=== PATIENT | female | born 1950 | race Caucasian/White ===

== ENCOUNTER → 2016-05-31 | Outpatient (CLI) | payer OTHER ==
[~2016-05-31] MED LIST: ASPI81TA28 PO; ERGO500037 PO; INDSR80 PO; INSDGI SC; IPRA1AER2 INH; LEVO125T72 PO; LISI20TA3 PO; NVLGI/PEN SC; POTA20TA16 PO; SERT-234 PO; SIMV80TA5 PO
[2016-05-31 17:33] LABS: MEAN CELL VOLUME 94.9 fL (80-100); MEAN CORPUSCULAR HGB CONC 32.7 g/dl (32-36); MEAN PLATELET VOLUME 10.8 fL (7.4-10.4); PLATELET COUNT 219 K/uL (130-400); RED BLOOD COUNT 4.74 M/uL (4.2-5.4); WHITE BLOOD COUNT 11.58 K/uL (4.8-10.8)
[2016-05-31 17:44] LABS: BLOOD UREA NITROGEN 25 mg/dl (7-18); BUN/CREATININE RATIO 16.3 (10-20); CALCIUM 9.5 mg/dl (8.5-10.1); CARBON DIOXIDE 22 mmol/L (21-32); CHLORIDE 104 mmol/L (98-107); GLUCOSE 126 mg/dl (70-99); PHOSPHORUS 4.2 mg/dl (2.5-4.9); POTASSIUM 4.1 mmol/L (3.5-5.1); SODIUM 137 mmol/L (136-145)
[2016-05-31 17:45] LABS: URINE PROTIEN/CREAT RATIO 0.2 (0-0.2); URINE TOTAL PROTEIN 30.4 mg/dl (0-11.9)
[2016-05-31 17:49] LABS: URINE APPEARANCE CLOUDY (CLEAR); URINE BILIRUBIN NEG (NEG); URINE COLOR YELLOW; URINE EPITHELIAL CELL AUTO >30 /lpf (0-5); URINE NITRITE NEG (NEG); URINE SPECIFIC GRAVITY 1.015 (1.000-1.030); UROBILINOGEN NEG (NEG)
[2016-05-31 17:50] LABS: MANUAL MICROSCOPIC REQUIRED? NO; REVIEW REQ? NO
== END | disposition home or self-care (01) ==
LOC: C.LABBFT 11:33
PROVIDERS: ATTEND Internal Medicine Nephrology
DX: I12.9 Hypertensive chronic kidney disease with stage 1 through stage 4 chronic kidney disease, or unspecified chronic kidney disease (principal); N18.3 Chronic kidney disease, stage 3 (moderate); R80.9 Proteinuria, unspecified; E55.9 Vitamin D deficiency, unspecified

== ENCOUNTER → 2016-06-08 | Outpatient (CLI) | payer OTHER ==
--- NOTE | 2016-06-08 14:12 | DIAGNOSTIC IMAGING REPORT ---
BILATERAL CAROTID DOPPLER STUDY HISTORY: Renal insufficiency CHRONIC KIDNEY DISEASE; HYPERTENSION; PROTEINURIA; COMPARISON: None. TECHNIQUE: Real-time, grayscale, and color Doppler sonography of the carotid arteries was performed. Imaging reviewed in the transverse and longitudinal planes. All measurements were calculated based on NASCET criteria. FINDINGS: Antegrade flow is seen in the bilateral vertebral arteries. The brachial pressures are hemodynamically similar. Mild plaque formation bilaterally The peak systolic velocity within the right ICA is 108. The right systolic ratio is 1.1. The peak systolic velocity within the left ICA is 169. The left systolic ratio is 1.7. IMPRESSION: 1. Mild/moderate plaque formation bilaterally. 2. 50-60% stenosis left internal carotid artery. Electronically signed by: Nikolai Collins M.D. 06/08/2016 2:10 PM Dictated Date/Time: 06/08/2016 2:09 PM
== END | disposition home or self-care (01) ==
LOC: C.ULTR 13:23
PROVIDERS: ATTEND Internal Medicine Nephrology
DX: E55.9 Vitamin D deficiency, unspecified (principal); I12.9 Hypertensive chronic kidney disease with stage 1 through stage 4 chronic kidney disease, or unspecified chronic kidney disease; N18.3 Chronic kidney disease, stage 3 (moderate); R80.9 Proteinuria, unspecified; I65.22 Occlusion and stenosis of left carotid artery

== ENCOUNTER → 2016-07-19 | Outpatient (CLI) | payer OTHER ==
[2016-07-19 17:56] LABS: ESTIMATED AVERAGE GLUCOSE 186 mg/dl; HA1C FLAG Normal (Normal)
[2016-07-19 18:14] LABS: ALB/GLOB RATIO 1.1 (0.9-2); ALKALINE PHOSPHATASE 146 U/L (45-117); ALT/SGPT 29 U/L (12-78); AST/SGOT 32 U/L (15-37); BLOOD UREA NITROGEN 15 mg/dl (7-18); BUN/CREATININE RATIO 11.5 (10-20); CALCIUM 9.6 mg/dl (8.5-10.1); CARBON DIOXIDE 24 mmol/L (21-32); CHLORIDE 106 mmol/L (98-107); CHOLESTEROL 120 mg/dl (0-200); CHOLESTEROL/HDL RATIO 3.4; GLUCOSE 138 mg/dl (70-99); HDL CHOLESTEROL 35 mg/dl; LDL CHOLESTEROL CALCULATED 35 mg/dl; POTASSIUM 4.1 mmol/L (3.5-5.1); SODIUM 140 mmol/L (136-145); TRIGLYCERIDES 249 mg/dl (0-150); VERY LOW DENSITY LIPOPROT CALC 50 mg/dl
== END | disposition home or self-care (01) ==
LOC: C.LABBFT 12:12
PROVIDERS: ATTEND Internal Medicine
DX: E11.29 Type 2 diabetes mellitus with other diabetic kidney complication (principal); Z11.59 Encounter for screening for other viral diseases

== ENCOUNTER → 2016-07-26 | Day surgery (SDC) | payer OTHER ==
[2016-07-15 12:10] VITALS: Ht 165.1 cm; Wt 83.2 kg
[~2016-07-26] VITALS: Ht 165.1 cm; Wt 83.2 kg
[~2016-07-26] MED LIST changes: +500ML BSS 0.3ML EPI 1:1000PF IRRIG ONE; +ACETAMINOPHEN 325 MG TAB PO PRN; +ALBUT/IPRATROP 3MG/0.5MG NEB 3 ML VIAL INH ONE; +ALBUT/IPRATROP 3MG/0.5MG NEB 3 ML VIAL ONE; +AMVISC PLUS 0.8ML SYRINGE INT OCU ONE; +ATROPINE SULFATE 0.1 MG/ML 5ML SYR IV PRN; +BSS FLUSH ONE; +EpHEDrine SULFATE INJ 50 MG/ML AMP IV PRN; +EpINEphrine INJ 1MG/ML AMP 1 MG/ML AMP ONE; +LACTATED RINGER'S 1000ML 500 ML IV SCH; +LIDOCAINE 3.5% OPH GEL PER APPLICATION CHARGE ONE; +LIDOCAINE HCL 1% MPF 2 ML VIAL ONE; +MIDAZOLAM HCL 1 MG/ML 2ML VIAL ONE; +OCUCOAT 1 ML SOLN IO ONE; +POVIDONE-IODINE OP SOLN 30 ML BTL ONE; +TOBRAMYCIN/DEXAMETHASONE OPH OINT PER APPLN CHARGE ONE
[2016-07-26] MEDS: PROPARACAINE 0.5% OP SOLN PER DROP CHARGE OPR SCH ×2 (07:24→09:30)
[2016-07-26] MEDS: PHENYLEPHRINE HCL 2.5% OP SOLN PER DROP CHARGE OPR SCH ×2 (07:25→09:36)
--- NOTE | 2016-07-26 07:39 | History & Physical Bridge - [place] ---
H&P Re-Evaluation Bridge Note: I have examined the patient, reviewed the History & Physical and in the interval since the performance of the History & Physical I have noted the following changes of clinical significance: No changes noted
[2016-07-26] MEDS: TROPICAMIDE 1% OP SOLN PER DROP CHARGE OPR SCH ×2 (09:31→09:37)
[2016-07-26] MEDS: CYCLOPENTOLATE HCL 1% OP SOLN PER DROP CHARGE OPR SCH ×2 (09:32→09:38)
[2016-07-26] MEDS: KETOROLAC 0.5% OP SOLN PER DROP CHARGE OPR SCH ×2 (09:34→09:39)
[2016-07-26] MEDS: GATIFLOXACIN OP SOLN PER DROP CHARGE OPR SCH ×2 (09:35→09:43)
[2016-07-26 10:49] VITALS: TEMP 36.6
--- NOTE | 2016-07-26 10:49 | Discharge Instructions-SurgCtr ---
Discharge Instructions Date of Service Jul 26, 2016. Visit Reason for Visit: Cataract Right Eye Discharge Discharge Diagnosis / Problem: cataract Discharge Goals Goal(s): Improve function Medications Stopped Medications Name(s): no insulin today Activity Recommendations Activity Limitations: per Instructions/Follow-up section Anesthesia . Post Anesthesia Instructions: If you have had General Anesthesia or IV Sedation: * Do not drive today. * Resume driving when surgeon permits. * Do not make important decisions or sign legal documents today. * Call surgeon for: 1. Temperature elevations greater than 101 degrees F. 2. Uncontrollable pain. 3. Excessive bleeding. 4. Persistent nausea and vomiting. 5. Medication intolerance (nausea, vomiting or rash). * For nausea and vomiting use only clear liquids such as: tea, soda, bouillon until nausea subsides, then gradually increase diet as tolerated. * If you have any concerns or questions, call your surgeon's office. If physician is unavailable and it is an emergency, call 911 or go to the nearest emergency room. . Instructions / Follow-Up Instructions / Follow-Up ACTIVITY RECOMMENDATIONS: * No strenuous lifting, jogging or running for 4 days * No swimming or yard work for 1 week. * Limited bending is permitted, such as putting on shoes. RETURN TO SCHOOL/WORK: No work until seen by physician in office. MEDICATIONS: Resume previous medications unless instructed otherwise by your surgeon. This includes eye drops for glaucoma. Zymaxid/Gatifloxacin (will cap) - one drop every 2 hours until bedtime Nevanac/Ilevro/Prolensa/Ketorolac (wallis cap) - one drop every 4 hours until bedtime Prednisolone (white/pink cap, SHAKE WELL) - one drop every 2 hours until bedtime Starting tomorrow - all 3 drops every 4 hours until seen in the office Optive drops - as needed for discomfort SPECIAL CARE INSTRUCTIONS: * Wear eyeshield when sleeping, for four nights. * You may wear your own glasses or sunglasses while awake. * You may read or watch TV * You may shower and wash your face, but be gentle around the eye and pat dry. * Blurry vision and mild irritation are normal. * Call office if pain is more severe or vision becomes dark at . FOLLOW UP VISIT: Follow-up with Dr Quarles tomorrow. Diet Recommendations Home Diet: resume previous diet Procedures Procedures Performed: Right Cataract Phacoemulsification With Intraocular Lens Implant Pending Studies Studies pending at discharge: no Medical Emergencies . Who to Call and When: Medical Emergencies: If at any time you feel your situation is an emergency, please call 911 immediately. . 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 . "Provider Documentation" section prepared by Raffaele Quarles. .
--- NOTE | 2016-07-26 10:50 | [facility] Operative Report ---
Operative Report Date of Service Jul 26, 2016. Operative Report 1. PREOPERATIVE DIAGNOSIS: Cataract of the right eye. 2. POSTOPERATIVE DIAGNOSIS: Same. 3. PROCEDURE: Phacoemulsification with intraocular lens implantation of the right eye. SURGEON: Dr. Raffaele Quarles. ANESTHESIA: Topical Lidocaine gel, 1% Non- Preserved intracameral Lidocaine, and monitored intravenous sedation. INDICATIONS FOR THE PROCEDURE: The patient is a 65 - year-old female with a history of cataract of the right eye causing significant visual impairment. The details of the proposed procedure were explained to the patient who asked appropriate questions and following discussion of all risks, benefits and alternatives agreed to have the procedure done. 4. OPERATION AND FINDINGS: DESCRIPTION OF PROCEDURE: After informed consent was obtained, the patient was brought to the Operating Room at the [facility]. The patient was placed in a supine position and then the right eye was prepped and draped in the usual sterile fashion for intraocular surgery. A drop of topical Lidocaine gel was placed in the operative eye. A wire lid speculum was then placed in the fornices. A corneal paracentesis was then created temporally. The Non-Preserved Lidocaine was then instilled into the anterior chamber. The anterior chamber was then pressurized with viscoelastic. A 2.0 mm clear corneal incision was then created temporally. A cystotome was inserted into the anterior chamber and used to create a tear in the anterior lens capsule. This capsular tear was then used to create a small flap and the flap was dragged in a counterclockwise direction in order to create a continuous curvilinear capsulorrhexis. Hydrodissection was accomplished with balanced salt solution. Phacoemulsification of the lens nucleus was then performed in a standard [id number] technique. The phaco time was 22 seconds with an average power of 6 %. The remaining cortical material was removed using irrigation aspiration. The capsular bag was then filled with viscoelastic. A B[employer]ch [employer] Lomb MI60L +22.5 diopters lens was then loaded into the injector and injected into the capsular bag. The remaining viscoelastic was removed with the irrigation aspiration handpiece. The wound was hydrated and then checked and found to be watertight. The intraocular pressure was checked and found to be adequate. The wire lid speculum was removed and the patient's face was cleaned and dried. TobraDex ointment was placed in the inferior fornix. The patient was discharged to the Recovery Room having tolerated the procedure well. There were no complications. The patient will be seen tomorrow in the office for follow-up. I attest to the content of the Intraoperative Record and any orders documented therein. Any exceptions are noted below.
--- NOTE | 2016-07-26 11:17 | Anesthesia Progress Nt - [facility] ---
Anesthesia Post Op Note Date & Time Jul 26, 2016 at 11:16 Vital Signs Pain Intensity: 0 Vital Signs Past 12 Hours Date Time Temp Pulse Resp B/P Pulse Ox O2 Delivery O2 Flow Rate FiO2 07/26/16 10:49 36.6 60 16 139/70 94 Room Air 07/26/16 07:22 36.8 60 16 106/60 94 Room Air Notes Mental Status: alert / awake / arousable, participated in evaluation Pt Amnestic to Procedure: Yes Nausea / Vomiting: adequately controlled Pain: adequately controlled Airway Patency, RR, SpO2: stable & adequate BP & HR: stable & adequate Hydration State: stable & adequate Anesthetic Complications: no major complications apparent
[2016-07-26 11:22] VITALS: BP 127/75; PULSE 69; O2SAT 97
== END | disposition home or self-care (01) ==
LOC: X.SURG 06:45
PROVIDERS: ATTEND Ophthalmology
DX: H26.9 Unspecified cataract (principal); E11.29 Type 2 diabetes mellitus with other diabetic kidney complication; E11.65 Type 2 diabetes mellitus with hyperglycemia; N18.3 Chronic kidney disease, stage 3 (moderate); E78.5 Hyperlipidemia, unspecified; F17.200 Nicotine dependence, unspecified, uncomplicated; I12.9 Hypertensive chronic kidney disease with stage 1 through stage 4 chronic kidney disease, or unspecified chronic kidney disease; J44.9 Chronic obstructive pulmonary disease, unspecified; F32.9 Major depressive disorder, single episode, unspecified; E55.9 Vitamin D deficiency, unspecified; Z79.4 Long term (current) use of insulin; Z80.2 Family history of malignant neoplasm of other respiratory and intrathoracic organs; Z82.49 Family history of ischemic heart disease and other diseases of the circulatory system

== ENCOUNTER → 2016-08-30 | Outpatient (CLI) | payer OTHER ==
[~2016-08-30] MED LIST changes: -500ML BSS 0.3ML EPI 1:1000PF IRRIG ONE; -ACETAMINOPHEN 325 MG TAB PO PRN; -ALBUT/IPRATROP 3MG/0.5MG NEB 3 ML VIAL INH ONE; -ALBUT/IPRATROP 3MG/0.5MG NEB 3 ML VIAL ONE; -AMVISC PLUS 0.8ML SYRINGE INT OCU ONE; -ATROPINE SULFATE 0.1 MG/ML 5ML SYR IV PRN; -BSS FLUSH ONE; -EpHEDrine SULFATE INJ 50 MG/ML AMP IV PRN; -EpINEphrine INJ 1MG/ML AMP 1 MG/ML AMP ONE; -LACTATED RINGER'S 1000ML 500 ML IV SCH; -LIDOCAINE 3.5% OPH GEL PER APPLICATION CHARGE ONE; -LIDOCAINE HCL 1% MPF 2 ML VIAL ONE; -MIDAZOLAM HCL 1 MG/ML 2ML VIAL ONE; -OCUCOAT 1 ML SOLN IO ONE; -POVIDONE-IODINE OP SOLN 30 ML BTL ONE; -TOBRAMYCIN/DEXAMETHASONE OPH OINT PER APPLN CHARGE ONE
[2016-08-30 17:50] LABS: HEMATOCRIT 44.7 % (37-47); MEAN CELL VOLUME 95.1 fL (80-100); MEAN CORPUSCULAR HEMOGLOBIN 30.6 pg (25-34); MEAN CORPUSCULAR HGB CONC 32.2 g/dl (32-36); MEAN PLATELET VOLUME 10.7 fL (7.4-10.4); PLATELET COUNT 215 K/uL (130-400); WHITE BLOOD COUNT 9.37 K/uL (4.8-10.8)
[2016-08-30 18:04] LABS: BLOOD UREA NITROGEN 20 mg/dl (7-18); BUN/CREATININE RATIO 14.2 (10-20); CALCIUM 9.5 mg/dl (8.5-10.1); CARBON DIOXIDE 23 mmol/L (21-32); CHLORIDE 109 mmol/L (98-107); GLUCOSE 130 mg/dl (70-99); PHOSPHORUS 3.2 mg/dl (2.5-4.9); POTASSIUM 4.1 mmol/L (3.5-5.1); SODIUM 142 mmol/L (136-145)
== END | disposition home or self-care (01) ==
LOC: C.LABBFT 14:51
PROVIDERS: ATTEND Internal Medicine Nephrology
DX: N18.3 Chronic kidney disease, stage 3 (moderate) (principal); I10 Essential (primary) hypertension; R80.9 Proteinuria, unspecified; E55.9 Vitamin D deficiency, unspecified

== ENCOUNTER → 2016-12-29 | Outpatient (CLI) | payer OTHER ==
[2016-12-29 17:21] LABS: HEMATOCRIT 42.5 % (37-47); MEAN CORPUSCULAR HEMOGLOBIN 30.1 pg (25-34); MEAN CORPUSCULAR HGB CONC 32.7 g/dl (32-36); MEAN PLATELET VOLUME 10.7 fL (7.4-10.4); PLATELET COUNT 175 K/uL (130-400); RED BLOOD COUNT 4.62 M/uL (4.2-5.4); WHITE BLOOD COUNT 9.59 K/uL (4.8-10.8)
[2016-12-29 17:30] LABS: URINE APPEARANCE CLEAR (CLEAR); URINE BILIRUBIN NEG (NEG); URINE COLOR YELLOW; URINE EPITHELIAL CELL AUTO >30 /lpf (0-5); URINE NITRITE NEG (NEG); UROBILINOGEN NEG (NEG)
[2016-12-29 17:31] LABS: MANUAL MICROSCOPIC REQUIRED? NO; REVIEW REQ? NO
[2016-12-29 17:42] LABS: URINE PROTIEN/CREAT RATIO 0.2 (0-0.2); URINE TOTAL PROTEIN 18.7 mg/dl (0-11.9)
[2016-12-29 17:53] LABS: ALT/SGPT 35 U/L (12-78); AST/SGOT 51 U/L (15-37); BLOOD UREA NITROGEN 29 mg/dl (7-18); CALCIUM 9.2 mg/dl (8.5-10.1); CARBON DIOXIDE 21 mmol/L (21-32); CHLORIDE 113 mmol/L (98-107); GLUCOSE 76 mg/dl (70-99); POTASSIUM 4.6 mmol/L (3.5-5.1); SODIUM 142 mmol/L (136-145)
[2016-12-29 17:54] LABS: RATIO 36.7 mcg/mg (0-30.0)
[2016-12-29 17:56] LABS: ALB/GLOB RATIO 1.2 (0.9-2); ALKALINE PHOSPHATASE 142 U/L (45-117); CHOLESTEROL 114 mg/dl (0-200); CHOLESTEROL/HDL RATIO 3.7; HDL CHOLESTEROL 31 mg/dl; LDL CHOLESTEROL CALCULATED 35 mg/dl; TRIGLYCERIDES 241 mg/dl (0-150); VERY LOW DENSITY LIPOPROT CALC 48 mg/dl
[2016-12-30 06:58] LABS: ESTIMATED AVERAGE GLUCOSE 177 mg/dl; HA1C FLAG Normal (Normal)
== END | disposition home or self-care (01) ==
LOC: C.LABBFT 12:00
PROVIDERS: ATTEND Specialist
DX: I12.9 Hypertensive chronic kidney disease with stage 1 through stage 4 chronic kidney disease, or unspecified chronic kidney disease (principal); R60.9 Edema, unspecified; N18.3 Chronic kidney disease, stage 3 (moderate); R80.9 Proteinuria, unspecified; E55.9 Vitamin D deficiency, unspecified; E11.29 Type 2 diabetes mellitus with other diabetic kidney complication

== ENCOUNTER → 2017-01-10 | Outpatient (CLI) | payer OTHER ==
--- NOTE | 2017-01-10 16:31 | DIAGNOSTIC IMAGING REPORT ---
(CHEST) THORAX WITHOUT CLINICAL HISTORY: PULMONARY NODULE COMPARISON STUDY: Chest CT dated 07/11/2010, CT scan of the abdomen pelvis dated 12/10/2015 CT DOSE: 384.06 mGycm TECHNIQUE: CT of the thorax was performed from the thoracic inlet to the lung bases. Images are reviewed in the axial, sagittal, and coronal planes. IV contrast was not administered for this examination. A dose lowering technique was utilized adhering to the principles of ALARA. FINDINGS: Thyroid: Imaged portions of the thyroid gland are normal in appearance. Thoracic aorta: The thoracic aorta is normal in course and caliber, noting standard 3 vessel arch anatomy. Heart: There are mild coronary artery calcifications. There is no pericardial effusion. Lungs and pleural spaces: There are no pleural effusions. There is no focal pulmonary consolidation. There is a solid 4 mm right lower lobe pulmonary nodule as visualized in image #[id number]. This nodule was not visualized on the prior 2015 or 2010 study. There is a pleural-based 3 mm solid right middle lobe pulmonary nodule as visualized in image #[id number]. This nodule is unchanged from July 2010. Mediastinum: There is no mediastinal lymphadenopathy. Larissa: Clear. Axilla: Clear. Upper abdomen: Partially visualized upper abdominal viscera is within normal limits. Skeletal structures: There are no lytic or blastic osseous lesions. IMPRESSION: 1. Stable 3 mm right middle lobe pulmonary nodule 2. New solid 4 mm right lower lobe pulmonary nodule. 3. No evidence of pathologic adenopathy on this noncontrast study. Please refer to below summary of Fleischner criteria recommendations for follow-up of incidental CT nodules (Zari Castañeda, Guidelines for management of small pulmonary nodules detected on CT scans: A statement from the Fleischner Society, Radiology 237: [phone].) SOLID NODULES Solitary nodule size: <6 mm * low risk patients: no follow-up needed * high risk patients: optional CT at 12 months Solitary nodule size: 6-8 mm * low risk patients: follow-up at 6-12 months, then consider further follow-up at 18-24 months * high risk patients: initial follow-up CT at 6-12 months and then at 18-24 months if no change Solitary nodule size: >8 mm * either low or high risk patients - consider follow-up CT at 3 months, and/or CT-PET, and/or biopsy Multiple nodules size: <6 mm * low risk patients: no routine follow-up * high risk patients: optional CT at 12 months Multiple nodules size: 6-8 mm * low risk patients: follow-up at 3-6 months, then consider further follow-up at 18-24 months * high risk patients: follow-up at 3-6 months, then at 18-24 months if no change Multiple nodules size: >8 mm * low risk patients: follow-up at 3-6 months, then consider further follow-up at 18-24 months * high risk patients: follow-up at 3-6 months, then at 18-24 months if no change Note: newly detected indeterminate nodule in persons 35 years of age or older. * low risk patients: minimal or absent history of smoking and/or other known risk factors * high risk patients: history of smoking or of other known risk factors (e.g. first degree relative with lung cancer, or exposure to asbestos, radon, uranium) * if a nodule up to 8 mm is partly solid or is ground glass further follow-up is required after 24 months to exclude possible slow growing adenocarcinoma (CHELA) SUBSOLID NODULES Solitary pure ground-glass nodule * nodule size <6 mm - no CT follow-up required * nodule size >=6 mm - follow-up CT at 6-12 months, then every 2 years until 5 years Solitary part-solid nodule * nodule size <6 mm - no CT follow-up required * nodule size >=6 mm - follow-up CT at 3-6 months. If unchanged, and solid component remains <6 mm, then annual follow-up for 5 years Multiple subsolid nodules * nodule size <6 mm - follow-up CT at 3-6 months, consider further follow-up at 2 and 4 years if stable * nodule size >=6 mm - follow-up CT at 3-6 months, subsequent management based on the most suspicious nodule(s) Electronically signed by: Andre Burkett M.D. 01/10/2017 4:30 PM Dictated Date/Time: 01/10/2017 4:22 PM
== END | disposition home or self-care (01) ==
LOC: C.CTS 15:53
PROVIDERS: ATTEND Internal Medicine
DX: R91.8 Other nonspecific abnormal finding of lung field (principal)

== ENCOUNTER → 2017-07-10 | Outpatient (CLI) | payer OTHER ==
[~2017-07-10] MED LIST changes: +POTA-639 PO; -POTA20TA16 PO
[2017-07-10 16:38] LABS: HEMATOCRIT 39.7 % (37-47); HEMOGLOBIN 12.8 g/dL (12.0-16.0); MEAN CELL VOLUME 94.1 fL (80-100); MEAN CORPUSCULAR HEMOGLOBIN 30.3 pg (25-34); MEAN CORPUSCULAR HGB CONC 32.2 g/dl (32-36); MEAN PLATELET VOLUME 10.4 fL (7.4-10.4); PLATELET COUNT 177 K/uL (130-400); RED CELL DISTRIBUTION WIDTH CV 13.3 % (11.5-14.5); RED CELL DISTRIBUTION WIDTH SD 45.8 fL (36.4-46.3); WHITE BLOOD COUNT 7.82 K/uL (4.8-10.8)
[2017-07-10 17:01] LABS: ALBUMIN 3.7 gm/dl (3.4-5.0); ALKALINE PHOSPHATASE 145 U/L (45-117); ALT/SGPT 20 U/L (12-78); AST/SGOT 26 U/L (15-37); BLOOD UREA NITROGEN 13 mg/dl (7-18); CALCIUM 9.2 mg/dl (8.5-10.1); CARBON DIOXIDE 26 mmol/L (21-32); CHOLESTEROL 106 mg/dl (0-200); CREATININE 1.27 mg/dl (0.60-1.20); GLUCOSE 106 mg/dl (70-99); SODIUM 140 mmol/L (136-145); TOTAL PROTEIN 7.3 gm/dl (6.4-8.2)
[2017-07-10 17:12] LABS: LDL CHOLESTEROL CALCULATED 43 mg/dl
[2017-07-11 06:18] LABS: HEMOGLOBIN A1C 7.2 % (4.5-5.6)
== END | disposition home or self-care (01) ==
LOC: C.LABBFT 12:11
PROVIDERS: ATTEND Internal Medicine Nephrology
DX: I12.9 Hypertensive chronic kidney disease with stage 1 through stage 4 chronic kidney disease, or unspecified chronic kidney disease (principal); R80.9 Proteinuria, unspecified; R60.9 Edema, unspecified; N18.3 Chronic kidney disease, stage 3 (moderate); E55.9 Vitamin D deficiency, unspecified; E11.29 Type 2 diabetes mellitus with other diabetic kidney complication; E05.00 Thyrotoxicosis with diffuse goiter without thyrotoxic crisis or storm

== ENCOUNTER 2021-05-25 08:39 | Inpatient (IN) ==
[2021-05-25] MEDS ORDERED: SODIUM CHLORIDE 0.9% 1000ML 1,000 ML IV SCH (09:00)
--- NOTE | 2021-05-25 09:15 | Emergency Department Note ---
Impression & Plan Acute diverticulitis, Acute confusion, Cough, Abdominal pain, LLQ (left lower quadrant) ED Provider Note INFORMANT: Patient and friend ED PROVIDER(S): Jose R Lorenzo MD CHIEF COMPLAINT: Confusion and cough PLAN: Disposition: Admitted Condition: Good Outpatient prescription management: none Referral: None MEDICAL DECISION MAKING: Patient presented because of confusion. Covid testing negative. Chest x-ray was unremarkable. Blood work did not reveal any significant abnormalities. ECG showed a sinus rhythm. She was tender on examination and a CT scan of the abdomen pelvis as well as head CT was performed. Head CT did not reveal any acute findings however CT scan of the abdomen pelvis reveals acute diverticulitis. I suspect that this is part of the issue with the confusion. As the patient lives alone she will need further management in the hospital for observation and treatment of the diverticulitis. I discussed this with the patient and her friend. They were in agreement. Patient was given IV Zosyn. Consultation was made with internal medicine. Triage Nursing notes reviewed and agree them. Vital Signs: reviewed and remarkable for no significant abnormalities Differential diagnosis: Infection, hypoglycemia, diverticulitis, colitis, UTI, electrolyte abnormalities, overdose, toxicologic, cardiac sources, intracerebral event, neurologic, trauma, as well as other pathologies. Diagnostics interpreted by me: ECG: Twelve-lead ECG reveals a sinus rhythm with first-degree AV block and sinus arrhythmia. 72 bpm. Lateral T wave inversion present. No acute ST elevation. Cardiac Monitoring: Cardiac monitoring ordered by me: The patient was placed on continuous cardiac monitoring and observed. It revealed a normal sinus rhythm at 64 beats per minute without ectopy or evidence of dysrhythmia. Imaging studies: CT scans and chest x-ray as noted above. Acute diverticulitis. I refer you to the EMR for further details. HPI: The patient is a 70 year old female who presents to the Emergency Room with complaints of cough. This started yesterday and is persisting. The patient also notes the following associated symptoms, confusion, left lower quadrant abdominal pain. The patient's neighbor is present and notes that she was talking to people that were not there. She was confused. She seemed well last night at 2030 hrs. The patient has cough medicine yesterday twice for relieving factors. Current pain is rated as 6/10. Patient does have a history of UTI. Neighbor also notes that she had some confusion last fall after taking cold medicine. Pt denies LOC, headache, fevers, chills, diaphoresis, visual changes, neck pain, chest pain, breathing difficulties, nausea, vomiting, back pain, melena, hematochezia, urinary symptoms, numbness, weakness, ly mphadenopathy, rash, or other complaints. ROS: See above HPI for pertinent positives & negatives. A total of 10 systems reviewed and were otherwise negative. PAST MEDICAL HISTORY:See Below , hypertension, diabetes PAST SURGICAL HISTORY:See Below, FAMILY HISTORY:See Below SOCIAL HISTORY:See Below, smoker HOME MEDICATIONS:See Below ALLERGIES:See Below VITALS:See Below PHYSICAL EXAMINATION: GENERAL: Awake, alert, nontoxic-appearing, in no distress HENT: Normocephalic, atraumatic. Oropharynx unremarkable. EYES: Normal conjunctiva. Sclera non-icteric. PERRLA. EOMI. NECK: Inspection normal. Non-tender. Supple. No nuchal rigidity. FROM. No masses. RESPIRATORY: Clear to auscultation. No wheezes. No rales. Normal respiratory effort. CARDIAC: Normal rate. Normal rhythm. No murmurs. No rubs. Extremities warm and well perfused. Pulses equal. No JVD. GI: Soft, non-distended. Left lower quadrant tenderness to palpation. No rebound or guarding. No masses. RECTAL: Deferred. MUSCULOSKELETAL: Atraumatic. Chest examination reveals no tenderness. The back is symmetrical on inspection without obvious abnormality. There is no CVA tenderness to palpation. No joint edema. LOWER EXTREMITIES: Calves are equal size bilaterally and non-tender. No edema. No discoloration. NEURO: Mildly confused sensorium. No sensory or motor deficits noted. Speech normal SKIN: No rash or jaundice noted. Jose R Lorenzo MD Past Med/Surg History Medical History (Updated 05/25/21 @ 17:49 by Jose R Lorenzo MD) Cirrhosis CKD (chronic kidney disease) stage 3, GFR 30-59 ml/min Controlled type 2 diabetes mellitus with stage 3 chronic kidney disease Current smoker Depression Hypercholesteremia Hypertension Hypothyroidism Lung nodule PAD (peripheral artery disease) Surgical History (Updated 05/25/21 @ 14:33 by Ruth Quinones MD) Femoral-popliteal bypass graft occlusion, left Femoral-popliteal bypass graft occlusion, right S/P aortic bifurcation bypass graft Family History Father Tremor Lung cancer Sister Tremor Mother Cancer Brother Cancer Myocardial infarction Daughter Asthma Denies family history of Ovarian cancer Prostate cancer Breast cancer Colorectal cancer Social History Smoking Status: Current every day smoker Tobacco Type: Cigarettes Age Started Using Tobacco: 21; packs per day: 1; Cigarettes Per Day: 10; Second Hand Exposure: No; Hx Alcohol Use: No Hx Substance Use: No Preferred Language: Georgian Communication Ability: Effective Hearing Ability: Normal Information Technology 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 Required: No marital status: Single Current Living Situation: Alone current occupational status: retired Feels Safe at Home: Yes Safety Concerns: Feels Safe At This Time caffeine: Yes Dental Care, Regularly: No Physical Activity Frequency: Does not Exercise Seatbelt Use: always Sunscreen Use: No Assistive Devices: Denture - Upper and Denture - Lower Allergies Allergies Allergy/AdvReac Type Severity Reaction Status Date / Time lorazepam Allergy Unknown HAS NO Verified 05/05/21 14:34 EFFECT Sulfa (Sulfonamide Allergy Unknown HIVES Verified 05/05/21 14:34 Antibiotics) metformin Allergy Unknown Verified 05/05/21 14:34 metronidazole Allergy Unknown Verified 05/05/21 14:34 Home Meds Home Medications Medication Instructions Recorded Confirmed aspirin 81 mg tablet,delayed 81 mg PO DAILY tab 01/23/19 05/25/21 release Previous Rx's Medication Instructions Recorded ergocalciferol (vitamin D2) 1,250 50,000 units PO MONTHLY #12 cap 01/23/19 mcg (50,000 unit) capsule lancets 30 gauge ([employer] Delica #100 ea 11/28/19 Lancets) potassium chloride 20 mEq 20 meq PO DAILY #90 tab 05/12/20 tablet,extended release furosemide 40 mg tablet 40 mg PO DAILY PRN #90 tab 06/10/20 insulin syringe-needle U-100 0.5 #100 ea 07/27/20 mL 31 gauge x 5/16" (BD Insulin Syringe Ultra-Fine) blood sugar diagnostic ([employer] #100 ea 08/11/20 Verio test strips) levothyroxine 150 mcg tablet 150 mcg PO .COMPLEX #90 tab 08/25/20 lisinopril 20 mg tablet 20 mg PO DAILY #90 tab 08/25/20 simvastatin 80 mg tablet 80 mg PO DAILY #90 tab 09/01/20 insulin aspart U-100 100 unit/mL See Rx Instructions SUBCUT 12/04/20 subcutaneous solution (Novolog .COMPLEX #10 ml U-100 Insulin aspart) propranolol 160 mg capsule,24 160 mg PO DAILY #90 cap 01/27/21 hr,extended release sertraline 100 mg tablet 100 mg PO DAILY #90 tab 01/27/21 cyclobenzaprine 10 mg tablet 10 mg PO HS PRN #30 tab 02/09/21 fluticasone fur. 100 mcg-umeclid 1 inh INHALATION DAILY #1 inhaler 03/05/21 62.5 mcg-vilant 25 mcg inhalat.powder (Trelegy Ellipta) insulin glargine 100 unit/mL 40 unit SUBCUT BID #70 ml 05/12/21 subcutaneous solution Results & Data (ED) Vital Signs Vital Signs - 24 hr 05/25/21 08:44 05/25/21 11:25 Temperature 36.7 C Temperature Source Temporal Artery Scan Pulse Rate 82 Pulse Rate [Left] 74 Pulse Rhythm [Left] Regular Pulse Strength [Left] Normal Respiratory Rate 20 17 Respiratory Effort / Characteristics Non-Labored Non-Labored Respiratory Depth Normal Normal Respiratory Pattern Regular Blood Pressure 131/62 Blood Pressure [Right Arm] 131/57 L Blood Pressure Mean 85 Blood Pressure Mean [Right Arm] 81 Blood Pressure Position [Right Arm] Lying Pulse Oximetry 97 98 Oxygen Delivery Method Room Air Room Air Sepsis Recent Fever Within 48 Hours No Sepsis New/Unexplained Change in Mental Status N/A Sepsis Action Taken by Nursing No Action Required Laboratory Data Result diagrams: 05/25/21 09:33 05/25/21 09:33 Lab Results 05/25/21 05/25/21 05/25/21 Range/Units 09:25 09:30 09:33 WBC 9.31 (4.8-10.8) K/uL RBC 4.10 L (4.2-5.4) M/uL Hgb 12.4 (12.0-16.0) g/dL Hct 38.2 (37-47) % MCV 93.2 (80-100) fL MCH 30.2 (25-34) pg MCHC 32.5 (32-36) g/dL RDW Std Deviation 46.9 H (36.4-46.3) fL RDW Coeff of Maximilian 13.8 (11.5-14.5) % Plt Count 118 L (130-400) K/uL MPV 10.3 (7.4-10.4) fL Immature Gran % (Auto) 0.2 % Neut % (Auto) 76.2 % Lymph % (Auto) 15.4 % Pratt % (Auto) 7.3 % Eos % (Auto) 0.5 % Baso % (Auto) 0.4 % Neut # (Auto) 7.09 H (1.4-6.5) K/uL Lymph # (Auto) 1.43 (1.2-3.4) K/uL Pratt # (Auto) 0.68 H (0.11-0.59) K/uL Eos # (Auto) 0.05 (0-0.5) K/uL Baso # (Auto) 0.04 (0-0.2) K/uL Immature Gran # (Auto) 0.02 (0.00-0.02) K/uL Sodium (136-145) mmol/L Potassium (3.5-5.1) mmol/L Chloride (98-107) mmol/L Carbon Dioxide (21-32) mmol/L Anion Gap (3-11) BUN (6-23) mg/dl Creatinine (0.6-1.2) mg/dl Est Cr Clr Drug Dosing ml/min Est GFR ( Amer) ml/min Est GFR (Non-Af Amer) ml/min BUN/Creatinine Ratio (10-20) Glucose (70-99(Fasting)) mg/dl Calcium (8.5-10.1) mg/dl Total Bilirubin (0.2-1.0) mg/dl AST (13-39) U/L ALT (7-52) U/L Alkaline Phosphatase (34-104) U/L Troponin I (0-0.04) ng/ml Total Protein (6.0-8.3) gm/dl Albumin (3.4-5.0) gm/dl Globulin (2.5-4.0) gm/dl Albumin/Globulin Ratio (0.9-2) TSH (0.300-4.500) uIu/ml Free T4 (0.61-1.60) ng/dl Urine Color Yellow Urine Appearance Clear (Clear) Urine pH 5.0 (4.5-7.5) Ur Specific [place] 1.017 (1.000-1.030) Urine Protein 2+ H (Negative) Urine Glucose (UA) 1+ H (Negative) Urine Ketones Negative (Negative) Urine Blood 1+ H (Negative) Urine Nitrite Negative (Negative) Urine Bilirubin Negative (Negative) Urine Urobilinogen Negative (Negative) Ur Leukocyte Esterase Negative (Negative) Urine WBC (Auto) 1-5 (0-5) /hpf Urine RBC (Auto) 0-4 (0-4) /hpf U Hyaline Cast (Auto) 1-5 (0-5) /lpf U Epithel Cells (Auto) >30 H (0-5) /lpf Urine Bacteria (Auto) Negative (Negative) SARS-CoV-2, RNA, NAAT NEGATIVE (NEGATIVE) 05/25/21 05/25/21 Range/Units 09:33 09:33 WBC (4.8-10.8) K/uL RBC (4.2-5.4) M/uL Hgb (12.0-16.0) g/dL Hct (37-47) % MCV (80-100) fL MCH (25-34) pg MCHC (32-36) g/dL RDW Std Deviation (36.4-46.3) fL RDW Coeff of Maximilian (11.5-14.5) % Plt Count (130-400) K/uL MPV (7.4-10.4) fL Immature Gran % (Auto) % Neut % (Auto) % Lymph % (Auto) % Pratt % (Auto) % Eos % (Auto) % Baso % (Auto) % Neut # (Auto) (1.4-6.5) K/uL Lymph # (Auto) (1.2-3.4) K/uL Pratt # (Auto) (0.11-0.59) K/uL Eos # (Auto) (0-0.5) K/uL Baso # (Auto) (0-0.2) K/uL Immature Gran # (Auto) (0.00-0.02) K/uL Sodium 134 L (136-145) mmol/L Potassium 4.7 (3.5-5.1) mmol/L Chloride 106 (98-107) mmol/L Carbon Dioxide 23 (21-32) mmol/L Anion Gap 5 (3-11) BUN 22 (6-23) mg/dl Creatinine 1.44 H (0.6-1.2) mg/dl Est Cr Clr Drug Dosing 38.1 ml/min Est GFR ( Amer) 42.5 ml/min Est GFR (Non-Af Amer) 36.7 ml/min BUN/Creatinine Ratio 15.3 (10-20) Glucose 138 H (70-99(Fasting)) mg/dl Calcium 8.9 (8.5-10.1) mg/dl Total Bilirubin 0.6 (0.2-1.0) mg/dl AST 22 (13-39) U/L ALT 16 (7-52) U/L Alkaline Phosphatase 115 H (34-104) U/L Troponin I < 0.03 (0-0.04) ng/ml Total Protein 6.6 (6.0-8.3) gm/dl Albumin 4.2 (3.4-5.0) gm/dl Globulin 2.4 L (2.5-4.0) gm/dl Albumin/Globulin Ratio 1.8 (0.9-2) TSH 0.198 L (0.300-4.500) uIu/ml Free T4 1.14 (0.61-1.60) ng/dl Urine Color Urine Appearance (Clear) Urine pH (4.5-7.5) Ur Specific [place] (1.000-1.030) Urine Protein (Negative) Urine Glucose (UA) (Negative) Urine Ketones (Negative) Urine Blood (Negative) Urine Nitrite (Negative) Urine Bilirubin (Negative) Urine Urobilinogen (Negative) Ur Leukocyte Esterase (Negative) Urine WBC (Auto) (0-5) /hpf Urine RBC (Auto) (0-4) /hpf U Hyaline Cast (Auto) (0-5) /lpf U Epithel Cells (Auto) (0-5) /lpf Urine Bacteria (Auto) (Negative) SARS-CoV-2, RNA, NAAT (NEGATIVE) Administered Medications Lactated Ringer's (Lr) 1,000 mls @ 80 mls/hr IV .[id number] ALVINA Stop: 06/24/21 13:20 Last Admin: 05/25/21 13:47 Dose: 80 mls/hr Documented by: [id number] Discontinued Medications Sodium Chloride (Nss 1000ml) 1,000 mls @ 125 mls/hr IV .Q8H ALVINA Stop: 05/25/21 16:59 Last Infusion: 05/25/21 17:24 Dose: 0 mls/hr Documented by: [id number] Admin: 05/25/21 09:45 Dose: 125 mls/hr Documented by: [id number] Piperacillin Sod/Tazobactam Sod (Zosyn) 4.5 gm in 120 mls @ 240 mls/hr IV NOW ONE Stop: 05/25/21 12:35 Last Infusion: 05/25/21 13:03 Dose: 0 mls/hr Documented by: [id number] Admin: 05/25/21 12:33 Dose: 240 mls/hr Documented by: [id number] Nicotine (Nicotine 14 Mg/24 Hr Patch) 14 mg TD NOW STA Stop: 05/25/21 13:29 Last Admin: 05/25/21 13:46 Dose: 14 mg Documented by: [id number] Imaging Data Radiologist's Impression: Abdomen/Pelvis CT 05/25/21 08:[address] WITHOUT CONTRAST CT DOSE: 1351.32 mGy.cm HISTORY: Left lower quadrant pain. TECHNIQUE: Multiaxial CT images of the abdomen and pelvis were performed without contrast. A dose lowering technique was utilized adhering to the principles of ALARA. COMPARISON STUDY: Abdomen and pelvis CT 02/26/2021. FINDINGS: Stable 4 mm nodule right middle lobe on image 1. No pneumoperitoneum. No pneumatosis. No suspicious lytic or blastic osseous lesions. Nodular contour to the liver consistent with cirrhosis. No hepatic or splenic masses. The adrenal glands and pancreas unremarkable. A few small gallstones. No gallbladder wall thickening. No renal stones or hydronephrosis. Mild bilateral perinephric edema is likely chronic. No retroperitoneal lymphadenopathy. Postoperative changes consistent with an aortobiiliac stent. The bladder, uterus, bilateral adnexa are unremarkable. No pelvic lymphadenopathy or pelvic free fluid. Suboptimal evaluation for bowel pathology due to the lack of intravenous and oral contrast. However, there is no evidence of bowel obstruction. There is a thickened and inflamed diverticulum within the mid descending colon on image 237 with mild pericolonic fat stranding. This is consistent with an acute diverticulitis. No perforation or abscess identified. Multiple small fat- containing midline ventral hernias are again noted. Normal appendix. Fat stranding at the tom hepatis. There is also mild prominence of the portal vein. This is nonspecific and could be due to the patient's underlying cirrhosis. Partial thrombus of the portal vein could also have a similar appearance but is considered less likely. IMPRESSION: 1. Acute diverticulitis at the mid descending colon. No perforation or abscess. 2. Cholelithiasis. No gallbladder wall thickening. 3. Cirrhotic liver. 4. Mild fat stranding adjacent to the prominent main portal vein which could be due to the patient's cirrhosis. Partial thrombus of the portal vein is considere d less likely but not entirely excluded. Follow-up duplex ultrasound of the portal vein is recommended for further evaluation. 5. Multiple small fat-containing midline ventral hernias. ACT 112: Negative or not required by law. Electronically signed by: Orlin Gonzales M.D. 05/25/2021 10:[address] 05/25/21 08:55 CT OF THE HEAD WITHOUT CONTRAST CLINICAL HISTORY: Altered mental status. COMPARISON STUDY: Head CT February 26, 2021. TECHNIQUE: Helical axial images of the head were obtained without IV contrast. Automated exposure control was utilized for the study. A dose lowering technique was utilized adhering to the principles of ALARA. FINDINGS: No acute intracranial hemorrhage, midline shift or mass effect is present. White matter hypodensity suggests small vessel disease. The ventricular system is unremarkable. The basal cisterns are patent. No extra-axial collections are present. There are no findings to suggest acute dural sinus thrombosis or acute territorial infarct. No significant calvarial abnormalities are present. There is minimal ethmoid sinus mucosal thickening. IMPRESSION: No acute intracranial findings. ACT 112: Negative or not required by law. Electronically signed by: Leonard Saxena M.D. 05/25/2021 9:57 AM Chest X-Ray 05/25/21 08:56 XR chest 1V portable HISTORY: 70 years-old Female weakness acute weakness COMPARISON: Chest radiograph 02/26/2021 TECHNIQUE: Portable AP view of the chest FINDINGS: Cardiac mediastinal and hilar silhouettes are within normal limits. Atherosclerotic plaque of the thoracic aorta. Emphysema with chronic interstitia l coarsening. No pneumothorax, pleural effusion, airspace consolidation or overt pulmonary edema. The bones of the chest appear grossly intact. Healed chronic fracture of the posterior right eighth rib. Bilateral shoulder rotator cuff calcific tendinosis. IMPRESSION: Emphysema without acute process. ACT 112: Negative or not required by law. The above report was generated using voice recognition software. It may contain grammatical, syntax or spelling errors. Electronically signed by: Cornelio Oropeza M.D. 05/25/2021 10:24 AM Portal Vein US 05/25/21 12:45 US duplex portal hepatic veins CLINICAL HISTORY: Abnormal CT. Possible portal vein thrombosis. COMPARISON STUDY: Abdomen and pelvis CT 05/25/2021. FINDINGS: The hepatic and portal veins are patent and demonstrate normal direction of flow. IMPRESSION: No evidence for portal vein thrombosis. ACT 112: Negative or not required by law. Electronically signed by: Orlin Gonzales M.D. 05/25/2021 2:01 PM Discharge Plan Visit Data Chief Complaint: Cough Stated Complaint: COUGH, SIDE PAIN ED Provider: Jose R Lorenzo Discharge Problem: Acute diverticulitis, Acute confusion, Cough, Abdominal pain, LLQ (left lower quadrant) Patient Disposition: Admitted As Inpatient Discharge Instructions Interventions: ED Discharge Assessment Last Done: 05/25/21 16:22
[2021-05-25 09:44] LABS: Basophils # (auto) 0.04 K/uL (0-0.2); Basophils % (auto) 0.4 %; Eosinophils # (auto) 0.05 K/uL (0-0.5); Eosinophils % (auto) 0.5 %; Hematocrit (blood only) 38.2 % (37-47); Hemoglobin 12.4 g/dL (12.0-16.0); Immature Granulocytes # (auto) 0.02 K/uL (0.00-0.02); Immature Granulocytes % (auto) 0.2 %; Lymphocytes # (auto) 1.43 K/uL (1.2-3.4); Lymphocytes % (auto) 15.4 %; Mean Corpuscular Hemoglobin 30.2 pg (25-34); Mean Corpuscular Hgb Conc 32.5 g/dL (32-36); Mean Corpuscular Volume 93.2 fL (80-100); Mean Platelet Volume 10.3 fL (7.4-10.4); Monocytes # (auto) 0.68 K/uL (0.11-0.59); Monocytes % (auto) 7.3 %; Neutrophils # (auto) 7.09 K/uL (1.4-6.5); Neutrophils % (auto) 76.2 %; Platelet Count 118 K/uL (130-400); RDW Coefficient of Variation 13.8 % (11.5-14.5); RDW Standard Deviation 46.9 fL (36.4-46.3); White Blood Count 9.31 K/uL (4.8-10.8)
[2021-05-25 09:50] LABS: Appearance Urine Clear (Clear); Bacteria Urine Automated Negative (Negative); Bilirubin Urine Negative (Negative); Blood Urine 1+ (Negative); Color Urine Yellow; Epithelial Cell Urine Auto >30 /lpf (0-5); Glucose Urine UA 1+ (Negative); Ketones Urine Negative (Negative); Leukocyte Esterase Urine Negative (Negative); Nitrite Urine Negative (Negative); Protein Urine 2+ (Negative); RBC Urine Automated 0-4 /hpf (0-4); Specific Gravity Urine 1.017 (1.000-1.030); Urobilinogen Urine Negative (Negative)
--- NOTE | 2021-05-25 09:59 | CT Scan Report ---
CT OF THE HEAD WITHOUT CONTRAST CLINICAL HISTORY: Altered mental status. COMPARISON STUDY: Head CT February 26, 2021. TECHNIQUE: Helical axial images of the head were obtained without IV contrast. Automated exposure con trol was utilized for the study. A dose lowering technique was utilized adhering to the principles o f ALARA. FINDINGS: No acute intracranial hemorrhage, midline shift or mass effect is present. White matter hyp odensity suggests small vessel disease. The ventricular system is unremarkable. The basal cisterns ar e patent. No extra-axial collections are present. There are no findings to suggest acute dural sinus thrombosis or acute territorial infarct. No significant calvarial abnormalities are present. There is minimal ethmoid sinus mucosal thickening. IMPRESSION: No acute intracranial findings. ACT 112: Negative or not required by law. Electronically signed by: Leonard Saxena M.D. 05/25/2021 9:57 AM
--- NOTE | 2021-05-25 10:02 | CT Scan Report ---
ABDOMEN AND PELVIS CT WITHOUT CONTRAST CT DOSE: 1351.32 mGy.cm HISTORY: Left lower quadrant pain. TECHNIQUE: Multiaxial CT images of the abdomen and pelvis were performed without contrast. A dose lo wering technique was utilized adhering to the principles of ALARA. COMPARISON STUDY: Abdomen and pelvis CT 02/26/2021. FINDINGS: Stable 4 mm nodule right middle lobe on image 1. No pneumoperitoneum. No pneumatosis. No vazquez spicious lytic or blastic osseous lesions. Nodular contour to the liver consistent with cirrhosis. No hepatic or splenic masses. The adrenal glands and pancreas unremarkable. A few small gallstones. No gallbladder wall thickening. No renal stones or hydronephrosis. Mild bilateral perinephric edema is l ikely chronic. No retroperitoneal lymphadenopathy. Postoperative changes consistent with an aortobiil iac stent. The bladder, uterus, bilateral adnexa are unremarkable. No pelvic lymphadenopathy or pelvi c free fluid. Suboptimal evaluation for bowel pathology due to the lack of intravenous and oral contr ast. However, there is no evidence of bowel obstruction. There is a thickened and inflamed diverticul um within the mid descending colon on image 237 with mild pericolonic fat stranding. This is consiste nt with an acute diverticulitis. No perforation or abscess identified. Multiple small fat-containing midline ventral hernias are again noted. Normal appendix. Fat stranding at the tom hepatis. There i s also mild prominence of the portal vein. This is nonspecific and could be due to the patient's unde rlying cirrhosis. Partial thrombus of the portal vein could also have a similar appearance but is con sidered less likely. IMPRESSION: 1. Acute diverticulitis at the mid descending colon. No perforation or abscess. 2. Cholelithiasis. No gallbladder wall thickening. 3. Cirrhotic liver. 4. Mild fat stranding adjacent to the prominent main portal vein which could be due to the patient's cirrhosis. Partial thrombus of the portal vein is considered less likely but not entirely excluded. F ollow-up duplex ultrasound of the portal vein is recommended for further evaluation. 5. Multiple small fat-containing midline ventral hernias. ACT 112: Negative or not required by law. Electronically signed by: Orlin Gonzales M.D. 05/25/2021 10:00 AM
[2021-05-25 10:10] LABS: Troponin I < 0.03 ng/ml (0-0.04)
[2021-05-25 10:11] LABS: Alanine Aminotransferase 16 U/L (7-52); Albumin Globulin Ratio 1.8 (0.9-2); Albumin Level 4.2 gm/dl (3.4-5.0); Alkaline Phosphatase 115 U/L (34-104); Anion Gap 5 (3-11); Aspartate Aminotransferase 22 U/L (13-39); BUN Creatinine Ratio 15.3 (10-20); Bilirubin,Total 0.6 mg/dl (0.2-1.0); Blood Urea Nitrogen 22 mg/dl (6-23); Calcium 8.9 mg/dl (8.5-10.1); Carbon Dioxide 23 mmol/L (21-32); Chloride 106 mmol/L (98-107); Creatinine Clr Calc Pharmacy 38.1 ml/min; Est GFR (African American) 42.5 ml/min; Est GFR (Non-African American) 36.7 ml/min; Globulin 2.4 gm/dl (2.5-4.0); Glucose 138 mg/dl (70-99(Fasting)); Potassium 4.7 mmol/L (3.5-5.1); Sodium 134 mmol/L (136-145); Total Protein 6.6 gm/dl (6.0-8.3)
[2021-05-25 10:24] LABS: Thyroid Stimulating Hormone 0.198 uIu/ml (0.300-4.500)
--- NOTE | 2021-05-25 10:26 | XRay Report ---
XR chest 1V portable HISTORY: 70 years-old Female weakness acute weakness COMPARISON: Chest radiograph 02/26/2021 TECHNIQUE: Portable AP view of the chest FINDINGS: Cardiac mediastinal and hilar silhouettes are within normal limits. Atherosclerotic plaque of the tho racic aorta. Emphysema with chronic interstitial coarsening. No pneumothorax, pleural effusion, airsp anuel consolidation or overt pulmonary edema. The bones of the chest appear grossly intact. Healed cloud software engineer jesus alberto fracture of the posterior right eighth rib. Bilateral shoulder rotator cuff calcific tendinosis. IMPRESSION: Emphysema without acute process. ACT 112: Negative or not required by law. The above report was generated using voice recognition software. It may contain grammatical, syntax o r spelling errors. Electronically signed by: Cornelio Oropeza M.D. 05/25/2021 10:24 AM
[2021-05-25] MEDS ORDERED: PIPERACILLIN/TAZOBACTAM 4.5 GM/120 ML BAG IV ONE (12:06)
[2021-05-25] MEDS ORDERED: PIPERACILL/TAZOBAC CONSULT ACTIVE PRN ×2 (12:06→16:49)
[2021-05-25 12:07] LABS: T4 Free Thyroxine 1.14 ng/dl (0.61-1.60)
--- NOTE | 2021-05-25 12:36 | History & Physical Report ---
Date of Service May 25, 2021 Assessment & Plan (1) Acute diverticulitis: Plan: Presents with chills, left lower quadrant abdominal pain, found to have acute diverticulitis of the mid descending colon on CT abdomen/pelvis, no evidence of abscess or perforation No leukocytosis or fevers here, no evidence of sepsis Has never had a colonoscopy, but has had recent work-up for mild iron deficiency anemia-was supposed to be having upcoming EGD -Admit to medical/surgical floor -Keep n.p.o. for bowel rest except small sips with meds -Start maintenance IV fluids with LR at 80 mL's per hour while n.p.o. -Hold home as needed Lasix and potassium -Continue IV Zosyn -Follow CBC, CMP, magnesium, phosphorus and replace electrolytes as needed while n.p.o. -Tylenol as needed for pain (2 g max)-avoid opioids with history of cirrhosis and encephalopathy -Will need a colonoscopy in 6 to 8 weeks (2) Acute encephalopathy: Plan: Likely secondary to the use of cold medication with COLORER HIDES AND SKINS depressing medication in the setting of cirrhosis Mild Ammonia level checked and normal Avoidance of hepatically metabolized medications and COLORER HIDES AND SKINS depressants (3) Cough: Plan: In the last 2 days along with cold symptoms as above With a history of underlying emphysema Start doxycycline 100 mg twice daily No need for steroids Covid-19 is negative, but will check flu a and B (4) Cirrhosis: Plan: Noted on CT abdomen/pelvis both this admission and on CT from February 2021 She was not aware of this finding No history of heavy alcohol use and no family history of cirrhosis With longstanding diabetes and is overweight, could be fatty liver Alkaline phosphatase mildly elevated, LFTs otherwise normal, coags not checked, and platelets mildly low in the 90s Ammonia level here is normal Recommend follow-up coags, CBC and LFTs in the morning Checking duplex of portal vein now for thrombosis Follow up with GI as an outpatient -Limit Tylenol to no more than 2 g/day, avoid meds that should be limited with hepatic impairment (5) Hypercholesteremia: Plan: Continue simvastatin (6) Thrombocytopenia: Plan: As above, likely related to cirrhosis Follow CBC (7) Hyponatremia: Plan: Mild at 134 Could be related to hypovolemia secondary to recent illness Continue IV fluid hydration Follow BMP (8) Hypothyroidism: Plan: TSH runs mildly low, free T4 normal Continue home levothyroxine dose for now Follow as an outpatient (9) Hypertension: Plan: Blood pressure stable Continue home lisinopril, propranolol, aspirin (10) Controlled type 2 diabetes mellitus with insulin therapy: Plan: Cut home Lantus dose in half to 20 units twice daily Continue NovoLog supplemental every 6 hours while n.p.o. Check hemoglobin A1c in the morning (11) CKD (chronic kidney disease) stage 3, GFR 30-59 ml/min: Plan: CKD stage III, creatinine at baseline at 1.5 -Avoid nephrotoxins -renally dose meds when appropriate -follow BMP (12) Current smoker: Plan: Encourage smoking cessation She is requesting to go outside and smoke cigarettes-offered nicotine patch Continue home maintenance inhaler (13) PAD (peripheral artery disease): Plan: With a history of aortobiiliac grafting in the year 1999 at [facility] No issues since that time Palpable pedal pulses Continue aspirin and statin Plan: DVT prophylaxis-Lovenox Disposition-admit to medical/surgical floor DNR/DNI as per discussion with patient Her children would be her decision makers, however her one son Chaparro is currently in the hospital at [facility] for the last month and is not available to talk. Her neighbor and best friend Galina was at the bedside at the time of admission and is also available as a point of contact History of Present Illness Chief Complaint: Abdominal pain, confusion Primary Care Provider: Randi Neri PA-C This patient is a 70-year-old female with a history of DM 2, CKD stage III, PAD, current smoker, emphysema, hypothyroidism, HTN, hyperlipidemia, and liver cirrhosis who presents to the ER with left lower quadrant abdominal pain, cold symptoms, and increased confusion as witnessed by her neighbor. The neighbor reports that the patient has been taking cold medicine since yesterday and has gotten confused when taking it in the past. An ER visit from 02/2021 also notes confusion and erratic behavior after taking cold medicine. She has been having runny nose, ear pain, and sore throat since yesterday and had significant chills along with a headache last night but no documented fever. She has a chronic cough productive of sputum and has not been making more sputum or change in consistency of the sputum in the last 2 days, but cough has been more frequent. She also started having left lower quadrant fairly significant abdominal pain in the middle of the night last night. Last bowel movement was yesterday and was normal, nonbloody. In the ER, she was noted to be tender to palpation in the left lower quadrant and had a CT the abdomen/pelvis which showed acute diverticulitis of the mid descending colon. It also showed possible portal vein thrombosis and cirrhosis of the liver. Her urinalysis was negative for infection, and did not have an elevated WBC count, but platelets were mildly low. LFTs were normal except for mildly elevated alkaline phosphatase. Her Covid-[address] test was [address] Head CT was negative and a chest x-ray showed emphysema but without acute process. In the ER, she was given a dose of IV Zosyn, as well as 1 L of normal saline. She will be admitted for treatment of acute diverticulitis and acute encephalopathy possibly related to infection and hepatic encephalopathy. Needs further work-up also of suspected portal vein thrombosis. Allergies Allergy/AdvReac Type Severity Reaction Status Date / Time lorazepam Allergy Unknown HAS NO Verified 05/05/21 14:34 EFFECT Sulfa (Sulfonamide Allergy Unknown HIVES Verified 05/05/21 14:34 Antibiotics) metformin Allergy Unknown Verified 05/05/21 14:34 metronidazole Allergy Unknown Verified 05/05/21 14:34 Home Medications Medication Instructions Recorded Confirmed Type aspirin 81 mg tablet,delayed 81 mg PO DAILY tab 01/23/19 05/25/21 History release ergocalciferol (vitamin D2) 1,250 50,000 units PO MONTHLY #12 cap 01/23/19 05/25/21 Rx mcg (50,000 unit) capsule lancets 30 gauge (OneTouch Delica #100 ea 11/28/19 05/05/21 Rx Lancets) potassium chloride 20 mEq 20 meq PO DAILY #90 tab 05/12/20 05/25/21 Rx tablet,extended release furosemide 40 mg tablet 40 mg PO DAILY PRN #90 tab 06/10/20 05/25/21 Rx insulin syringe-needle U-100 0.5 #100 ea 07/27/20 05/05/21 Rx mL 31 gauge x 5/16" (BD Insulin Syringe Ultra-Fine) blood sugar diagnostic (OneTouch #100 ea 08/11/20 05/05/21 Rx Verio test strips) levothyroxine 150 mcg tablet 150 mcg PO .COMPLEX #90 tab 08/25/20 05/25/21 Rx lisinopril 20 mg tablet 20 mg PO DAILY #90 tab 08/25/20 05/25/21 Rx simvastatin 80 mg tablet 80 mg PO DAILY #90 tab 09/01/20 05/25/21 Rx insulin aspart U-100 100 unit/mL See Rx Instructions SUBCUT 12/04/20 05/25/21 Rx subcutaneous solution (Novolog .COMPLEX #10 ml U-100 Insulin aspart) propranolol 160 mg capsule,24 160 mg PO DAILY #90 cap 01/27/21 05/25/21 Rx hr,extended release sertraline 100 mg tablet 100 mg PO DAILY #90 tab 01/27/21 05/25/21 Rx cyclobenzaprine 10 mg tablet 10 mg PO HS PRN #30 tab 02/09/21 05/25/21 Rx fluticasone fur. 100 mcg-umeclid 1 inh INHALATION DAILY #1 inhaler 03/05/21 05/25/21 Rx 62.5 mcg-vilant 25 mcg inhalat.powder (Trelegy Ellipta) insulin glargine 100 unit/mL 40 unit SUBCUT BID #70 ml 05/12/21 05/25/21 Rx subcutaneous solution Past Med/Surg History Medical History (Updated 05/25/21 @ 12:47 by Ruth Quinones MD) Cirrhosis CKD (chronic kidney disease) stage 3, GFR 30-59 ml/min Controlled type 2 diabetes mellitus with stage 3 chronic kidney disease Current smoker Depression Hypercholesteremia Hypertension Hypothyroidism Lung nodule PAD (peripheral artery disease) Surgical History (Updated 05/25/21 @ 14:33 by Ruth Quinones MD) Femoral-popliteal bypass graft occlusion, left Femoral-popliteal bypass graft occlusion, right S/P aortic bifurcation bypass graft Family History Father Tremor Lung cancer Sister Tremor Mother Cancer Brother Cancer Myocardial infarction Daughter Asthma Denies family history of Ovarian cancer Prostate cancer Breast cancer Colorectal cancer Social History Smoking Status: Current every day smoker Tobacco Type: Cigarettes Age Started Using Tobacco: 21; packs per day: 1; Cigarettes Per Day: 10; Second Hand Exposure: No; Hx Alcohol Use: No Hx Substance Use: No Preferred Language: Romanian Communication Ability: Effective Hearing Ability: Normal marital status: Single Current Living Situation: Alone current occupational status: retired Feels Safe at Home: Yes caffeine: Yes Dental Care, Regularly: No Physical Activity Frequency: Does not Exercise Seatbelt Use: always Sunscreen Use: No Assistive Devices: Denture - Upper and Denture - Lower Review of Systems Review of Systems: All systems reviewed & are unremarkable except as noted in HPI & below Physical Exam Constitutional: WD/WN, vitals as above Eyes: PERRL, conjunctivae normal, anicteric sclerae ENMT: external ear and nose normal, oropharynx normal Neck: trachea midline, no thyromegaly Respiratory: normal respiratory effort, lungs clear to auscultation Cardiovascular: RRR, no murmur, no edema Chest (Breasts): Chest: normal inspection of chest Gastrointestinal (Abdomen): Inspection/Auscultation: + abdomen abnormal to inspection (Midline laparotomy scar) and abdomen not distended Percussion/Palpation: + abdomen tender (LLQ without guarding or rebound tenderness), abdomen soft and + hernia (Reducible ventral incisional hernias) Musculoskeletal: Extremities: extremities normal to inspection (Except incisional scars groin bilaterally); no cyanosis and no clubbing Skin: no rashes, warm and dry Neurologic: moves all extremities and awake; no focal motor deficits Psychiatric: A+Ox3, euthymic affect Lymphatic: no lymphedema Results & Data Results & Data ([facility]) Vital Signs (Past 12 Hours) Vital Signs Temp Pulse Pulse Resp BP BP Pulse Ox 05/25/21 11:25 74 17 131/57 L 98 05/25/21 08:44 36.7 C 82 20 131/62 97 Laboratory Results 05/25/21 05/25/21 05/25/21 Range/Units 09:33 09:33 09:33 WBC 9.31 (4.8-10.8) K/uL RBC 4.10 L (4.2-5.4) M/uL Hgb 12.4 (12.0-16.0) g/dL Hct 38.2 (37-47) % MCV 93.2 (80-100) fL MCH 30.2 (25-34) pg MCHC 32.5 (32-36) g/dL RDW Std Deviation 46.9 H (36.4-46.3) fL RDW Coeff of Maximilian 13.8 (11.5-14.5) % Plt Count 118 L (130-400) K/uL MPV 10.3 (7.4-10.4) fL Immature Gran % (Auto) 0.2 % Neut % (Auto) 76.2 % Lymph % (Auto) 15.4 % Eaton % (Auto) 7.3 % Eos % (Auto) 0.5 % Baso % (Auto) 0.4 % Neut # (Auto) 7.09 H (1.4-6.5) K/uL Lymph # (Auto) 1.43 (1.2-3.4) K/uL Eaton # (Auto) 0.68 H (0.11-0.59) K/uL Eos # (Auto) 0.05 (0-0.5) K/uL Baso # (Auto) 0.04 (0-0.2) K/uL Immature Gran # (Auto) 0.02 (0.00-0.02) K/uL Sodium 134 L (136-145) mmol/L Potassium 4.7 (3.5-5.1) mmol/L Chloride 106 (98-107) mmol/L Carbon Dioxide 23 (21-32) mmol/L Anion Gap 5 (3-11) BUN 22 (6-23) mg/dl Creatinine 1.44 H (0.6-1.2) mg/dl Est Cr Clr Drug Dosing 38.1 ml/min Est GFR ( Amer) 42.5 ml/min Est GFR (Non-Af Amer) 36.7 ml/min BUN/Creatinine Ratio 15.3 (10-20) Glucose 138 H (70-99(Fasting)) mg/dl Calcium 8.9 (8.5-10.1) mg/dl Total Bilirubin 0.6 (0.2-1.0) mg/dl AST 22 (13-39) U/L ALT 16 (7-52) U/L Alkaline Phosphatase 115 H (34-104) U/L Troponin I < 0.03 (0-0.04) ng/ml Total Protein 6.6 (6.0-8.3) gm/dl Albumin 4.2 (3.4-5.0) gm/dl Globulin 2.4 L (2.5-4.0) gm/dl Albumin/Globulin Ratio 1.8 (0.9-2) TSH 0.198 L (0.300-4.500) uIu/ml Free T4 1.14 (0.61-1.60) ng/dl Urine Color Urine Appearance (Clear) Urine pH (4.5-7.5) Ur Specific Broseley (1.000-1.030) Urine Protein (Negative) Urine Glucose (UA) (Negative) Urine Ketones (Negative) Urine Blood (Negative) Urine Nitrite (Negative) Urine Bilirubin (Negative) Urine Urobilinogen (Negative) Ur Leukocyte Esterase (Negative) Urine WBC (Auto) (0-5) /hpf Urine RBC (Auto) (0-4) /hpf U Hyaline Cast (Auto) (0-5) /lpf U Epithel Cells (Auto) (0-5) /lpf Urine Bacteria (Auto) (Negative) SARS-CoV-2, RNA, NAAT (NEGATIVE) 05/25/21 05/25/21 Range/Units 09:30 09:25 WBC (4.8-10.8) K/uL RBC (4.2-5.4) M/uL Hgb (12.0-16.0) g/dL Hct (37-47) % MCV (80-100) fL MCH (25-34) pg MCHC (32-36) g/dL RDW Std Deviation (36.4-46.3) fL RDW Coeff of Maximilian (11.5-14.5) % Plt Count (130-400) K/uL MPV (7.4-10.4) fL Immature Gran % (Auto) % Neut % (Auto) % Lymph % (Auto) % Eaton % (Auto) % Eos % (Auto) % Baso % (Auto) % Neut # (Auto) (1.4-6.5) K/uL Lymph # (Auto) (1.2-3.4) K/uL Eaton # (Auto) (0.11-0.59) K/uL Eos # (Auto) (0-0.5) K/uL Baso # (Auto) (0-0.2) K/uL Immature Gran # (Auto) (0.00-0.02) K/uL Sodium (136-145) mmol/L Potassium (3.5-5.1) mmol/L Chloride (98-107) mmol/L Carbon Dioxide (21-32) mmol/L Anion Gap (3-11) BUN (6-23) mg/dl Creatinine (0.6-1.2) mg/dl Est Cr Clr Drug Dosing ml/min Est GFR ( Amer) ml/min Est GFR (Non-Af Amer) ml/min BUN/Creatinine Ratio (10-20) Glucose (70-99(Fasting)) mg/dl Calcium (8.5-10.1) mg/dl Total Bilirubin (0.2-1.0) mg/dl AST (13-39) U/L ALT (7-52) U/L Alkaline Phosphatase (34-104) U/L Troponin I (0-0.04) ng/ml Total Protein (6.0-8.3) gm/dl Albumin (3.4-5.0) gm/dl Globulin (2.5-4.0) gm/dl Albumin/Globulin Ratio (0.9-2) TSH (0.300-4.500) uIu/ml Free T4 (0.61-1.60) ng/dl Urine Color Yellow Urine Appearance Clear (Clear) Urine pH 5.0 (4.5-7.5) Ur Specific Broseley 1.017 (1.000-1.030) Urine Protein 2+ H (Negative) Urine Glucose (UA) 1+ H (Negative) Urine Ketones Negative (Negative) Urine Blood 1+ H (Negative) Urine Nitrite Negative (Negative) Urine Bilirubin Negative (Negative) Urine Urobilinogen Negative (Negative) Ur Leukocyte Esterase Negative (Negative) Urine WBC (Auto) 1-5 (0-5) /hpf Urine RBC (Auto) 0-4 (0-4) /hpf U Hyaline Cast (Auto) 1-5 (0-5) /lpf U Epithel Cells (Auto) >30 H (0-5) /lpf Urine Bacteria (Auto) Negative (Negative) SARS-CoV-2, RNA, NAAT NEGATIVE (NEGATIVE) Diagnostic Findings Abdomen/Pelvis CT 05/25/21 08:[address] WITHOUT CONTRAST CT DOSE: 1351.32 mGy.cm HISTORY: Left lower quadrant pain. TECHNIQUE: Multiaxial CT images of the abdomen and pelvis were performed without contrast. A dose lowering technique was utilized adhering to the principles of ALARA. COMPARISON STUDY: Abdomen and pelvis CT 02/26/2021. FINDINGS: Stable 4 mm nodule right middle lobe on image 1. No pneumoperitoneum. No pneumatosis. No suspicious lytic or blastic osseous lesions. Nodular contour to the liver consistent with cirrhosis. No hepatic or splenic masses. The adrenal glands and pancreas unremarkable. A few small gallstones. No gallbladder wall thickening. No renal stones or hydronephrosis. Mild bilateral perinephric edema is likely chronic. No retroperitoneal lymphadenopathy. Postoperative changes consistent with an aortobiiliac stent. The bladder, uterus, bilateral adnexa are unremarkable. No pelvic lymphadenopathy or pelvic free fluid. Suboptimal evaluation for bowel pathology due to the lack of intravenous and oral contrast. However, there is no evidence of bowel obstruction. There is a thickened and inflamed diverticulum within the mid descending colon on image 237 with mild pericolonic fat stranding. This is consistent with an acute diverticulitis. No perforation or abscess identified. Multiple small fat- containing midline ventral hernias are again noted. Normal appendix. Fat stranding at the tom hepatis. There is also mild prominence of the portal vein. This is nonspecific and could be due to the patient's underlying cirrhosis. Partial thrombus of the portal vein could also have a similar appearance but is considered less likely. IMPRESSION: 1. Acute diverticulitis at the mid descending colon. No perforation or abscess. 2. Cholelithiasis. No gallbladder wall thickening. 3. Cirrhotic liver. 4. Mild fat stranding adjacent to the prominent main portal vein which could be due to the patient's cirrhosis. Partial thrombus of the portal vein is considered less likely but not entirely excluded. Follow-up duplex ultrasound of the portal vein is recommended for further evaluation. 5. Multiple small fat-containing midline ventral hernias. ACT 112: Negative or not required by law. Electronically signed by: Orlin Gonzales M.D. 05/25/2021 10:[address] 05/25/21 08:55 CT OF THE HEAD WITHOUT CONTRAST CLINICAL HISTORY: Altered mental status. COMPARISON STUDY: Head CT February 26, 2021. TECHNIQUE: Helical axial images of the head were obtained without IV contrast. Automated exposure control was utilized for the study. A dose lowering technique was utilized adhering to the principles of ALARA. FINDINGS: No acute intracranial hemorrhage, midline shift or mass effect is present. White matter hypodensity suggests small vessel disease. The ventricular system is unremarkable. The basal cisterns are patent. No extra-axial collections are present. There are no findings to suggest acute dural sinus thrombosis or acute territorial infarct. No significant calvarial abnormalities are present. There is minimal ethmoid sinus mucosal thickening. IMPRESSION: No acute intracranial findings. ACT 112: Negative or not required by law. Electronically signed by: Leonard Saxena M.D. 05/25/2021 9:57 AM Chest X-Ray 05/25/21 08:56 XR chest 1V portable HISTORY: 70 years-old Female weakness acute weakness COMPARISON: Chest radiograph 02/26/2021 TECHNIQUE: Portable AP view of the chest FINDINGS: Cardiac mediastinal and hilar silhouettes are within normal limits. Atherosclerotic plaque of the thoracic aorta. Emphysema with chronic interstitial coarsening. No pneumothorax, pleural effusion, airspace consolidation or overt pulmonary edema. The bones of the chest appear grossly intact. Healed chronic fracture of the posterior right eighth rib. Bilateral shoulder rotator cuff calcific tendinosis. IMPRESSION: Emphysema without acute process. ACT 112: Negative or not required by law. The above report was generated using voice recognition software. It may contain grammatical, syntax or spelling errors. Electronically signed by: Cornelio Oropeza M.D. 05/25/2021 10:24 AM ECG Additional Comments: ECG on 05/25/2021 at 942 with sinus rhythm with sinus arrhythmia and first-degree AV block, rate 72, T wave abnormality in lateral leads, not changed from previous Code Status & VTE Plan VTE Prophylaxis Plan VTE Prophylaxis will be ordered: Yes PG Care Time/CCT Total # of Minutes Spent Total Time Spent with Patient: Total time spent is greater than 50% in coordination of care (as documented) at patient's floor/unit and/or counseling patient: Coding Level of Care Code 37440 Initial Inpt Care Lvl 3 Diagnoses Cough R05.9 Hypercholesteremia E78.00 Hypothyroidism E03.9 Hypertension I10 Controlled type 2 diabetes mellitus with insulin therapy E11.9; Z79.4 CKD (chronic kidney disease) stage 3, GFR 30-59 ml/min N18.30 Current smoker F17.200 Cirrhosis K74.60 Acute diverticulitis K57.92 PAD (peripheral artery disease) I73.9 Acute encephalopathy G93.40 Thrombocytopenia D69.6 Hyponatremia E87.1
--- NOTE | 2021-05-25 12:58 | Electrocardiogram Report ---
Test Reason : Blood Pressure : / mmHG Vent. Rate : 072 BPM Atrial Rate : 072 BPM P-R Int : 210 ms QRS Dur : 082 ms QT Int : 378 ms P-R-T Axes : 060 015 097 degrees QTc Int : 413 ms Sinus rhythm with sinus arrhythmia with 1st degree A-V block T wave abnormality, consider lateral ischemia Abnormal ECG When compared with ECG of 26-FEB-2021 20:36, No significant change was found Confirmed by Cristiano Haney ([id number]) on 05/25/2021 12:57:54 PM Referred By: REFERRED SELF Confirmed By:Dustin Haney
[2021-05-25] MEDS ORDERED: LACTATED RINGER'S 1,000 ML IV SCH (13:21)
[2021-05-25] MEDS ORDERED: NICOTINE 14 MG/24 HR PATCH TD STA (13:28)
--- NOTE | 2021-05-25 14:02 | Ultrasound Report ---
US duplex portal hepatic veins CLINICAL HISTORY: Abnormal CT. Possible portal vein thrombosis. COMPARISON STUDY: Abdomen and pelvis CT 05/25/2021. FINDINGS: The hepatic and portal veins are patent and demonstrate normal direction of flow. IMPRESSION: No evidence for portal vein thrombosis. ACT 112: Negative or not required by law. Electronically signed by: Orlin Gonzales M.D. 05/25/2021 2:01 PM
[2021-05-25 14:16] LABS: Influenza A virus by PCR Negative (Negative); Influenza B virus by PCR Negative (Negative)
[2021-05-25] MEDS ORDERED: GLUCOSE 40% GEL 15 GM TUBE PO PRN (16:49)
[2021-05-25] MEDS ORDERED: ONDANSETRON INJ 2 MG/ML 2 ML VIAL IV PRN (16:49)
[2021-05-25] MEDS ORDERED: ACETAMINOPHEN 325 MG TAB PO PRN (16:49)
[2021-05-25] MEDS ORDERED: DEXTROSE 50% 50 ML SYRINGE IV PRN (16:49)
[2021-05-25] MEDS ORDERED: CARBOHYDRATES FOR HYPOGLYCEMIA PO PRN (16:49)
[2021-05-25] MEDS ORDERED: GLUCAGON FOR INJ 1 MG VIAL SQ PRN (16:49)
[2021-05-25] MEDS ORDERED: GLUCOSE 10 TABS/TUBE PO PRN (16:49)
--- NOTE | 2021-05-25 16:53 | XCELERA ---
[id number]
[2021-05-25] MEDS ORDERED: INSULIN ASPART PER UNIT SC SCH (17:00)
[2021-05-25] MEDS ORDERED: Nursing to Pharmacy Communication SCH (18:00)
[2021-05-25] MEDS: ENOXAPARIN INJ 40 MG/0.4 ML SYR SQ SCH (18:02)
[2021-05-25] MEDS: SERTRALINE HCL 100 MG TABLET PO SCH (18:03)
[2021-05-25] MEDS: lisinopril 20 MG TAB PO SCH (18:03)
[2021-05-25] MEDS: PROPRANOLOL HCL LA 80 MG CAPCR PO SCH (18:04)
[2021-05-25] MEDS: INSULIN ASPART PER UNIT SC SCH (18:05)
[2021-05-25] MEDS: FLUTICASONE FUROATE 100MCG 14 PUFFS/INHALER INH SCH (18:16)
[2021-05-25] MEDS: ASPIRIN 81 MG ECTAB PO SCH (18:17)
[2021-05-25] MEDS: DOXYCYCLINE HYCLATE 100 MG in DEXTROSE 5% 100 ML IV SCH (18:17)
[2021-05-25] MEDS: PIPERACILLIN/TAZOBACTAM 3.375 GM in DEXTROSE 5% 100 ML IV SCH (20:11)
[2021-05-25] MEDS: INSULIN GLARGINE SOLOSTAR 100 UNITS/ML 3 ML PEN SQ SCH (22:22)
[2021-05-25] MEDS: D5W AND LACTATED RINGERS 1,000 ML IV SCH (22:41)
[2021-05-26] MEDS: INSULIN ASPART PER UNIT SC SCH ×5 (00:03→21:19)
[2021-05-26] MEDS: PIPERACILLIN/TAZOBACTAM 3.375 GM in DEXTROSE 5% 100 ML IV SCH ×3 (02:45→17:21)
[2021-05-26] MEDS: LEVOTHYROXINE SODIUM 150 MCG TABLET PO SCH (05:47)
[2021-05-26] MEDS: DOXYCYCLINE HYCLATE 100 MG in DEXTROSE 5% 100 ML IV SCH (05:47)
[2021-05-26] MEDS: FLUTICASONE FUROATE 100MCG 14 PUFFS/INHALER INH SCH (07:45)
[2021-05-26] MEDS: UMECLIDINIUM/VILANTEROL 62.5/25MCG 7 PUFFS/INHALER INH SCH (07:45)
[2021-05-26] MEDS: SERTRALINE HCL 100 MG TABLET PO SCH (07:47)
[2021-05-26] MEDS: SIMVASTATIN 80 MG TAB PO SCH (07:47)
[2021-05-26] MEDS: lisinopril 20 MG TAB PO SCH (07:48)
[2021-05-26] MEDS: ASPIRIN 81 MG ECTAB PO SCH (07:48)
[2021-05-26] MEDS: PROPRANOLOL HCL LA 80 MG CAPCR PO SCH (07:48)
[2021-05-26 08:29] LABS: Basophils # (auto) 0.02 K/uL (0-0.2); Basophils % (auto) 0.4 %; Eosinophils # (auto) 0.08 K/uL (0-0.5); Eosinophils % (auto) 1.5 %; Hematocrit (blood only) 35.8 % (37-47); Hemoglobin 11.3 g/dL (12.0-16.0); Immature Granulocytes # (auto) 0.01 K/uL (0.00-0.02); Immature Granulocytes % (auto) 0.2 %; Lymphocytes # (auto) 1.47 K/uL (1.2-3.4); Lymphocytes % (auto) 28.1 %; Mean Corpuscular Hemoglobin 29.4 pg (25-34); Mean Corpuscular Hgb Conc 31.6 g/dL (32-36); Monocytes # (auto) 0.45 K/uL (0.11-0.59); Monocytes % (auto) 8.6 %; Neutrophils % (auto) 61.2 %; Platelet Count 116 K/uL (130-400); RDW Coefficient of Variation 14.3 % (11.5-14.5); RDW Standard Deviation 48.5 fL (36.4-46.3); Red Blood Count 3.85 M/uL (4.2-5.4); White Blood Count 5.23 K/uL (4.8-10.8)
[2021-05-26 08:42] LABS: INR 1.1 (0.9-1.1); Prothrombin Time 10.7 Seconds (9.0-12.0)
[2021-05-26 08:51] LABS: Albumin Globulin Ratio 1.6 (0.9-2); Albumin Level 3.7 gm/dl (3.4-5.0); BUN Creatinine Ratio 10.9 (10-20); Bilirubin,Total 0.5 mg/dl (0.2-1.0); Calcium 8.6 mg/dl (8.5-10.1); Creatinine Clr Calc Pharmacy 39.8 ml/min; Est GFR (African American) 44.8 ml/min; Est GFR (Non-African American) 38.6 ml/min; Globulin 2.3 gm/dl (2.5-4.0); Magnesium 1.8 mg/dl (1.7-2.4); Potassium 3.8 mmol/L (3.5-5.1)
[2021-05-26] MEDS ORDERED: NICOTINE 14 MG/24 HR PATCH TD SCH ×2 (09:00→15:15)
[2021-05-26 09:08] LABS: Ferritin 147.1 ng/ml (8-388)
[2021-05-26] MEDS: INSULIN GLARGINE SOLOSTAR 100 UNITS/ML 3 ML PEN SQ SCH ×2 (09:10→21:14)
[2021-05-26 09:13] LABS: Folate (Folic Acid) 10.56 ng/ml (>5.38)
[2021-05-26 09:21] LABS: Estimated Average Glucose 209 mg/dl; Hemoglobin A1C 8.9 % (4.5-5.6)
[2021-05-26] MEDS: D5W AND LACTATED RINGERS 1,000 ML IV SCH (09:57)
[2021-05-26] MEDS ORDERED: Nursing to Pharmacy Communication SCH (11:45)
--- NOTE | 2021-05-26 15:02 | Hospitalist Progress Note ---
Date of Service May 26, 2021 Assessment & Plan (1) Acute diverticulitis: Plan: Presents with chills, left lower quadrant abdominal pain, found to have acute diverticulitis of the mid descending colon on CT abdomen/pelvis, no evidence of abscess or perforation No leukocytosis or fevers here, no evidence of sepsis Has never had a colonoscopy, but has had recent work-up for mild iron deficiency anemia-was supposed to be having upcoming EGD -Has been NPO since admission -Provided maintenance IVFfluids -Held home Lasix and potassium -Continued IV Zosyn initiated in the ER (?allergy to flagyl) -Tylenol as needed for pain (2 g max)-avoid opioids with history of cirrhosis and encephalopathy -Will need a colonoscopy in 6 to 8 weeks -At this point, responding favorably, will initiate clear liquids and monitor (2) Acute encephalopathy: Plan: -Likely secondary to the use of cold medication with PRO[employer]PER[employer] depressing medication in the setting of cirrhosis--RESOVLED -Ammonia level checked and normal -Avoidance of hepatically metabolized medications and PRO[employer]OR 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 depressants (3) Cough: Plan: -In the last 2 days along with cold symptoms as above -With a history of underlying emphysema -Started doxycycline 100 mg twice daily -No need for steroids -Covid-19, Flu A/B all negative -No need for antibiotics at this time, suspect viral URI, no wheezing on exam, do not suspect AECOPD -D/C Doxycycline (4) Cirrhosis: Plan: -Noted on CT abdomen/pelvis both this admission and on CT from February 2021, she was not aware of this finding -No history of heavy alcohol use and no family history of cirrhosis -With longstanding diabetes and is overweight, could be fatty liver -Alkaline phosphatase mildly elevated, LFTs otherwise normal, coags not checked, and platelets mildly low in the 110s -Ammonia level here is normal -LFTs and coags WNL -Duplex of portal vein for thrombosis--no evidence of thrombus -Follow up with GI as an outpatient -Limit Tylenol to no more than 2 g/day, avoid meds that should be limited with hepatic impairment (5) Hypercholesteremia: Plan: -Continue simvastatin -LFTs WNL (6) Thrombocytopenia: Plan: -As above, likely related to cirrhosis (mild) -Follow CBC (7) Hyponatremia: Plan: -Mild at 134, now normalized today to 140 w/ fluids (8) Hypothyroidism: Plan: -TSH runs mildly low, free T4 normal -Continue home levothyroxine dose for now -Follow as an outpatient (9) Hypertension: Plan: -Blood pressure stable -Continue home lisinopril, propranolol, aspirin (10) Controlled type 2 diabetes mellitus with insulin therapy: Plan: -Cut home Lantus dose in half to 20 units twice daily -Change Novolog SSI AC and HS now that diet has been ordered (clear liquids) -Hemoglobin A1c=8.9% which is a change from Feb 2021 when it was 7.0% -Will need tighter glycemic control--f/u with pcp as outpatient (11) CKD (chronic kidney disease) stage 3, GFR 30-59 ml/min: Plan: CKD stage III, creatinine at baseline at 1.5 -Avoid nephrotoxins -renally dose meds when appropriate -She is at her baseline renal fxn (12) Current smoker: Plan: -Encourage smoking cessation -She is requesting to go outside and smoke cigarettes-offered nicotine patch -Continue home maintenance inhaler (13) PAD (peripheral artery disease): Plan: -With a history of aortobiiliac grafting in the year 1999 at [place] -No issues since that time -Palpable pedal pulses -Continue aspirin and statin Plan: Interventions as outlined above Advance diet to clear liquids Follow-up labs in the morning Anticipate transition to Augmentin tomorrow and discharge Admission and Anticipated Discharge Date Admission Date: May 25, 2021 Supervising Physician Co-Signing Physician Notes chart reviewed, case d/w Karon Crooks PAC. as above Subjective Patient seen on daily rounds this morning. She is resting comfortably in bed, voices no complaints at this time. She denies abdominal pain, nausea, vomiting, fever, chills, headache or symptoms. She does admit to having diarrhea, but denies hematochezia or melena. Review of Systems Review of Systems: CONSTITUTIONAL: Denies weight loss/gain, fever and chills, fatigue, malaise, generalized weakness. HEENT: Denies changes in vision and hearing. RESPIRATORY: Denies SOB, cough, wheezing. CV: Denies palpitations, CP, lower extremity edema, orthopnea, PND. GI: +diarrhea. Denies abdominal pain, nausea, vomiting. : Denies dysuria and urinary frequency, urgency, hesitancy. MUSCULOSKELETAL: Denies myalgia and joint pain. SKIN: Denies rash and pruritus. NEUROLOGICAL: Denies headache, syncope, focal weakness, numbness, tingling. PSYCHIATRIC: Denies recent changes in mood. Denies anxiety and depression. Physical Exam Physical Exam: GENERAL: 70 yo well-developed, well-nourished WF. NAD. LUNGS: Clear to auscultation bilaterally. No accessory muscle use. No W/R/R. CARDIOVASCULAR: Regular rate and rhythm. No M/G/R. No JVD. ABDOMEN: Soft, non-distended. Mild TTP in LLQ. BS normal x 4 quad. EXTREMITIES: No edema. Non-tender. Peripheral pulses +2/4. NEUROLOGIC: A&O x3. PSYCHIATRIC: Cooperative. Appropriate mood and affect. SKIN: Warm, dry, intact. No rashes or lesions. Results & Data Results & Data ([facility]) Vital Signs (Past 12 Hours) Vital Signs Temp Pulse Resp BP Pulse Ox 05/26/21 11:10 36.7 C 58 L 14 135/70 94 05/26/21 08:01 36.7 C 58 L 20 130/55 L 94 Laboratory Results 05/26/21 07:54 05/26/21 07:54 PG Care Time/CCT Total # of Minutes Spent Total Time Spent with Patient: Total time spent is greater than 50% in coordination of care (as documented) at patient's floor/unit and/or counseling patient: Coding Level of Care Code 64049 Subseq Hosp Care Lvl 2 Diagnoses Acute diverticulitis K57.92 Acute encephalopathy G93.40 Cough R05.9 Cirrhosis K74.60 Hypercholesteremia E78.00 Thrombocytopenia D69.6 Hyponatremia E87.1 Hypothyroidism E03.9 Hypertension I10 Controlled type 2 diabetes mellitus with insulin therapy E11.9; Z79.4 CKD (chronic kidney disease) stage 3, GFR 30-59 ml/min N18.30 Current smoker F17.200 PAD (peripheral artery disease) I73.9
[2021-05-26] MEDS: ENOXAPARIN INJ 40 MG/0.4 ML SYR SQ SCH (17:17)
[2021-05-27] MEDS: PIPERACILLIN/TAZOBACTAM 3.375 GM in DEXTROSE 5% 100 ML IV SCH ×2 (01:31→12:06)
[2021-05-27] MEDS: LEVOTHYROXINE SODIUM 150 MCG TABLET PO SCH (06:03)
[2021-05-27 08:29] LABS: Basophils # (auto) 0.02 K/uL (0-0.2); Basophils % (auto) 0.4 %; Eosinophils # (auto) 0.05 K/uL (0-0.5); Hematocrit (blood only) 35.1 % (37-47); Hemoglobin 11.4 g/dL (12.0-16.0); Immature Granulocytes # (auto) 0.01 K/uL (0.00-0.02); Immature Granulocytes % (auto) 0.2 %; Lymphocytes # (auto) 1.12 K/uL (1.2-3.4); Lymphocytes % (auto) 22.3 %; Mean Corpuscular Hgb Conc 32.5 g/dL (32-36); Mean Corpuscular Volume 92.4 fL (80-100); Mean Platelet Volume 9.7 fL (7.4-10.4); Monocytes # (auto) 0.39 K/uL (0.11-0.59); Monocytes % (auto) 7.8 %; Neutrophils # (auto) 3.43 K/uL (1.4-6.5); Neutrophils % (auto) 68.3 %; Platelet Count 108 K/uL (130-400); RDW Coefficient of Variation 13.9 % (11.5-14.5); RDW Standard Deviation 47.4 fL (36.4-46.3); White Blood Count 5.02 K/uL (4.8-10.8)
[2021-05-27 08:51] LABS: BUN Creatinine Ratio 7.4 (10-20); Creatinine Clr Calc Pharmacy 40.6 ml/min; Est GFR (Non-African American) 39.7 ml/min
[2021-05-27] MEDS ORDERED: INSULIN GLARGINE SOLOSTAR 100 UNITS/ML 3 ML PEN SQ SCH (09:00)
[2021-05-27] MEDS: INSULIN ASPART PER UNIT SC SCH ×2 (09:12→12:52)
[2021-05-27] MEDS: ASPIRIN 81 MG ECTAB PO SCH (09:13)
[2021-05-27] MEDS: FLUTICASONE FUROATE 100MCG 14 PUFFS/INHALER INH SCH (09:13)
[2021-05-27] MEDS: lisinopril 20 MG TAB PO SCH (09:14)
[2021-05-27] MEDS: PROPRANOLOL HCL LA 80 MG CAPCR PO SCH (09:14)
[2021-05-27] MEDS: UMECLIDINIUM/VILANTEROL 62.5/25MCG 7 PUFFS/INHALER INH SCH (09:15)
[2021-05-27] MEDS: SERTRALINE HCL 100 MG TABLET PO SCH (09:15)
[2021-05-27] MEDS: SIMVASTATIN 80 MG TAB PO SCH (09:15)
[2021-05-27] MEDS ORDERED: NICOTINE 21 MG/24 HR TDSY TD SCH (11:00)
--- NOTE | 2021-05-27 11:32 | Discharge Summary ---
Date of Service May 27, 2021 Admission HPI Per Admitting Provider This patient is a 70-year-old female with a history of DM 2, CKD stage III, PAD, current smoker, emphysema, hypothyroidism, HTN, hyperlipidemia, and liver cirrhosis who presents to the ER with left lower quadrant abdominal pain, cold symptoms, and increased confusion as witnessed by her neighbor. The neighbor reports that the patient has been taking cold medicine since yesterday and has gotten confused when taking it in the past. An ER visit from 02/2021 also notes confusion and erratic behavior after taking cold medicine. She has been having runny nose, ear pain, and sore throat since yesterday and had significant chills along with a headache last night but no documented fever. She has a chronic cough productive of sputum and has not been making more sputum or change in consistency of the sputum in the last 2 days, but cough has been more frequent. She also started having left lower quadrant fairly significant abdominal pain in the middle of the night last night. Last bowel movement was yesterday and was normal, nonbloody. In the ER, she was noted to be tender to palpation in the left lower quadrant and had a CT the abdomen/pelvis which showed acute diverticulitis of the mid descending colon. It also showed possible portal vein thrombosis and cirrhosis of the liver. Her urinalysis was negative for infection, and did not have an elevated WBC count, but platelets were mildly low. LFTs were normal except for mildly elevated alkaline phosphatase. Her Covid-[address] test [address] Head CT was negative and a chest x-ray showed emphysema but without acute process. In the ER, she was given a dose of IV Zosyn, as well as 1 L of normal saline. She will be admitted for treatment of acute diverticulitis and acute encephalopathy possibly related to infection and hepatic encephalopathy. Needs further work-up also of suspected portal vein thrombosis. Principal Diagnosis Acute uncomplicated diverticulitis Discharge Exam GENERAL: 70 yo well-developed, well-nourished WF. NAD. LUNGS: Clear to auscultation bilaterally. No accessory muscle use. No W/R/R. CARDIOVASCULAR: Regular rate and rhythm. ABDOMEN: Soft, nondistended, nontender. BS normal x 4 quad. EXTREMITIES: No edema. Non-tender. Peripheral pulses +2/4. NEUROLOGIC: A&O x3. PSYCHIATRIC: Cooperative. Appropriate mood and affect. SKIN: Warm, dry, intact. No rashes or lesions. Discharge Data Allergies Allergy/AdvReac Type Severity Reaction Status Date / Time lorazepam Allergy Unknown HAS NO Verified 05/05/21 14:34 EFFECT Sulfa (Sulfonamide Allergy Unknown HIVES Verified 05/05/21 14:34 Antibiotics) metformin Allergy Unknown Verified 05/05/21 14:34 metronidazole Allergy Unknown Verified 05/05/21 14:34 Consultations 05/25/21 12:27 ED Decision to Admit Stat Ordered Studies 05/27/21 07:50 05/27/21 07:50 Abdomen/Pelvis CT 05/25/21 08:[address] WITHOUT CONTRAST CT DOSE: 1351.32 mGy.cm HISTORY: Left lower quadrant pain. TECHNIQUE: Multiaxial CT images of the abdomen and pelvis were performed without contrast. A dose lowering technique was utilized adhering to the principles of ALARA. COMPARISON STUDY: Abdomen and pelvis CT 02/26/2021. FINDINGS: Stable 4 mm nodule right middle lobe on image 1. No pneumoperitoneum. No pneumatosis. No suspicious lytic or blastic osseous lesions. Nodular contour to the liver consistent with cirrhosis. No hepatic or splenic masses. The a drenal glands and pancreas unremarkable. A few small gallstones. No gallbladder wall thickening. No renal stones or hydronephrosis. Mild bilateral perinephric edema is likely chronic. No retroperitoneal lymphadenopathy. Postoperative changes consistent with an aortobiiliac stent. The bladder, uterus, bilateral adnexa are unremarkable. No pelvic lymphadenopathy or pelvic free fluid. Suboptimal evaluation for bowel pathology due to the lack of intravenous and oral contrast. However, there is no evidence of bowel obstruction. There is a thickened and inflamed diverticulum within the mid descending colon on image 237 with mild pericolonic fat stranding. This is consistent with an acute diverticu litis. No perforation or abscess identified. Multiple small fat-containing midline ventral hernias are again noted. Normal appendix. Fat stranding at the tom hepatis. There is also mild prominence of the portal vein. This is nonspecific and could be due to the patient's underlying cirrhosis. Partial thrombus of the portal vein could also have a similar appearance but is considered less likely. IMPRESSION: 1. Acute diverticulitis at the mid descending colon. No perforation or abscess. 2. Cholelithiasis. No gallbladder wall thickening. 3. Cirrhotic liver. 4. Mild fat stranding adjacent to the prominent main portal vein which could be due to the patient's cirrhosis. Partial thrombus of the portal vein is considered less likely but not entirely excluded. Follow-up duplex ultrasound of the portal vein is recommended for further evaluation. 5. Multiple small fat-containing midline ventral hernias. ACT 112: Negative or not required by law. Electronically signed by: Orlin Gonzales M.D. 05/25/2021 10:[address] 05/25/21 08:55 CT OF THE HEAD WITHOUT CONTRAST CLINICAL HISTORY: Altered mental status. COMPARISON STUDY: Head CT February 26, 2021. TECHNIQUE: Helical axial images of the head were obtained without IV contrast. Automated exposure control was utilized for the study. A dose lowering technique was utilized adhering to the principles of ALARA. FINDINGS: No acute intracranial hemorrhage, midline shift or mass effect is present. White matter hypodensity suggests small vessel disease. The ventricular system is unremarkable. The basal cisterns are patent. No extra-axial collections are present. There are no findings to suggest acute dural sinus thrombosis or acute territorial infarct. No significant calvarial abnormalities are present. There is minimal ethmoid sinus mucosal thickening. IMPRESSION: No acute intracranial findings. ACT 112: Negative or not required by law. Electronically signed by: Leonard Saxena M.D. 05/25/2021 9:57 AM Chest X-Ray 05/25/21 08:56 XR chest 1V portable HISTORY: 70 years-old Female weakness acute weakness COMPARISON: Chest radiograph 02/26/2021 TECHNIQUE: Portable AP view of the chest FINDINGS: Cardiac mediastinal and hilar silhouettes are within normal limits. Atherosclerotic plaque of the thoracic aorta. Emphysema with chronic interstitial coarsening. No pneumothorax, pleural effusion, airspace consolidation or overt pulmonary edema. The bones of the chest appear grossly intact. Healed chronic fracture of the posterior right eighth rib. Bilateral shoulder rotator cuff calcific tendinosis. IMPRESSION: Emphysema without acute process. ACT 112: Negative or not required by law. The above report was generated using voice recognition software. It may contain grammatical, syntax or spelling errors. Electronically signed by: Cornelio Oropeza M.D. 05/25/2021 10:24 AM Portal Vein US 05/25/21 12:45 US duplex portal hepatic veins CLINICAL HISTORY: Abnormal CT. Possible portal vein thrombosis. COMPARISON STUDY: Abdomen and pelvis CT 05/25/2021. FINDINGS: The hepatic and portal veins are patent and demonstrate normal direction of flow. IMPRESSION: No evidence for portal vein thrombosis. ACT 112: Negative or not required by law. Electronically signed by: Orlin Gonzales M.D. 05/25/2021 2:01 PM Hospital Course (1) Acute diverticulitis: Presents with chills, left lower quadrant abdominal pain, found to have acute diverticulitis of the mid descending colon on CT abdomen/pelvis, no evidence of abscess or perforation No leukocytosis or fevers here, no evidence of sepsis Has never had a colonoscopy, but has had recent work-up for mild iron deficiency anemia-was supposed to be having upcoming EGD -NPO on admission, diet advanced to clear liquids on 05/26 which she has been tolerating, advanced to low fiber diabetic for lunch today -Provided maintenance IVF which has been capped since tolerating oral intake -Held home Lasix and potassium -Continued IV Zosyn initiated in the ER (?allergy to flagyl)--transition to Augmentin to complete 10-day course of abx -Tylenol as needed for pain (2 g max)-avoid opioids with history of cirrhosis and encephalopathy -Recommend colonoscopy in 6 to 8 weeks, referral to GI to be made by nurse navigator (2) Acute encephalopathy: -Likely secondary to the use of cold medication with 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 depressing medication in the setting of cirrhosis--RESOVLED -Ammonia level checked and normal -Avoidance of hepatically metabolized medications and 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 depressants (3) Cough: -In the last 2 days along with cold symptoms as above -With a history of underlying emphysema -Started doxycycline 100 mg twice daily -No need for steroids -Covid-19, Flu A/B all negative -No need for antibiotics at this time, suspect viral URI, no wheezing on exam, do not suspect AECOPD -D/C Doxycycline (4) Cirrhosis: -Noted on CT abdomen/pelvis both this admission and on CT from February 2021, she was not aware of this finding -No history of heavy alcohol use and no family history of cirrhosis -With longstanding diabetes and is overweight, could be fatty liver -Alkaline phosphatase mildly elevated on admission but normalized on 05/26 -Ammonia level here is normal -Coags checked and WNL, platelets slightly low in the 100-110s -Duplex of portal vein for thrombosis--no evidence of thrombus -Follow up with GI as an outpatient--referral to be made by transitional care nurse -Limit Tylenol to no more than 2 g/day, avoid meds that should be limited with hepatic impairment (5) Hypercholesteremia: -Continue simvastatin -LFTs WNL (6) Thrombocytopenia: -As above, likely related to cirrhosis (mild) (7) Hyponatremia: -Mild on admission but normalized/resolved with IVF (8) Hypothyroidism: -TSH runs mildly low, free T4 normal -Continue home levothyroxine dose -Follow as an outpatient (9) Hypertension: -Blood pressure stable -Continue home lisinopril, propranolol, aspirin (10) Controlled type 2 diabetes mellitus with insulin therapy: -Cut home Lantus dose in half to 20 units twice daily due to NPO status -Novolog SSI AC and HS given during her stay -Hemoglobin A1c=8.9% which is a change from Feb 2021 when it was 7.0% -Will need tighter glycemic control--f/u with pcp as outpatient, resume prescribed dose of Lantus (40u BID) (11) CKD (chronic kidney disease) stage 3, GFR 30-59 ml/min: CKD stage III, creatinine at baseline at 1.5 -Avoid nephrotoxins -Renal fxn at her baseline (12) Current smoker: -Encourage smoking cessation -She is requesting to go outside and smoke cigarettes-offered nicotine patch -Continue home maintenance inhaler (13) PAD (peripheral artery disease): -With a history of aortobiiliac grafting in the year 1999 at [place] -No issues since that time -Palpable pedal pulses -Continue aspirin and statin At this time patient is medically and hemodynamically stable for discharge to home today. We will plan to transition her to oral Augmentin for an additional 8 days in order to complete a 10-day course of antibiotic therapy. Recommend low fiber diet in addition to her diabetic diet. Follow-up with GI as outlined above, recommend colonoscopy in 6 to 8 weeks. Updated patient's son Devan. Case discussed with Dr. Arroyo who has also seen and evaluated the patient prior to discharge. Total Time Total Time Spent Total Time Spent (In Minutes): >30 minutes Discharge Plan Discharge Items Patient Disposition: Home - Self-Care Reason For Visit: ACUTE DIVERTICULITIS, ACUTE ENCEPHALOPATHY Discharge Diagnosis: Diverticulitis Activity: Resume your previous activity Non-emergency contact: Primary Care Provider Call non-emergency contact if: you have any medication questions Follow-up/Referrals: Randi Neri PA-C [Primary Care Provider] - Desean Valente MD [Physician] - (Cirrhosis, new diagnosis, also needs colonoscopy in 6-8 weeks) Diet: Carb Consistent or DM2 and Low Fiber Addtl Attending Provider Instructions: You have been hospitalized with acute diverticulitis. This condition occurs when small pockets located in the colon become blocked and infected. In order to treat this, you were kept without anything to eat or drink in order to rest the bowel, given IV fluids, pain medicines as well as antibiotics. This condi tion is treatable but will require follow-up to ensure resolution. It is also recommended that you undergo a colonoscopy 6 to 8 weeks from today. You will be transition to oral antibiotics, Augmentin, and will need to complete the course as prescribed. For your diet, it is recommended that you follow a low fiber diet in addition to your diabetic diet for the next several days. You can slowly start increasing the fiber in your diet after that. You will need to notify your family doctor immediately or return to the ED in the event of increasing abdominal pain, fever, or blood in your stool. You were also diagnosed with cirrhosis during this visit. It appears that this was present on the last CAT scan that was done in February 2021. You can follow- up with gastroenterology for this. Keep Tylenol use limited to no more than 2 g/day. I strongly encourage tobacco cessation. Advised follow-up with your family doctor within 1 week of discharge. Referrals will be made to gastroenterology in order to follow-up regarding the cirrhosis diagnosis as well as to schedule colonoscopy. Pending Studies at Discharge: No Stand-Alone Forms: My [facility], Smoking Cessation Medications and DC Order Prescriptions: New amoxicillin-pot clavulanate 875-125 mg tablet 1 tab PO BID Qty: 17 RF: 0 Continued potassium chloride 20 mEq tablet extended release 20 meq PO DAILY Qty: 90 RF: 3 furosemide 40 mg tablet 40 mg PO DAILY PRN (Reason: edema) Qty: 90 RF: 3 (DME) insulin syringe-needle U-100 [BD Insulin Syringe Ultra-Fine] 0.5 mL 31 gauge x 5/16" syringe See Rx Instructions .ROUTE .MEDSUPPLY Qty: 100 RF: 0 (DME) OneTouch Verio test strips Strip See Rx Instructions .ROUTE .MEDSUPPLY Qty: 100 RF: 6 lisinopril 20 mg tablet 20 mg PO DAILY Qty: 90 RF: 3 levothyroxine 150 mcg tablet 150 mcg PO .COMPLEX Qty: 90 RF: 3 simvastatin 80 mg tablet 80 mg PO DAILY Qty: 90 RF: 3 insulin aspart U-100 [Novolog U-100 Insulin aspart] 100 unit/mL solution See Rx Instructions subcut .COMPLEX Qty: 10 RF: 11 sertraline 100 mg tablet 100 mg PO DAILY Qty: 90 RF: 3 propranolol 160 mg capsule,extended release 24 hr 160 mg PO DAILY Qty: 90 RF: 3 insulin glargine 100 unit/mL solution 40 unit subcut BID Qty: 70 RF: 3 aspirin 81 mg tablet,delayed release (DR/EC) 81 mg PO DAILY RF: 0 ergocalciferol (vitamin D2) 50,000 unit capsule 50,000 units PO MONTHLY Qty: 12 RF: 3 (DME) lancets [OneTouch Delica Lancets] 30 gauge misc See Rx Instructions .ROUTE .MEDSUPPLY Qty: 100 RF: 11 cyclobenzaprine 10 mg tablet 10 mg PO HS PRN (Reason: muscle spasm) Qty: 30 RF: 2 Trelegy Ellipta 100-62.5-25 mcg blister with device 1 inh inhalation DAILY Qty: 1 RF: 5 Discharge Orders: Discharge Order (Routine); Ordered 05/27/21 Ordered By: Mckenzie Layne/Other Patient Handouts: Low-Fiber Diet, Understanding Cirrhosis Admission Data Admit Date/Time: 05/25/21 13:21 Attending Provider: Derrell Arroyo Admit Provider: Ruth Quinones Primary Care Provider: Randi Neri Other Providers: Ruth Quinones Other Interventions: Discharge Summary Assessment (RN) Last Done: 05/27/21 13:41 Supervising Physician Co-Signing Physician Notes I personally examined the patient and verified all alfredo points of history and exam, discussed case, and agree with decision making with Karon Crooks PAC Feeling better wants to go home. Vitals noted. No distress. Diverticulitisstable for home as above. Coding Level of Care Code D/C DAY MANAGEMENT >30 MINS Diagnoses Acute diverticulitis K57.92 Acute encephalopathy G93.40 Cough R05.9 Cirrhosis K74.60 Hypercholesteremia E78.00 Thrombocytopenia D69.6 Hyponatremia E87.1 Hypothyroidism E03.9 Hypertension I10 Controlled type 2 diabetes mellitus with insulin therapy E11.9; Z79.4 CKD (chronic kidney disease) stage 3, GFR 30-59 ml/min N18.30 Current smoker F17.200 PAD (peripheral artery disease) I73.9
== END 2021-05-27 14:09 | disposition home or self-care (01) | DRG 391 ==
LOC: ED 08:39 → EDINP 13:21 → SUATTDRO 13:21 → 3W 16:22

== ENCOUNTER 2023-06-06 10:04 | Inpatient (IN) ==
--- NOTE | 2023-06-06 11:44 | Electrocardiogram Report ---
Test Reason : Blood Pressure : / mmHG Vent. 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
[2023-06-06 11:48] LABS: Basophils # (auto) 0.06 K/uL (0.00-0.20); Basophils % (auto) 0.6 %; Eosinophils # (auto) 0.07 K/uL (0.00-0.50); Eosinophils % (auto) 0.7 %; Hematocrit (blood only) 42.5 % (37.0-47.0); Hemoglobin 14.1 g/dl (12.0-16.0); Immature Granulocytes # (auto) 0.05 K/uL (0.01-0.20); Immature Granulocytes % (auto) 0.5 %; Lymphocytes # (auto) 0.86 K/uL (1.20-3.40); Lymphocytes % (auto) 8.5 %; Mean Corpuscular Hgb Conc 33.2 g/dL (32.0-36.0); Mean Corpuscular Volume 96.4 fL (80.0-100.0); Mean Platelet Volume 10.7 fL (9.4-12.4); Monocytes # (auto) 0.69 K/uL (0.11-0.59); Monocytes % (auto) 6.8 %; Neutrophils # (auto) 8.44 K/uL (1.40-6.50); Neutrophils % (auto) 82.9 %; Platelet Count 130 K/uL (130-400); RDW Coefficient of Variation 13.7 % (11.5-14.5); Red Blood Count 4.41 M/uL (4.20-5.40); White Blood Count 10.17 K/ul (4.8-10.8)
[2023-06-06 12:02] LABS: Anion Gap 9 (3-11); Blood Urea Nitrogen 22 mg/dl (6-23); Carbon Dioxide 23 mmol/L (21-32); Chloride 104 mmol/L (98-107); Est GFR (African American) 26.7 ml/min; Est GFR (Non-African American) 23.1 ml/min; Potassium 4.6 mmol/L (3.5-5.1); Sodium 136 mmol/L (136-145)
[2023-06-06 12:03] LABS: Appearance Urine Clear (Clear); Bacteria Urine Automated Negative (Negative); Bilirubin Urine Negative (Negative); Blood Urine 1+ (Negative); Color Urine Yellow; Epithelial Cell Urine Auto 20-30 /lpf (0-5); Glucose Urine UA 3+ (Negative); Ketones Urine Negative (Negative); Leukocyte Esterase Urine Negative (Negative); Nitrite Urine Negative (Negative); Protein Urine 3+ (Negative); RBC Urine Automated 0-4 /hpf (0-4); Specific Gravity Urine 1.025 (1.000-1.030); Urobilinogen Urine Negative (Negative); pH Urine 5.5 (4.5-7.5)
[2023-06-06 12:06] LABS: Troponin I High Sensitivity 15.1 pg/ml (0-14)
[2023-06-06 12:09] LABS: Partial Thromboplastin Ratio 1.1; Partial Thromboplastin Time 32 Seconds (21-31); Prothrombin Time 11.4 Seconds (9.0-12.0)
[2023-06-06 12:16] LABS: Thyroid Stimulating Hormone 3.287 uIu/ml (0.300-4.500)
[2023-06-06] MEDS: SODIUM CHLORIDE 0.9% 1,000 ML IV ONE (12:32)
[2023-06-06] MEDS: ACETAMINOPHEN 1,000 MG/100 ML VIAL IV STA (12:32)
--- NOTE | 2023-06-06 12:49 | CT Scan Report ---
CT head/brain wo con CLINICAL HISTORY: curry Technique: Contiguous axial CT images of the head were acquired from the base of the skull to the lizet vincent without intravenous contrast administration. Images were viewed in brain, subdural and bone [facility]. Automated dose lowering techniques and/or adjustment according to patient size were utilized for this exam. Comparison: Comparison is made to CT head 05/25/2021 Findings: Areas of decreased attenuation are present in the periventricular and subcortical white matter bilate rally consistent with small vessel ischemic disease. Generalized cerebral atrophy with commensurate e nlargement of the ventricles, sulci, and cisterns is also present. There is no acute intracranial hem orrhage or evidence of acute territorial infarction. No shift of the midline structures, mass effect, or extra-axial abnormalities are shown. Atherosclerotic calcifications are present in the intracran ial segments of the internal carotid arteries. Imaged portions of the paranasal sinuses and mastoid air cells are clear. The orbits appear normal. There are no acute fractures of the calvaria or scalp swelling. Impression: No acute intracranial hemorrhage, no evidence of acute territorial infarction or other acute intracra nial disease process. ACT 112: Negative or not required by law. Electronically signed by: Allen Cordero M.D. 06/06/2023 12:47 PM
--- NOTE | 2023-06-06 13:08 | Emergency Department Note ---
History of Present Illness General Chief complaint: Cough Stated complaint: COUGH, FACIAL PAIN, Time Seen by Provider: 06/06/23 12:01 Source: patient and friends (Neighbor at bedside) History of Present Illness Provider complaint: Cough fever 72-year-old female presents emergency department for cough and fever. Friend is here at bedside. Friend reports that she herself recently had influenza and the patient started having a cough and fever yesterday. Friend reports she thinks that the patient is more confused and tired than usual. No falls. Patient reports runny nose. Friend states this is how she acts when she gets UTIs. No nausea or vomiting. Home Medications Medication Instructions Recorded Confirmed Type lancets 30 gauge ([email or web address] #100 ea 11/28/19 12/13/22 Rx Lancets) acetaminophen 325 mg tablet 325 mg PO HS PRN Pain 08/09/21 06/06/23 History (Tylenol) furosemide 40 mg tablet 40 mg PO DAILY PRN edema #90 tabs 06/09/22 06/06/23 Rx alendronate 70 mg tablet (Fosamax) 70 mg PO ONCE #12 tabs 08/03/22 06/06/23 Rx potassium chloride 20 mEq 20 meq PO QAM #90 tabs 08/03/22 06/06/23 Rx tablet,extended release levothyroxine 112 mcg tablet 112 mcg PO DAILY #90 tabs 08/11/22 06/06/23 Rx propranolol 160 mg capsule,24 160 mg PO QAM #90 caps 08/11/22 06/06/23 Rx hr,extended release empagliflozin 25 mg tablet 25 mg PO QAM #90 tabs 08/15/22 06/06/23 Rx (Jardiance) insulin glargine 100 unit/mL 35 unit (0.35 mL) subcut BID #70 mL 09/05/22 06/06/23 Rx subcutaneous solution lisinopril 20 mg tablet 20 mg PO QAM #90 tabs 09/05/22 06/06/23 Rx simvastatin 80 mg tablet 80 mg PO DAILY #90 tabs 09/05/22 06/06/23 Rx blood-glucose meter ([employer] #1 ea 10/12/22 12/13/22 Rx Verio Flex Meter) aspirin 81 mg capsule 81 mg PO DAILY #90 caps 10/31/22 06/06/23 Rx triamcinolone acetonide 0.1 % 1 applic topical BID #30 grams 12/13/22 06/06/23 Rx topical cream sertraline 100 mg tablet 100 mg PO QAM #90 tabs 01/25/23 06/06/23 Rx insulin syringe-needle U-100 0.5 #400 ea 03/28/23 Rx mL 31 gauge x 5/16" (BD Insulin Syringe Ultra-Fine) sitagliptin phosphate 25 mg tablet 25 mg PO DAILY #90 tabs 03/28/23 06/06/23 Rx (Januvia) pantoprazole 40 mg tablet,delayed 40 mg PO DAILY GERD #90 tabs 03/29/23 06/06/23 Rx release (Protonix) fluticasone fur. 100 mcg-umeclid 1 inh inhalation QAM #60 ea 04/04/23 06/06/23 Rx 62.5 mcg-vilant 25 mcg inhalat.powder (Trelegy Ellipta) blood sugar diagnostic ([employer] #100 ea 05/05/23 Rx Verio test strips) Allergies Allergy/AdvReac Type Severity Reaction Status Date / Time lorazepam Allergy Unknown HAS NO Verified 06/06/23 13:54 EFFECT metformin Allergy Unknown Unknown Verified 06/06/23 13:54 metronidazole Allergy Unknown Unknown Verified 06/06/23 13:54 Sulfa (Sulfonamide Allergy Unknown HIVES Verified 06/06/23 13:54 Antibiotics) linagliptin [From Tradjenta] AdvReac arthralgia Verified 06/06/23 13:54 Past Med/Surg History Medical History H. pylori infection Diverticulitis COPD (chronic obstructive pulmonary disease) well controlled, can go a week sometimes without routine inhaler Anxiety PAD (peripheral artery disease) Current smoker Cirrhosis Lung nodule UNDER OBSERVATION Depression Hypothyroidism Hypertension Hypercholesteremia Surgical History History of tooth extraction S/P aortic bifurcation bypass graft Apr 1999 Femoral-popliteal bypass graft occlusion, left Apr 1999 Femoral-popliteal bypass graft occlusion, right Apr 1999 Family History Father Tremor Lung cancer Sister Tremor Family history of diabetes mellitus Mother Cancer Brother Myocardial infarction Cancer Family history of diabetes mellitus Daughter Asthma Brother Family history of diabetes mellitus Denies family history of Ovarian cancer Prostate cancer Breast cancer Colorectal cancer Social History Smoking Status: Current every day smoker Tobacco Type: Cigarettes Age Started Using Tobacco: 21; packs per day: 1; Cigarettes Per Day: 20 CIGS A DAY; Second Hand Exposure: No; Do You Dip or Chew Tobacco: No; Hx Alcohol Use: No Hx Substance Use: No Preferred Language: Icelandic Communication Ability: Effective Hearing Ability: Use of Hearing Aid 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 Required: No Beliefs That Will Affect Care: None marital status: Current Living Situation: Alone current occupational status: retired How many Children do You have: 1 Feels Safe at Home: Yes Childhood Exposure to Second-Hand Smoke: Yes Diet: regular caffeine: Yes Dental Care, Regularly: No Physical Activity Frequency: Does not Exercise Seatbelt Use: always Sunscreen Use: No Assistive Devices: Glasses and Hearing Aid - Bilateral Physical Exam Vital Signs Vital Signs - 24 hr 06/06/23 10:08 06/06/23 11:40 06/06/23 13:00 Temperature 36.1 C L 39.5 C H Temperature Source Temporal Artery Scan Oral Pulse Rate 71 Pulse Rate [Right Finger] 76 84 Respiratory Rate 18 20 22 Respiratory Effort / Characteristics Non-Labored Non-Labored Spontaneous Respiratory Depth Normal Normal Respiratory Pattern Regular Regular Blood Pressure 169/67 H Blood Pressure [Left Arm] 177/80 H 136/74 Blood Pressure Mean 101 Blood Pressure Mean [Left Arm] 112 94 Blood Pressure Position [Left Arm] Semi-fowlers Pulse Oximetry 97 95 94 Oxygen Delivery Method Room Air Room Air Sepsis Recent Fever Within 48 Hours No Sepsis New/Unexplained Change in Mental Status N/A Sepsis Action Taken by Nursing No Action Required Physical Exam GENERAL: oriented to person, place, not to time. appears well-developed and well-nourished. HENT: Exam performed. - Head: Normocephalic and atraumatic. EYES: Conjunctivae and EOM are normal. Right eye exhibits no discharge. Left eye exhibits no discharge. No scleral icterus. NECK: Normal range of motion. Neck supple. No JVD present. CV: Normal rate, regular rhythm, normal heart sounds and intact distal pulses. There is no peripheral edema. Palpable radial pulses bue. PULM/CHEST: Effort normal and breath sounds normal. No respiratory distress. No stridor. no wheezes. no rales. ABD: The abdomen is soft. There is no tenderness. NEURO: Motor and sensation grossly intact. SKIN: Skin is warm and dry. He is not diaphoretic. PSYCH: normal mood and affect. Behavior is normal. Judgment and thought content normal. Course Course 1201: The patient was evaluated in room A9. A complete history and physical exam was performed Cardiac monitoring: An order was placed for continuous cardiac monitoring. The monitor shows a rate of 80 with sinus rhythm interpreted by wa 1440: Vital signs stable. Labs show a mildly elevated creatinine at 2 baseline is 1.4 to 1.5. High-sensitivity troponin 15.1. Urinalysis negative. Bio fire positive for coronavirus OC43. Patient will be admitted to [facility]. Administered Medications Albuterol (Albut/Ipratrop 3mg/0.5mg Neb 3 Ml Vial) 3 ml NEB QIDR [facility]; Protocol Stop: 07/06/23 15:14 Last Admin: 06/06/23 20:13 Dose: 3 ml Documented By: Admin: 06/06/23 15:37 Dose: 3 ml Documented By: PEDRO Lactated Ringer's (Lr) 1,000 mls @ 100 mls/hr IV .Q10H [facility] Stop: 06/07/23 01:29 Last Admin: 06/06/23 15:40 Dose: 100 mls/hr Documented By: WILLIAM Insulin Aspart (Insulin Aspart Per Unit Charge) 0 units SC ACHS [facility] Stop: 07/06/23 16:29 Last Admin: 06/06/23 15:45 Dose: Not Given Documented By: WILLIAM Co-signed By: CC Discontinued Medications Acetaminophen (Ofirmev) 1,000 mg in 100 mls @ 400 mls/hr IV NOW STA Stop: 06/06/23 12:25 Last Infusion: 06/06/23 12:47 Dose: Infused Documented By: Admin: 06/06/23 12:32 Dose: 400 mls/hr Documented By: LORETO Sodium Chloride (Nss) 1,000 mls @ 999 mls/hr IV .Q1H1M ONE Stop: 06/06/23 13:11 Last Infusion: 06/06/23 13:33 Dose: Infused Documented By: Admin: 06/06/23 12:32 Dose: 999 mls/hr Documented By: LORETO Nicotine (Nicotine 14 Mg/24 Hr Patch) 14 mg TD NOW ONE Stop: 06/06/23 15:46 Last Admin: 06/06/23 15:48 Dose: 14 mg Documented By: WILLIAM Medical Decision Making Laboratory Data Attestation: I reviewed the patient's lab results. 06/06/23 11:16 06/06/23 11:16 Lab Results 06/06/23 06/06/23 06/06/23 Range/Units 11:15 11:16 11:35 WBC 10.17 (4.8-10.8) K/ul RBC 4.41 (4.20-5.40) M/uL Hgb 14.1 (12.0-16.0) g/dl Hct 42.5 (37.0-47.0) % MCV 96.4 (80.0-100.0) fL MCH 32.0 (25.0-34.0) pg MCHC 33.2 (32.0-36.0) g/dL RDW Std Deviation 49.0 H (36.4-46.3) fL RDW Coeff of Maximilian 13.7 (11.5-14.5) % Plt Count 130 (130-400) K/uL MPV 10.7 (9.4-12.4) fL Immature Gran % (Auto) 0.5 % Neut % (Auto) 82.9 % Lymph % (Auto) 8.5 % [place] % (Auto) 6.8 % Eos % (Auto) 0.7 % Baso % (Auto) 0.6 % Neut # (Auto) 8.44 H (1.40-6.50) K/uL Lymph # (Auto) 0.86 L (1.20-3.40) K/uL [place] # (Auto) 0.69 H (0.11-0.59) K/uL Eos # (Auto) 0.07 (0.00-0.50) K/uL Baso # (Auto) 0.06 (0.00-0.20) K/uL Immature Gran # (Auto) 0.05 (0.01-0.20) K/uL PT 11.4 (9.0-12.0) Seconds INR 1.0 (0.9-1.1) APTT 32 H (21-31) Seconds PTT Ratio 1.1 Sodium 136 (136-145) mmol/L Potassium 4.6 (3.5-5.1) mmol/L Chloride 104 (98-107) mmol/L Carbon Dioxide 23 (21-32) mmol/L Anion Gap 9 (3-11) BUN 22 (6-23) mg/dl Creatinine 2.09 H (0.6-1.2) mg/dl Est Cr Clr Drug Dosing Not Reportable Est GFR ( Amer) 26.7 ml/min Est GFR (Non-Af Amer) 23.1 ml/min BUN/Creatinine Ratio 10.5 (10-20) Glucose 178 H (70-99(Fasting)) mg/dl POC Glucose 181 H (70-99) mg/dl Lactate (0.4-2.0) mmol/L Calcium 9.9 (8.6-10.3) mg/dl Magnesium 1.9 (1.7-2.4) mg/dl Total Bilirubin 0.6 (0.2-1.0) mg/dl AST 26 (13-39) U/L ALT 20 (7-52) U/L Alkaline Phosphatase 112 H (34-104) U/L Troponin I High Sens 15.1 H (0-14) pg/ml Total Protein 8.1 (6.0-8.3) gm/dl Albumin 5.2 H (3.4-5.0) gm/dl Globulin 2.9 (2.5-4.0) gm/dl Albumin/Globulin Ratio 1.8 (0.9-2) TSH 3.287 (0.300-4.500) uIu/ml Urine Color Yellow Urine Appearance Clear (Clear) Urine pH 5.5 (4.5-7.5) Ur Specific [place] 1.025 (1.000-1.030) Urine Protein 3+ H (Negative) Urine Glucose (UA) 3+ H (Negative) Urine Ketones Negative (Negative) Urine Blood 1+ H (Negative) Urine Nitrite Negative (Negative) Urine Bilirubin Negative (Negative) Urine Urobilinogen Negative (Negative) Ur Leukocyte Esterase Negative (Negative) Urine WBC (Auto) 1-5 (0-5) /hpf Urine RBC (Auto) 0-4 (0-4) /hpf U Hyaline Cast (Auto) 1-5 (0-5) /lpf U Epithel Cells (Auto) 20-30 H (0-5) /lpf Urine Bacteria (Auto) Negative (Negative) Adenovirus (PCR) (NotDetected) B. pertussis DNA (PCR) (NotDetected) B.parapertussis DNA PCR (NotDetected) C. pneumoniae DNA (PCR) (NotDetected) Coronavirus OC43 (PCR) (NotDetected) Coronavirus HKU1 (PCR) (NotDetected) Coronavirus 229E (PCR) (NotDetected) SARS-CoV-2 (PCR) (NotDetected) Coronavirus NL63 (PCR) (NotDetected) Human Metapneumovir PCR (NotDetected) Influenza Type A (PCR) (NotDetected) Influenza Type B (PCR) (NotDetected) M. pneumoniae (PCR) (NotDetected) Parainfluenza 1 (PCR) (NotDetected) Parainfluenza 2 (PCR) (NotDetected) Parainfluenza 3 (PCR) (NotDetected) Parainfluenza 4 (PCR) (NotDetected) RSV (PCR) (NotDetected) Entero/Rhino (PCR) (NotDetected) 06/06/23 06/06/23 06/06/23 Range/Units 12:10 12:15 12:27 WBC (4.8-10.8) K/ul RBC (4.20-5.40) M/uL Hgb (12.0-16.0) g/dl Hct (37.0-47.0) % MCV (80.0-100.0) fL MCH (25.0-34.0) pg MCHC (32.0-36.0) g/dL RDW Std Deviation (36.4-46.3) fL RDW Coeff of Maximilian (11.5-14.5) % Plt Count (130-400) K/uL MPV (9.4-12.4) fL Immature Gran % (Auto) % Neut % (Auto) % Lymph % (Auto) % [place] % (Auto) % Eos % (Auto) % Baso % (Auto) % Neut # (Auto) (1.40-6.50) K/uL Lymph # (Auto) (1.20-3.40) K/uL [place] # (Auto) (0.11-0.59) K/uL Eos # (Auto) (0.00-0.50) K/uL Baso # (Auto) (0.00-0.20) K/uL Immature Gran # (Auto) (0.01-0.20) K/uL PT (9.0-12.0) Seconds INR (0.9-1.1) APTT (21-31) Seconds PTT Ratio Sodium (136-145) mmol/L Potassium (3.5-5.1) mmol/L Chloride (98-107) mmol/L Carbon Dioxide (21-32) mmol/L Anion Gap (3-11) BUN (6-23) mg/dl Creatinine (0.6-1.2) mg/dl Est Cr Clr Drug Dosing Est GFR ( Amer) ml/min Est GFR (Non-Af Amer) ml/min BUN/Creatinine Ratio (10-20) Glucose (70-99(Fasting)) mg/dl POC Glucose 176 H (70-99) mg/dl Lactate 1.4 (0.4-2.0) mmol/L Calcium (8.6-10.3) mg/dl Magnesium (1.7-2.4) mg/dl Total Bilirubin (0.2-1.0) mg/dl AST (13-39) U/L ALT (7-52) U/L Alkaline Phosphatase (34-104) U/L Troponin I High Sens (0-14) pg/ml Total Protein (6.0-8.3) gm/dl Albumin (3.4-5.0) gm/dl Globulin (2.5-4.0) gm/dl Albumin/Globulin Ratio (0.9-2) TSH (0.300-4.500) uIu/ml Urine Color Urine Appearance (Clear) Urine pH (4.5-7.5) Ur Specific [place] (1.000-1.030) Urine Protein (Negative) Urine Glucose (UA) (Negative) Urine Ketones (Negative) Urine Blood (Negative) Urine Nitrite (Negative) Urine Bilirubin (Negative) Urine Urobilinogen (Negative) Ur Leukocyte Esterase (Negative) Urine WBC (Auto) (0-5) /hpf Urine RBC (Auto) (0-4) /hpf U Hyaline Cast (Auto) (0-5) /lpf U Epithel Cells (Auto) (0-5) /lpf Urine Bacteria (Auto) (Negative) Adenovirus (PCR) Not Detected (NotDetected) B. pertussis DNA (PCR) Not Detected (NotDetected) B.parapertussis DNA PCR Not Detected (NotDetected) C. pneumoniae DNA (PCR) Not Detected (NotDetected) Coronavirus OC43 (PCR) DETECTED A (NotDetected) Coronavirus HKU1 (PCR) Not Detected (NotDetected) Coronavirus 229E (PCR) Not Detected (NotDetected) SARS-CoV-2 (PCR) Not Detected (NotDetected) Coronavirus NL63 (PCR) Not Detected (NotDetected) Human Metapneumovir PCR Not Detected (NotDetected) Influenza Type A (PCR) Not Detected (NotDetected) Influenza Type B (PCR) Not Detected (NotDetected) M. pneumoniae (PCR) Not Detected (NotDetected) Parainfluenza 1 (PCR) Not Detected (NotDetected) Parainfluenza 2 (PCR) Not Detected (NotDetected) Parainfluenza 3 (PCR) Not Detected (NotDetected) Parainfluenza 4 (PCR) Not Detected (NotDetected) RSV (PCR) Not Detected (NotDetected) Entero/Rhino (PCR) Not Detected (NotDetected) Imaging Data Attestation: I personally reviewed and interpreted this imaging study as follows: My Impression: Chest x-ray negative. Airway clear. No pneumothorax. No consolidation. No cardiomegaly or cephalization.. No free air under the diaphragm. No fractures of the skeletal structures. Radiologist's Impression: Chest X-Ray 06/06/23 12:06 XR chest 2V PA/lateral HISTORY: 72 years-old Female cough acute cough COMPARISON: Chest CT 05/18/2023 TECHNIQUE: PA and lateral views of the chest FINDINGS: Cardiomediastinal and hilar silhouettes are unchanged. Emphysema with chronic interstitial coarsening. No pneumothorax, pleural effusion, airspace consolidation or overt pulmonary edema. Bones appear grossly intact. IMPRESSION: Emphysema without acute process. ACT 112: Negative or not required by law. The above report was generated using voice recognition software. It may contain grammatical, syntax or spelling errors. Electronically signed by: Cornelio Oropeza M.D. 06/06/2023 1:[address] 06/06/23 12:21 CT head/brain wo con CLINICAL HISTORY: curry Technique: Contiguous axial CT images of the head were acquired from the base of the skull to the vertex without intravenous contrast administration. Images were viewed in brain, subdural and bone windows. Automated dose lowering techniques and/or adjustment according to patient size were utilized for this exam. Comparison: Comparison is made to CT head 05/25/2021 Findings: Areas of decreased attenuation are present in the periventricular and subcortical white matter bilaterally consistent with small vessel ischemic disease. Generalized cerebral atrophy with commensurate enlargement of the ventricles, sulci, and cisterns is also present. There is no acute intracranial hemorrhage or evidence of acute territorial infarction. No shift of the midline structures, mass effect, or extra-axial abnormalities are shown. Atherosclerotic calcifications are present in the intracranial segments of the internal carotid arteries. Imaged portions of the paranasal sinuses and mastoid air cells are clear. The orbits appear normal. There are no acute fractures of the calvaria or scalp swelling. Impression: No acute intracranial hemorrhage, no evidence of acute territorial infarction or other acute intracranial disease process. ACT 112: Negative or not required by law. Electronically signed by: Allen Cordero M.D. 06/06/2023 12:47 PM ECG Data Attestation: I personally reviewed and interpreted this ECG as follows: Rate (beats per minute): 68 Rhythm: + normal sinus ECG Intervals/blocks: + First degree AV block and + Normal QT-c ECG ST segments: + Normal ST segments Additional Comments: QRS 74 MDM Narrative 1201: The patient was evaluated in room A9. A complete history and physical exam was performed Cardiac monitoring: An order was placed for continuous cardiac monitoring. The monitor shows a rate of 80 with sinus rhythm interpreted by me 1440: Vital signs stable. Labs show a mildly elevated creatinine at 2 baseline is 1.4 to 1.5. High-sensitivity troponin 15.1. Urinalysis negative. Bio fire positive for coronavirus OC43. Patient will be admitted to the [facility] team. Impression & Plan Coronavirus infection, Acute kidney injury superimposed on CKD, Elevated troponin Discharge Plan Visit Data Chief Complaint: Cough Stated Complaint: COUGH, FACIAL PAIN, ED Provider: Kwabena Shaikh Discharge Problem: Coronavirus infection, Acute kidney injury superimposed on CKD, Elevated troponin Patient Disposition: Being Evaluated by Hospitalist Discharge Instructions Interventions: ED Discharge Assessment Last Done: 06/06/23 17:30
[2023-06-06 13:17] LABS: Adenovirus PCR Not Detected (NotDetected); Bordetella parapertussis PCR Not Detected (NotDetected); Bordetella pertussis PCR Not Detected (NotDetected); Chlamydia pneumoniae PCR Not Detected (NotDetected); Coronavirus 229E PCR Not Detected (NotDetected); Coronavirus CoV-2 (COVID19)PCR Not Detected (NotDetected); Coronavirus HKU1 PCR Not Detected (NotDetected); Coronavirus NL63 PCR Not Detected (NotDetected); Coronavirus OC43PCR DETECTED (NotDetected); Human Metapneumovirus PCR Not Detected (NotDetected); Influenza A PCR Not Detected (NotDetected); Influenza B PCR Not Detected (NotDetected); Mycoplasma pneumoniae PCR Not Detected (NotDetected); Parainfluenza Virus 1 PCR Not Detected (NotDetected); Parainfluenza Virus 2 PCR Not Detected (NotDetected); Parainfluenza Virus 3 PCR Not Detected (NotDetected); Parainfluenza Virus 4 PCR Not Detected (NotDetected); Respiratory Syncytial VirusPCR Not Detected (NotDetected); Rhinovirus/Enterovirus PCR Not Detected (NotDetected)
[2023-06-06 13:29] LABS: Alanine Aminotransferase 20 U/L (7-52); Albumin Globulin Ratio 1.8 (0.9-2); Albumin Level 5.2 gm/dl (3.4-5.0); Alkaline Phosphatase 112 U/L (34-104); Aspartate Aminotransferase 26 U/L (13-39); BUN Creatinine Ratio 10.5 (10-20); Bilirubin,Total 0.6 mg/dl (0.2-1.0); Calcium 9.9 mg/dl (8.6-10.3); Globulin 2.9 gm/dl (2.5-4.0); Glucose 178 mg/dl (70-99(Fasting)); Magnesium 1.9 mg/dl (1.7-2.4); Total Protein 8.1 gm/dl (6.0-8.3)
--- NOTE | 2023-06-06 13:45 | XRay Report ---
XR chest 2V PA/lateral HISTORY: 72 years-old Female cough acute cough COMPARISON: Chest CT 05/18/2023 TECHNIQUE: PA and lateral views of the chest FINDINGS: Cardiomediastinal and hilar silhouettes are unchanged. Emphysema with chronic interstitial coarsening . No pneumothorax, pleural effusion, airspace consolidation or overt pulmonary edema. Bones appear gr ossly intact. IMPRESSION: Emphysema without acute process. ACT 112: Negative or not required by law. The above report was generated using voice recognition software. It may contain grammatical, syntax o r spelling errors. Electronically signed by: Cornelio Oropeza M.D. 06/06/2023 1:44 PM
--- NOTE | 2023-06-06 14:59 | History & Physical Report ---
Date of Service June 06, 2023 Assessment & Plan (1) Acute kidney injury superimposed on CKD: Plan: -Admit to med/tele on pulse oximetry -Currently hemodynamically stable and stable on RA -Presented to the ED with her Neighbor after experiencing ongoing fever, cough, and confusion -Patient's confusion appears to have resolved after initial resuscitation in the ED -Noted to have an KAYLA today with Cr of 2.09 (baseline is near 1.5) -Patient does appear dry on exam -Electrolytes are stable, UA negative for infection -Like due to dehydration with acute viral illness and ongoing lisinopril use -Will obtain renal US to monitor for signs of obstruction -S/P 1L NSS in the ED, will give 1L LR overnight for ongoing hydration -Monitor intake/output, daily renal function, and daily electrolytes -SQ Heparin for DVT PPX -HH/DMII diet -AM CBC, CMP, mag, PT/INR (2) Elevated troponin: Plan: -Initial high sen trop of 15 -Patient denies chest pain -No acute ST seg or T-wave changes on ECG -Likely due to demand from acute viral illness, dehydration, and KAYLA -Will obtain 2 hour repeat high sen trop -Continue to monitor on tele for now (3) Altered mental status: Plan: -Resolved -Was one of her chief complaints on ED arrival -CT head was negative, is without signs of bacterial infection as her WBC is WNL, CXR and UA are negative for acute infection -Will add on an ammonia level with her Hx of Cirrhosis, but her exam is not consistent with hepatic encephalopathy and LFT's are WNL -Will continue supportive care for now -Fall/aspiration precautions (4) Coronavirus infection: Plan: -Positive for Coronavirus OC43 in the ED -Currently stable on RA with emphysema noted on CXR -Is not in a COPD exacerbation at this time -Supportive measures for now with the following: >Incentive spirometry >Flutter therapy >QIDr DuoNeb >PRN O2 to keep SpO2 between 89-92% >BID Guaifenesin (5) Type II diabetes mellitus with renal manifestations: Plan: -Hold oral medications -Monitor BSG ACHS, goal is 110-160 for now -Normally takes 35 units lantus BID, will decreased to 15 units BID for now with KAYLA and decreased PO intake -Start CF 50 ACHS, hold carb correction for now -HH/DMII diet (6) Hypertension: Plan: -Stable -Hold lisinopril and Lasix with KAYLA and dehydration (7) Hypothyroidism: Plan: -TSH WNL today -Continue levothyroxine (8) Cirrhosis: Plan: -Does not appear to be in decompensation -Continue to monitor volume status closely -Will FU on ammonia level ordered on admission (9) Current smoker: Plan: -Smokes approximately 1/5 pack of cigarettes daily -Scattered wheezing on exam but does not appear to be in COPD exacerbation or respiratory distress -Nicotine patch ordered -Continue to stress smoking cessation (10) PAD (peripheral artery disease): Plan: -Continue aspirin Plan The patient was discussed with Dr. Fiore at the time of the admission History of Present Illness Chief Complaint: confusion, fever, dehydration Primary Care Provider: Elizabeth Love MD Galina is a 72-year-old female with a history of DM 2, CKD stage III, PAD, current smoker, emphysema, hypothyroidism, HTN, hyperlipidemia, and liver cirrhosis who presented to the [facility] ED accompanied with a friend due to concerns of fever and increased confusion. She was noted to be febrile at 39.5C, hypertensive at 177/80, but otherwise stable. Labs were significant for a lymphocyte count of 0.86, Cr of 2.09 (baseline is near 1.5), initial high sen trop of 15, UA without signs of infection, and full respiratory biofire positive for Coronavirus OC43. Prior to admission the patient was given 1L NSS and 1gm IV tylenol. CT of the head/brain wo con was read as negative for acute findings. CXR was read as "Emphysema without acute process. ". At the time of the exam the patient was lying in bed in no acute distress. She was alert and completely oriented to begin my exam. She states that her neighbors recently had the flu, she started to develop congestion, an increased cough compared to baseline with baseline yellow mucus production, mild SOB, and decreased oral intake. She states her symptoms began on 06/04/23 and progressed to the point where she was febrile and weak this am. She states that she feels improved compared to arrival but not back to her baseline yet. When asked, she had a episode of non-bloody diarrhea this am and yesterday. She denies recent chest pain, hemoptysis, abd pain, nausea, vomiting, dysuria, hematuria, melena, LE swelling, and recent trauma. We discussed code status, she was clearly able to communicate that she is a DNR/DNI. This matches her wishes on her previous admission. She would want her Son to make medical decisions for her if she could not make them herself. She smokes approximately 1/2 pack of cigarettes daily and denies recent alcohol or drug use. Please refer to Dr. Fiore's attestation for any changes to the treatment plan Allergies Allergy/AdvReac Type Severity Reaction Status Date / Time lorazepam Allergy Unknown HAS NO Verified 06/06/23 13:54 EFFECT metformin Allergy Unknown Unknown Verified 06/06/23 13:54 metronidazole Allergy Unknown Unknown Verified 06/06/23 13:54 Sulfa (Sulfonamide Allergy Unknown HIVES Verified 06/06/23 13:54 Antibiotics) linagliptin [From Tradjenta] AdvReac arthralgia Verified 06/06/23 13:54 Home Medications Medication Instructions Recorded Confirmed Type lancets 30 gauge (ReversingLabsTouch Delica #100 ea 11/28/19 12/13/22 Rx Lancets) acetaminophen 325 mg tablet 325 mg PO HS PRN Pain 08/09/21 06/06/23 History (Tylenol) furosemide 40 mg tablet 40 mg PO DAILY PRN edema #90 tabs 06/09/22 06/06/23 Rx alendronate 70 mg tablet (Fosamax) 70 mg PO ONCE #12 tabs 08/03/22 06/06/23 Rx potassium chloride 20 mEq 20 meq PO QAM #90 tabs 08/03/22 06/06/23 Rx tablet,extended release levothyroxine 112 mcg tablet 112 mcg PO DAILY #90 tabs 08/11/22 06/06/23 Rx propranolol 160 mg capsule,24 160 mg PO QAM #90 caps 08/11/22 06/06/23 Rx hr,extended release empagliflozin 25 mg tablet 25 mg PO QAM #90 tabs 08/15/22 06/06/23 Rx (Jardiance) insulin glargine 100 unit/mL 35 unit (0.35 mL) subcut BID #70 mL 09/05/22 06/06/23 Rx subcutaneous solution lisinopril 20 mg tablet 20 mg PO QAM #90 tabs 09/05/22 06/06/23 Rx simvastatin 80 mg tablet 80 mg PO DAILY #90 tabs 09/05/22 06/06/23 Rx blood-glucose meter (OneTouch #1 ea 10/12/22 12/13/22 Rx Verio Flex Meter) aspirin 81 mg capsule 81 mg PO DAILY #90 caps 10/31/22 06/06/23 Rx triamcinolone acetonide 0.1 % 1 applic topical BID #30 grams 12/13/22 06/06/23 Rx topical cream sertraline 100 mg tablet 100 mg PO QAM #90 tabs 01/25/23 06/06/23 Rx insulin syringe-needle U-100 0.5 #400 ea 03/28/23 Rx mL 31 gauge x 5/16" (BD Insulin Syringe Ultra-Fine) sitagliptin phosphate 25 mg tablet 25 mg PO DAILY #90 tabs 03/28/23 06/06/23 Rx (Januvia) pantoprazole 40 mg tablet,delayed 40 mg PO DAILY GERD #90 tabs 03/29/23 06/06/23 Rx release (Protonix) fluticasone fur. 100 mcg-umeclid 1 inh inhalation QAM #60 ea 04/04/23 06/06/23 Rx 62.5 mcg-vilant 25 mcg inhalat.powder (Trelegy Ellipta) blood sugar diagnostic (OneTouch #100 ea 05/05/23 Rx Verio test strips) Past Med/Surg History Medical History H. pylori infection Diverticulitis COPD (chronic obstructive pulmonary disease) well controlled, can go a week sometimes without routine inhaler Anxiety PAD (peripheral artery disease) Current smoker Cirrhosis Lung nodule UNDER OBSERVATION Depression Hypothyroidism Hypertension Hypercholesteremia Surgical History History of tooth extraction S/P aortic bifurcation bypass graft Apr 1999 Femoral-popliteal bypass graft occlusion, left Apr 1999 Femoral-popliteal bypass graft occlusion, right Apr 1999 Family History Father Tremor Lung cancer Sister Tremor Family history of diabetes mellitus Mother Cancer Brother Myocardial infarction Cancer Family history of diabetes mellitus Daughter Asthma Brother Family history of diabetes mellitus Denies family history of Ovarian cancer Prostate cancer Breast cancer Colorectal cancer Social History Smoking Status: Current every day smoker Tobacco Type: Cigarettes Age Started Using Tobacco: 21; packs per day: 1; Cigarettes Per Day: 20 CIGS A DAY; Second Hand Exposure: No; Do You Dip or Chew Tobacco: No; Hx Alcohol Use: No Hx Substance Use: No Preferred Language: Faroese Communication Ability: Effective Hearing Ability: Use of Hearing Aid Hotel Service [employer] Required: No Beliefs That Will Affect Care: None marital status: Current Living Situation: Alone current occupational status: retired How many Children do You have: 1 Feels Safe at Home: Yes Childhood Exposure to Second-Hand Smoke: Yes Diet: regular caffeine: Yes Dental Care, Regularly: No Physical Activity Frequency: Does not Exercise Seatbelt Use: always Sunscreen Use: No Assistive Devices: Glasses and Hearing Aid - Bilateral Physical Exam Physical Exam: Physical Exam: General: In no acute distress, stated age, chronically ill appearing but non- toxic HEENT: Normocephalic, atraumatic, no scleral icterus, pupils around round, symmetrical, and reactive to light, dry mucus membranes, trachea midline, no thyromegaly Chest/Pulm: No respiratory distress, symmetrical chest expansion, scattered expiratory wheezing throughout Cardiac: RRR, no murmurs noted Abdomen: Negative for ascites and bruising, normoactive bowel sounds, soft, non-tender to palpation throughout Musculoskeletal: Symmetrical and without signs of acute trauma, upper and lower extremities with full ROM, no atrophy, spasticity, or flaccidity Extremities: Radial, dorsalis pedis, and posterior tibial pulses are intact and symmetrical, no edema noted in the BL LE's Skin: Warm, dry, no rashes , lesions, or scars noted Neuro: Alert and oriented to person, place, month, year, no focal defects, CN II-XII tested and intact, no tremors noted Psych: No acute distress, calm and cooperative during the exam, answers questions appropriately Results & Data Results & Data Vital Signs (Past 12 Hours) Vital Signs Temp Pulse Pulse Resp BP BP Pulse Ox 06/06/23 13:00 84 22 136/74 94 06/06/23 11:40 39.5 C H 76 20 177/80 H 95 06/06/23 10:08 36.1 C L 71 18 169/67 H 97 O2 Del Method 06/06/23 13:00 06/06/23 11:40 Room Air 06/06/23 10:08 Room Air Laboratory Results Abnormal lab results 06/06/23 06/06/23 06/06/23 Range/Units 11:15 11:16 11:35 RDW Std Deviation 49.0 H (36.4-46.3) fL Neut # (Auto) 8.44 H (1.40-6.50) K/uL Lymph # (Auto) 0.86 L (1.20-3.40) K/uL Bartholomew # (Auto) 0.69 H (0.11-0.59) K/uL APTT 32 H (21-31) Seconds Creatinine 2.09 H (0.6-1.2) mg/dl Glucose 178 H (70-99(Fasting)) mg/dl POC Glucose 181 H (70-99) mg/dl Alkaline Phosphatase 112 H (34-104) U/L Troponin I High Sens 15.1 H (0-14) pg/ml Albumin 5.2 H (3.4-5.0) gm/dl Urine Protein 3+ H (Negative) Urine Glucose (UA) 3+ H (Negative) Urine Blood 1+ H (Negative) U Epithel Cells (Auto) 20-30 H (0-5) /lpf Coronavirus OC43 (PCR) (NotDetected) 06/06/23 06/06/23 Range/Units 12:10 12:15 RDW Std Deviation (36.4-46.3) fL Neut # (Auto) (1.40-6.50) K/uL Lymph # (Auto) (1.20-3.40) K/uL Bartholomew # (Auto) (0.11-0.59) K/uL APTT (21-31) Seconds Creatinine (0.6-1.2) mg/dl Glucose (70-99(Fasting)) mg/dl POC Glucose 176 H (70-99) mg/dl Alkaline Phosphatase (34-104) U/L Troponin I High Sens (0-14) pg/ml Albumin (3.4-5.0) gm/dl Urine Protein (Negative) Urine Glucose (UA) (Negative) Urine Blood (Negative) U Epithel Cells (Auto) (0-5) /lpf Coronavirus OC43 (PCR) DETECTED A (NotDetected) Diagnostic Findings Chest X-Ray 06/06/23 12:06 XR chest 2V PA/lateral HISTORY: 72 years-old Female cough acute cough COMPARISON: Chest CT 05/18/2023 TECHNIQUE: PA and lateral views of the chest FINDINGS: Cardiomediastinal and hilar silhouettes are unchanged. Emphysema with chronic interstitial coarsening. No pneumothorax, pleural effusion, airspace consolidation or overt pulmonary edema. Bones appear grossly intact. IMPRESSION: Emphysema without acute process. ACT 112: Negative or not required by law. The above report was generated using voice recognition software. It may contain grammatical, syntax or spelling errors. Electronically signed by: Cornelio Oropeza M.D. 06/06/2023 1:[address] 06/06/23 12:21 CT head/brain wo con CLINICAL HISTORY: curry Technique: Contiguous axial CT images of the head were acquired from the base of the skull to the vertex without intravenous contrast administration. Images were viewed in brain, subdural and bone windows. Automated dose lowering techniques and/or adjustment according to patient size were utilized for this exam. Comparison: Comparison is made to CT head 05/25/2021 Findings: Areas of decreased attenuation are present in the periventricular and subcortical white matter bilaterally consistent with small vessel ischemic disease. Generalized cerebral atrophy with commensurate enlargement of the ventricles, sulci, and cisterns is also present. There is no acute intracranial hemorrhage or evidence of acute territorial infarction. No shift of the midline structures, mass effect, or extra-axial abnormalities are shown. Atherosclerotic calcifications are present in the intracranial segments of the internal carotid arteries. Imaged portions of the paranasal sinuses and mastoid air cells are clear. The orbits appear normal. There are no acute fractures of the calvaria or scalp swelling. Impression: No acute intracranial hemorrhage, no evidence of acute territorial infarction or other acute intracranial disease process. ACT 112: Negative or not required by law. Electronically signed by: Allen Cordero M.D. 06/06/2023 12:47 PM ECG Additional Comments: Normal sinus rhythm with occasional Premature atrial complexes Old Anterior infarct (cited on or before 06-JUN-2023) Nonspecific T wave abnormality Lateral leads Abnormal ECG When compared with ECG of 25-MAY-2021 09:42, No significant change Confirmed by Stewart Aleman ([id number]) on 06/06/2023 11:43:58 AM Code Status & VTE Plan Code Status DNR/DNI VTE Prophylaxis Plan VTE Prophylaxis will be ordered: Yes Supervising Physician Co-Signing Physician Notes Patient seen and examined, chart reviewed, case discussed with Linda French PA-C and I agree with the assessment and plan as above except as otherwise noted . Labs and images reviewed 72yo F Hx T2DM, cirrhosis, HTN, HLD, PAD who presents with fever, confusion, kayla and is coronavirus (nonCOVID) positive. Several days of cough/congestion/weakness/fever/anorexia. No leukocytosis, no signs of superimposed PNA. Will tx with fluids, supportive care. Trace Wheezing --> Nebs, if persistent will at 5 day course of steroids. Clinically improving with LR. Lisinopril/lasix held for KAYLA and volume contraction. No hepatic decompensation. Tylenol PRN. Agree w/ assessment and management for viral URI with KAYLA as above. PG Care Time/CCT Total # of Minutes Spent Total Time Spent with Patient: Total time spent is greater than 50% in coordination of care (as documented) at patient's floor/unit and/or counseling patient: C[place] [address] INT INP/OBS CARE 3/75MIN Patient Type Established Medical Decision Making High Complexity Diagnoses Acute kidney injury superimposed on CKD N17.9; N18.9 Elevated troponin R79.89 Altered mental status R41.82 Coronavirus infection B34.2 Type II diabetes mellitus with renal manifestations E11.29 Hypertension I10 Hypothyroidism E03.9 Cirrhosis K74.60 Current smoker F17.200 PAD (peripheral artery disease) I73.9
[2023-06-06] MEDS ORDERED: ALBUT/IPRATROP 3MG/0.5MG NEB 3 ML VIAL NEB PRN (15:15)
[2023-06-06] MEDS ORDERED: GLUCOSE 10 TAB/TUBE PO PRN (15:16)
[2023-06-06] MEDS ORDERED: GLUCOSE 40% GEL 15 GM TUBE PO PRN (15:16)
[2023-06-06] MEDS ORDERED: GLUCAGON FOR INJ 1 MG VIAL SQ PRN (15:16)
[2023-06-06] MEDS ORDERED: CARBOHYDRATES FOR HYPOGLYCEMIA PO PRN (15:16)
[2023-06-06] MEDS ORDERED: DEXTROSE 50% 50 ML SYRINGE IV PRN (15:16)
[2023-06-06] MEDS: ALBUT/IPRATROP 3MG/0.5MG NEB 3 ML VIAL NEB SCH (15:37)
[2023-06-06] MEDS: LACTATED RINGER'S 1,000 ML IV SCH (15:40)
[2023-06-06] MEDS: INSULIN ASPART PER UNIT CHARGE SC SCH (15:45)
[2023-06-06] MEDS: NICOTINE 14 MG/24 HR PATCH TD ONE (15:48)
--- NOTE | 2023-06-06 18:30 | Ultrasound Report ---
ULTRASOUND KIDNEYS AND BLADDER CLINICAL HISTORY: Acute renal insufficiency. COMPARISON STUDY: Abdominal CT dated 09/27/2022. TECHNIQUE: Real-time, grayscale, and color flow sonography of the kidneys and bladder is performed. I mages are reviewed in the transverse and longitudinal planes. FINDINGS: Kidneys: The kidneys are normal in size and echotexture. The right kidney measures 10.3 cm in length and the left kidney measures 10.0 cm in length. There is fullness of the right renal collecting syste m. No hydronephrosis is seen. No shadowing renal calculi are identified. Small bilateral renal cysts measure up to 1.3 cm. There is no sonographic evidence of contour deforming renal mass lesion. No per inephric fluid is identified. Bladder: The bladder is normal in appearance. Over the left ureteral jet was seen. IMPRESSION: 1. The kidneys are normal in size and without hydronephrosis. 2. The bladder is normal as imaged. ACT 112: Negative or not required by law. Electronically signed by: Carlos Eduardo Ramsey M.D. 06/06/2023 6:28 PM
[2023-06-06] MEDS: guaiFENesin 600 MG TABCR PO SCH (21:44)
[2023-06-06] MEDS: LANTUS PER UNIT CHARGE SQ SCH (21:44)
[2023-06-06] MEDS: HEPARIN SOD 5,000 UNIT/0.5 ML VIAL SQ SCH (21:44)
[2023-06-07] MEDS: ACETAMINOPHEN 325 MG TAB PO PRN (00:22)
[2023-06-07 05:16] LABS: Albumin Globulin Ratio 1.5 (0.9-2); Albumin Level 3.7 gm/dl (3.4-5.0); BUN Creatinine Ratio 13.2 (10-20); Bilirubin,Total 0.5 mg/dl (0.2-1.0); Calcium 8.6 mg/dl (8.6-10.3); Creatinine Clr Calc Pharmacy 31.2 ml/min; Est GFR (African American) 31.6 ml/min; Est GFR (Non-African American) 27.3 ml/min; Globulin 2.4 gm/dl (2.5-4.0); Magnesium 1.7 mg/dl (1.7-2.4); Total Protein 6.1 gm/dl (6.0-8.3)
[2023-06-07 05:25] LABS: INR 1.1 (0.9-1.1); Prothrombin Time 12.4 Seconds (9.0-12.0)
[2023-06-07 05:37] LABS: Basophils # (auto) 0.04 K/uL (0.00-0.20); Basophils % (auto) 0.5 %; Eosinophils # (auto) 0.01 K/uL (0.00-0.50); Eosinophils % (auto) 0.1 %; Hematocrit (blood only) 35.1 % (37.0-47.0); Hemoglobin 11.5 g/dl (12.0-16.0); Immature Granulocytes # (auto) 0.02 K/uL (0.01-0.20); Immature Granulocytes % (auto) 0.3 %; Lymphocytes # (auto) 1.57 K/uL (1.20-3.40); Lymphocytes % (auto) 21.3 %; Mean Corpuscular Hemoglobin 31.3 pg (25.0-34.0); Mean Corpuscular Hgb Conc 32.8 g/dL (32.0-36.0); Mean Corpuscular Volume 95.6 fL (80.0-100.0); Mean Platelet Volume 11.1 fL (9.4-12.4); Monocytes # (auto) 0.76 K/uL (0.11-0.59); Monocytes % (auto) 10.3 %; Neutrophils # (auto) 4.96 K/uL (1.40-6.50); Neutrophils % (auto) 67.5 %; Platelet Count 96 K/uL (130-400); Platelet Estimate Decreased (Normal); RBC Morphology Unremarkable; RDW Coefficient of Variation 13.7 % (11.5-14.5); RDW Standard Deviation 47.8 fL (36.4-46.3); Red Blood Count 3.67 M/uL (4.20-5.40); White Blood Count 7.36 K/ul (4.8-10.8)
[2023-06-07] MEDS: LEVOTHYROXINE SODIUM 112 MCG TABLET PO SCH (06:41)
[2023-06-07] MEDS ORDERED: NON-FORMULARY MEDICATION (Fluticasone-Umeclidin-Vilanter [Trelegy Ellipta] 100-62.5-25 mcg INH SCH (09:00)
[2023-06-07] MEDS: FLUTICASONE FUROATE 100MCG 14 PUFFS/INHALER INH SCH (10:06)
[2023-06-07] MEDS: ASPIRIN 81 MG ECTAB PO SCH (10:06)
[2023-06-07] MEDS: PANTOprazole 40 MG TAB PO SCH (10:07)
[2023-06-07] MEDS: NICOTINE 14 MG/24 HR PATCH TD SCH (10:07)
[2023-06-07] MEDS: SIMVASTATIN 80 MG TAB PO SCH (10:08)
[2023-06-07] MEDS: SERTRALINE HCL 100 MG TABLET PO SCH (10:08)
[2023-06-07] MEDS: UMECLIDINIUM/VILANTEROL 62.5/25MCG 7 PUFFS/INHALER INH SCH (10:08)
[2023-06-07] MEDS: PROPRANOLOL HCL LA 80 MG CAPCR PO SCH (10:08)
--- NOTE | 2023-06-07 15:21 | Hospitalist Progress Note ---
Date of Service June 07, 2023 Assessment & Plan (1) Acute kidney injury superimposed on CKD: Plan: -Admit to med/tele on pulse oximetry -Currently hemodynamically stable and stable on RA -Presented to the ED with her Neighbor after experiencing ongoing fever, cough, and confusion -Noted to have an KAYLA on presentation with Cr of 2.09 (baseline is near 1.5) -Like due to dehydration with acute viral illness and ongoing lisinopril use -Renal ultrasound was negative for obstruction -Getting IV fluids Improving. Creatinine now 1.8 -Monitor intake/output, daily renal function, and daily electrolytes (2) Elevated troponin: Plan: -Likely demand ischemia No chest pain No EKG changes Most likely secondary to acute viral illness, dehydration and acute kidney injury (3) Altered mental status: Plan: Metabolic encephalopathy -Was one of her chief complaints on ED arrival -CT head was negative, is without signs of bacterial infection as her WBC is WNL, CXR and UA are negative for acute infection -Ammonia level was negative -Will continue supportive care for now -Fall/aspiration precautions Patient still seems to be confused With right-sided weakness, nurse raised the question of a stroke. Onset of weakness is unknown. Head CT is negative. With unknown time of onset, not a candidate for tPA On aspirin and Zocor 80 mg Consult neurology (4) Coronavirus infection: Plan: -Positive for Coronavirus OC43 in the ED -Currently stable on RA with emphysema noted on CXR -Is not in a COPD exacerbation at this time -Supportive measures for now with the following: >Incentive spirometry >Flutter therapy >QIDr DuoNeb >PRN O2 to keep SpO2 between 89-92% >BID Guaifenesin (5) Type II diabetes mellitus with renal manifestations: Plan: -Hold oral medications -Monitor BSG ACHS, goal is 110-160 for now -Normally takes 35 units lantus BID, will decreased to 15 units BID for now with KAYLA and decreased PO intake -Start CF 50 ACHS, hold carb correction for now -HH/DMII diet (6) Hypertension: Plan: -Stable -Hold lisinopril and Lasix with KAYLA and dehydration (7) Hypothyroidism: Plan: -TSH WNL today -Continue levothyroxine (8) Cirrhosis: Plan: -Does not appear to be in decompensation -Continue to monitor volume status closely -Ammonia level was normal (9) Current smoker: Plan: -Smokes approximately 1/5 pack of cigarettes daily -Scattered wheezing on exam but does not appear to be in COPD exacerbation or respiratory distress -Nicotine patch ordered -Continue to stress smoking cessation (10) PAD (peripheral artery disease): Plan: -Continue aspirin Plan DVT prophylaxis: Heparin subcu CODE STATUS: DNR/DNI Admission and Anticipated Discharge Date Admission Date: June 06, 2023 Subjective Nurse informs me that the patient has had imbalanced gait, imbalance more pronounced on the right side. Time of onset unknown. Patient is confused. CT head done was negative. Review of Systems Review of Systems: All systems reviewed & are unremarkable except as noted in Subjective Physical Exam Physical Exam: General: Awake, conversant. Pleasantly confused Heart: S1, S2/regular rate and rhythm, no murmur rubs or gallops Lungs: Clear to auscultation bilaterally. Normal effort Abdomen: Soft/nontender/nondistended. No hepatosplenomegaly Extremities: No clubbing/cyanosis. No edema Behavior: Appropriate, cooperative Results & Data Results & Data Vital Signs (Past 12 Hours) Vital Signs Temp Pulse Pulse Resp BP BP Pulse Ox 06/07/23 15:08 80 18 94 06/07/23 15:02 79 06/07/23 11:58 06/07/23 10:21 82 18 96 06/07/23 08:00 06/07/23 08:00 36.8 C 75 18 115/72 98 06/07/23 07:25 66 06/07/23 06:50 66 18 95 06/07/23 06:46 68 18 139/55 L 92 06/07/23 05:00 62 23 133/56 L 92 06/07/23 05:00 62 23 91 06/07/23 04:00 62 25 H 91 06/07/23 04:00 62 25 H 130/59 L 91 06/07/23 03:48 36.9 C O2 Del Method 06/07/23 15:08 Room Air 06/07/23 15:02 06/07/23 11:58 Room Air 06/07/23 10:21 Room Air 06/07/23 08:00 Room Air 06/07/23 08:00 Room Air 06/07/23 07:25 06/07/23 06:50 Room Air 06/07/23 06:46 Room Air 06/07/23 05:00 06/07/23 05:00 06/07/23 04:00 06/07/23 04:00 06/07/23 03:48 PG Care Time/CCT Total # of Minutes Spent Total Time Spent with Patient: Total time spent is greater than 50% in coordination of care (as documented) at patient's floor/unit and/or counseling patient: Coding Level of Care Code 83824 SUB INP/OBS CARE 2/35MIN Diagnoses Acute kidney injury superimposed on CKD N17.9; N18.9 Elevated troponin R79.89 Altered mental status R41.82 Coronavirus infection B34.2 Type II diabetes mellitus with renal manifestations E11.29 Hypertension I10 Hypothyroidism E03.9 Cirrhosis K74.60 Current smoker F17.200 PAD (peripheral artery disease) I73.9
[2023-06-08 06:43] LABS: Basophils # (auto) 0.04 K/uL (0.00-0.20); Basophils % (auto) 0.5 %; Hemoglobin 11.9 g/dl (12.0-16.0); Immature Granulocytes # (auto) 0.04 K/uL (0.01-0.20); Immature Granulocytes % (auto) 0.5 %; Lymphocytes # (auto) 1.36 K/uL (1.20-3.40); Lymphocytes % (auto) 17.1 %; Mean Corpuscular Hemoglobin 31.1 pg (25.0-34.0); Mean Corpuscular Hgb Conc 32.2 g/dL (32.0-36.0); Mean Corpuscular Volume 96.6 fL (80.0-100.0); Monocytes # (auto) 0.98 K/uL (0.11-0.59); Monocytes % (auto) 12.3 %; Neutrophils # (auto) 5.53 K/uL (1.40-6.50); Neutrophils % (auto) 69.6 %; Platelet Count 96 K/uL (130-400); RDW Coefficient of Variation 13.6 % (11.5-14.5); Red Blood Count 3.83 M/uL (4.20-5.40); White Blood Count 7.95 K/ul (4.8-10.8)
[2023-06-08 07:01] LABS: Albumin Globulin Ratio 1.5 (0.9-2); Albumin Level 3.9 gm/dl (3.4-5.0); BUN Creatinine Ratio 17.9 (10-20); Bilirubin,Total 0.6 mg/dl (0.2-1.0); Calcium 8.6 mg/dl (8.6-10.3); Creatinine Clr Calc Pharmacy 27.5 ml/min; Est GFR (Non-African American) 23.3 ml/min; Globulin 2.6 gm/dl (2.5-4.0); Magnesium 1.7 mg/dl (1.7-2.4); Potassium 3.6 mmol/L (3.5-5.1); Total Protein 6.5 gm/dl (6.0-8.3)
[2023-06-08 07:04] LABS: INR 1.1 (0.9-1.1); Prothrombin Time 12.1 Seconds (9.0-12.0)
[2023-06-08] MEDS ORDERED: PHARMACIST DISCHARGE MED REC CONSULT PRN (07:23)
--- NOTE | 2023-06-08 08:53 | Neurology Consultation ---
Date of Consultation June 08, 2023 Assessment & Plan (1) Ataxic gait: (2) Altered mental status: (3) Benign familial tremor: (4) Type II diabetes mellitus with renal manifestations: Plan This patient has a relatively new onset of a gait disturbance over the last several days. She also had some altered mental status/confusion at the time of admission in June 05. She does have a gait ataxia, although she has no limb ataxia, focal weakness or numbness or other focal neurologic findings. Currently she has no encephalopathy or delirium and her mental status seems back to baseline. She has a familial essential tremor with no signs of Parkinson's disease. This has been lifelong for her and in her siblings and father. She is currently on work long-acting propranolol for this, which does help. Etiology of the gait ataxia could be a small posterior fossa stroke. She has multiple risk factors for stroke including cigarette smoking, hypertension, diabetes, and dyslipidemia. She is on an [address] scan of the head showed some small hypodensities consistent with old small vessel ischemic disease. Recommendations: 1. MRI of the brain without contrast 2. Carotid ultrasound (avoid CT angiography because of her renal issues). 3. Consider MR angiography of the head without contrast 4. Consider echocardiogram 5. Fasting lipid profile, B12, Lyme antibody titer. 6. Physical therapy for gait training. Overall, I spent a total of 90 minutes with this case including review of records, review of CT films, direct evaluation the patient at bedside, report generation, and discussion of the case with the patient and RN at bedside and Dr. Blount including differential diagnosis and treatment options. History of Present Illness Reason for Consultation: Patient is a 72-year-old, who I was asked to see at the request of Dr. Blount, for neurologic evaluation regarding confusion and possible stroke Requesting Physician: Dr. Blount Attending Physician: Lucy Blount MD History of Present Illness This patient has a longstanding history of hypertension, type 2 diabetes (on insulin), dyslipidemia, cirrhosis (nonalcoholic), peripheral arterial disease status post bypass surgery multiple times, COPD, and anxiety/depression disorder. She has been on 81 mg aspirin tablet daily, simvastatin 80, insulin, sertraline 100, lisinopril 20, and Lasix. She takes levothyroxine for hypothyroidism. The patient has a history of familial essential tremor starting preteen years. Her father and brother have tremor as well. She has tremor in both extremities and her head. She is on propranolol 160 mg long-acting once daily for this. The patient was brought into the emergency room June 05 by a friend because of cough and fever for 24 hours. Patient had some nonspecific confusion with significant fatigue. She arrived in the emergency room June 05 at 1008 with a temperature of 36.1, pulse 71 and regular, respiratory rate 18 and comfortable, blood pressure 169/67 and O2 saturation 97%. Her neurologic examination was described as unremarkable/intact and her mental status was intact as well. She had no meningeal signs or fever. She had no elevated white count. Other laboratory studies revealed an unremarkable CBC. CHEM profile had a creatinine of 2.0 and a glucose of 178. Alk phos was elevated at 112. She had a positive non-COVID coronavirus. TSH was 3.2, urinalysis was unremarkable, and she had an elevated troponin. Chest x-ray showed emphysema and no acute changes CT scan of the head was unremarkable. Renal ultrasound was unremarkable Patient reports no new issues overnight. She has good strength and mentation but has trouble with balance. Patient herself has no complaint of pain or headache and feels "okay". She is not sure why she came in the hospital but denies weakness or numbness. She is fatigue and knows she has trouble walking. Today laboratory studies revealed a normal CBC, BUN and creatinine were elevated and glucose was 193. The liver profile was unremarkable. Allergies Allergy/AdvReac Type Severity Reaction Status Date / Time lorazepam Allergy Unknown HAS NO Verified 06/06/23 13:54 EFFECT metformin Allergy Unknown Unknown Verified 06/06/23 13:54 metronidazole Allergy Unknown Unknown Verified 06/06/23 13:54 Sulfa (Sulfonamide Allergy Unknown HIVES Verified 06/06/23 13:54 Antibiotics) [facility]li[facility] AdvReac arthralgia Verified 06/06/23 13:54 Home Medications Medication Instructions Recorded Confirmed Type lancets 30 gauge (OneTouch Delsera #100 ea 11/28/19 12/13/22 Rx Lancets) acetaminophen 325 mg tablet 325 mg PO HS PRN Pain 08/09/21 06/06/23 History (Tylenol) furosemide 40 mg tablet 40 mg PO DAILY PRN edema #90 tabs 06/09/22 06/06/23 Rx alendronate 70 mg tablet (Fosamax) 70 mg PO ONCE #12 tabs 08/03/22 06/06/23 Rx potassium chloride 20 mEq 20 meq PO QAM #90 tabs 08/03/22 06/06/23 Rx tablet,extended release levothyroxine 112 mcg tablet 112 mcg PO DAILY #90 tabs 08/11/22 06/06/23 Rx propranolol 160 mg capsule,24 160 mg PO QAM #90 caps 08/11/22 06/06/23 Rx hr,extended release empagliflozin 25 mg tablet 25 mg PO QAM #90 tabs 08/15/22 06/06/23 Rx (Jardiance) insulin glargine 100 unit/mL 35 unit (0.35 mL) subcut BID #70 mL 09/05/22 06/06/23 Rx subcutaneous solution lisinopril 20 mg tablet 20 mg PO QAM #90 tabs 09/05/22 06/06/23 Rx simvastatin 80 mg tablet 80 mg PO DAILY #90 tabs 09/05/22 06/06/23 Rx blood-glucose meter (OneTouch #1 ea 10/12/22 12/13/22 Rx Verio Flex Meter) aspirin 81 mg capsule 81 mg PO DAILY #90 caps 10/31/22 06/06/23 Rx triamcinolone acetonide 0.1 % 1 applic topical BID #30 grams 12/13/22 06/06/23 Rx topical cream sertraline 100 mg tablet 100 mg PO QAM #90 tabs 01/25/23 06/06/23 Rx insulin syringe-needle U-100 0.5 #400 ea 03/28/23 Rx mL 31 gauge x 5/16" (BD Insulin Syringe Ultra-Fine) sitagliptin phosphate 25 mg tablet 25 mg PO DAILY #90 tabs 03/28/23 06/06/23 Rx (Januvia) pantoprazole 40 mg tablet,delayed 40 mg PO DAILY GERD #90 tabs 03/29/23 06/06/23 Rx release (Protonix) fluticasone fur. 100 mcg-umeclid 1 inh inhalation QAM #60 ea 04/04/23 06/06/23 Rx 62.5 mcg-vilant 25 mcg inhalat.powder (Trelegy Ellipta) blood sugar diagnostic (OneTouch #100 ea 05/05/23 Rx Verio test strips) Patient History Medical History H. pylori infection Diverticulitis COPD (chronic obstructive pulmonary disease) well controlled, can go a week sometimes without routine inhaler Anxiety PAD (peripheral artery disease) Current smoker Cirrhosis Lung nodule UNDER OBSERVATION Depression Hypothyroidism Hypertension Hypercholesteremia Surgical History History of tooth extraction S/P aortic bifurcation bypass graft Apr 1999 Femoral-popliteal bypass graft occlusion, left Apr 1999 Femoral-popliteal bypass graft occlusion, right Apr 1999 Family History Father , age 70 of lung cancer Tremor Lung cancer Sister Tremor Family history of diabetes mellitus Mother , age 68 of a gynecologic cancer (either uterine or ovarian) Cancer Brother Myocardial infarction Cancer Family history of diabetes mellitus Daughter Asthma Brother Family history of diabetes mellitus Tremor Denies family history of Ovarian cancer Prostate cancer Breast cancer Colorectal cancer Social History Smoking Status: Current every day smoker Tobacco Type: Cigarettes Age Started Using Tobacco: 21; packs per day: 1; Cigarettes Per Day: 20 CIGS A DAY; Second Hand Exposure: No; Do You Dip or Chew Tobacco: No; Hx Alcohol Use: No Hx Substance Use: No Preferred Language: Mosotho Communication Ability: Impaired Hearing Ability: Use of Hearing Aid Embossing Toolsetter Required: No Beliefs That Will Affect Care: None marital status: Current Living Situation: Other Current Living Situation Comment: Pt relates friend lives in [facility] appt in her house current occupational status: retired How many Children do You have: 1 Feels Safe at Home: Yes Childhood Exposure to Second-Hand Smoke: Yes Diet: regular caffeine: Yes Dental Care, Regularly: No Physical Activity Frequency: Does not Exercise Seatbelt Use: always Sunscreen Use: No Assistive Devices: Glasses and Hearing Aid - Bilateral Review of Systems Constitutional: + fatigue; no fever and no weakness Eyes: no diplopia, no eye pain and no worsening vision Ear, Nose, Mouth, Throat: no ear pain, no tinnitus, no hearing loss, no dizziness, no snoring, no hoarseness and no dysphagia Respiratory: no cough and no dyspnea Cardiovascular: no chest pain, no palpitations and no lightheadedness Gastrointestinal: no abdominal pain, no nausea and no vomiting Genitourinary: no dysuria, no urinary frequency and no urinary incontinence Musculoskeletal: no back pain, no neck pain, no radicular pain, no joint pain and no myalgia Integumentary: no rash and no lesions Neurologic: + gait abnormality and + tremor(s); no l ocalized weakness, no generalized weakness, no tingling, no numbness, no abnormal movements, no headache(s), no abnormal speech, no confusion and no memory loss Psychiatric: no depression, no irritability, no anxiety, no difficulty concentrating, no confusion and no hallucinations Endocrine: no fatigue and no flushing Hematologic / Lymphatic: no easy bleeding and no easy bruising Allergy / Immunological: no urticaria and no problem reported Exam (Neuro) Physical Exam: The patient is right-handed. The patient is awake, alert, and attentive. Speech is normal without any aphasia. Although she has a slight dysarthria she has no teeth and currently. Mentation and thought processes are intact, with full orientation and normal fund of knowledge. Mood and affect are normal and appropriate. Appearance and grooming are normal. Short and long-term memory are intact to conversation. Pupils are 4 mm bilaterally and reactive to light. Extraocular eye muscles are intact without nystagmus. Visual acuity and visual tobias seem normal grossly to confrontation. There are no deficits to sensation in the face in all 3 distributions of the fifth cranial nerve bilaterally. Corneal reflexes are positive bilaterally. Facial strength and symmetry was normal bilaterally. Hearing is decreased bilaterally. Palate moves well without asymmetry. There is normal sternocleidomastoid and trapezius strength bilaterally. Tongue is midline with good strength bilaterally. The patient has an obvious intermittent/variable head tremor. There is no voice tremor. Neck has a full range of motion without discomfort. There are no cervical bruits bilaterally. There are no cranial or ocular bruits. Heart is without murmur. There is a regular rhythm and rate. Cervical, thoracic, and lumbar spine are nontender to palpation. Gait is wide-based and slightly unstable with walking. Turns are unsteady. Stance is difficult with feet together. Stance sitting up in bed is normal. With outstretched arms there is no drift. There are no resting tremors. She has mild postural and action tremor bilaterally. There is no ataxia with finger to nose testing. There is good facility in the hands. No other abnormal involuntary movements are noted. Motor strength is 5/5 diffusely in the arms bilaterally including deltoids, biceps, triceps, brachioradialis, wrist flexors and extensors, power electronics engineer, and intrinsic hand muscles. Motor strength is 5/5 diffusely in the legs bilaterally including hip flexors, quadriceps, hamstrings, gastrocnemius, tibialis anterior, tibialis posterior, and Peroneii muscles bilaterally. Toe extensors are normal and there is good bulk in the extensor digitorum brevis muscles bilaterally. The limbs have good tone without rigidity or spasticity. There is no atrophy noted in the muscles. Muscle bulk is normal, there is no tenderness to palpation, no myotonia to percussion, and no fasciculations seen. Sensory examination is intact to touch and pin throughout all 4 limbs diffusely. Reflexes are 1/4 in the biceps, triceps, brachioradialis, quadriceps, and Achilles tendons bilaterally. Toes are downgoing with plantar stimulation bilaterally. Peripheral pulses are present and of normal quality distally in all 4 limbs. There is no peripheral edema noted in the limbs. Results & Data Vital Signs (Past 12 Hours) Vital Signs Temp Pulse Pulse Resp BP Pulse Ox O2 Del Method 06/08/23 08:12 36.9 C 76 16 137/67 90 Room Air 06/08/23 07:11 70 18 90 Room Air 06/08/23 05:31 37.3 C 06/08/23 04:00 38.0 C H 82 18 156/55 H 91 Room Air 06/08/23 00:05 36.9 C 79 18 156/66 H 98 Room Air 06/07/23 23:56 71 06/07/23 20:53 71 18 94 Room Air PG Care Time/CCT Total # of Minutes Spent Total Time Spent with Patient: Total time spent is greater than 50% in coordination of care (as documented) at patient's floor/unit and/or counseling patient: Coding Level of Care Code 26925 INT INP/OBS CARE 3/75MIN Diagnoses Ataxic gait R26.0 Altered mental status R41.82 Benign familial tremor G25.0 Type II diabetes mellitus with renal manifestations E11.29 Time Spent (min) 90
--- NOTE | 2023-06-08 09:46 | Ultrasound Report ---
ULTRASOUND OF THE CAROTID ARTERIES CLINICAL HISTORY: stroke w/u TECHNIQUE: Real-time, grayscale, and color Doppler sonography of the carotid arteries is performed. I mages are reviewed in the transverse and longitudinal planes. COMPARISON: Comparison is made to carotid ultrasound 06/08/2016 FINDINGS: The carotid arteries are patent bilaterally and demonstrate antegrade flow. There is moderate atheros clerotic plaque on the right and moderate atherosclerotic plaque on the left. Normal doppler arterial waveforms are seen throughout. Velocity measurements are listed below. Common carotid peak systolic velocity (cm/sec): RIGHT: 119 LEFT: 79 ICA peak systolic velocity (cm/sec): RIGHT: 182 LEFT: 103 ICA/CC peak systolic ratio: RIGHT: 1.5 LEFT: 1.3 Antegrade flow was shown in the vertebral arteries. The external carotid arteries are patent. IMPRESSION: 1. Moderate atherosclerotic disease in the carotid bulbs without hemodynamically significant stenosi s. 2. Antegrade flow is shown in the vertebral arteries. Society of Radiologists in Ultrasound consensus guidelines: Normal: ICA PSV is <125 cm/sec and no plaque or intimal thickening is visible sonographically additional criteria include ICA/CCA PSV ratio <2.0 and ICA EDV <40 cm/sec <50% ICA stenosis: ICA PSV is <125 cm/sec and plaque or intimal thickening is visible sonographically additional criteria include ICA/CCA PSV ratio <2.0 and ICA EDV <40 cm/sec 50-69% ICA stenosis: ICA PSV is 125-230 cm/sec and plaque is visible sonographically additional criteria include ICA/CCA PSV ratio of 2.0-4.0 and ICA EDV of 40-100 cm/sec ?70% ICA stenosis but less than near occlusion: ICA PSV is >230 cm/sec and visible plaque and luminal narrowing are seen at wallis-scale and color Dopp ler ultrasound (the higher the Doppler parameters lie above the threshold of 230 cm/sec, the greater the likelihood of severe disease) additional criteria include ICA/CCA PSV ratio >4 and ICA EDV >100 cm/sec ACT 112: Negative or not required by law. Electronically signed by: Allen Cordero M.D. 06/08/2023 9:44 AM
--- NOTE | 2023-06-08 12:51 | Magnetic Resonance Report ---
MR brain wo con HISTORY: 72 years-old Female CVA acute stroke like symptoms COMPARISON: Head CT 06/06/2023 TECHNIQUE: Multiplanar multisequence MRI of the brain was obtained without IV contrast. FINDINGS: Motion degraded exam. No restricted diffusion. Midline structures appear unremarkable with partially empty sella. No acute intracranial hemorrhage, midline shift, abnormal extra-axial collection, hydroc ephalus or intra-axial mass. Small chronic left inferior cerebellar lacunar infarct. Delusional adamson es with minimal T2/FLAIR hyperintense foci throughout the white matter suggestive of chronic microvas cular ischemic disease. Cerebral venous sinuses and major arterial flow voids appear patent. The skull, orbits and soft tissu es are unremarkable. Moderate to severe mucosal thickening of the ethmoid air cells, maxillary and sp henoid sinuses with maxillary and sphenoid air fluid levels. The frontal sinuses are generally clear. Prior bilateral lens repair. IMPRESSION: 1. No acute intracranial abnormality. No acute or subacute infarct. 2. Findings suggestive of acute on chronic paranasal sinus disease.. 3. Chronic left cerebellar lacunar infarct. ACT 112: Negative or not required by law. The above report was generated using voice recognition software. It may contain grammatical, syntax o r spelling errors. Electronically signed by: Cornelio Oropeza M.D. 06/08/2023 12:50 PM
[2023-06-08] MEDS: SODIUM CHLORIDE 0.9% 1,000 ML IV SCH (12:52)
--- NOTE | 2023-06-08 14:14 | Hospitalist Progress Note ---
Date of Service June 08, 2023 Assessment & Plan (1) Acute kidney injury superimposed on CKD: Plan: -Presented to the ED with her Neighbor after experiencing ongoing fever, cough, and confusion -Noted to have an KAYLA on presentation with Cr of 2.09 (baseline is near 1.5) -Like due to dehydration with acute viral illness and ongoing lisinopril use -Renal ultrasound was negative for obstruction She got a total of 2 L of IV fluids Today her creatinine went back up to 2 Noted that she is still thirsty but is not drinking fluid Started her on IV fluids Monitor ins and outs, daily renal function (2) Elevated troponin: Plan: -Likely demand ischemia No chest pain No EKG changes Most likely secondary to acute viral illness, dehydration and acute kidney injury (3) Altered mental status: Plan: Metabolic encephalopathy -Was one of her chief complaints on ED arrival -CT head was negative, is without signs of bacterial infection as her WBC is WNL, CXR and UA are negative for acute infection -Ammonia level was negative -Will continue supportive care for now -Fall/aspiration precautions Patient still seems to be confused. Not sure if deafness is playing a role. With right-sided weakness, nurse raised the question of a stroke. Onset of weakness is unknown. Head CT is negative. With unknown time of onset, not a candidate for tPA On aspirin and Zocor 80 mg MRI brain was negative Carotid ultrasound did not show any significant stenosis Echocardiogram pending (4) Coronavirus infection: Plan: -Positive for Coronavirus OC43 in the ED -Currently stable on RA with emphysema noted on CXR -Is not in a COPD exacerbation at this time -Supportive measures for now with the following: >Incentive spirometry >Flutter therapy >QIDr DuoNeb >PRN O2 to keep SpO2 between 89-92% >BID Guaifenesin (5) Type II diabetes mellitus with renal manifestations: Plan: -Hold oral medications -Monitor BSG ACHS, goal is 110-160 for now -Normally takes 35 units lantus BID, will decreased to 15 units BID for now with KAYLA and decreased PO intake -Start CF 50 ACHS, hold carb correction for now -HH/DMII diet (6) Hypertension: Plan: -Stable -Hold lisinopril and Lasix with KAYLA and dehydration (7) Hypothyroidism: Plan: -TSH WNL today -Continue levothyroxine (8) Cirrhosis: Plan: -Does not appear to be in decompensation -Continue to monitor volume status closely -Ammonia level was normal (9) Current smoker: Plan: -Smokes approximately 1/5 pack of cigarettes daily -Scattered wheezing on exam but does not appear to be in COPD exacerbation or respiratory distress -Nicotine patch ordered -Continue to stress smoking cessation (10) PAD (peripheral artery disease): Plan: -Continue aspirin Plan DVT prophylaxis: Heparin subcu CODE STATUS: DNR/DNI Admission and Anticipated Discharge Date Admission Date: June 06, 2023 Subjective Patient is hard of hearing. She wants to go home and does not seem to be able to reason as to why she needs to stay in the hospital. Not sure if she is altered from her baseline. She says that she is thirsty but is not drinking fluids at the bedside. Per nurse, she has an imbalanced gait. Review of Systems Review of Systems: All systems reviewed & are unremarkable except as noted in Subjective Physical Exam Physical Exam: General: Awake, conversant. Pleasantly confused Heart: S1, S2/regular rate and rhythm, no murmur rubs or gallops Lungs: Clear to auscultation bilaterally. Normal effort Abdomen: Soft/nontender/nondistended. No hepatosplenomegaly Extremities: No clubbing/cyanosis. No edema Behavior: Appropriate, cooperative Results & Data Results & Data Vital Signs (Past 12 Hours) Vital Signs Temp Pulse Pulse Resp BP Pulse Ox O2 Del Method 06/08/23 11:18 71 16 92 Room Air 06/08/23 09:45 Room Air 06/08/23 08:12 36.9 C 76 16 137/67 90 Room Air 06/08/23 07:11 70 18 90 Room Air 06/08/23 07:00 77 06/08/23 05:31 37.3 C 06/08/23 04:00 38.0 C H 82 18 156/55 H 91 Room Air Laboratory Results Abnormal lab results 06/07/23 06/07/23 06/08/23 Range/Units 16:45 20:35 06:09 RBC 3.83 L (4.20-5.40) M/uL Hgb 11.9 L (12.0-16.0) g/dl RDW Std Deviation 49.0 H (36.4-46.3) fL Plt Count 96 L (130-400) K/uL Coryell # (Auto) 0.98 H (0.11-0.59) K/uL PT 12.1 H (9.0-12.0) Seconds Sodium 135 L (136-145) mmol/L Carbon Dioxide 18 L (21-32) mmol/L Anion Gap 13 H (3-11) BUN 37 H (6-23) mg/dl Creatinine 2.07 H (0.6-1.2) mg/dl Glucose 193 H (70-99(Fasting)) mg/dl POC Glucose 230 H 209 H (70-99) mg/dl 06/08/23 06/08/23 Range/Units 08:26 12:33 RBC (4.20-5.40) M/uL Hgb (12.0-16.0) g/dl RDW Std Deviation (36.4-46.3) fL Plt Count (130-400) K/uL Coryell # (Auto) (0.11-0.59) K/uL PT (9.0-12.0) Seconds Sodium (136-145) mmol/L Carbon Dioxide (21-32) mmol/L Anion Gap (3-11) BUN (6-23) mg/dl Creatinine (0.6-1.2) mg/dl Glucose (70-99(Fasting)) mg/dl POC Glucose 197 H 210 H (70-99) mg/dl PG Care Time/CCT Total # of Minutes Spent Total Time Spent with Patient: Total time spent is greater than 50% in coordination of care (as documented) at patient's floor/unit and/or counseling patient: Coding Level of Care Code 53391 SUB INP/OBS CARE 2/35MIN Diagnoses Acute kidney injury superimposed on CKD N17.9; N18.9 Elevated troponin R79.89 Altered mental status R41.82 Coronavirus infection B34.2 Type II diabetes mellitus with renal manifestations E11.29 Hypertension I10 Hypothyroidism E03.9 Cirrhosis K74.60 Current smoker F17.200 PAD (peripheral artery disease) I73.9
--- NOTE | 2023-06-08 18:36 | XCELERA ---
[id number]\[id number]
--- NOTE | 2023-06-09 10:11 | Neurology Progress Note ---
Date of Service June 09, 2023 Assessment & Plan (1) Ataxic gait: (2) Altered mental status: (3) Benign familial tremor: (4) Type II diabetes mellitus with renal manifestations: Plan This patient has a relatively new onset of a gait disturbance over the last several days. She also had some altered mental status/confusion at the time of admission in June 05. She does have a gait ataxia, although she has no limb ataxia, focal weakness or numbness or other focal neurologic findings. Currently she has no encephalopathy or delirium and her mental status seems back to baseline. She has a familial essential tremor with no signs of Parkinson's disease. This has been lifelong for her and in her siblings and father. She is currently on work long-acting propranolol for this, which does help. Etiology of the gait ataxia could be a small posterior fossa stroke. She has multiple risk factors for stroke including cigarette smoking, hypertension, diabetes, and dyslipidemia. She is on an [address] scan of the head showed some small hypodensities consistent with old small vessel ischemic disease. Recommendations: 1. Consider MR angiography of the head without contrast 2. Fasting lipid profile, B12, Lyme antibody titer. 3. Physical therapy for gait training. 4. I encouraged the patient to listen to the nurses and follow our care and not to get up without help. Overall, I spent a total of 50 minutes with this case including review of records, review of MRI films, direct evaluation the patient at bedside, report generation, and discussion of the case with the patient and RN at bedside and Dr. Blount including differential diagnosis and treatment options. Admission and Anticipated Discharge Date Admission Date: June 06, 2023 Subjective Patient has no complaint of pain. Nursing reports that she has been not compliant with medications and was pulled her IV out. In addition she tried to get up and walk and almost fell. Patient tells me that she does not want to be in the hospital anymore and does not "need all this". She also refused blood draw. The patient tells me that her balance has been off for quite a while but she is unsure if it is worse now compared to previous. MRI of the brain was obtained and showed no acute stroke but there was an old left cerebellar hemispheric lacunar. I reviewed these films. There was mild old small vessel ischemic disease to Echocardiogram revealed some mild aortic stenosis but was otherwise unchanged from previous. Carotid ultrasound showed no significant stenoses of vessels. Results & Data Vital Signs (Past 12 Hours) Vital Signs Temp Pulse Pulse Resp BP BP Pulse Ox 06/09/23 08:06 37.3 C 87 16 184/76 H 92 06/09/23 07:42 06/09/23 07:42 85 16 92 06/09/23 04:00 36.7 C 70 18 154/68 H 92 06/09/23 01:00 06/09/23 00:40 86 06/08/23 23:46 37.7 C H 78 18 162/53 H 92 06/08/23 22:33 O2 Del Method O2 Del Method 06/09/23 08:06 Room Air 06/09/23 07:42 Room Air 06/09/23 07:42 Room Air 06/09/23 04:00 Room Air 06/09/23 01:00 Room Air 06/09/23 00:40 06/08/23 23:46 Room Air 06/08/23 22:33 Room Air Exam (Neuro) Physical Exam: She is awake and alert. Speech is mildly dysarthric but she has no teeth in. Extraocular eye muscles are intact without nystagmus. There is no facial droop. She has a significant head tremor and action tremor of both upper extremities. Strength is symmetrical in the limbs. Gait was poor and she was wide-based at first and then scissored. She needed the assistance of at least 1. PG Care Time/CCT Total # of Minutes Spent Total Time Spent with Patient: Total time spent is greater than 50% in coordination of care (as documented) at patient's floor/unit and/or counseling patient: Coding Level of Care Code 40580 SUB INP/OBS CARE 3/50MIN Diagnoses Ataxic gait R26.0 Altered mental status R41.82 Benign familial tremor G25.0 Type II diabetes mellitus with renal manifestations E11.29 Time Spent (min) 50
[2023-06-09 14:28] LABS: Basophils # (auto) 0.02 K/uL (0.00-0.20); Basophils % (auto) 0.3 %; Eosinophils # (auto) 0.01 K/uL (0.00-0.50); Eosinophils % (auto) 0.1 %; Estimated Average Glucose 157 mg/dl; Hematocrit (blood only) 35.7 % (37.0-47.0); Hemoglobin 11.4 g/dl (12.0-16.0); Hemoglobin A1C 7.1 % (4.5-5.6); Immature Granulocytes # (auto) 0.03 K/uL (0.01-0.20); Immature Granulocytes % (auto) 0.4 %; Lymphocytes # (auto) 1.07 K/uL (1.20-3.40); Mean Corpuscular Hemoglobin 30.9 pg (25.0-34.0); Mean Corpuscular Hgb Conc 31.9 g/dL (32.0-36.0); Mean Corpuscular Volume 96.7 fL (80.0-100.0); Monocytes # (auto) 0.99 K/uL (0.11-0.59); Monocytes % (auto) 12.9 %; Neutrophils # (auto) 5.54 K/uL (1.40-6.50); Neutrophils % (auto) 72.3 %; Platelet Count 130 K/uL (130-400); RDW Coefficient of Variation 13.5 % (11.5-14.5); RDW Standard Deviation 47.9 fL (36.4-46.3); Red Blood Count 3.69 M/uL (4.20-5.40); White Blood Count 7.66 K/ul (4.8-10.8)
[2023-06-09 14:45] LABS: Albumin Level 3.7 gm/dl (3.4-5.0); BUN Creatinine Ratio 17.4 (10-20); Bilirubin,Total 0.6 mg/dl (0.2-1.0); Calcium 8.3 mg/dl (8.6-10.3); Creatinine Clr Calc Pharmacy 29.1 ml/min; Est GFR (African American) 29.1 ml/min; Est GFR (Non-African American) 25.1 ml/min; Magnesium 1.7 mg/dl (1.7-2.4); Potassium 3.9 mmol/L (3.5-5.1); Total Protein 6.6 gm/dl (6.0-8.3)
[2023-06-09 14:47] LABS: Albumin Globulin Ratio 1.3 (0.9-2); Chol HDL Ratio 4.1 (0-5); Globulin 2.9 gm/dl (2.5-4.0)
[2023-06-09 14:56] LABS: INR 1.1 (0.9-1.1)
--- NOTE | 2023-06-09 15:15 | Hospitalist Progress Note ---
Date of Service June 09, 2023 Assessment & Plan (1) Acute kidney injury superimposed on CKD: Plan: -Presented to the ED with her Neighbor after experiencing ongoing fever, cough, and confusion -Noted to have an KAYLA on presentation with Cr of 2.09 (baseline is near 1.5) -Like due to dehydration with acute viral illness and ongoing lisinopril use -Renal ultrasound was negative for obstruction She got a total of 2 L of IV fluids She was ordered for the fluids but she pulled out her IV this morning Creatinine is 1.9 today Plan to continue IV fluids Monitor ins and outs, daily renal function (2) Elevated troponin: Plan: -Likely demand ischemia No chest pain No EKG changes Most likely secondary to acute viral illness, dehydration and acute kidney injury (3) Altered mental status: Plan: Metabolic encephalopathy -Was one of her chief complaints on ED arrival -CT head was negative, is without signs of bacterial infection as her WBC is WNL, CXR and UA are negative for acute infection -Ammonia level was negative -Will continue supportive care for now -Fall/aspiration precautions Patient still seems to be confused. Not sure if deafness is playing a role. With right-sided weakness, nurse raised the question of a stroke. Onset of weakness is unknown. Head CT is negative. With unknown time of onset, not a candidate for tPA anyways On aspirin and Zocor 80 mg MRI brain was negative Carotid ultrasound did not show any significant stenosis Echocardiogram unremarkable Neurology recommends MRA of the brain to complete workup. However patient may not stay steady for MR. Will complete at a later time. Patient is slightly delirious. She wishes to go home but she is not capacitated to make decisions as she is not able to reason through her decisions. Spoke to her friend who stated that her mental status change is new since last Monday. Before that, she was driving and independent Patient has not been sleeping through the night Ordered Seroquel to help her sleep at night. (4) Coronavirus infection: Plan: -Positive for Coronavirus OC43 in the ED -Currently stable on RA with emphysema noted on CXR -Is not in a COPD exacerbation at this time -Supportive measures for now with the following: >Incentive spirometry >Flutter therapy >QIDr DuoNeb >PRN O2 to keep SpO2 between 89-92% >BID Guaifenesin (5) Type II diabetes mellitus with renal manifestations: Plan: -Hold oral medications -Monitor BSG ACHS, goal is 110-160 for now -Normally takes 35 units lantus BID, will decreased to 15 units BID for now with KAYLA and decreased PO intake -Start CF 50 ACHS, hold carb correction for now -HH/DMII diet (6) Hypertension: Plan: -Stable -Hold lisinopril and Lasix with KAYLA and dehydration (7) Hypothyroidism: Plan: -TSH WNL today -Continue levothyroxine (8) Cirrhosis: Plan: -Does not appear to be in decompensation -Continue to monitor volume status closely -Ammonia level was normal (9) Current smoker: Plan: -Smokes approximately 1/5 pack of cigarettes daily -Scattered wheezing on exam but does not appear to be in COPD exacerbation or respiratory distress -Nicotine patch ordered -Continue to stress smoking cessation (10) PAD (peripheral artery disease): Plan: -Continue aspirin Plan DVT prophylaxis: Heparin subcu CODE STATUS: DNR/DNI Admission and Anticipated Discharge Date Admission Date: June 06, 2023 Subjective Patient has been quite uncooperative. She pulled out her IV. She refused labs this morning. She says she wants to go home. She is impulsive and has been getting out of bed. She is high risk of fall. When I talked to her, she is not able to reason through her decisions. Review of Systems Review of Systems: All systems reviewed & are unremarkable except as noted in Subjective Physical Exam Physical Exam: General: Awake, conversant. confused. Impulsive. Imbalance gait Heart: S1, S2/regular rate and rhythm, no murmur rubs or gallops Lungs: Clear to auscultation bilaterally. Normal effort Abdomen: Soft/nontender/nondistended. No hepatosplenomegaly Extremities: No clubbing/cyanosis. No edema Behavior: I am able to orient her and she has been cooperative with me Results & Data Results & Data Vital Signs (Past 12 Hours) Vital Signs Temp Pulse Resp BP BP Pulse Ox O2 Del Method 06/09/23 11:10 75 15 94 Room Air 06/09/23 08:06 37.3 C 87 16 184/76 H 92 Room Air 06/09/23 07:42 Room Air 06/09/23 07:42 85 16 92 Room Air 06/09/23 04:00 36.7 C 70 18 154/68 H 92 Room Air Laboratory Results Abnormal lab results 06/08/23 06/08/23 06/09/23 Range/Units 16:57 20:54 08:20 RBC (4.20-5.40) M/uL Hgb (12.0-16.0) g/dl Hct (37.0-47.0) % MCHC (32.0-36.0) g/dL RDW Std Deviation (36.4-46.3) fL Lymph # (Auto) (1.20-3.40) K/uL [place] # (Auto) (0.11-0.59) K/uL Chloride (98-107) mmol/L Carbon Dioxide (21-32) mmol/L BUN (6-23) mg/dl Creatinine (0.6-1.2) mg/dl Glucose (70-99(Fasting)) mg/dl POC Glucose 214 H 222 H 122 H (70-99) mg/dl Hemoglobin A1c (4.5-5.6) % Calcium (8.6-10.3) mg/dl Triglycerides (0-150) mg/dl VLDL Cholesterol, Calc (0-30) mg/dl 06/09/23 06/09/23 Range/Units 12:08 13:59 RBC 3.69 L (4.20-5.40) M/uL Hgb 11.4 L (12.0-16.0) g/dl Hct 35.7 L (37.0-47.0) % MCHC 31.9 L (32.0-36.0) g/dL RDW Std Deviation 47.9 H (36.4-46.3) fL Lymph # (Auto) 1.07 L (1.20-3.40) K/uL [place] # (Auto) 0.99 H (0.11-0.59) K/uL Chloride 108 H (98-107) mmol/L Carbon Dioxide 19 L (21-32) mmol/L BUN 34 H (6-23) mg/dl Creatinine 1.95 H (0.6-1.2) mg/dl Glucose 176 H (70-99(Fasting)) mg/dl POC Glucose 143 H (70-99) mg/dl Hemoglobin A1c 7.1 H (4.5-5.6) % Calcium 8.3 L (8.6-10.3) mg/dl Triglycerides 188 H (0-150) mg/dl VLDL Cholesterol, Calc 38 H (0-30) mg/dl PG Care Time/CCT Total # of Minutes Spent Total Time Spent with Patient: Total time spent is greater than 50% in coordination of care (as documented) at patient's floor/unit and/or counseling patient: Coding Level of Care Code 41158 SUB INP/OBS CARE 2/35MIN Diagnoses Acute kidney injury superimposed on CKD N17.9; N18.9 Elevated troponin R79.89 Altered mental status R41.82 Coronavirus infection B34.2 Type II diabetes mellitus with renal manifestations E11.29 Hypertension I10 Hypothyroidism E03.9 Cirrhosis K74.60 Current smoker F17.200 PAD (peripheral artery disease) I73.9
[2023-06-09] MEDS ORDERED: ARTIFICIAL TEARS OPB PRN (16:21)
[2023-06-09] MEDS: ALBUT/IPRATROP 3MG/0.5MG NEB 3 ML VIAL NEB PRN (16:26)
[2023-06-09] MEDS: OFLOXACIN 0.3% 75 DROPS/5 ML BTL OPB SCH (18:12)
[2023-06-09] MEDS: QUEtiapine FUMARATE 25 MG TABLET PO SCH (21:27)
[2023-06-10 06:08] LABS: Hematocrit (blood only) 33.7 % (37.0-47.0); Hemoglobin 10.8 g/dl (12.0-16.0); Mean Corpuscular Hemoglobin 30.8 pg (25.0-34.0); Mean Platelet Volume 10.3 fL (9.4-12.4); Platelet Count 118 K/uL (130-400); RDW Coefficient of Variation 13.5 % (11.5-14.5); RDW Standard Deviation 48.2 fL (36.4-46.3); Red Blood Count 3.51 M/uL (4.20-5.40); White Blood Count 7.18 K/ul (4.8-10.8)
[2023-06-10 06:11] LABS: BUN Creatinine Ratio 19.8 (10-20); Calcium 8.1 mg/dl (8.6-10.3); Est GFR (African American) 35.1 ml/min; Est GFR (Non-African American) 30.3 ml/min; Potassium 3.8 mmol/L (3.5-5.1)
[2023-06-10 06:42] LABS: Basophils # (auto) 0.02 K/uL (0.00-0.20); Basophils % (auto) 0.3 %; Immature Granulocytes # (auto) 0.04 K/uL (0.01-0.20); Immature Granulocytes % (auto) 0.6 %; Lymphocytes # (auto) 0.87 K/uL (1.20-3.40); Lymphocytes % (auto) 12.1 %; Monocytes # (auto) 0.87 K/uL (0.11-0.59); Monocytes % (auto) 12.1 %; Neutrophils # (auto) 5.38 K/uL (1.40-6.50); Neutrophils % (auto) 74.9 %
--- NOTE | 2023-06-10 12:03 | Hospitalist Progress Note ---
Date of Service June 10, 2023 Assessment & Plan (1) Acute kidney injury superimposed on CKD: Plan: -Presented to the ED with her Neighbor after experiencing ongoing fever, cough, and confusion -Noted to have an KAYLA on presentation with Cr of 2.09 (baseline is near 1.5) -Like due to dehydration with acute viral illness and ongoing lisinopril use -Renal ultrasound was negative for obstruction She got a total of 2 L of IV fluids On IV fluids Improving Creatinine 1.67 today Plan to continue IV fluids Monitor ins and outs, daily renal function (2) Elevated troponin: Plan: -Likely demand ischemia No chest pain No EKG changes Most likely secondary to acute viral illness, dehydration and acute kidney injury (3) Altered mental status: Plan: Metabolic encephalopathy -Was one of her chief complaints on ED arrival -CT head was negative, is without signs of bacterial infection as her WBC is WNL, CXR and UA are negative for acute infection -Ammonia level was negative -Will continue supportive care for now -Fall/aspiration precautions Patient still seems to be confused. Not sure if deafness is playing a role. With right-sided weakness, nurse raised the question of a stroke. Onset of weakness is unknown. Head CT is negative. With unknown time of onset, not a candidate for tPA anyways On aspirin and Zocor 80 mg MRI brain was negative Carotid ultrasound did not show any significant stenosis Echocardiogram unremarkable Neurology recommends MRA of the brain to complete workup. However patient may not stay steady for MR. Will complete at a later time. Patient has been slightly delirious. She wishes to go home but she is not capacitated to make decisions as she is not able to reason through her decisions. Spoke to her friend who stated that her mental status change is new since last Monday. Before that, she was driving and independent Patient had not been sleeping through the night Ordered Seroquel to help her sleep at night. Got Seroquel last night and has been sleeping through the night. Hopefully turning around the corner (4) Coronavirus infection: Plan: -Positive for Coronavirus OC43 in the ED -Currently stable on RA with emphysema noted on CXR -Is not in a COPD exacerbation at this time -Supportive measures for now with the following: >Incentive spirometry >Flutter therapy >QIDr DuoNeb >PRN O2 to keep SpO2 between 89-92% >BID Guaifenesin (5) Type II diabetes mellitus with renal manifestations: Plan: -Hold oral medications -Monitor BSG ACHS, goal is 110-160 for now -Normally takes 35 units lantus BID, will decreased to 15 units BID for now with KAYLA and decreased PO intake -Start CF 50 ACHS, hold carb correction for now -HH/DMII diet (6) Hypertension: Plan: -Stable -Hold lisinopril and Lasix with KAYLA and dehydration (7) Hypothyroidism: Plan: -TSH WNL today -Continue levothyroxine (8) Cirrhosis: Plan: -Does not appear to be in decompensation -Continue to monitor volume status closely -Ammonia level was normal (9) Current smoker: Plan: -Smokes approximately 1/5 pack of cigarettes daily -Scattered wheezing on exam but does not appear to be in COPD exacerbation or respiratory distress -Nicotine patch ordered -Continue to stress smoking cessation (10) PAD (peripheral artery disease): Plan: -Continue aspirin (11) Ataxic gait: Plan: Patient's gait has been very imbalanced PT/OT recommended rehab However patient is vehemently opposed to going to any place but home. She is still confused. Will wait for her encephalopathy to improve and reevaluate. (12) Conjunctivitis: Plan: Most likely viral etiology Ordered ofloxacin eyedrops along with teardrops. Antihistamine eyedrops are not available in pharmacy here Plan DVT prophylaxis: Heparin subcu CODE STATUS: DNR/DNI Admission and Anticipated Discharge Date Admission Date: June 06, 2023 Subjective Patient slept through the night. Still slightly drowsy. More cooperative today. Review of Systems Review of Systems: All systems reviewed & are unremarkable except as noted in Subjective Physical Exam Physical Exam: General: Sleeping, arousable. Able to converse when she wakes up. Heart: S1, S2/regular rate and rhythm, no murmur rubs or gallops Lungs: Clear to auscultation bilaterally. Normal effort Abdomen: Soft/nontender/nondistended. No hepatosplenomegaly Extremities: No clubbing/cyanosis. No edema Behavior: Cooperative, appropriate. Results & Data Results & Data Vital Signs (Past 12 Hours) Vital Signs Temp Pulse Resp BP Pulse Ox O2 Del Method 06/10/23 11:43 36.8 C 73 22 166/75 H 93 Room Air 06/10/23 08:21 37.3 C 70 24 156/64 H 95 Room Air 06/10/23 07:32 Room Air 06/10/23 01:14 37.5 C 72 20 167/62 H 90 Room Air Laboratory Results Abnormal lab results 06/09/23 06/09/23 06/09/23 Range/Units 12:08 13:59 17:36 RBC 3.69 L (4.20-5.40) M/uL Hgb 11.4 L (12.0-16.0) g/dl Hct 35.7 L (37.0-47.0) % MCHC 31.9 L (32.0-36.0) g/dL RDW Std Deviation 47.9 H (36.4-46.3) fL Plt Count (130-400) K/uL Lymph # (Auto) 1.07 L (1.20-3.40) K/uL [place] # (Auto) 0.99 H (0.11-0.59) K/uL Chloride 108 H (98-107) mmol/L Carbon Dioxide 19 L (21-32) mmol/L BUN 34 H (6-23) mg/dl Creatinine 1.95 H (0.6-1.2) mg/dl Glucose 176 H (70-99(Fasting)) mg/dl POC Glucose 143 H 205 H (70-99) mg/dl Hemoglobin A1c 7.1 H (4.5-5.6) % Calcium 8.3 L (8.6-10.3) mg/dl Triglycerides 188 H (0-150) mg/dl VLDL Cholesterol, Calc 38 H (0-30) mg/dl 06/09/23 06/10/23 06/10/23 Range/Units 21:21 05:36 08:22 RBC 3.51 L (4.20-5.40) M/uL Hgb 10.8 L (12.0-16.0) g/dl Hct 33.7 L (37.0-47.0) % MCHC (32.0-36.0) g/dL RDW Std Deviation 48.2 H (36.4-46.3) fL Plt Count 118 L (130-400) K/uL Lymph # (Auto) 0.87 L (1.20-3.40) K/uL [place] # (Auto) 0.87 H (0.11-0.59) K/uL Chloride 110 H (98-107) mmol/L Carbon Dioxide 17 L (21-32) mmol/L BUN 33 H (6-23) mg/dl Creatinine 1.67 H (0.6-1.2) mg/dl Glucose 163 H (70-99(Fasting)) mg/dl POC Glucose 165 H 168 H (70-99) mg/dl Hemoglobin A1c (4.5-5.6) % Calcium 8.1 L (8.6-10.3) mg/dl Triglycerides (0-150) mg/dl VLDL Cholesterol, Calc (0-30) mg/dl PG Care Time/CCT Total # of Minutes Spent Total Time Spent with Patient: Total time spent is greater than 50% in coordination of care (as documented) at patient's floor/unit and/or counseling patient: Coding Level of Care Code 29803 SUB INP/OBS CARE 2/35MIN Diagnoses Acute kidney injury superimposed on CKD N17.9; N18.9 Elevated troponin R79.89 Altered mental status R41.82 Coronavirus infection B34.2 Type II diabetes mellitus with renal manifestations E11.29 Hypertension I10 Hypothyroidism E03.9 Cirrhosis K74.60 Current smoker F17.200 PAD (peripheral artery disease) I73.9 Ataxic gait R26.0 Conjunctivitis H10.9
[2023-06-11 06:29] LABS: Basophils # (auto) 0.03 K/uL (0.00-0.20); Basophils % (auto) 0.4 %; Hemoglobin 10.5 g/dl (12.0-16.0); Immature Granulocytes # (auto) 0.03 K/uL (0.01-0.20); Immature Granulocytes % (auto) 0.4 %; Lymphocytes # (auto) 1.35 K/uL (1.20-3.40); Lymphocytes % (auto) 17.4 %; Mean Corpuscular Hgb Conc 32.8 g/dL (32.0-36.0); Mean Corpuscular Volume 94.4 fL (80.0-100.0); Mean Platelet Volume 10.7 fL (9.4-12.4); Monocytes # (auto) 1.21 K/uL (0.11-0.59); Monocytes % (auto) 15.6 %; Neutrophils # (auto) 5.12 K/uL (1.40-6.50); Neutrophils % (auto) 66.2 %; Platelet Count 145 K/uL (130-400); RDW Coefficient of Variation 13.3 % (11.5-14.5); Red Blood Count 3.39 M/uL (4.20-5.40); White Blood Count 7.74 K/ul (4.8-10.8)
[2023-06-11 06:31] LABS: BUN Creatinine Ratio 18.6 (10-20); Calcium 8.1 mg/dl (8.6-10.3); Creatinine Clr Calc Pharmacy 35.3 ml/min; Est GFR (African American) 36.6 ml/min; Est GFR (Non-African American) 31.6 ml/min; Potassium 3.5 mmol/L (3.5-5.1)
--- NOTE | 2023-06-11 12:15 | Hospitalist Progress Note ---
Date of Service June 11, 2023 Assessment & Plan (1) Acute kidney injury superimposed on CKD: Plan: -Presented to the ED with her Neighbor after experiencing ongoing fever, cough, and confusion -Noted to have an KAYLA on presentation with Cr of 2.09 (baseline is near 1.5) -Like due to dehydration with acute viral illness and ongoing lisinopril use -Renal ultrasound was negative for obstruction On IV fluids Improving Creatinine 1.6 today Plan to continue IV fluids Encourage p.o. intake Monitor ins and outs, daily renal function (2) Elevated troponin: Plan: -Likely demand ischemia No chest pain No EKG changes Most likely secondary to acute viral illness, dehydration and acute kidney injury (3) Altered mental status: Plan: Metabolic encephalopathy -Was one of her chief complaints on ED arrival -CT head was negative, is without signs of bacterial infection as her WBC is WNL, CXR and UA are negative for acute infection -Ammonia level was negative -Will continue supportive care for now -Fall/aspiration precautions Patient still seems to be confused. Not sure if deafness is playing a role. With right-sided weakness, nurse raised the question of a stroke. Onset of weakness is unknown. Head CT is negative. With unknown time of onset, not a candidate for tPA anyways On aspirin and Zocor 80 mg MRI brain was negative Carotid ultrasound did not show any significant stenosis Echocardiogram unremarkable Neurology recommends MRA of the brain to complete workup. However patient may not stay steady for MR. Will complete at a later time. Patient has been slightly delirious. She wishes to go home but she is not capacitated to make decisions as she is not able to reason through her decisions. Spoke to her friend who stated that her mental status change is new since last Monday. Before that, she was driving and independent Patient had not been sleeping through the night Ordered Seroquel to help her sleep at night. Got Seroquel the last 2 nights and has been sleeping through the night. Hopefully turning around the corner Improving overall (4) Coronavirus infection: Plan: -Positive for Coronavirus OC43 in the ED -Currently stable on RA with emphysema noted on CXR -Is not in a COPD exacerbation at this time -Supportive measures for now with the following: >Incentive spirometry >Flutter therapy >QIDr DuoNeb >PRN O2 to keep SpO2 between 89-92% >BID Guaifenesin (5) Type II diabetes mellitus with renal manifestations: Plan: -Hold oral medications -Monitor BSG ACHS, goal is 110-160 for now -Normally takes 35 units lantus BID, will decreased to 15 units BID for now with KAYLA and decreased PO intake -Start CF 50 ACHS, hold carb correction for now -HH/DMII diet (6) Hypertension: Plan: -Stable -Hold lisinopril and Lasix with KAYLA and dehydration (7) Hypothyroidism: Plan: -TSH WNL today -Continue levothyroxine (8) Cirrhosis: Plan: -Does not appear to be in decompensation -Continue to monitor volume status closely -Ammonia level was normal (9) Current smoker: Plan: -Smokes approximately 1/5 pack of cigarettes daily -Scattered wheezing on exam but does not appear to be in COPD exacerbation or respiratory distress -Nicotine patch ordered -Continue to stress smoking cessation (10) PAD (peripheral artery disease): Plan: -Continue aspirin (11) Ataxic gait: Plan: Patient's gait has been very imbalanced PT/OT recommended rehab However patient is vehemently opposed to going to any place but home. She is still confused. Will wait for her encephalopathy to improve and reevaluate. (12) Conjunctivitis: Plan: Most likely viral etiology Ordered ofloxacin eyedrops along with teardrops. Antihistamine eyedrops are not available in pharmacy here Plan DVT prophylaxis: Heparin subcu CODE STATUS: DNR/DNI Admission and Anticipated Discharge Date Admission Date: June 06, 2023 Subjective Patient feels better overall. Per nurse, mentation is slightly better. She is more cooperative and less impulsive. Review of Systems Review of Systems: All systems reviewed & are unremarkable except as noted in Subjective Physical Exam Physical Exam: General: Awake, conversant. Conjunctivitis noted bilaterally Heart: S1, S2/regular rate and rhythm, no murmur rubs or gallops Lungs: Clear to auscultation bilaterally. Normal effort Abdomen: Soft/nontender/nondistended. No hepatosplenomegaly Extremities: No clubbing/cyanosis. No edema Behavior: Cooperative, appropriate. Results & Data Results & Data Vital Signs (Past 12 Hours) Vital Signs Temp Pulse Resp BP Pulse Ox Pulse Ox O2 Del Method 06/11/23 09:02 37.0 C 70 16 148/60 H 99 Room Air 06/11/23 07:39 81 H 94 Room Air 06/11/23 03:07 36.7 C 65 16 127/64 94 Room Air 06/11/23 01:00 91 06/10/23 23:49 Room Air O2 Del Method 06/11/23 09:02 06/11/23 07:39 06/11/23 03:07 06/11/23 01:00 Room Air 06/10/23 23:49 Laboratory Results Abnormal lab results 06/10/23 06/10/23 06/10/23 Range/Units 12:13 17:12 20:13 RBC (4.20-5.40) M/uL Hgb (12.0-16.0) g/dl Hct (37.0-47.0) % [place] # (Auto) (0.11-0.59) K/uL Chloride (98-107) mmol/L Carbon Dioxide (21-32) mmol/L BUN (6-23) mg/dl Creatinine (0.6-1.2) mg/dl Glucose (70-99(Fasting)) mg/dl POC Glucose 132 H 208 H 179 H (70-99) mg/dl Calcium (8.6-10.3) mg/dl 06/11/23 06/11/23 Range/Units 05:41 08:12 RBC 3.39 L (4.20-5.40) M/uL Hgb 10.5 L (12.0-16.0) g/dl Hct 32.0 L (37.0-47.0) % [place] # (Auto) 1.21 H (0.11-0.59) K/uL Chloride 110 H (98-107) mmol/L Carbon Dioxide 18 L (21-32) mmol/L BUN 30 H (6-23) mg/dl Creatinine 1.61 H (0.6-1.2) mg/dl Glucose 118 H (70-99(Fasting)) mg/dl POC Glucose 149 H (70-99) mg/dl Calcium 8.1 L (8.6-10.3) mg/dl PG Care Time/CCT Total # of Minutes Spent Total Time Spent with Patient: Total time spent is greater than 50% in coordination of care (as documented) at patient's floor/unit and/or counseling patient: Coding Level of Care Code 76118 SUB INP/OBS CARE 2/35MIN Diagnoses Acute kidney injury superimposed on CKD N17.9; N18.9 Elevated troponin R79.89 Altered mental status R41.82 Coronavirus infection B34.2 Type II diabetes mellitus with renal manifestations E11.29 Hypertension I10 Hypothyroidism E03.9 Cirrhosis K74.60 Current smoker F17.200 PAD (peripheral artery disease) I73.9 Ataxic gait R26.0 Conjunctivitis H10.9
[2023-06-12 08:15] LABS: BUN Creatinine Ratio 19.2 (10-20); Calcium 8.3 mg/dl (8.6-10.3); Est GFR (African American) 35.1 ml/min; Est GFR (Non-African American) 30.3 ml/min; Potassium 3.7 mmol/L (3.5-5.1)
--- NOTE | 2023-06-12 15:09 | Hospitalist Progress Note ---
Date of Service June 12, 2023 Assessment & Plan (1) Acute kidney injury superimposed on CKD: Plan: -Presented to the ED with her Neighbor after experiencing ongoing fever, cough, and confusion -Noted to have an KAYLA on presentation with Cr of 2.09 (baseline is near 1.5) -Like due to dehydration with acute viral illness and ongoing lisinopril use -Renal ultrasound was negative for obstruction On IV fluids Improving Creatinine 1.6 today Plan to continue IV fluids Encourage p.o. intake Monitor ins and outs, daily renal function (2) Elevated troponin: Plan: -Likely demand ischemia No chest pain No EKG changes Most likely secondary to acute viral illness, dehydration and acute kidney injury (3) Altered mental status: Plan: Metabolic encephalopathy -Was one of her chief complaints on ED arrival -CT head was negative, is without signs of bacterial infection as her WBC is WNL, CXR and UA are negative for acute infection -Ammonia level was negative -Will continue supportive care for now -Fall/aspiration precautions Patient still seems to be confused. Not sure if deafness is playing a role. With right-sided weakness, nurse raised the question of a stroke. Onset of weakness is unknown. Head CT is negative. With unknown time of onset, not a candidate for tPA anyways On aspirin and Zocor 80 mg MRI brain was negative Carotid ultrasound did not show any significant stenosis Echocardiogram unremarkable Neurology recommends MRA of the brain to complete workup. However patient may not stay steady for MR. Will complete at a later time. Patient has been slightly delirious. She wishes to go home but she is not capacitated to make decisions as she is not able to reason through her decisions. Spoke to her friend who stated that her mental status change is new since last Monday. Before that, she was driving and independent Patient had not been sleeping through the night Ordered Seroquel to help her sleep at night. Got Seroquel the last 2 nights and has been sleeping through the night. Hopefully turning around the corner Improving overall (4) Coronavirus infection: Plan: -Positive for Coronavirus OC43 in the ED -Currently stable on RA with emphysema noted on CXR -Is not in a COPD exacerbation at this time -Supportive measures for now with the following: >Incentive spirometry >Flutter therapy >QIDr DuoNeb >PRN O2 to keep SpO2 between 89-92% >BID Guaifenesin (5) Type II diabetes mellitus with renal manifestations: Plan: -Hold oral medications -Monitor BSG ACHS, goal is 110-160 for now -Normally takes 35 units lantus BID, will decreased to 15 units BID for now with KAYLA and decreased PO intake -Start CF 50 ACHS, hold carb correction for now -HH/DMII diet (6) Hypertension: Plan: -Stable -Hold lisinopril and Lasix with KAYLA and dehydration (7) Hypothyroidism: Plan: -TSH WNL today -Continue levothyroxine (8) Cirrhosis: Plan: -Does not appear to be in decompensation -Continue to monitor volume status closely -Ammonia level was normal (9) Current smoker: Plan: -Smokes approximately 1/5 pack of cigarettes daily -Scattered wheezing on exam but does not appear to be in COPD exacerbation or respiratory distress -Nicotine patch ordered -Continue to stress smoking cessation (10) PAD (peripheral artery disease): Plan: -Continue aspirin (11) Ataxic gait: Plan: Patient's gait has been very imbalanced PT/OT recommended rehab However patient is vehemently opposed to going to any place but home. She is still confused. will educate about going to rehab (12) Conjunctivitis: Plan: Most likely viral etiology Ordered ofloxacin eyedrops along with teardrops. Antihistamine eyedrops are not available in pharmacy here Plan DVT prophylaxis: Heparin subcu CODE STATUS: DNR/DNI Admission and Anticipated Discharge Date Admission Date: June 06, 2023 Subjective Patient feels better overall. Cooperative, firsty Review of Systems Review of Systems: 10 systems reviewed, reports generalized weakness, SOB, denies fever, chills , nausea, vomiting, abdominal pain Physical Exam Physical Exam: alert, awake neck supple, no JVD lungs b/l wheezes heart S1S2 regular, no gallops, rubs abdomen soft, NT, ND, BS present extremities no edema, no cyanosis neuro alert, awake, oriented to her name Results & Data Results & Data Vital Signs (Past 12 Hours) Vital Signs Temp Pulse Resp BP Pulse Ox O2 Del Method 06/12/23 14:52 37.2 C 68 18 160/68 H 93 Room Air 06/12/23 12:04 71 18 91 Room Air 06/12/23 11:26 36.4 C L 70 18 151/73 H 93 Room Air PG Care Time/CCT Total # of Minutes Spent Total Time Spent with Patient: Total time spent is greater than 50% in coordination of care (as documented) at patient's floor/unit and/or counseling patient: Coding Level of Care Code 19278 SUB INP/OBS CARE 2/35MIN Diagnoses Acute kidney injury superimposed on CKD N17.9; N18.9 Elevated troponin R79.89 Altered mental status R41.82 Coronavirus infection B34.2 Type II diabetes mellitus with renal manifestations E11.29 Hypertension I10 Hypothyroidism E03.9 Cirrhosis K74.60 Current smoker F17.200 PAD (peripheral artery disease) I73.9 Ataxic gait R26.0 Conjunctivitis H10.9
--- NOTE | 2023-06-13 07:35 | XRay Report ---
XR ribs RT min 2V w CXR1V CLINICAL HISTORY: fall COMPARISON: Chest CT May 18, 2023. Chest radiograph June 06, 2023. FINDINGS: No pneumothorax or pleural effusion is present. Probable patchy right upper lung airspace opacity is present. Cardiac size is normal. Mediastinal contours are normal. There are multiple old b ilateral healed rib fractures. There are possible acute nondisplaced fractures of the anterolateral r ight eighth and ninth ribs. IMPRESSION: 1. No pneumothorax. Possible acute nondisplaced fractures of the anterolateral right eighth and ninth ribs. Multiple old, healed bilateral rib fractures. 2. Probable patchy right upper lung airspace opacities. This may reflect an infectious process. ACT 112: Negative or not required by law. Electronically signed by: Leonard Saxena M.D. 06/13/2023 7:33 AM
[2023-06-13 08:33] LABS: Albumin Globulin Ratio 1.1 (0.9-2); Albumin Level 3.2 gm/dl (3.4-5.0); BUN Creatinine Ratio 20.6 (10-20); Bilirubin,Total 0.6 mg/dl (0.2-1.0); Calcium 8.3 mg/dl (8.6-10.3); Creatinine Clr Calc Pharmacy 34.4 ml/min; Est GFR (African American) 35.6 ml/min; Est GFR (Non-African American) 30.7 ml/min; Potassium 3.7 mmol/L (3.5-5.1); Total Protein 6.2 gm/dl (6.0-8.3)
--- NOTE | 2023-06-13 13:24 | Hospitalist Progress Note ---
Date of Service June 13, 2023 Assessment & Plan (1) Acute kidney injury superimposed on CKD: Plan: -Presented to the ED with her Neighbor after experiencing ongoing fever, cough, and confusion -Noted to have an KAYLA on presentation with Cr of 2.09 (baseline is near 1.5) -Like due to dehydration with acute viral illness and ongoing lisinopril use -Renal ultrasound was negative for obstruction Improving Creatinine 1.65 today at baseline - CKD st 3 (2) Elevated troponin: Plan: -Likely demand ischemia No chest pain No EKG changes Most likely secondary to acute viral illness, dehydration and acute kidney injury (3) Altered mental status: Plan: Metabolic encephalopathy -Was one of her chief complaints on ED arrival -CT head was negative, is without signs of bacterial infection as her WBC is WNL, CXR and UA are negative for acute infection -Ammonia level was negative -Will continue supportive care for now -Fall/aspiration precautions Patient still seems to be confused. Not sure if deafness is playing a role. With right-sided weakness, nurse raised the question of a stroke. Onset of weakness is unknown. Head CT is negative. With unknown time of onset, not a candidate for tPA anyways On aspirin and Zocor 80 mg MRI brain was negative Carotid ultrasound did not show any significant stenosis Echocardiogram unremarkable Neurology recommends MRA of the brain to complete workup. However patient may not stay steady for MR. Will complete at a later time. Patient has been slightly delirious. She wishes to go home but she is not capacitated to make decisions as she is not able to reason through her decisions. Spoke to her friend who stated that her mental status change is new since last Monday. Before that, she was driving and independent Patient had not been sleeping through the night Ordered Seroquel to help her sleep at night. Got Seroquel the last 2 nights and has been sleeping through the night. Hopefully turning around the corner Improving overall - 06/12 looks better, answers questions appropriatly, agreed to rehab (4) Coronavirus infection: Plan: -Positive for Coronavirus OC43 in the ED -Currently stable on RA with emphysema noted on CXR -Is not in a COPD exacerbation at this time -Supportive measures for now with the following: >Incentive spirometry >Flutter therapy >QIDr DuoNeb >PRN O2 to keep SpO2 between 89-92% >BID Guaifenesin (5) Type II diabetes mellitus with renal manifestations: Plan: -Hold oral medications -Monitor BSG ACHS, goal is 110-160 for now -Normally takes 35 units lantus BID, will decreased to 15 units BID for now with KAYLA and decreased PO intake -Start CF 50 ACHS, hold carb correction for now -HH/DMII diet - increase Lantus, BG above 300 (6) Hypertension: Plan: -Stable -Hold lisinopril and Lasix with KAYLA and dehydration (7) Hypothyroidism: Plan: -TSH WNL today -Continue levothyroxine (8) Cirrhosis: Plan: -Does not appear to be in decompensation -Continue to monitor volume status closely -Ammonia level was normal (9) Current smoker: Plan: -Smokes approximately 1/5 pack of cigarettes daily -Scattered wheezing on exam but does not appear to be in COPD exacerbation or respiratory distress -Nicotine patch ordered -Continue to stress smoking cessation (10) PAD (peripheral artery disease): Plan: -Continue aspirin (11) Ataxic gait: Plan: Patient's gait has been very imbalanced PT/OT recommended rehab agreed to rehab consult rn case manager (12) Conjunctivitis: Plan: Most likely viral etiology Ordered ofloxacin eyedrops along with teardrops. Antihistamine eyedrops are not available in pharmacy here Plan DVT prophylaxis: Heparin subcu CODE STATUS: DNR/DNI Admission and Anticipated Discharge Date Admission Date: June 06, 2023 Subjective Patient feels better overall. Cooperative, talking to her friend at bedside Review of Systems Review of Systems: 10 systems reviewed, reports generalized weakness, SOB, denies fever, chills , nausea, vomiting, abdominal pain Physical Exam Physical Exam: alert, awake neck supple, no JVD lungs decreased breath sounds b/l heart S1S2 regular, no gallops, rubs abdomen soft, NT, ND, BS present extremities no edema, no cyanosis neuro alert, awake, oriented to her name Results & Data Results & Data Vital Signs (Past 12 Hours) Vital Signs Temp Pulse Resp BP Pulse Ox O2 Del Method 06/13/23 08:00 Room Air 06/13/23 07:29 36.9 C 65 18 173/70 H 90 Room Air Medications Administered Current Inpatient Medications Acetaminophen (Acetaminophen 325 Mg Tab) 650 mg PO Q6H PRN PRN Reason: pain(1-4),headache,fever Stop: 07/06/23 15:14 Last Admin: 06/12/23 23:24 Dose: 650 mg Albuterol (Albut/Ipratrop 3mg/0.5mg Neb 3 Ml Vial) 3 ml NEB QIDR PRN; Protocol PRN Reason: Shortness Of Breath Or Wheezing Stop: 07/06/23 15:14 Last Admin: 06/12/23 18:14 Dose: 3 ml Artificial Tears (Artificial Tears) 1 drops OPB QID PRN PRN Reason: Dryness Stop: 07/09/23 16:20 Aspirin (Aspirin 81 Mg Ectab) 81 mg PO DAILY [facility] Stop: 07/07/23 08:59 Last Admin: 06/13/23 09:19 Dose: 81 mg Dextrose (Dextrose 50% 50 Ml Syringe) 25 - 50 ml IV UD PRN; Protocol PRN Reason: Hypoglycemia Protocol Stop: 07/06/23 15:15 Fluticasone Furoate (Fluticasone Furoate 100mcg 14 Puffs/Inhaler) 1 puffs INH DAILY [facility] Stop: 07/07/23 08:59 Last Admin: 06/13/23 09:20 Dose: 1 puffs Glucagon (Glucagon For Inj 1 Mg Vial) 1 mg SQ UD PRN; Protocol PRN Reason: Hypoglycemia Protocol Stop: 07/06/23 15:15 Glucose (Glucose 10 Tab/Tube) 4 - 8 tab PO UD PRN; Protocol PRN Reason: Hypoglycemia Treatment Stop: 07/06/23 15:15 Glucose (Glucose 40% Gel 15 Gm Tube) 15 - 30 gm PO UD PRN; Protocol PRN Reason: Hypoglycemia Protocol Stop: 07/06/23 15:15 Guaifenesin (Guaifenesin 600 Mg Tabcr) 600 mg PO Q12 [facility] Stop: 07/06/23 20:59 Last Admin: 06/13/23 09:18 Dose: 600 mg Heparin Sodium (Porcine) (Heparin Sod 5,000 Unit/0.5 Ml Vial) 5,000 units SQ Q8 [facility] Stop: 07/06/23 21:59 Last Admin: 06/13/23 06:25 Dose: 5,000 units Insulin Aspart (Insulin Aspart Per Unit Charge) 0 units SC ACHS [facility] Stop: 07/06/23 16:29 Last Admin: 06/13/23 12:02 Dose: 4 units Insulin Glargine (Lantus Per Unit Charge) 15 units SQ BID [facility] Stop: 07/06/23 20:59 Last Admin: 06/13/23 09:28 Dose: 15 units Levothyroxine Sodium (Levothyroxine Sodium 112 Mcg Tablet) 112 mcg PO DAILYBB [facility] Stop: 07/07/23 06:29 Last Admin: 06/13/23 06:25 Dose: 112 mcg Miscellaneous (Carbohydrates For Hypoglycemia ) 15 - 30 gm PO UD PRN PRN Reason: Hypoglycemia Protocol Stop: 07/06/23 15:15 Miscellaneous (Remove Nicoderm Patch) 1 each N/A DAILY@0859 [facility] Stop: 07/07/23 08:58 Last Admin: 06/13/23 09:19 Dose: 1 each Nicotine (Nicotine 14 Mg/24 Hr Patch) 14 mg TD QAM [facility] Stop: 07/07/23 08:59 Last Admin: 06/13/23 09:20 Dose: 14 mg Ofloxacin (Ofloxacin 0.3% 75 Drops/5 Ml Btl) 2 drops OPB QID [facility] Stop: 06/19/23 16:59 Last Admin: 06/13/23 12:05 Dose: 2 drops Pantoprazole Sodium (Pantoprazole 40 Mg Tab) 40 mg PO DAILY [facility] Stop: 07/07/23 08:59 Last Admin: 06/13/23 09:20 Dose: 40 mg Propranolol HCl (Propranolol Hcl La 80 Mg Capcr) 160 mg PO QAM [facility] Stop: 07/07/23 08:59 Last Admin: 06/13/23 09:18 Dose: 160 mg Quetiapine Fumarate (Quetiapine Fumarate 25 Mg Tablet) 25 mg PO HS [facility] Stop: 07/09/23 20:59 Last Admin: 06/12/23 20:57 Dose: 25 mg Sertraline HCl (Sertraline Hcl 100 Mg Tablet) 100 mg PO QAM [facility] Stop: 07/07/23 08:59 Last Admin: 06/13/23 09:20 Dose: 100 mg Simvastatin (Simvastatin 80 Mg Tab) 80 mg PO DAILY [facility] Stop: 07/07/23 08:59 Last Admin: 06/13/23 09:21 Dose: 80 mg Umeclidinium/Vilanterol (Umeclidinium/Vilanterol 62.5/25mcg 7 Puffs/Inhaler) 1 puffs INH DAILY [facility] Stop: 07/07/23 08:59 Last Admin: 06/13/23 09:19 Dose: 1 puffs PG Care Time/CCT Total # of Minutes Spent Total Time Spent with Patient: Total time spent is greater than 50% in coordination of care (as documented) at patient's floor/unit and/or counseling patient: Coding Level of Care Code 49842 SUB INP/OBS CARE 2/35MIN Diagnoses Acute kidney injury superimposed on CKD N17.9; N18.9 Elevated troponin R79.89 Altered mental status R41.82 Coronavirus infection B34.2 Type II diabetes mellitus with renal manifestations E11.29 Hypertension I10 Hypothyroidism E03.9 Cirrhosis K74.60 Current smoker F17.200 PAD (peripheral artery disease) I73.9 Ataxic gait R26.0 Conjunctivitis H10.9
[2023-06-13] MEDS: LANTUS PER UNIT CHARGE SQ SCH (20:33)
[2023-06-14] MEDS: FLUTICASONE PROPIONATE NA SPR 16 GM BTL SCH
[2023-06-14] MEDS: BENZONATATE 100 MG CAPSULE PO PRN (04:31)
[2023-06-14] MEDS: COUGH DROP (SUGAR FREE) LOZ 24 LOZ/1 BOX BUCCAL PRN (04:31)
[2023-06-14 07:39] LABS: BUN Creatinine Ratio 18.7 (10-20); Bilirubin,Total 0.5 mg/dl (0.2-1.0); Calcium 8.1 mg/dl (8.6-10.3); Creatinine Clr Calc Pharmacy 34.2 ml/min; Est GFR (African American) 35.3 ml/min; Est GFR (Non-African American) 30.5 ml/min; Globulin 2.9 gm/dl (2.5-4.0); Potassium 3.4 mmol/L (3.5-5.1); Total Protein 5.9 gm/dl (6.0-8.3)
--- NOTE | 2023-06-14 16:26 | Hospitalist Progress Note ---
Date of Service June 14, 2023 Assessment & Plan (1) Acute kidney injury superimposed on CKD: Plan: -Presented to the ED with her Neighbor after experiencing ongoing fever, cough, and confusion -Noted to have an KAYLA on presentation with Cr of 2.09 (baseline is near 1.5) -Like due to dehydration with acute viral illness and ongoing lisinopril use -Renal ultrasound was negative for obstruction Improving Creatinine 1.66 today at baseline - CKD st 3 (2) Elevated troponin: Plan: -Likely demand ischemia No chest pain No EKG changes Most likely secondary to acute viral illness, dehydration and acute kidney injury (3) Altered mental status: Plan: Metabolic encephalopathy -Was one of her chief complaints on ED arrival -CT head was negative, is without signs of bacterial infection as her WBC is WNL, CXR and UA are negative for acute infection -Ammonia level was negative -Will continue supportive care for now -Fall/aspiration precautions Patient still seems to be confused. Not sure if deafness is playing a role. With right-sided weakness, nurse raised the question of a stroke. Onset of weakness is unknown. Head CT is negative. With unknown time of onset, not a candidate for tPA anyways On aspirin and Zocor 80 mg MRI brain was negative Carotid ultrasound did not show any significant stenosis Echocardiogram unremarkable Neurology recommends MRA of the brain to complete workup. However patient may not stay steady for MR. Will complete at a later time. Patient has been slightly delirious. She wishes to go home but she is not capacitated to make decisions as she is not able to reason through her decisions. Spoke to her friend who stated that her mental status change is new since last Monday. Before that, she was driving and independent Patient had not been sleeping through the night Ordered Seroquel to help her sleep at night. Got Seroquel the last 2 nights and has been sleeping through the night. Hopefully turning around the corner Improving overall - 06/12 looks better, answers questions appropriately, agreed to rehab 06/13 reports feeling better, still has generalized weakness, needs a lot of assistance (4) Coronavirus infection: Plan: -Positive for Coronavirus OC43 in the ED -Currently stable on RA with emphysema noted on CXR -Is not in a COPD exacerbation at this time symptoms mainly resolved -Supportive measures for now with the following: >Incentive spirometry >Flutter therapy >QIDr DuoNeb >PRN O2 to keep SpO2 between 89-92% >BID Guaifenesin (5) Type II diabetes mellitus with renal manifestations: Plan: -Hold oral medications -Monitor BSG ACHS, goal is 110-160 for now -Normally takes 35 units lantus BID, will decreased to 15 units BID for now with KAYLA and decreased PO intake -Start CF 50 ACHS, hold carb correction for now -HH/DMII diet - increase Lantus, BG in 240 s (6) Hypertension: Plan: -Stable -Hold lisinopril and Lasix with KAYLA and dehydration (7) Hypothyroidism: Plan: -TSH WNL today -Continue levothyroxine (8) Cirrhosis: Plan: -Does not appear to be in decompensation -Continue to monitor volume status closely -Ammonia level was normal (9) Current smoker: Plan: -Smokes approximately 1/5 pack of cigarettes daily -Scattered wheezing on exam but does not appear to be in COPD exacerbation or respiratory distress -Nicotine patch ordered -Continue to stress smoking cessation (10) PAD (peripheral artery disease): Plan: -Continue aspirin (11) Ataxic gait: Plan: Patient's gait has been very imbalanced PT/OT recommended rehab agreed to rehab (12) Conjunctivitis: Plan: Most likely viral etiology Ordered ofloxacin eyedrops along with teardrops. Antihistamine eyedrops are not available in pharmacy here Plan DVT prophylaxis: Heparin subcu CODE STATUS: DNR/DNI Admission and Anticipated Discharge Date Admission Date: June 06, 2023 Subjective Patient feels better overall. awaiting for rehab , reports generalized weakness Review of Systems Review of Systems: 10 systems reviewed, reports generalized weakness, SOB, denies fever, chills , nausea, vomiting, abdominal pain Physical Exam Physical Exam: alert, awake neck supple, no JVD lungs decreased breath sounds b/l heart S1S2 regular, no gallops, rubs abdomen soft, NT, ND, BS present extremities no edema, no cyanosis neuro alert, awake, oriented to her name Results & Data Results & Data Vital Signs (Past 12 Hours) Vital Signs Temp Pulse Resp BP Pulse Ox O2 Del Method O2 Flow Rate 06/14/23 15:11 36.8 C 70 18 176/67 H 92 Room Air 06/14/23 08:13 Nasal Cannula 2 06/14/23 07:30 36.8 C 64 18 149/63 H 91 Room Air PG Care Time/CCT Total # of Minutes Spent Total Time Spent with Patient: Total time spent is greater than 50% in coordination of care (as documented) at patient's floor/unit and/or counseling patient: Coding Level of Care Code 60182 SUB INP/OBS CARE 2/35MIN Diagnoses Acute kidney injury superimposed on CKD N17.9; N18.9 Elevated troponin R79.89 Altered mental status R41.82 Coronavirus infection B34.2 Type II diabetes mellitus with renal manifestations E11.29 Hypertension I10 Hypothyroidism E03.9 Cirrhosis K74.60 Current smoker F17.200 PAD (peripheral artery disease) I73.9 Ataxic gait R26.0 Conjunctivitis H10.9
[2023-06-14] MEDS: POTASSIUM CHLORIDE CRTAB 20 MEQ TABCR PO STA (17:36)
[2023-06-14] MEDS: amLODIPine BESYLATE 5 MG TAB PO SCH (17:36)
[2023-06-14] MEDS: LANTUS PER UNIT CHARGE SQ SCH (21:32)
[2023-06-15 09:26] LABS: Albumin Level 3.2 gm/dl (3.4-5.0); Bilirubin,Total 0.6 mg/dl (0.2-1.0); Calcium 8.3 mg/dl (8.6-10.3); Creatinine Clr Calc Pharmacy 33.2 ml/min; Est GFR (African American) 34.1 ml/min; Est GFR (Non-African American) 29.4 ml/min; Globulin 3.1 gm/dl (2.5-4.0); Magnesium 2.1 mg/dl (1.7-2.4); Potassium 3.5 mmol/L (3.5-5.1); Total Protein 6.3 gm/dl (6.0-8.3)
--- NOTE | 2023-06-15 13:30 | Hospitalist Progress Note ---
Date of Service June 15, 2023 Assessment & Plan (1) Acute kidney injury superimposed on CKD: Plan: -Presented to the ED with her Neighbor after experiencing ongoing fever, cough, and confusion -Noted to have an KAYLA on presentation with Cr of 2.09 (baseline is near 1.5) -Like due to dehydration with acute viral illness and ongoing lisinopril use -Renal ultrasound was negative for obstruction Improving Creatinine 1.66 today at baseline - CKD st 3 , creatinine is stable (2) Elevated troponin: Plan: -Likely demand ischemia No chest pain No EKG changes Most likely secondary to acute viral illness, dehydration and acute kidney injury (3) Altered mental status: Plan: Metabolic encephalopathy -Was one of her chief complaints on ED arrival -CT head was negative, is without signs of bacterial infection as her WBC is WNL, CXR and UA are negative for acute infection -Ammonia level was negative -Will continue supportive care for now -Fall/aspiration precautions Patient still seems to be confused. Not sure if deafness is playing a role. With right-sided weakness, nurse raised the question of a stroke. Onset of weakness is unknown. Head CT is negative. With unknown time of onset, not a candidate for tPA anyways On aspirin and Zocor 80 mg MRI brain was negative Carotid ultrasound did not show any significant stenosis Echocardiogram unremarkable Neurology recommends MRA of the brain to complete workup. However patient may not stay steady for MR. Will complete at a later time. Patient has been slightly delirious. She wishes to go home but she is not capacitated to make decisions as she is not able to reason through her decisions. Spoke to her friend who stated that her mental status change is new since last Monday. Before that, she was driving and independent Patient had not been sleeping through the night Ordered Seroquel to help her sleep at night. Got Seroquel the last 2 nights and has been sleeping through the night. Hopefully turning around the corner Improving overall - 06/12 looks better, answers questions appropriately, agreed to rehab 06/13 reports feeling better, still has generalized weakness, needs a lot of assistance 06/14 patient is alert awake, worked with physical therapy, PT still recommends rehab, discussed with [facility]cisian , she is approved for SNF (4) Coronavirus infection: Plan: -Positive for Coronavirus OC43 in the ED -Currently stable on RA with emphysema noted on CXR -Is not in a COPD exacerbation at this time symptoms mainly resolved -Supportive measures for now with the following: >Incentive spirometry >Flutter therapy >QIDr DuoNeb >PRN O2 to keep SpO2 between 89-92% >BID Guaifenesin Remains off oxygen , denies shortness of breath (5) Type II diabetes mellitus with renal manifestations: Plan: -Hold oral medications -Monitor BSG ACHS, goal is 110-160 for now -Normally takes 35 units lantus BID, will decreased to 15 units BID for now with KAYLA and decreased PO intake -Start CF 50 ACHS, hold carb correction for now -HH/DMII diet - increase Lantus, BG in 240 s 06/14 blood glucoses better control (6) Hypertension: Plan: -Stable -Hold lisinopril and Lasix with KAYLA and dehydration Blood pressure is elevated, patient started on amlodipine 5 mg a day, we will increase it to 10 mg a day, hydralazine as needed (7) Hypothyroidism: Plan: -TSH WNL today -Continue levothyroxine (8) Cirrhosis: Plan: -Does not appear to be in decompensation -Continue to monitor volume status closely -Ammonia level was normal (9) Current smoker: Plan: -Smokes approximately 1/5 pack of cigarettes daily -Scattered wheezing on exam but does not appear to be in COPD exacerbation or respiratory distress -Nicotine patch ordered -Continue to stress smoking cessation (10) PAD (peripheral artery disease): Plan: -Continue aspirin (11) Ataxic gait: Plan: Patient's gait has been very imbalanced PT/OT recommended rehab agreed to rehab (12) Conjunctivitis: Plan: Most likely viral etiology Ordered ofloxacin eyedrops along with teardrops. Antihistamine eyedrops are not available in pharmacy here Plan DVT prophylaxis: Heparin subcu CODE STATUS: DNR/DNI Admission and Anticipated Discharge Date Admission Date: June 06, 2023 Subjective Patient feels better overall. awaiting for rehab , reports generalized weakness Review of Systems Review of Systems: 10 systems reviewed, reports generalized weakness, SOB, denies fever, chills , nausea, vomiting, abdominal pain Physical Exam Physical Exam: alert, awake neck supple, no JVD lungs decreased breath sounds b/l heart S1S2 regular, no gallops, rubs abdomen soft, NT, ND, BS present extremities no edema, no cyanosis neuro alert, awake, oriented to her name and place Results & Data Results & Data Vital Signs (Past 12 Hours) Vital Signs Temp Pulse Resp BP Pulse Ox O2 Del Method O2 Flow Rate 06/15/23 08:00 Nasal Cannula 2 06/15/23 07:45 36.9 C 65 20 172/67 H 92 Nasal Cannula 2 PG Care Time/CCT Total # of Minutes Spent Total Time Spent with Patient: Total time spent is greater than 50% in coordination of care (as documented) at patient's floor/unit and/or counseling patient: Coding Level of Care Code 33614 SUB INP/OBS CARE 2/35MIN Diagnoses Acute kidney injury superimposed on CKD N17.9; N18.9 Elevated troponin R79.89 Altered mental status R41.82 Coronavirus infection B34.2 Type II diabetes mellitus with renal manifestations E11.29 Hypertension I10 Hypothyroidism E03.9 Cirrhosis K74.60 Current smoker F17.200 PAD (peripheral artery disease) I73.9 Ataxic gait R26.0 Conjunctivitis H10.9
[2023-06-15] MEDS ORDERED: hydrALAZINE HCL 25 MG TAB PO PRN (13:31)
[2023-06-16] MEDS: amLODIPine BESYLATE 5 MG TAB PO SCH (09:35)
--- NOTE | 2023-06-16 16:28 | Hospitalist Progress Note ---
Date of Service June 16, 2023 Assessment & Plan (1) Acute kidney injury superimposed on CKD: Plan: -Presented to the ED with her Neighbor after experiencing ongoing fever, cough, and confusion -Noted to have an KAYLA on presentation with Cr of 2.09 (baseline is near 1.5) -Like due to dehydration with acute viral illness and ongoing lisinopril use -Renal ultrasound was negative for obstruction Improving Creatinine 1.66 today at baseline - CKD st 3 , creatinine is stable (2) Elevated troponin: Plan: -Likely demand ischemia No chest pain No EKG changes Most likely secondary to acute viral illness, dehydration and acute kidney injury (3) Altered mental status: Plan: Metabolic encephalopathy -Was one of her chief complaints on ED arrival -CT head was negative, is without signs of bacterial infection as her WBC is WNL, CXR and UA are negative for acute infection -Ammonia level was negative -Will continue supportive care for now -Fall/aspiration precautions Patient still seems to be confused. Not sure if deafness is playing a role. With right-sided weakness, nurse raised the question of a stroke. Onset of weakness is unknown. Head CT is negative. With unknown time of onset, not a candidate for tPA anyways On aspirin and Zocor 80 mg MRI brain was negative Carotid ultrasound did not show any significant stenosis Echocardiogram unremarkable Neurology recommends MRA of the brain to complete workup. However patient may not stay steady for MR. Will complete at a later time. Patient has been slightly delirious. She wishes to go home but she is not capacitated to make decisions as she is not able to reason through her decisions. Spoke to her friend who stated that her mental status change is new since last Monday. Before that, she was driving and independent Patient had not been sleeping through the night Ordered Seroquel to help her sleep at night. Got Seroquel the last 2 nights and has been sleeping through the night. Hopefully turning around the corner Improving overall - 06/12 looks better, answers questions appropriately, agreed to rehab 06/13 reports feeling better, still has generalized weakness, needs a lot of assistance 06/14 patient is alert awake, worked with physical therapy, PT still recommends rehab, discussed with [facility] phycisian , she is approved for SNF 06/15 sleepy, will reduce dose of Zoloft, at baseline otherwise (4) Coronavirus infection: Plan: -Positive for Coronavirus OC43 in the ED -Currently stable on RA with emphysema noted on CXR -Is not in a COPD exacerbation at this time symptoms mainly resolved -Supportive measures for now with the following: >Incentive spirometry >Flutter therapy >QIDr DuoNeb >PRN O2 to keep SpO2 between 89-92% >BID Guaifenesin Remains off oxygen , denies shortness of breath (5) Type II diabetes mellitus with renal manifestations: Plan: -Hold oral medications -Monitor BSG ACHS, goal is 110-160 for now -Normally takes 35 units lantus BID, will decreased to 15 units BID for now with KAYLA and decreased PO intake -Start CF 50 ACHS, hold carb correction for now -HH/DMII diet - increase Lantus, BG in 240 s 06/14 blood glucoses better control 06/15 BG is 80 this morning, will reduce dose of Lantus , monitor BG (6) Hypertension: Plan: -Stable -Hold lisinopril and Lasix with KAYLA and dehydration Blood pressure is elevated, patient started on amlodipine 5 mg a day, we will increase it to 10 mg a day, hydralazine as needed (7) Hypothyroidism: Plan: -TSH WNL today -Continue levothyroxine (8) Cirrhosis: Plan: -Does not appear to be in decompensation -Continue to monitor volume status closely -Ammonia level was normal (9) Current smoker: Plan: -Smokes approximately 1/5 pack of cigarettes daily -Scattered wheezing on exam but does not appear to be in COPD exacerbation or respiratory distress -Nicotine patch ordered -Continue to stress smoking cessation (10) PAD (peripheral artery disease): Plan: -Continue aspirin (11) Ataxic gait: Plan: Patient's gait has been very imbalanced PT/OT recommended rehab agreed to rehab approved for SNF (12) Conjunctivitis: Plan: Most likely viral etiology Ordered ofloxacin eyedrops along with teardrops. Antihistamine eyedrops are not available in pharmacy here resolved Plan DVT prophylaxis: Heparin subcu CODE STATUS: DNR/DNI Admission and Anticipated Discharge Date Admission Date: June 06, 2023 Subjective Patient feels better overall. awaiting SNF , reports generalized weakness , sleepy Review of Systems Review of Systems: 10 systems reviewed, reports generalized weakness, SOB, denies fever, chills , nausea, vomiting, abdominal pain , blood sugars are low Physical Exam Physical Exam: alert, awake neck supple, no JVD lungs decreased breath sounds b/l heart S1S2 regular, no gallops, rubs abdomen soft, NT, ND, BS present extremities no edema, no cyanosis neuro alert, awake, oriented to her name and place Results & Data Results & Data Vital Signs (Past 12 Hours) Vital Signs Temp Pulse Resp BP Pulse Ox O2 Del Method O2 Flow Rate 06/16/23 15:25 37.0 C 67 18 148/61 H 95 Nasal Cannula 2 06/16/23 11:05 36.8 C 70 18 141/60 H 92 Nasal Cannula 2 06/16/23 09:58 36.8 C 75 18 164/68 H 93 Nasal Cannula 2 06/16/23 08:30 Nasal Cannula 2 06/16/23 07:35 36.9 C 63 20 151/61 H 93 Nasal Cannula 2 PG Care Time/CCT Total # of Minutes Spent Total Time Spent with Patient: Total time spent is greater than 50% in coordination of care (as documented) at patient's floor/unit and/or counseling patient: Coding Level of Care Code 72821 SUB INP/OBS CARE 2/35MIN Diagnoses Acute kidney injury superimposed on CKD N17.9; N18.9 Elevated troponin R79.89 Altered mental status R41.82 Coronavirus infection B34.2 Type II diabetes mellitus with renal manifestations E11.29 Hypertension I10 Hypothyroidism E03.9 Cirrhosis K74.60 Current smoker F17.200 PAD (peripheral artery disease) I73.9 Ataxic gait R26.0 Conjunctivitis H10.9
[2023-06-16] MEDS: LANTUS PER UNIT CHARGE SQ SCH (20:34)
[2023-06-16] MEDS: hydrALAZINE HCL 25 MG TAB PO SCH (21:58)
[2023-06-17 07:38] LABS: Basophils # (auto) 0.04 K/uL (0.00-0.20); Basophils % (auto) 0.3 %; Eosinophils # (auto) 0.07 K/uL (0.00-0.50); Eosinophils % (auto) 0.4 %; Hemoglobin 10.6 g/dl (12.0-16.0); Immature Granulocytes # (auto) 0.16 K/uL (0.01-0.20); Lymphocytes # (auto) 1.17 K/uL (1.20-3.40); Lymphocytes % (auto) 7.5 %; Mean Corpuscular Hemoglobin 30.9 pg (25.0-34.0); Mean Corpuscular Hgb Conc 33.1 g/dL (32.0-36.0); Mean Corpuscular Volume 93.3 fL (80.0-100.0); Monocytes # (auto) 0.87 K/uL (0.11-0.59); Monocytes % (auto) 5.5 %; Neutrophils # (auto) 13.39 K/uL (1.40-6.50); Neutrophils % (auto) 85.3 %; Platelet Count 299 K/uL (130-400); RDW Coefficient of Variation 13.7 % (11.5-14.5); RDW Standard Deviation 46.8 fL (36.4-46.3); Red Blood Count 3.43 M/uL (4.20-5.40)
[2023-06-17 07:56] LABS: BUN Creatinine Ratio 17.6 (10-20); Creatinine Clr Calc Pharmacy 33.4 ml/min; Est GFR (African American) 34.3 ml/min; Est GFR (Non-African American) 29.6 ml/min; Potassium 3.4 mmol/L (3.5-5.1)
[2023-06-17] MEDS: SERTRALINE HCL 50 MG TABLET PO SCH (09:11)
--- NOTE | 2023-06-17 15:46 | Hospitalist Progress Note ---
Date of Service June 17, 2023 Assessment & Plan (1) Acute kidney injury superimposed on CKD: Plan: -Presented to the ED with her Neighbor after experiencing ongoing fever, cough, and confusion -Noted to have an KAYLA on presentation with Cr of 2.09 (baseline is near 1.5) -Like due to dehydration with acute viral illness and ongoing lisinopril use -Renal ultrasound was negative for obstruction Improving Creatinine 1.7 today at baseline - CKD st 3 , creatinine is stable (2) Elevated troponin: Plan: -Likely demand ischemia No chest pain No EKG changes Most likely secondary to acute viral illness, dehydration and acute kidney injury (3) Altered mental status: Plan: Metabolic encephalopathy -Was one of her chief complaints on ED arrival -CT head was negative, is without signs of bacterial infection as her WBC is WNL, CXR and UA are negative for acute infection -Ammonia level was negative -Will continue supportive care for now -Fall/aspiration precautions Patient still seems to be confused. Not sure if deafness is playing a role. With right-sided weakness, nurse raised the question of a stroke. Onset of weakness is unknown. Head CT is negative. With unknown time of onset, not a candidate for tPA anyways On aspirin and Zocor 80 mg MRI brain was negative Carotid ultrasound did not show any significant stenosis Echocardiogram unremarkable Neurology recommends MRA of the brain to complete workup. However patient may not stay steady for MR. Will complete at a later time. Patient has been slightly delirious. She wishes to go home but she is not capacitated to make decisions as she is not able to reason through her decisions. Spoke to her friend who stated that her mental status change is new since last Monday. Before that, she was driving and independent Patient had not been sleeping through the night Ordered Seroquel to help her sleep at night. Got Seroquel the last 2 nights and has been sleeping through the night. Hopefully turning around the corner Improving overall - 06/12 looks better, answers questions appropriately, agreed to rehab 06/13 reports feeling better, still has generalized weakness, needs a lot of assistance 06/14 patient is alert awake, worked with physical therapy, PT still recommends rehab, discussed with [facility] phycisian , she is approved for SNF 06/15 sleepy, will reduce dose of Zoloft, at baseline otherwise (4) Coronavirus infection: Plan: -Positive for Coronavirus OC43 in the ED -Currently stable on RA with emphysema noted on CXR -Is not in a COPD exacerbation at this time symptoms mainly resolved -Supportive measures for now with the following: >Incentive spirometry >Flutter therapy >QIDr DuoNeb >PRN O2 to keep SpO2 between 89-92% >BID Guaifenesin Remains off oxygen , denies shortness of breath (5) Type II diabetes mellitus with renal manifestations: Plan: -Hold oral medications -Monitor BSG ACHS, goal is 110-160 for now -Normally takes 35 units lantus BID, will decreased to 15 units BID for now with KAYLA and decreased PO intake -Start CF 50 ACHS, hold carb correction for now -HH/DMII diet - increase Lantus, BG in 240 s 06/14 blood glucoses better control 06/15 BG is 80 this morning, will reduce dose of Lantus , monitor BG (6) Hypertension: Plan: -Stable -Hold lisinopril and Lasix with KAYLA and dehydration Blood pressure is elevated, patient started on amlodipine 5 mg a day, we will increase it to 10 mg a day, hydralazine as needed (7) Hypothyroidism: Plan: -TSH WNL today -Continue levothyroxine (8) Cirrhosis: Plan: -Does not appear to be in decompensation -Continue to monitor volume status closely -Ammonia level was normal (9) Current smoker: Plan: -Smokes approximately 1/5 pack of cigarettes daily -Scattered wheezing on exam but does not appear to be in COPD exacerbation or respiratory distress -Nicotine patch ordered -Continue to stress smoking cessation (10) PAD (peripheral artery disease): Plan: -Continue aspirin (11) Ataxic gait: Plan: Patient's gait has been very imbalanced PT/OT recommended rehab agreed to rehab approved for SNF (12) Conjunctivitis: Plan: Most likely viral etiology Ordered ofloxacin eyedrops along with teardrops. Antihistamine eyedrops are not available in pharmacy here resolved Plan DVT prophylaxis: Heparin subcu CODE STATUS: DNR/DNI Noted elevated white count of 15. Noted that her temperature today was 37.6. Will monitor closely. Ordered a urinalysis. Admission and Anticipated Discharge Date Admission Date: June 06, 2023 Subjective Patient feels well in general. Denies any chest pain or shortness of breath. Review of Systems Review of Systems: All systems reviewed & are unremarkable except as noted in Subjective Physical Exam Physical Exam: General: Awake, conversant. Conjunctivitis seems to have resolved Heart: S1, S2/regular rate and rhythm, no murmur rubs or gallops Lungs: Clear to auscultation bilaterally. Normal effort Abdomen: Soft/nontender/nondistended. No hepatosplenomegaly Extremities: No clubbing/cyanosis. No edema Behavior: Cooperative, appropriate. Results & Data Results & Data Vital Signs (Past 12 Hours) Vital Signs Temp Pulse Resp BP Pulse Ox O2 Del Method O2 Flow Rate 06/17/23 14:37 37.4 C 66 18 128/52 L 89 L Nasal Cannula 2 06/17/23 11:28 Nasal Cannula 2 06/17/23 07:40 37.6 C H 58 L 20 165/57 H 94 Nasal Cannula 2 06/17/23 05:50 168/67 H Laboratory Results Abnormal lab results 06/16/23 06/16/23 06/17/23 Range/Units 16:43 20:18 07:17 WBC 15.70 H (4.8-10.8) K/ul RBC 3.43 L (4.20-5.40) M/uL Hgb 10.6 L (12.0-16.0) g/dl Hct 32.0 L (37.0-47.0) % RDW Std Deviation 46.8 H (36.4-46.3) fL Neut # (Auto) 13.39 H (1.40-6.50) K/uL Lymph # (Auto) 1.17 L (1.20-3.40) K/uL Grainger # (Auto) 0.87 H (0.11-0.59) K/uL Potassium 3.4 L (3.5-5.1) mmol/L Chloride 109 H (98-107) mmol/L Carbon Dioxide 20 L (21-32) mmol/L BUN 30 H (6-23) mg/dl Creatinine 1.70 H (0.6-1.2) mg/dl Glucose 57 L (70-99(Fasting)) mg/dl POC Glucose 100 H 132 H (70-99) mg/dl Calcium 8.0 L (8.6-10.3) mg/dl 06/17/23 Range/Units 11:33 WBC (4.8-10.8) K/ul RBC (4.20-5.40) M/uL Hgb (12.0-16.0) g/dl Hct (37.0-47.0) % RDW Std Deviation (36.4-46.3) fL Neut # (Auto) (1.40-6.50) K/uL Lymph # (Auto) (1.20-3.40) K/uL Grainger # (Auto) (0.11-0.59) K/uL Potassium (3.5-5.1) mmol/L Chloride (98-107) mmol/L Carbon Dioxide (21-32) mmol/L BUN (6-23) mg/dl Creatinine (0.6-1.2) mg/dl Glucose (70-99(Fasting)) mg/dl POC Glucose 223 H (70-99) mg/dl Calcium (8.6-10.3) mg/dl PG Care Time/CCT Total # of Minutes Spent Total Time Spent with Patient: Total time spent is greater than 50% in coordination of care (as documented) at patient's floor/unit and/or counseling patient: Coding Level of Care Code 03187 SUB INP/OBS CARE 2/35MIN Diagnoses Acute kidney injury superimposed on CKD N17.9; N18.9 Elevated troponin R79.89 Altered mental status R41.82 Coronavirus infection B34.2 Type II diabetes mellitus with renal manifestations E11.29 Hypertension I10 Hypothyroidism E03.9 Cirrhosis K74.60 Current smoker F17.200 PAD (peripheral artery disease) I73.9 Ataxic gait R26.0 Conjunctivitis H10.9
[2023-06-17 22:24] LABS: Appearance Urine Cloudy (Clear); Bilirubin Urine Negative (Negative); Blood Urine 1+ (Negative); Color Urine Dark Yellow; Epithelial Cell Urine Auto >30 /lpf (0-5); Glucose Urine UA Negative (Negative); Ketones Urine Negative (Negative); Leukocyte Esterase Urine Trace (Negative); Nitrite Urine Negative (Negative); Protein Urine 3+ (Negative); RBC Urine Automated 0-4 /hpf (0-4); Specific Gravity Urine 1.021 (1.000-1.030); Urobilinogen Urine Negative (Negative); pH Urine 5.5 (4.5-7.5)
[2023-06-17 22:44] LABS: Bacteria Urine Automated 1+ (Negative)
[2023-06-18 06:09] LABS: Basophils # (auto) 0.03 K/uL (0.00-0.20); Basophils % (auto) 0.3 %; Eosinophils # (auto) 0.11 K/uL (0.00-0.50); Hemoglobin 10.2 g/dl (12.0-16.0); Immature Granulocytes % (auto) 0.9 %; Lymphocytes # (auto) 1.25 K/uL (1.20-3.40); Lymphocytes % (auto) 10.8 %; Mean Corpuscular Hemoglobin 30.7 pg (25.0-34.0); Mean Corpuscular Hgb Conc 32.9 g/dL (32.0-36.0); Mean Corpuscular Volume 93.4 fL (80.0-100.0); Mean Platelet Volume 10.3 fL (9.4-12.4); Monocytes # (auto) 0.72 K/uL (0.11-0.59); Monocytes % (auto) 6.2 %; Neutrophils # (auto) 9.32 K/uL (1.40-6.50); Neutrophils % (auto) 80.8 %; Platelet Count 269 K/uL (130-400); RDW Coefficient of Variation 13.3 % (11.5-14.5); RDW Standard Deviation 45.7 fL (36.4-46.3); Red Blood Count 3.32 M/uL (4.20-5.40); White Blood Count 11.53 K/ul (4.8-10.8)
[2023-06-18 06:27] LABS: BUN Creatinine Ratio 17.4 (10-20); Creatinine Clr Calc Pharmacy 30.9 ml/min; Est GFR (African American) 31.2 ml/min; Est GFR (Non-African American) 26.9 ml/min; Potassium 3.5 mmol/L (3.5-5.1)
[2023-06-18] MEDS ORDERED: POTASSIUM CHLORIDE 20 MEQ in SODIUM CHLORIDE 0.9% 1,000 ML IV SCH (10:00)
[2023-06-18] MEDS: NSS + 20MEQ KCL 20 MEQ/1,000 ML BAG IV SCH (10:59)
--- NOTE | 2023-06-18 16:42 | Hospitalist Progress Note ---
Date of Service June 18, 2023 Assessment & Plan (1) Acute kidney injury superimposed on CKD: Plan: -Presented to the ED with her Neighbor after experiencing ongoing fever, cough, and confusion -Noted to have an KAYLA on presentation with Cr of 2.09 (baseline is near 1.5) -Like due to dehydration with acute viral illness and ongoing lisinopril use -Renal ultrasound was negative for obstruction Improving initially but now creatinine is trending up Creatinine 1.8 today Will hydrate patient gently with 1 L of IV fluid and recheck numbers tomorrow - CKD st 3 , creatinine is stable (2) Elevated troponin: Plan: -Likely demand ischemia No chest pain No EKG changes Most likely secondary to acute viral illness, dehydration and acute kidney injury (3) Altered mental status: Plan: Metabolic encephalopathy -Was one of her chief complaints on ED arrival -CT head was negative, is without signs of bacterial infection as her WBC is WNL, CXR and UA are negative for acute infection -Ammonia level was negative -Will continue supportive care for now -Fall/aspiration precautions Patient still seems to be confused. Not sure if deafness is playing a role. With right-sided weakness, nurse raised the question of a stroke. Onset of weakness is unknown. Head CT is negative. With unknown time of onset, not a c andidate for tPA anyways On aspirin and Zocor 80 mg MRI brain was negative Carotid ultrasound did not show any significant stenosis Echocardiogram unremarkable Neurology recommends MRA of the brain to complete workup. However patient may not stay steady for MR. Will complete at a later time. Patient has been slightly delirious. She wishes to go home but she is not capacitated to make decisions as she is not able to reason through her decisions. Spoke to her friend who stated that her mental status change is new since last Monday. Before that, she was driving and independent Patient had not been sleeping through the night Ordered Seroquel to help her sleep at night. Got Seroquel the last 2 nights and has been sleeping through the night. Hopefully turning around the corner Improving overall. Most likely back to her baseline. - 06/12 looks better, answers questions appropriately, agreed to rehab 06/13 reports feeling better, still has generalized weakness, needs a lot of assistance 06/14 patient is alert awake, worked with physical therapy, PT still recommends rehab, discussed with [employer] phycisian , she is approved for SNF 06/15 sleepy, will reduce dose of Zoloft, at baseline otherwise (4) Coronavirus infection: Plan: -Positive for Coronavirus OC43 in the ED -Currently stable on RA with emphysema noted on CXR -Is not in a COPD exacerbation at this time symptoms mainly resolved -Supportive measures for now with the following: >Incentive spirometry >Flutter therapy >QIDr DuoNeb >PRN O2 to keep SpO2 between 89-92% >BID Guaifenesin Remains off oxygen , denies shortness of breath (5) Type II diabetes mellitus with renal manifestations: Plan: -Hold oral medications -Monitor BSG ACHS, goal is 110-160 for now -Normally takes 35 units lantus BID, will decreased to 15 units BID for now with KAYLA and decreased PO intake -Start CF 50 ACHS, hold carb correction for now -HH/DMII diet - increase Lantus, BG in 240 s 06/14 blood glucoses better control 06/15 BG is 80 this morning, will reduce dose of Lantus , monitor BG (6) Hypertension: Plan: -Stable -Hold lisinopril and Lasix with KAYLA and dehydration Blood pressure is elevated, patient started on amlodipine 5 mg a day, we will increase it to 10 mg a day, hydralazine as needed (7) Hypothyroidism: Plan: -TSH WNL today -Continue levothyroxine (8) Cirrhosis: Plan: -Does not appear to be in decompensation -Continue to monitor volume status closely -Ammonia level was normal (9) Current smoker: Plan: -Smokes approximately 1/5 pack of cigarettes daily -Scattered wheezing on exam but does not appear to be in COPD exacerbation or respiratory distress -Nicotine patch ordered -Continue to stress smoking cessation (10) PAD (peripheral artery disease): Plan: -Continue aspirin (11) Ataxic gait: Plan: Patient's gait has been very imbalanced PT/OT recommended rehab agreed to rehab approved for SNF (12) Conjunctivitis: Plan: Most likely viral etiology Ordered ofloxacin eyedrops along with teardrops. Antihistamine eyedrops are not available in pharmacy here resolved Plan DVT prophylaxis: Heparin subcu CODE STATUS: DNR/DNI White count has come down to 11. Most likely stress related. Awaiting placement Admission and Anticipated Discharge Date Admission Date: June 06, 2023 Subjective Patient has no new complaints. Denies chest pain or shortness of breath Review of Systems Review of Systems: All systems reviewed & are unremarkable except as noted in Subjective Physical Exam Physical Exam: General: Awake, conversant. Conjunctivitis seems to have resolved Heart: S1, S2/regular rate and rhythm, no murmur rubs or gallops Lungs: Clear to auscultation bilaterally. Normal effort Abdomen: Soft/nontender/nondistended. No hepatosplenomegaly Extremities: No clubbing/cyanosis. No edema Behavior: Cooperative, appropriate. Results & Data Results & Data Vital Signs (Past 12 Hours) Vital Signs Temp Pulse Resp BP BP Pulse Ox O2 Del Method 06/18/23 16:05 37.5 C 68 18 138/66 89 L Room Air 06/18/23 11:46 Nasal Cannula 06/18/23 07:27 36.9 C 63 18 147/53 H 95 Nasal Cannula 06/18/23 06:23 146/73 H O2 Flow Rate 06/18/23 16:05 06/18/23 11:46 2 06/18/23 07:27 2 06/18/23 06:23 Laboratory Results Abnormal lab results 06/17/23 06/17/23 06/18/23 Range/Units 20:32 22:00 05:43 WBC 11.53 H (4.8-10.8) K/ul RBC 3.32 L (4.20-5.40) M/uL Hgb 10.2 L (12.0-16.0) g/dl Hct 31.0 L (37.0-47.0) % Neut # (Auto) 9.32 H (1.40-6.50) K/uL Williams # (Auto) 0.72 H (0.11-0.59) K/uL Chloride 110 H (98-107) mmol/L BUN 32 H (6-23) mg/dl Creatinine 1.84 H (0.6-1.2) mg/dl POC Glucose 188 H (70-99) mg/dl Calcium 8.0 L (8.6-10.3) mg/dl Urine Appearance Cloudy A (Clear) Urine Protein 3+ H (Negative) Urine Blood 1+ H (Negative) Ur Leukocyte Esterase Trace H (Negative) Urine WBC (Auto) 10-30 H (0-5) /hpf U Hyaline Cast (Auto) 5-10 H (0-5) /lpf U Epithel Cells (Auto) >30 H (0-5) /lpf Urine Bacteria (Auto) 1+ H (Negative) 06/18/23 Range/Units 16:23 WBC (4.8-10.8) K/ul RBC (4.20-5.40) M/uL Hgb (12.0-16.0) g/dl Hct (37.0-47.0) % Neut # (Auto) (1.40-6.50) K/uL Williams # (Auto) (0.11-0.59) K/uL Chloride (98-107) mmol/L BUN (6-23) mg/dl Creatinine (0.6-1.2) mg/dl POC Glucose 104 H (70-99) mg/dl Calcium (8.6-10.3) mg/dl Urine Appearance (Clear) Urine Protein (Negative) Urine Blood (Negative) Ur Leukocyte Esterase (Negative) Urine WBC (Auto) (0-5) /hpf U Hyaline Cast (Auto) (0-5) /lpf U Epithel Cells (Auto) (0-5) /lpf Urine Bacteria (Auto) (Negative) PG Care Time/CCT Total # of Minutes Spent Total Time Spent with Patient: Total time spent is greater than 50% in coordination of care (as documented) at patient's floor/unit and/or counseling patient: Coding Level of Care Code 03204 SUB INP/OBS CARE 2/35MIN Diagnoses Acute kidney injury superimposed on CKD N17.9; N18.9 Elevated troponin R79.89 Altered mental status R41.82 Coronavirus infection B34.2 Type II diabetes mellitus with renal manifestations E11.29 Hypertension I10 Hypothyroidism E03.9 Cirrhosis K74.60 Current smoker F17.200 PAD (peripheral artery disease) I73.9 Ataxic gait R26.0 Conjunctivitis H10.9
[2023-06-19 06:36] LABS: BUN Creatinine Ratio 16.9 (10-20); Calcium 8.2 mg/dl (8.6-10.3); Est GFR (African American) 33.8 ml/min; Est GFR (Non-African American) 29.2 ml/min; Potassium 3.7 mmol/L (3.5-5.1)
--- NOTE | 2023-06-19 14:42 | Hospitalist Progress Note ---
Date of Service June 19, 2023 Assessment & Plan (1) Acute kidney injury superimposed on CKD: Plan: -Presented to the ED with her Neighbor after experiencing ongoing fever, cough, and confusion -Noted to have an KAYLA on presentation with Cr of 2.09 (baseline is near 1.5) -Like due to dehydration with acute viral illness and ongoing lisinopril use -Renal ultrasound was negative for obstruction Improving initially but now creatinine is trending up Creatinine 1.7 today - CKD st 3 , creatinine is stable (2) Elevated troponin: Plan: -Likely demand ischemia No chest pain No EKG changes Most likely secondary to acute viral illness, dehydration and acute kidney injury (3) Altered mental status: Plan: Metabolic encephalopathy -Was one of her chief complaints on ED arrival -CT head was negative, is without signs of bacterial infection as her WBC is WNL, CXR and UA are negative for acute infection -Ammonia level was negative -Will continue supportive care for now -Fall/aspiration precautions Patient still seems to be confused. Not sure if deafness is playing a role. With right-sided weakness, nurse raised the question of a stroke. Onset of weakness is unknown. Head CT is negative. With unknown time of onset, not a candidate for tPA anyways On aspirin and Zocor 80 mg MRI brain was negative Carotid ultrasound did not show any significant stenosis Echocardiogram unremarkable Neurology recommends MRA of the brain to complete workup. However patient may not stay steady for MR. Will complete at a later time. Patient has been slightly delirious. She wishes to go home but she is not capacitated to make decisions as she is not able to reason through her decisions. Spoke to her friend who stated that her mental status change is new since last Monday. Before that, she was driving and independent Patient had not been sleeping through the night Ordered Seroquel to help her sleep at night. Got Seroquel the last 2 nights and has been sleeping through the night. Hopefully turning around the corner Improving overall. Most likely back to her baseline. - 06/12 looks better, answers questions appropriately, agreed to rehab 06/13 reports feeling better, still has generalized weakness, needs a lot of assistance 06/14 patient is alert awake, worked with physical therapy, PT still recommends rehab, discussed with [employer] phycisian , she is approved for SNF 06/15 sleepy, will reduce dose of Zoloft, at baseline otherwise (4) Coronavirus infection: Plan: -Positive for Coronavirus OC43 in the ED -Currently stable on RA with emphysema noted on CXR -Is not in a COPD exacerbation at this time symptoms mainly resolved -Supportive measures for now with the following: >Incentive spirometry >Flutter therapy >QIDr DuoNeb >PRN O2 to keep SpO2 between 89-92% >BID Guaifenesin Remains off oxygen , denies shortness of breath (5) Type II diabetes mellitus with renal manifestations: Plan: -Hold oral medications -Monitor BSG ACHS, goal is 110-160 for now -Normally takes 35 units lantus BID -HH/DMII diet (6) Hypertension: Plan: -Stable -Hold lisinopril and Lasix with KAYLA and dehydration Blood pressure is elevated at times, patient started on amlodipine 5 mg a day, we will increased it to 10 mg a day, continue hydralazine as needed (7) Hypothyroidism: Plan: -TSH WNL today -Continue levothyroxine (8) Cirrhosis: Plan: -Does not appear to be in decompensation -Continue to monitor volume status closely -Ammonia level was normal (9) Current smoker: Plan: -Smokes approximately 1/5 pack of cigarettes daily -Scattered wheezing on exam but does not appear to be in COPD exacerbation or respiratory distress -Nicotine patch ordered -Continue to stress smoking cessation (10) PAD (peripheral artery disease): Plan: -Continue aspirin (11) Ataxic gait: Plan: Patient's gait has been very imbalanced PT/OT recommended rehab agreed to rehab approved for SNF (12) Conjunctivitis: Plan: Most likely viral etiology Ordered ofloxacin eyedrops along with teardrops. Antihistamine eyedrops are not available in pharmacy here resolved Plan DVT prophylaxis: Heparin subcu CODE STATUS: DNR/DNI White count has come down to 11. Most likely stress related. Awaiting placement Admission and Anticipated Discharge Date Admission Date: June 06, 2023 Subjective Patient denies any chest pain or shortness of breath. Physical Exam Physical Exam: General: Awake, conversant. Heart: S1, S2/regular rate and rhythm, no murmur rubs or gallops Lungs: Clear to auscultation bilaterally. Normal effort Abdomen: Soft/nontender/nondistended. No hepatosplenomegaly Extremities: No clubbing/cyanosis. No edema Behavior: Cooperative, appropriate. Results & Data Results & Data Vital Signs (Past 12 Hours) Vital Signs Temp Pulse Resp BP Pulse Ox O2 Del Method O2 Flow Rate 06/19/23 07:15 Nasal Cannula 4 06/19/23 05:43 37 C 65 14 151/74 H 96 Nasal Cannula 4 Laboratory Results Abnormal lab results 06/18/23 06/18/23 06/19/23 Range/Units 16:23 20:18 06:01 Chloride 112 H (98-107) mmol/L BUN 29 H (6-23) mg/dl Creatinine 1.72 H (0.6-1.2) mg/dl POC Glucose 104 H 190 H (70-99) mg/dl Calcium 8.2 L (8.6-10.3) mg/dl 06/19/23 Range/Units 11:35 Chloride (98-107) mmol/L BUN (6-23) mg/dl Creatinine (0.6-1.2) mg/dl POC Glucose 160 H (70-99) mg/dl Calcium (8.6-10.3) mg/dl PG Care Time/CCT Total # of Minutes Spent Total Time Spent with Patient: Total time spent is greater than 50% in coordination of care (as documented) at patient's floor/unit and/or counseling patient: Coding Level of Care Code 79562 SUB INP/OBS CARE 2/35MIN Diagnoses Acute kidney injury superimposed on CKD N17.9; N18.9 Elevated troponin R79.89 Altered mental status R41.82 Coronavirus infection B34.2 Type II diabetes mellitus with renal manifestations E11.29 Hypertension I10 Hypothyroidism E03.9 Cirrhosis K74.60 Current smoker F17.200 PAD (peripheral artery disease) I73.9 Ataxic gait R26.0 Conjunctivitis H10.9
[2023-06-20 06:08] LABS: Hematocrit (blood only) 30.1 % (37.0-47.0); Hemoglobin 9.8 g/dl (12.0-16.0); Mean Corpuscular Hemoglobin 30.9 pg (25.0-34.0); Mean Corpuscular Hgb Conc 32.6 g/dL (32.0-36.0); Platelet Count 268 K/uL (130-400); RDW Coefficient of Variation 13.6 % (11.5-14.5); RDW Standard Deviation 47.4 fL (36.4-46.3); Red Blood Count 3.17 M/uL (4.20-5.40); White Blood Count 9.34 K/ul (4.8-10.8)
[2023-06-20 06:21] LABS: C Reactive Protein 7.32 mg/dl (0-0.5); Calcium 8.4 mg/dl (8.6-10.3); Creatinine Clr Calc Pharmacy 32.5 ml/min; Est GFR (African American) 33.1 ml/min; Est GFR (Non-African American) 28.6 ml/min; Potassium 3.8 mmol/L (3.5-5.1)
--- NOTE | 2023-06-20 17:51 | Hospitalist Progress Note ---
Date of Service June 20, 2023 Assessment & Plan (1) Acute kidney injury superimposed on CKD: Plan: -Presented to the ED with her Neighbor after experiencing ongoing fever, cough, and confusion -Noted to have an KAYLA on presentation with Cr of 2.09 (baseline is near 1.5) -Like due to dehydration with acute viral illness and ongoing lisinopril use -Renal ultrasound was negative for obstruction Improving initially but now creatinine is trending up Creatinine 1.7 today may be hepatorenal syndrome - CKD st 3 , creatinine is stable (2) Elevated troponin: Plan: -Likely demand ischemia No chest pain No EKG changes Most likely secondary to acute viral illness, dehydration and acute kidney injury (3) Altered mental status: Plan: Metabolic encephalopathy -Was one of her chief complaints on ED arrival -CT head was negative, is without signs of bacterial infection as her WBC is WNL, CXR and UA are negative for acute infection -Ammonia level was negative -Will continue supportive care for now -Fall/aspiration precautions Patient still seems to be confused. Not sure if deafness is playing a role. With right-sided weakness, nurse raised the question of a stroke. Onset of weakness is unknown. Head CT is negative. With unknown time of onset, not a candidate for tPA anyways On aspirin and Zocor 80 mg MRI brain was negative Carotid ultrasound did not show any significant stenosis Echocardiogram unremarkable Neurology recommends MRA of the brain to complete workup. However patient may not stay steady for MR. Will complete at a later time. Patient has been slightly delirious. She wishes to go home but she is not capacitated to make decisions as she is not able to reason through her decisions. Spoke to her friend who stated that her mental status change is new since last Monday. Before that, she was driving and independent Patient had not been sleeping through the night Ordered Seroquel to help her sleep at night. Got Seroquel the last 2 nights and has been sleeping through the night. Hopefully turning around the corner Improving overall. Most likely back to her baseline. - 06/12 looks better, answers questions appropriately, agreed to rehab 06/13 reports feeling better, still has generalized weakness, needs a lot of assistance 06/14 patient is alert awake, worked with physical therapy, PT still recommends rehab, discussed with [employer] phycisian , she is approved for SNF 06/15 sleepy, will reduce dose of Zoloft, at baseline otherwise (4) Coronavirus infection: Plan: -Positive for Coronavirus OC43 in the ED -Currently stable on RA with emphysema noted on CXR -Is not in a COPD exacerbation at this time symptoms mainly resolved -Supportive measures for now with the following: >Incentive spirometry >Flutter therapy >QIDr DuoNeb >PRN O2 to keep SpO2 between 89-92% >BID Guaifenesin Remains off oxygen , denies shortness of breath (5) Type II diabetes mellitus with renal manifestations: Plan: -Hold oral medications -Monitor BSG ACHS, goal is 110-160 for now -Normally takes 35 units lantus BID -HH/DMII diet (6) Hypertension: Plan: -Stable -Hold lisinopril and Lasix with KAYLA and dehydration Blood pressure is elevated at times, patient started on amlodipine 5 mg a day, we will increased it to 10 mg a day, continue hydralazine as needed (7) Hypothyroidism: Plan: -TSH WNL today -Continue levothyroxine (8) Cirrhosis: Plan: -Does not appear to be in decompensation -Continue to monitor volume status closely -Ammonia level was normal (9) Current smoker: Plan: -Smokes approximately 1/5 pack of cigarettes daily -Scattered wheezing on exam but does not appear to be in COPD exacerbation or respiratory distress -Nicotine patch ordered -Continue to stress smoking cessation (10) PAD (peripheral artery disease): Plan: -Continue aspirin (11) Ataxic gait: Plan: Patient's gait has been very imbalanced PT/OT recommended rehab agreed to rehab approved for SNF (12) Conjunctivitis: Plan: Most likely viral etiology Ordered ofloxacin eyedrops along with teardrops. Antihistamine eyedrops are not available in pharmacy here resolved Plan DVT prophylaxis: Heparin subcu CODE STATUS: DNR/DNI White count has come down to 11. Most likely stress related. Awaiting placement Admission and Anticipated Discharge Date Admission Date: June 06, 2023 Subjective 72 yo female reports no new symptoms. Review of Systems Review of Systems: All systems reviewed & are unremarkable except as noted in HPI & below Physical Exam Physical Exam: General: Awake, conversant. Heart: S1, S2/regular rate and rhythm, no murmur rubs or gallops Lungs: Clear to auscultation bilaterally. Normal effort Abdomen: Soft/nontender/nondistended. No hepatosplenomegaly Extremities: No clubbing/cyanosis. No edema Behavior: Cooperative, appropriate. Results & Data Results & Data Vital Signs (Past 12 Hours) Vital Signs Temp Pulse Resp BP Pulse Ox O2 Del Method O2 Flow Rate 06/20/23 15:17 36.9 C 64 16 138/64 92 Nasal Cannula 4 06/20/23 07:25 Nasal Cannula 4 06/20/23 07:25 36.5 C 63 16 152/65 H 93 Nasal Cannula 4 PG Care Time/CCT Total # of Minutes Spent Total Time Spent with Patient: Total time spent is greater than 50% in coordination of care (as documented) at patient's floor/unit and/or counseling patient: Coding Level of Care Code 96090 SUB INP/OBS CARE 2/35MIN Diagnoses Acute kidney injury superimposed on CKD N17.9; N18.9 Elevated troponin R79.89 Altered mental status R41.82 Coronavirus infection B34.2 Type II diabetes mellitus with renal manifestations E11.29 Hypertension I10 Hypothyroidism E03.9 Cirrhosis K74.60 Current smoker F17.200 PAD (peripheral artery disease) I73.9 Ataxic gait R26.0 Conjunctivitis H10.9
[2023-06-21 06:07] LABS: Hematocrit (blood only) 29.5 % (37.0-47.0); Hemoglobin 9.7 g/dl (12.0-16.0); Mean Corpuscular Hemoglobin 31.1 pg (25.0-34.0); Mean Corpuscular Hgb Conc 32.9 g/dL (32.0-36.0); Mean Corpuscular Volume 94.6 fL (80.0-100.0); Mean Platelet Volume 10.1 fL (9.4-12.4); Platelet Count 252 K/uL (130-400); RDW Coefficient of Variation 13.5 % (11.5-14.5); RDW Standard Deviation 46.5 fL (36.4-46.3); Red Blood Count 3.12 M/uL (4.20-5.40); White Blood Count 8.28 K/ul (4.8-10.8)
[2023-06-21 06:27] LABS: BUN Creatinine Ratio 16.7 (10-20); Calcium 8.6 mg/dl (8.6-10.3); Creatinine Clr Calc Pharmacy 26.1 ml/min; Est GFR (African American) 28.5 ml/min; Est GFR (Non-African American) 24.6 ml/min; Potassium 3.7 mmol/L (3.5-5.1)
--- NOTE | 2023-06-21 14:49 | XRay Report ---
XR chest 2V PA/lateral HISTORY: hypoxia COMPARISON: Chest and right rib series 06/12/2023. FINDINGS: No pneumothorax. Interval development of a small right pleural effusion. The heart is andrea l in size. Mild diffuse interstitial thickening again noted. Small patchy right upper lobe airspace o pacities have improved. There are old, healed right-sided rib fractures. Calcifications within the ao rtic knob. Emphysema again noted. IMPRESSION: 1. Interval development of a small right pleural effusion. 2. No pneumothorax. 3. Emphysema and mild chronic interstitial thickening persists. 4. Right upper lobe densities have improved. ACT 112: Negative or not required by law. Electronically signed by: Orlin Gonzales M.D. 06/21/2023 2:48 PM
--- NOTE | 2023-06-21 15:25 | Nephrology Consultation ---
Date of Consultation June 21, 2023 Assessment & Plan (1) Acute kidney injury superimposed on CKD: (2) Type II diabetes mellitus with renal manifestations: (3) Altered mental status: (4) Coronavirus infection: (5) Hypertension: (6) Current smoker: Plan 72 y o F with stage 3B CKD, b/l cr 1.6-1.8 mg/dl with history of moderate degree of proteinuria for years in the setting of diabetes, most likely secondary to diabetic nephropathy. Urinalysis with mainly proteinuria and bacteriuria no significant hematuria. Recent renal ultrasound was otherwise unremarkable. Blood pressure has been well-controlled without any hypotensive episode. Although abdominal ultrasound in May showed some nodularity in the liver however there is no evidence of significant advanced liver disease or cirrhosis. Slight changes in creatinine from baseline could be hemodynamically mediated, do not see any significant concern as renal function pretty close to baseline. Could be slightly volume depleted, almost 12 pounds weight loss since admission. Significant drop in Hb noted. --continue to monitor kidney function while inpatient --encouraged to keep well hydrated. --continue to hold Lasix, resume lisinopril at 10 mg/d --check CBC iron study with am lab. Thank you for allowing me to participate in your patient's care. It was a pleasure to see Galina. History of Present Illness Reason for Consultation: KAYLA/CKD Attending Physician: Ryan Martinez History of Present Illness Ms. Galina Nam is a 72-year-old female with past medical history of stage IIIb CKD, b/l cr 1.6-1.8 mg/dl, a history of DM 2, CKD stage III, PAD, current smoker, emphysema, hypothyroidism, HTN, hyperlipidemia, and liver cirrhosis admitted to the hospital on 06/05/2022 with concern for altered mental status. Nephrology consult was requested for management of advanced CKD with changes in renal function. EMR records are reviewed in detail during patient's visit. Galina was brought to ER on 06/06/2023 by her neighbor with concern for fever and and increased confusion. Workup was otherwise unremarkable except positive coronavirus OC43. Ammonia level was normal, LFTs were normal. Serum albumin was 4.1.She was given 1L NSS and 1gm IV tylenol. CT head, CT abdomen pelvis, CXR was otherwise unremarkable. Lab was notable for creatinine 2.0 with baseline creatinine around 1.6-1.8 mg/dl. UA with proteinuria, chronic. Hemoglobin was 14.1. She was on Jardiance 25 mg daily, Lasix 40 mg and lisinopril 20 mg daily, all of them has been on hold since admission. Over the course of the last almost 2 weeks her creatinine has been quite variable but stayed close to baseline, creatinine this morning was 2.0. Electrolyte acceptable. Hemoglobin dropped to 9.7. She smokes 1/2 pack daily. History of hypertension and diabetes, both seem to be well-controlled, history of retinopathy, has proteinuria. Lisinopril and Jardiance has been on hold since admission. No history of coronary artery disease. EGD, Colonoscopy in August 2021, diverticulosis, internal hemorrhoid, esophagitis and gastritis, on Protonix. Overall she has been doing well, denied any symptoms today. Reports voiding normally. No hypotension, LE edema. Her weight is down to 72 kg from admission 79 kg. Allergies Allergy/AdvReac Type Severity Reaction Status Date / Time lorazepam Allergy Unknown HAS NO Verified 06/06/23 13:54 EFFECT metformin Allergy Unknown Unknown Verified 06/06/23 13:54 metronidazole Allergy Unknown Unknown Verified 06/06/23 13:54 Sulfa (Sulfonamide Allergy Unknown HIVES Verified 06/06/23 13:54 Antibiotics) linagliptin [From [facility]] AdvReac arthralgia Verified 06/06/23 13:54 Home Medications Medication Instructions Recorded Confirmed Type lancets 30 gauge (OneTouch Delica #100 ea 11/28/19 12/13/22 Rx Lancets) acetaminophen 325 mg tablet 325 mg PO HS PRN Pain 08/09/21 06/06/23 History (Tylenol) furosemide 40 mg tablet 40 mg PO DAILY PRN edema #90 tabs 06/09/22 06/06/23 Rx alendronate 70 mg tablet (Fosamax) 70 mg PO ONCE #12 tabs 08/03/22 06/06/23 Rx potassium chloride 20 mEq 20 meq PO QAM #90 tabs 08/03/22 06/06/23 Rx tablet,extended release levothyroxine 112 mcg tablet 112 mcg PO DAILY #90 tabs 08/11/22 06/06/23 Rx propranolol 160 mg capsule,24 160 mg PO QAM #90 caps 05/11/23 03/05/24 Rx hr,extended release empagliflozin 25 mg tablet 25 mg PO QAM #90 tabs 08/15/22 06/06/23 Rx (Jardiance) insulin glargine 100 unit/mL 35 unit (0.35 mL) subcut BID #70 mL 09/05/22 06/06/23 Rx subcutaneous solution lisinopril 20 mg tablet 20 mg PO QAM #90 tabs 09/05/22 06/06/23 Rx simvastatin 80 mg tablet 80 mg PO DAILY #90 tabs 09/05/22 06/06/23 Rx blood-glucose meter (OneTouch #1 ea 10/12/22 12/13/22 Rx Verio Flex Meter) aspirin 81 mg capsule 81 mg PO DAILY #90 caps 10/31/22 06/06/23 Rx triamcinolone acetonide 0.1 % 1 applic topical BID #30 grams 12/13/22 06/06/23 Rx topical cream sertraline 100 mg tablet 100 mg PO QAM #90 tabs 01/25/23 06/06/23 Rx insulin syringe-needle U-100 0.5 #400 ea 03/28/23 Rx mL 31 gauge x 5/16" (BD Insulin Syringe Ultra-Fine) sitagliptin phosphate 25 mg tablet 25 mg PO DAILY #90 tabs 03/28/23 06/06/23 Rx (Januvia) pantoprazole 40 mg tablet,delayed 40 mg PO DAILY GERD #90 tabs 03/29/23 06/06/23 Rx release (Protonix) fluticasone fur. 100 mcg-umeclid 1 inh inhalation QAM #60 ea 04/04/23 06/06/23 Rx 62.5 mcg-vilant 25 mcg inhalat.powder (Trelegy Ellipta) blood sugar diagnostic (OneTouch #100 ea 05/05/23 Rx Verio test strips) Patient History Medical History H. pylori infection Diverticulitis COPD (chronic obstructive pulmonary disease) well controlled, can go a week sometimes without routine inhaler Anxiety PAD (peripheral artery disease) Current smoker Cirrhosis Lung nodule UNDER OBSERVATION Depression Hypothyroidism Hypertension Hypercholesteremia Surgical History History of tooth extraction S/P aortic bifurcation bypass graft Apr 1999 Femoral-popliteal bypass graft occlusion, left Apr 1999 Femoral-popliteal bypass graft occlusion, right Apr 1999 Family History Father , age 70 of lung cancer Tremor Lung cancer Sister Tremor Family history of diabetes mellitus Mother , age 68 of a gynecologic cancer (either uterine or ovarian) Cancer Brother Myocardial infarction Cancer Family history of diabetes mellitus Daughter Asthma Brother Family history of diabetes mellitus Tremor Denies family history of Ovarian cancer Prostate cancer Breast cancer Colorectal cancer Social History Smoking Status: Current every day smoker Tobacco Type: Cigarettes Age Started Using Tobacco: 21; packs per day: 1; Cigarettes Per Day: 20 CIGS A DAY; Second Hand Exposure: No; Do You Dip or Chew Tobacco: No; Hx Alcohol Use: No Hx Substance Use: No Preferred Language: Iraqi Communication Ability: Impaired Hearing Ability: Use of Hearing Aid 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 Beliefs That Will Affect Care: None marital status: Current Living Situation: Other Current Living Situation Comment: Pt relates friend lives in downstairs appt in her house current occupational status: retired How many Children do You have: 1 Feels Safe at Home: Yes Childhood Exposure to Second-Hand Smoke: Yes Diet: regular caffeine: Yes Dental Care, Regularly: No Physical Activity Frequency: Does not Exercise Seatbelt Use: always Sunscreen Use: No Assistive Devices: Glasses and Hearing Aid - Bilateral Review of Systems Review of Systems: All systems reviewed & are unremarkable except as noted in HPI & below Physical Exam Constitutional: WD/WN, vitals as above no acute distress Eyes: + anicteric sclerae Neck: normal visual inspection Thyroid: no thyromegaly Respiratory: normal respiratory effort; no respiratory distress and no cough Auscultation: lungs clear to auscultation bilaterally Cardiovascular: RRR, no murmur, no edema Gastrointestinal (Abdomen): Inspection/Auscultation: abdomen normal to inspection and normal bowel sounds Percussion/Palpation: abdomen soft; abdomen nontender Musculoskeletal: Extremities: extremities normal to inspection Skin: no rashes, warm and dry Neurologic: no focal motor deficits and not confused Psychiatric: Orientation: alert and oriented x 3 Affect: euthymic affect Results & Data Vital Signs (Past 12 Hours) Vital Signs Temp Pulse Resp BP BP Pulse Ox Pulse Ox 06/21/23 14:00 36.8 C 82 20 137/68 94 06/21/23 13:43 36.8 C 64 17 148/62 H 93 06/21/23 07:56 36.8 C 57 L 18 132/63 95 06/21/23 07:40 06/21/23 07:40 96 06/21/23 07:40 57 L 18 94 06/21/23 05:21 56 L 148/75 H 96 O2 Del Method O2 Del Method O2 Flow Rate O2 Flow Rate 06/21/23 14:00 Nasal Cannula 2 06/21/23 13:43 Nasal Cannula 2.5 06/21/23 07:56 Nasal Cannula 4 06/21/23 07:40 Nasal Cannula 4 06/21/23 07:40 Nasal Cannula 4 06/21/23 07:40 Nasal Cannula 4 06/21/23 05:21 Nasal Cannula 4 PG Care Time/CCT Total # of Minutes Spent Total Time Spent with Patient: Total time spent is greater than 50% in coordination of care (as documented) at patient's floor/unit and/or counseling patient: Coding Level of Care Code 35341 INT INP/OBS CARE 375MIN Diagnoses Acute kidney injury superimposed on CKD N17.9; N18.9 Type II diabetes mellitus with renal manifestations E11.29 Altered mental status R41.82 Coronavirus infection B34.2 Hypertension I10 Current smoker F17.200
[2023-06-21] MEDS: lisinopril 10 MG TAB PO SCH (16:45)
--- NOTE | 2023-06-21 22:08 | Hospitalist Progress Note ---
Date of Service June 21, 2023 Assessment & Plan (1) Acute kidney injury superimposed on CKD: Plan: -Presented to the ED with her Neighbor after experiencing ongoing fever, cough, and confusion -Noted to have an KAYLA on presentation with Cr of 2.09 (baseline is near 1.5) -Like due to dehydration with acute viral illness and ongoing lisinopril use -Renal ultrasound was negative for obstruction Improving initially but now creatinine is trending up consulted nephro. appreciate input may be hepatorenal syndrome - CKD st 3 , creatinine is stable (2) Elevated troponin: Plan: -Likely demand ischemia No chest pain No EKG changes Most likely secondary to acute viral illness, dehydration and acute kidney injury (3) Altered mental status: Plan: Metabolic encephalopathy -Was one of her chief complaints on ED arrival -CT head was negative, is without signs of bacterial infection as her WBC is WNL, CXR and UA are negative for acute infection -Ammonia level was negative -Will continue supportive care for now -Fall/aspiration precautions Patient still seems to be confused. Not sure if deafness is playing a role. With right-sided weakness, nurse raised the question of a stroke. Onset of weakness is unknown. Head CT is negative. With unknown time of onset, not a candidate for tPA anyways On aspirin and Zocor 80 mg MRI brain was negative Carotid ultrasound did not show any significant stenosis Echocardiogram unremarkable Neurology recommends MRA of the brain to complete workup. However patient may not stay steady for MR. Will complete at a later time. Patient has been slightly delirious. She wishes to go home but she is not capacitated to make decisions as she is not able to reason through her decisions. Spoke to her friend who stated that her mental status change is new since last Monday. Before that, she was driving and independent Patient had not been sleeping through the night Ordered Seroquel to help her sleep at night. Got Seroquel the last 2 nights and has been sleeping through the night. Hopefully turning around the corner Improving overall. Most likely back to her baseline. - 06/12 looks better, answers questions appropriately, agreed to rehab 06/13 reports feeling better, still has generalized weakness, needs a lot of assistance 06/14 patient is alert awake, worked with physical therapy, PT still recommends rehab, discussed with [facility] phycisian , she is approved for SNF 06/15 sleepy, will reduce dose of Zoloft, at baseline otherwise 3/20 awake appears at baseline (4) Coronavirus infection: Plan: -Positive for Coronavirus OC43 in the ED -Currently stable on RA with emphysema noted on CXR -Is not in a COPD exacerbation at this time symptoms mainly resolved -Supportive measures for now with the following: >Incentive spirometry >Flutter therapy >QIDr DuoNeb >PRN O2 to keep SpO2 between 89-92% >BID Guaifenesin Remains off oxygen , denies shortness of breath (5) Type II diabetes mellitus with renal manifestations: Plan: -Hold oral medications -Monitor BSG ACHS, goal is 110-160 for now -Normally takes 35 units lantus BID -HH/DMII diet (6) Hypertension: Plan: -Stable -Hold lisinopril and Lasix with KAYLA and dehydration Blood pressure is elevated at times, patient started on amlodipine 5 mg a day, we will increased it to 10 mg a day, continue hydralazine as needed (7) Hypothyroidism: Plan: -TSH WNL today -Continue levothyroxine (8) Cirrhosis: Plan: -Does not appear to be in decompensation -Continue to monitor volume status closely -Ammonia level was normal (9) Current smoker: Plan: -Smokes approximately 1/5 pack of cigarettes daily -Scattered wheezing on exam but does not appear to be in COPD exacerbation or respiratory distress -Nicotine patch ordered -Continue to stress smoking cessation (10) PAD (peripheral artery disease): Plan: -Continue aspirin (11) Ataxic gait: Plan: Patient's gait has been very imbalanced PT/OT recommended rehab agreed to rehab approved for SNF (12) Conjunctivitis: Plan: Most likely viral etiology Ordered ofloxacin eyedrops along with teardrops. Antihistamine eyedrops are not available in pharmacy here resolved Plan DVT prophylaxis: Heparin subcu CODE STATUS: DNR/DNI White count has come down to 11. Most likely stress related. Awaiting placement Admission and Anticipated Discharge Date Admission Date: June 06, 2023 Subjective Patient reports no new symptoms. Review of Systems Review of Systems: All systems reviewed & are unremarkable except as noted in HPI & below Physical Exam Physical Exam: General: Awake, conversant. Heart: S1, S2/regular rate and rhythm, no murmur rubs or gallops Lungs: Clear to auscultation bilaterally. Normal effort Abdomen: Soft/nontender/nondistended. No hepatosplenomegaly Extremities: No clubbing/cyanosis. No edema Behavior: Cooperative, appropriate. Results & Data Results & Data Vital Signs (Past 12 Hours) Vital Signs Temp Pulse Resp BP Pulse Ox O2 Del Method O2 Flow Rate 06/21/23 21:27 69 17 94 Nasal Cannula 3 06/21/23 19:52 37.1 C 69 16 145/69 H 96 Nasal Cannula 2 06/21/23 14:00 36.8 C 82 20 137/68 94 Nasal Cannula 2 06/21/23 13:43 36.8 C 64 17 148/62 H 93 Nasal Cannula 2.5 PG Care Time/CCT Total # of Minutes Spent Total Time Spent with Patient: Total time spent is greater than 50% in coordination of care (as documented) at patient's floor/unit and/or counseling patient: Coding Level of Care Code 34099 SUB INP/OBS CARE 2/35MIN Diagnoses Acute kidney injury superimposed on CKD N17.9; N18.9 Elevated troponin R79.89 Altered mental status R41.82 Coronavirus infection B34.2 Type II diabetes mellitus with renal manifestations E11.29 Hypertension I10 Hypothyroidism E03.9 Cirrhosis K74.60 Current smoker F17.200 PAD (peripheral artery disease) I73.9 Ataxic gait R26.0 Conjunctivitis H10.9
[2023-06-22 07:37] LABS: Hematocrit (blood only) 29.9 % (37.0-47.0); Hemoglobin 9.6 g/dl (12.0-16.0); Mean Corpuscular Hemoglobin 30.6 pg (25.0-34.0); Mean Corpuscular Hgb Conc 32.1 g/dL (32.0-36.0); Mean Corpuscular Volume 95.2 fL (80.0-100.0); Mean Platelet Volume 10.2 fL (9.4-12.4); Platelet Count 262 K/uL (130-400); RDW Coefficient of Variation 13.5 % (11.5-14.5); RDW Standard Deviation 46.7 fL (36.4-46.3); Red Blood Count 3.14 M/uL (4.20-5.40); White Blood Count 8.68 K/ul (4.8-10.8)
[2023-06-22 07:57] LABS: Albumin Level 2.9 gm/dl (3.4-5.0); BUN Creatinine Ratio 18.2 (10-20); Calcium 8.9 mg/dl (8.6-10.3); Creatinine Clr Calc Pharmacy 29.3 ml/min; Est GFR (African American) 32.9 ml/min; Est GFR (Non-African American) 28.4 ml/min; Phosphorus 4.1 mg/dl (2.5-4.9); Potassium 3.8 mmol/L (3.5-5.1)
[2023-06-22 08:17] LABS: Ferritin 281.8 ng/ml (8-388)
[2023-06-22] MEDS: IRON SUCROSE 200 MG in 0.9 % SODIUM CHLORIDE 100 ML IV SCH (09:33)
--- NOTE | 2023-06-22 10:12 | Nephrology Progress Note ---
Date of Service June 22, 2023 Assessment & Plan (1) Acute kidney injury superimposed on CKD: (2) Type II diabetes mellitus with renal manifestations: (3) Altered mental status: (4) Coronavirus infection: (5) Hypertension: (6) Current smoker: Plan 72 y o F with stage 3B CKD, b/l cr 1.6-1.8 mg/dl with history of moderate degree of proteinuria for years in the setting of diabetes, most likely secondary to diabetic nephropathy. Urinalysis with mainly proteinuria and bact eriuria no significant hematuria. Recent renal ultrasound was otherwise unremarkable. Blood pressure has been well-controlled without any hypotensive episode. Although abdominal ultrasound in May showed some nodularity in the liver however there is no evidence of significant advanced liver disease or cirrhosis. Slight changes in creatinine from baseline could be hemodynamically mediated, do not see any significant concern, in fact renal function improved and now close to baseline. --start on Venofer --considering anemia, proteinuria, hypoalbuminemia, will check SPEP, UPEP --continue to monitor kidney function while inpatient --encouraged to keep well hydrated. --continue to hold Lasix, increase lisinopril to 20 mg/d Will follow. Admission and Anticipated Discharge Date Admission Date: June 06, 2023 Robin Mojica was seen and evaluated this morning. Overall doing well, denies any concerns. HB low with low iron store. Cr at baseline, 1.8. BP slightly elevated. No SOB, volume overload. Review of Systems Review of Systems: All systems reviewed & are unremarkable except as noted in Subjective Physical Exam Constitutional: WD/WN, vitals as above no acute distress Eyes: + anicteric sclerae Neck: normal visual inspection Respiratory: no respiratory distress Auscultation: lungs clear to auscultation bilaterally Cardiovascular: RRR, no murmur, no edema Musculoskeletal: Extremities: extremities normal to inspection Skin: no rashes, warm and dry Neurologic: no focal motor deficits and not confused Psychiatric: Orientation: alert and oriented x 3 Affect: euthymic affect Results & Data Vital Signs (Past 12 Hours) Vital Signs Temp Pulse Resp BP Pulse Ox O2 Del Method O2 Flow Rate 06/22/23 08:49 Nasal Cannula 2 06/22/23 07:39 36.8 C 70 20 151/72 H 95 Nasal Cannula 3 06/22/23 06:11 154/77 H PG Care Time/CCT Total # of Minutes Spent Total Time Spent with Patient: Total time spent is greater than 50% in coordination of care (as documented) at patient's floor/unit and/or counseling patient: Coding Level of Care Code 42271 SUB INP/OBS CARE 2/35MIN Diagnoses Acute kidney injury superimposed on CKD N17.9; N18.9 Type II diabetes mellitus with renal manifestations E11.29 Altered mental status R41.82 Coronavirus infection B34.2 Hypertension I10 Current smoker F17.200
--- NOTE | 2023-06-22 22:21 | Hospitalist Progress Note ---
Date of Service June 22, 2023 Assessment & Plan (1) Acute kidney injury superimposed on CKD: Plan: -Presented to the ED with her Neighbor after experiencing ongoing fever, cough, and confusion -Noted to have an KAYLA on presentation with Cr of 2.09 (baseline is near 1.5) -Like due to dehydration with acute viral illness and ongoing lisinopril use -Renal ultrasound was negative for obstruction Improving initially but now creatinine is trending up consulted nephro. appreciate input may be hepatorenal syndrome - CKD st 3 , creatinine is stable (2) Elevated troponin: Plan: -Likely demand ischemia No chest pain No EKG changes Most likely secondary to acute viral illness, dehydration and acute kidney injury (3) Altered mental status: Plan: Metabolic encephalopathy -Was one of her chief complaints on ED arrival -CT head was negative, is without signs of bacterial infection as her WBC is WNL, CXR and UA are negative for acute infection -Ammonia level was negative -Will continue supportive care for now -Fall/aspiration precautions Patient still seems to be confused. Not sure if deafness is playing a role. With right-sided weakness, nurse raised the question of a stroke. Onset of weakness is unknown. Head CT is negative. With unknown time of onset, not a candidate for tPA anyways On aspirin and Zocor 80 mg MRI brain was negative Carotid ultrasound did not show any significant stenosis Echocardiogram unremarkable Neurology recommends MRA of the brain to complete workup. However patient may not stay steady for MR. Will complete at a later time. Patient has been slightly delirious. She wishes to go home but she is not capacitated to make decisions as she is not able to reason through her decisions. Spoke to her friend who stated that her mental status change is new since last Monday. Before that, she was driving and independent Patient had not been sleeping through the night Ordered Seroquel to help her sleep at night. Got Seroquel the last 2 nights and has been sleeping through the night. Hopefully turning around the corner Improving overall. Most likely back to her baseline. - 06/12 looks better, answers questions appropriately, agreed to rehab 06/13 reports feeling better, still has generalized weakness, needs a lot of assistance 06/14 patient is alert awake, worked with physical therapy, PT still recommends rehab, discussed with [facility] phycisian , she is approved for SNF 06/15 sleepy, will reduce dose of Zoloft, at baseline otherwise 06/21 awake appears at baseline (4) Coronavirus infection: Plan: -Positive for Coronavirus OC43 in the ED -Currently stable on RA with emphysema noted on CXR -Is not in a COPD exacerbation at this time symptoms mainly resolved -Supportive measures for now with the following: >Incentive spirometry >Flutter therapy >QIDr DuoNeb >PRN O2 to keep SpO2 between 89-92% >BID Guaifenesin Remains off oxygen , denies shortness of breath (5) Type II diabetes mellitus with renal manifestations: Plan: -Hold oral medications -Monitor BSG ACHS, goal is 110-160 for now -Normally takes 35 units lantus BID -HH/DMII diet (6) Hypertension: Plan: -Stable -Hold lisinopril and Lasix with KAYLA and dehydration Blood pressure is elevated at times, patient started on amlodipine 5 mg a day, we will increased it to 10 mg a day, continue hydralazine as needed (7) Hypothyroidism: Plan: -TSH WNL today -Continue levothyroxine (8) Cirrhosis: Plan: -Does not appear to be in decompensation -Continue to monitor volume status closely -Ammonia level was normal (9) Current smoker: Plan: -Smokes approximately 1/5 pack of cigarettes daily -Scattered wheezing on exam but does not appear to be in COPD exacerbation or respiratory distress -Nicotine patch ordered -Continue to stress smoking cessation (10) PAD (peripheral artery disease): Plan: -Continue aspirin (11) Ataxic gait: Plan: Patient's gait has been very imbalanced PT/OT recommended rehab agreed to rehab approved for SNF (12) Conjunctivitis: Plan: Most likely viral etiology Ordered ofloxacin eyedrops along with teardrops. Antihistamine eyedrops are not available in pharmacy here resolved Plan DVT prophylaxis: Heparin subcu CODE STATUS: DNR/DNI White count has come down to 11. Most likely stress related. Awaiting placement Admission and Anticipated Discharge Date Admission Date: June 06, 2023 Subjective Patient reports no new symptoms. Review of Systems Review of Systems: All systems reviewed & are unremarkable except as noted in HPI & below Physical Exam Physical Exam: General: Awake, conversant. Heart: S1, S2/regular rate and rhythm, no murmur rubs or gallops Lungs: Clear to auscultation bilaterally. Normal effort Abdomen: Soft/nontender/nondistended. No hepatosplenomegaly Extremities: No clubbing/cyanosis. No edema Behavior: Cooperative, appropriate. Results & Data Results & Data Vital Signs (Past 12 Hours) Vital Signs Temp Pulse Resp BP Pulse Ox O2 Del Method O2 Flow Rate 06/22/23 19:38 37.0 C 63 18 135/65 92 Nasal Cannula 3 06/22/23 15:00 36.9 C 65 20 128/67 90 Nasal Cannula 3 06/22/23 14:02 124/64 PG Care Time/CCT Total # of Minutes Spent Total Time Spent with Patient: Total time spent is greater than 50% in coordination of care (as documented) at patient's floor/unit and/or counseling patient: Coding Level of Care Code 37639 SUB INP/OBS CARE 04/27MIN Diagnoses Acute kidney injury superimposed on CKD N17.9; N18.9 Elevated troponin R79.89 Altered mental status R41.82 Coronavirus infection B34.2 Type II diabetes mellitus with renal manifestations E11.29 Hypertension I10 Hypothyroidism E03.9 Cirrhosis K74.60 Current smoker F17.200 PAD (peripheral artery disease) I73.9 Ataxic gait R26.0 Conjunctivitis H10.9
[2023-06-23 07:02] LABS: Hematocrit (blood only) 29.1 % (37.0-47.0); Hemoglobin 9.3 g/dl (12.0-16.0); Mean Corpuscular Hemoglobin 30.5 pg (25.0-34.0); Mean Corpuscular Volume 95.4 fL (80.0-100.0); Mean Platelet Volume 10.1 fL (9.4-12.4); Platelet Count 238 K/uL (130-400); RDW Coefficient of Variation 13.7 % (11.5-14.5); RDW Standard Deviation 47.6 fL (36.4-46.3); Red Blood Count 3.05 M/uL (4.20-5.40); White Blood Count 7.81 K/ul (4.8-10.8)
[2023-06-23 07:34] LABS: Albumin Level 2.9 gm/dl (3.4-5.0); BUN Creatinine Ratio 18.5 (10-20); Calcium 9.1 mg/dl (8.6-10.3); Creatinine Clr Calc Pharmacy 29.8 ml/min; Est GFR (African American) 33.6 ml/min; Potassium 3.8 mmol/L (3.5-5.1)
--- NOTE | 2023-06-23 10:24 | Nephrology Progress Note ---
Date of Service June 23, 2023 Assessment & Plan (1) Acute kidney injury superimposed on CKD: (2) Type II diabetes mellitus with renal manifestations: (3) Altered mental status: (4) Coronavirus infection: (5) Hypertension: (6) Current smoker: Plan 72 y o F with stage 3B CKD, b/l cr 1.6-1.8 mg/dl with history of moderate degree of proteinuria for years in the setting of diabetes, most likely secondary to diabetic nephropathy. Urinalysis with mainly proteinuria and bact eriuria no significant hematuria. Recent renal ultrasound was otherwise unremarkable. Blood pressure has been well-controlled without any hypotensive episode. Although abdominal ultrasound in May showed some nodularity in the liver however there is no evidence of significant advanced liver disease or cirrhosis. Slight changes in creatinine from baseline could be hemodynamically mediated, do not see any significant concern, in fact renal function improved and now close to baseline. --continue on Venofer --continue to monitor kidney function while inpatient --encouraged to keep well hydrated. --continue to hold Lasix, --resume Jardiance, continue lisinopril 20 mg/d Will follow. Admission and Anticipated Discharge Date Admission Date: June 06, 2023 Robin Mojica was seen and evaluated this morning. Overall doing well, denies any concerns. HB low with low iron store. Cr at baseline, 1.7. BP better. No SOB, volume overload. Review of Systems Review of Systems: All systems reviewed & are unremarkable except as noted in Subjective Physical Exam Constitutional: WD/WN, vitals as above no acute distress Eyes: + anicteric sclerae Neck: normal visual inspection Respiratory: no respiratory distress Auscultation: lungs clear to auscultation bilaterally Cardiovascular: RRR, no murmur, no edema Musculoskeletal: Extremities: extremities normal to inspection Skin: no rashes, warm and dry Neurologic: no focal motor deficits and not confused Psychiatric: Orientation: alert and oriented x 3 Affect: euthymic affect Results & Data Vital Signs (Past 12 Hours) Vital Signs Temp Pulse Resp BP Pulse Ox O2 Del Method O2 Flow Rate 06/23/23 07:31 36.8 C 58 L 18 136/68 98 Nasal Cannula 2 06/23/23 07:20 Nasal Cannula 3 PG Care Time/CCT Total # of Minutes Spent Total Time Spent with Patient: Total time spent is greater than 50% in coordination of care (as documented) at patient's floor/unit and/or counseling patient: Coding Level of Care Code 58325 SUB INP/OBS CARE 2MIN Diagnoses Acute kidney injury superimposed on CKD N17.9; N18.9 Type II diabetes mellitus with renal manifestations E11.29 Altered mental status R41.82 Coronavirus infection B34.2 Hypertension I10 Current smoker F17.200
[2023-06-23] MEDS ORDERED: EMPAGLIFLOZIN 25 MG TAB PO SCH (10:30)
--- NOTE | 2023-06-23 14:35 | Discharge Summary ---
Date of Service June 23, 2023 Admission HPI Per Admitting Provider Galina is a 72-year-old female with a history of DM 2, CKD stage III, PAD, current smoker, emphysema, hypothyroidism, HTN, hyperlipidemia, and liver cirrhosis who presented to the [facility] ED accompanied with a friend due to concerns of fever and increased confusion. She was noted to be febrile at 39.5C, hypertensive at 177/80, but otherwise stable. Labs were significant for a lymphocyte count of 0.86, Cr of 2.09 (baseline is near 1.5), initial high sen trop of 15, UA without signs of infection, and full respiratory biofire positive for Coronavirus OC43. Prior to admission the patient was given 1L NSS and 1gm IV tylenol. CT of the head/brain wo con was read as negative for acute findings. CXR was read as "Emphysema without acute process. ". At the time of the exam the patient was lying in bed in no acute distress. She was alert and completely oriented to begin my exam. She states that her neighbors recently had the flu, she started to develop congestion, an increased cough compared to baseline with baseline yellow mucus production, mild SOB, and decreased oral intake. She states her symptoms began on 06/04/23 and progressed to the point where she was febrile and weak this am. She states that she feels i mproved compared to arrival but not back to her baseline yet. When asked, she had a episode of non-bloody diarrhea this am and yesterday. She denies recent chest pain, hemoptysis, abd pain, nausea, vomiting, dysuria, hematuria, melena, LE swelling, and recent trauma. We discussed code status, she was clearly able to communicate that she is a DNR/DNI. This matches her wishes on her previous admission. She would want her Son to make medical decisions for her if she could not make them herself. She smokes approximately 1/2 pack of cigarettes daily and denies recent alcohol or drug use. Please refer to Dr. Fiore's attestation for any changes to the treatment plan Discharge Data Allergies Allergy/AdvReac Type Severity Reaction Status Date / Time lorazepam Allergy Unknown HAS NO Verified 06/06/23 13:54 EFFECT metformin Allergy Unknown Unknown Verified 06/06/23 13:54 metronidazole Allergy Unknown Unknown Verified 06/06/23 13:54 Sulfa (Sulfonamide Allergy Unknown HIVES Verified 06/06/23 13:54 Antibiotics) linagliptin [From Tradjenta] AdvReac arthralgia Verified 06/06/23 13:54 Consultations 06/06/23 14:41 ED Decision to Admit Stat 06/07/23 15:19 Consult Neurology Routine 06/21/23 08:31 Consult Nephrology Routine Ordered Studies 06/06/23 12:21 CT head/brain wo con Stat 06/06/23 15:26 US Renal Bladder [US renal/blad retro comp] Routine 06/08/23 07:29 MR brain wo con Routine 06/08/23 07:31 US carotid doppler BI Routine Hospital Course (1) Acute kidney injury superimposed on CKD: -Presented to the ED with her Neighbor after experiencing ongoing fever, cough, and confusion -Noted to have an KAYLA on presentation with Cr of 2.09 (baseline is near 1.5) -Like due to dehydration with acute viral illness and ongoing lisinopril use -Renal ultrasound was negative for obstruction Improving initially but now creatinine is trending up consulted nephro. appreciate input may be hepatorenal syndrome - CKD st 3 , creatinine is stable (2) Elevated troponin: -Likely demand ischemia No chest pain No EKG changes Most likely secondary to acute viral illness, dehydration and acute kidney injury (3) Altered mental status: Metabolic encephalopathy -Was one of her chief complaints on ED arrival -CT head was negative, is without signs of bacterial infection as her WBC is WNL, CXR and UA are negative for acute infection -Ammonia level was negative -Will continue supportive care for now -Fall/aspiration precautions Patient still seems to be confused. Not sure if deafness is playing a role. With right-sided weakness, nurse raised the question of a stroke. Onset of weakness is unknown. Head CT is negative. With unknown time of onset, not a candidate for tPA anyways On aspirin and Zocor 80 mg MRI brain was negative Carotid ultrasound did not show any significant stenosis Echocardiogram unremarkable Neurology recommends MRA of the brain to complete workup. However patient may not stay steady for MR. Will complete at a later time. Patient has been slightly delirious. She wishes to go home but she is not capacitated to make decisions as she is not able to reason through her decisions. Spoke to her friend who stated that her mental status change is new since last Monday. Before that, she was driving and independent Patient had not been sleeping through the night Ordered Seroquel to help her sleep at night. Got Seroquel the last 2 nights and has been sleeping through the night. Hopefully turning around the corner Improving overall. Most likely back to her baseline. - 06/12 looks better, answers questions appropriately, agreed to rehab 06/13 reports feeling better, still has generalized weakness, needs a lot of assistance 06/14 patient is alert awake, worked with physical therapy, PT still recommends rehab, [facility] she is approved for SN[facility] 06/15 sleepy, will reduce dose of Zoloft, at baseline otherwise 06/21 awake appears at baseline (4) Coronavirus infection: -Positive for Coronavirus OC43 in the ED -Currently stable on RA with emphysema noted on CXR -Is not in a COPD exacerbation at this time symptoms mainly resolved -Supportive measures for now with the following: >Incentive spirometry >Flutter therapy >QIDr DuoNeb >PRN O2 to keep SpO2 between 89-92% >BID Guaifenesin Remains off oxygen , denies shortness of breath (5) Type II diabetes mellitus with renal manifestations: -Hold oral medications -Monitor BSG ACHS, goal is 110-160 for now -Normally takes 35 units lantus BID -HH/DMII diet (6) Hypertension: -Stable -Hold lisinopril and Lasix with KAYLA and dehydration Blood pressure is elevated at times, patient started on amlodipine 5 mg a day, we will increased it to 10 mg a day, continue hydralazine as needed (7) Hypothyroidism: -TSH WNL today -Continue levothyroxine (8) Cirrhosis: -Does not appear to be in decompensation -Continue to monitor volume status closely -Ammonia level was normal (9) Current smoker: -Smokes approximately 1/5 pack of cigarettes daily -Scattered wheezing on exam but does not appear to be in COPD exacerbation or respiratory distress -Nicotine patch ordered -Continue to stress smoking cessation (10) PAD (peripheral artery disease): -Continue aspirin (11) Ataxic gait: Patient's gait has been very imbalanced PT/OT recommended rehab agreed to rehab approved for SNF (12) Conjunctivitis: Most likely viral etiology Ordered ofloxacin eyedrops along with teardrops. Antihistamine eyedrops are not available in pharmacy here resolved Plan DVT prophylaxis: Heparin subcu CODE STATUS: DNR/DNI White count has come down to 11. Most likely stress related. Awaiting placement Discharge Plan Discharge Items Patient Disposition: Transfer Inpatient Rehab Fac Reason For Visit: NON-COVID 19 CORONAVIRUS, KAYLA, ELEVATED TROP Discharge Diagnosis: kayla Activity: Resume your previous activity Non-emergency contact: Primary Care Provider Call non-emergency contact if: you have any medication questions Follow-up/Referrals: Elizabeth Love MD [Primary Care Provider] - Diet: Carb Consistent or DM2 and Heart Healthy Addtl Attending Provider Instructions: recommend followup with PCP in 1-2 weeks. Pending Studies at Discharge: No Stand-Alone Forms: My [facility] Skilled Items Patient informed of condition?: Yes DNR: Yes Discharge Level of Care: Acute rehab Communicable Disease: No Discharge Prognosis: Stable Lines: None Urinary Catheter: No Medications and DC Order Prescriptions: New quetiapine 25 mg Tablet 25 mg PO HS Qty: 30 0RF amlodipine [Norvasc] 5 mg Tablet 10 mg PO QAM Qty: 30 0RF lisinopril 10 mg Tablet 10 mg PO QAM Qty: 30 0RF nicotine 7 mg/24 hr Patch 24 Hour 14 mg transdermal QAM Qty: 30 0RF Continued alendronate [Fosamax] 70 mg tablet 70 mg PO ONCE Qty: 12 4RF Rx Instructions: Take 1 tablet per week with 8 oz of plain water, do not eat or drink anything else for 60 minutes after taking. levothyroxine 112 mcg tablet 112 mcg PO DAILY Qty: 90 3RF propranolol 160 mg capsule,extended release 24 hr 160 mg PO QAM Qty: 90 3RF insulin glargine 100 unit/mL solution 35 unit subcut BID Qty: 70 3RF simvastatin 80 mg tablet 80 mg PO DAILY Qty: 90 3RF (DME) blood-glucose meter [OneTouch Verio Flex meter] Misc See Rx Instructions .Route Qty: 1 0RF Rx Instructions: As directed (DME) insulin syringe-needle U-100 [BD Insulin Syringe Ultra-Fine] 0.5 mL 31 gauge x 5/16" syringe See Rx Instructions .ROUTE .MEDSUPPLY Qty: 400 1RF Rx Instructions: FOR INJECTION USE FOUR TIMES DAILY Januvia 25 mg tablet 25 mg PO DAILY Qty: 90 1RF pantoprazole [Protonix] 40 mg tablet,delayed release (DR/EC) 40 mg PO DAILY Qty: 90 3RF Trelegy Ellipta 100-62.5-25 mcg blister with device 1 inh inhalation QAM Qty: 60 3RF (DME) OneTouch Verio test strips Strip See Rx Instructions .ROUTE .MEDSUPPLY Qty: 100 2RF Rx Instructions: test four times a day aspirin 81 mg capsule 81 mg PO DAILY Qty: 90 3RF Jardiance 25 mg tablet 25 mg PO QAM Qty: 90 3RF (DME) lancets [OneTouch Delica Lancets] 30 gauge misc See Rx Instructions .ROUTE .MEDSUPPLY Qty: 100 11RF Rx Instructions: test three times daily triamcinolone acetonide 0.1 % cream 1 applic topical BID Qty: 30 2RF acetaminophen [Tylenol] 325 mg Tablet 325 mg PO HS PRN (Reason: Pain) Changed sertraline 100 mg tablet 50 mg PO QAM Qty: 90 3RF Discontinued furosemide 40 mg tablet 40 mg PO DAILY PRN (Reason: edema) Qty: 90 3RF Hold Instructions: worsening kidney fnx potassium chloride 20 mEq tablet extended release 20 meq PO QAM Qty: 90 3RF lisinopril 20 mg tablet 20 mg PO QAM Qty: 90 3RF Discharge Orders: Discharge Order (Routine); Ordered 06/23/23 Ordered By: Ryan Layne/Other Patient Handouts: Managing Type 2 Diabetes Admission Data Admit Date/Time: 06/06/23 14:51 Attending Provider: Ryan Martinez Admit Provider: Rome Fiore Primary Care Provider: Elizabeth Love Other Providers: Rome Fiore; Les Hairston; [facility]; [place]; Ubaldo Clarke; Kim Ayala; Robert Khan; Deborah Bey Coding Diagnoses Acute kidney injury superimposed on CKD N17.9; N18.9 Elevated troponin R79.89 Altered mental status R41.82 Coronavirus infection B34.2 Type II diabetes mellitus with renal manifestations E11.29 Hypertension I10 Hypothyroidism E03.9 Cirrhosis K74.60 Current smoker F17.200 PAD (peripheral artery disease) I73.9 Ataxic gait R26.0 Conjunctivitis H10.9
[2023-06-27 05:38] LABS: Creatinine Ur 85 mg/dL (20-275); Protein, Urine Random 86 mg/dL (5-24); Ur Protein/Creat Ratio mg/g 1012 mg/g creat (24-184); Urine Abnormal Protein Band 1 DNR mg/dL (NONE DETECTED); Urine Abnormal Protein Band 2 DNR mg/dL (NONE DETECTED); Urine Abnormal Protein Band 3 DNR mg/dL (NONE DETECTED); Urine Protein/Creatinine Ratio 1.012 (0.024-0.184)
[2023-06-27 08:02] LABS: Albumin 2.3 g/dL (3.8-4.8); Alpha 1 Globulin 0.5 g/dL (0.2-0.3); Alpha 2 Globulin 1.3 g/dL (0.5-0.9); Beta-1-Globulin 0.4 g/dL (0.4-0.6); Beta-2-Globulin 0.3 g/dL (0.2-0.5); Gamma Globulin 0.6 g/dL (0.8-1.7); Monoclonal Protein Band 1 0.2 g/dL (NONE DETECTED); Monoclonal Protein Band 2 DNR g/dL (NONE DETECTED); Monoclonal Protein Band 3 DNR g/dL (NONE DETECTED); Total Protein 5.4 g/dL (6.1-8.1)
== END 2023-06-23 15:12 | DRG 682 ==
LOC: ED 10:04 → SUATTDRO 14:51 → EDINP 14:51 → 2N 06-07 18:35 → 3E 06-15 00:56

== ENCOUNTER 2023-08-08 09:51 | Inpatient (IN) ==
--- NOTE | 2023-08-08 10:37 | XRay Report ---
XR chest 1V portable CLINICAL HISTORY: Chest pain, nonspecific COMPARISON STUDY: Chest CT May 18, 2023. Chest radiograph June 21, 2023. FINDINGS: There is no pneumothorax. Small right pleural effusion is noted. Linear right midlung densi ty may reflect atelectasis or fissural fluid. Mild interstitial thickening is present. Hazy right inf rahilar opacity is noted. There is mild cardiomegaly. Mediastinal contours are otherwise normal. IMPRESSION: 1. Interval development of mild interstitial pulmonary edema. 2. Small right pleural effusion. Hazy right infrahilar opacity which may be related to pulmonary mert a or less likely pneumonia. ACT 112: Negative or not required by law. Electronically signed by: Leonard Saxena M.D. 08/08/2023 10:35 AM
[2023-08-08 10:43] LABS: Basophils # (auto) 0.03 K/uL (0.00-0.20); Basophils % (auto) 0.4 %; Eosinophils # (auto) 0.12 K/uL (0.00-0.50); Eosinophils % (auto) 1.7 %; Hematocrit (blood only) 31.2 % (37.0-47.0); Hemoglobin 9.8 g/dl (12.0-16.0); Immature Granulocytes # (auto) 0.02 K/uL (0.01-0.20); Immature Granulocytes % (auto) 0.3 %; Lymphocytes # (auto) 0.87 K/uL (1.20-3.40); Lymphocytes % (auto) 12.5 %; Mean Corpuscular Hgb Conc 31.4 g/dL (32.0-36.0); Mean Corpuscular Volume 95.4 fL (80.0-100.0); Mean Platelet Volume 9.8 fL (9.4-12.4); Monocytes # (auto) 0.52 K/uL (0.11-0.59); Monocytes % (auto) 7.5 %; Neutrophils % (auto) 77.6 %; Platelet Count 156 K/uL (130-400); RDW Coefficient of Variation 14.2 % (11.5-14.5); RDW Standard Deviation 49.2 fL (36.4-46.3); Red Blood Count 3.27 M/uL (4.20-5.40); White Blood Count 6.96 K/ul (4.8-10.8)
--- NOTE | 2023-08-08 10:46 | Emergency Department Note ---
Impression & Plan Acute hypoxemic respiratory failure, Pulmonary edema, Volume overload ED Provider Note NAME: MARINA CA AGE: 72 SEX: F : 1950 ARRIVES VIA: Ambulance INFORMANT: Patient, patient friend ED PROVIDER(S): Grayson Webb MD CHIEF COMPLAINT: Shortness of breath MEDICAL DECISION MAKING: Patient presented due to concern for worsening shortness of breath. IV was established and blood work was obtained and the patient was placed on supplemental nasal cannula oxygen. Patient does feel improved after placement on oxygen. Patient has a normal white count hemoglobin 9.8 which is chronic and stable with a normal platelet count. A 1.94. This is slightly worse from July Creatinine is patient did recently initiate Lasix therapy. LFTs unremarkable. Troponin negative. COVID flu and RSV negative. Chest x-ray does show concern for pulmonary edema. The patient does have JVD and associated lower extremity swelling although trace in nature. Patient also with noted weight gain of approximately 10 kg since June. Patient was ordered IV Lasix and a BNP was added. I did speak with the on-call hospital service Dr. Horne and the patient was admitted to medicine service. BNP elevated. Critical Care: I have personally spent 40 minutes of critical care time in direct management of this patient. This includes bedside care, interpretation of diagnostic studies, and testing, discussion with consultants, patient, and family members, and other require inpatient management activities. This 40 minutes is in excess of all separately billable procedures. Discussion w/ other healthcare providers: Dr. Horne inpatient medicine service Prior /Outside records reviewed: I reviewed a discharge summary from June 23, [address] Martinez. Patient with known history of type 2 diabetes CKD 3 PAD smoker emphysema hypothyroidism hypertension hyperlipidemia liver cirrhosis who presented due to concern for fever and increased confusion. Patient was noted to be febrile positive for coronavirus OC 43 and was noted to have emphysematous change. Patient was noted to have KAYLA on CKD with elevated troponin altered mental status. Differential diagnosis: Reactive airway disease, pneumonia, pneumothorax, COPD, CHF, ACS, pulmonary embolism, musculoskeletal, GERD as well as other pathologies were considered. Diagnostics, as interpreted by me: ECG: Sinus bradycardia, rate of 51, normal intervals, normal axis no ST elevations. T wave version in V2. Cardiac monitoring: An order was placed for continuous cardiac monitoring. The monitor shows a rate of 62 with sinus rhythm. Patient was placed on pulse oximetry Medical decision rules: None Imaging studies: I informally interpreted the patient's chest x-ray with w pulmonary edema with formal report to follow. HPI: Patient presents due to concern for worsening shortness of breath. The patient reportedly has had worsening symptoms over the last 2 days. She is accompanied by a friend who also provides some of the history. EMS was called to the house by the patient's daughter 2 days ago with the patient refused to present. Patient also has some symptoms yesterday was seen by your primary blocker polishing Dr. Alexander was started on Lasix. Patient feels as though she has had some abdominal swelling. Patient is a former smoker last smoking in June and did have an admission at that time due to concern for coronavirus infection. The patient did require oxygen at the time of discharge but was taken off this. Patient was having significant conversational dyspnea and dyspnea on exertion. Patient does have some slight lower extremity swelling but has not noticed to be significantly changed. Patient's friend at bedside reports that she has gained about 10 pounds since June. Patient does feel as though she is more full with associated abdominal swelling. Patient does feel better after the patient was placed on oxygen and she was noted to be saturating in the 80s when EMS arrived. Patient was placed on supplemental nasal cannula and this improves her symptoms as well as her oxygen saturation. PAST MEDICAL HISTORY: See Below PAST SURGICAL HISTORY: See Below SOCIAL HISTORY: See Below HOME MEDICATIONS: See Below ALLERGIES: See Below VITALS: See Below PHYSICAL EXAMINATION: GENERAL: NAD, non-toxic. EYE EXAM: Normal conjunctiva. PERRL, no anisocoria and EOM's grossly intact w/o pain. OROPHARYNX: Moist mucous membranes, edentulous. NECK: Trachea midline, no stridor. Supple, no nuchal rigidity, no adenopathy, non-tender. No signs of meningismus. FROM of the neck with good chin to chest and neck extension. JVD noted at approximate the angle of the mandible. LUNGS: Decreased breath sounds throughout. Normal chest wall mechanics. HEART: NSR, no MRG. ABDOMEN: Abdomen soft, non-tender, no masses, no rebound or guarding. BACK: No CVA TTP. SKIN: No rashes and no bruising. UPPER EXTREMITIES: Upper extremities are grossly normal. LOWER EXTREMITIES: Grossly normal, trace to 1+ pretibial edema without any calf pain or erythema and without any asymmetry. NEURO EXAM: A&O x3, cranial nerves II-XII grossly intact, normal speech, moves all 4 extremities. Past Med/Surg History Medical History Proteinuria Coronavirus infection H. pylori infection Diverticulitis COPD (chronic obstructive pulmonary disease) well controlled, can go a week sometimes without routine inhaler Anxiety PAD (peripheral artery disease) Current smoker Cirrhosis Lung nodule UNDER OBSERVATION Depression Hypothyroidism Hypertension Hypercholesteremia Surgical History History of tooth extraction S/P aortic bifurcation bypass graft Apr 1999 Femoral-popliteal bypass graft occlusion, left Apr 1999 Femoral-popliteal bypass graft occlusion, right Apr 1999 Family History Father , age 70 of lung cancer Tremor Lung cancer Sister Tremor Family history of diabetes mellitus Mother , age 68 of a gynecologic cancer (either uterine or ovarian) Cancer Brother Myocardial infarction Cancer Family history of diabetes mellitus Daughter Asthma Brother Family history of diabetes mellitus Tremor Denies family history of Ovarian cancer Prostate cancer Breast cancer Colorectal cancer Social History Smoking Status: Former smoker Tobacco Type: Cigarettes Age Started Using Tobacco: 21; packs per day: 1; Cigarettes Per Day: 20 CIGS A DAY; Second Hand Exposure: No; Do You Dip or Chew Tobacco: No; Hx Alcohol Use: No Hx Substance Use: No Preferred Language: Citizen Of [place] Communication Ability: Impaired Hearing Ability: Use of Hearing Aid Ekg Technician Required: No Beliefs That Will Affect Care: None marital status: Current Living Situation: Other Current Living Situation Comment: Pt relates friend lives in downstairs appt in her house current occupational status: retired How many Children do You have: 1 Feels Safe at Home: Yes Childhood Exposure to Second-Hand Smoke: Yes Diet: regular caffeine: Yes Dental Care, Regularly: No Physical Activity Frequency: Does not Exercise Seatbelt Use: always Sunscreen Use: No Assistive Devices: Glasses and Hearing Aid - Bilateral Allergies Allergies Allergy/AdvReac Type Severity Reaction Status Date / Time lorazepam Allergy Unknown HAS NO Verified 08/07/23 11:05 EFFECT metformin Allergy Unknown Unknown Verified 08/07/23 11:05 metronidazole Allergy Unknown Unknown Verified 08/07/23 11:05 Sulfa (Sulfonamide Allergy Unknown HIVES Verified 08/07/23 11:05 Antibiotics) [facility] AdvReac arthralgia Verified 08/07/23 11:05 Home Meds Home Medications Medication Instructions Recorded Confirmed acetaminophen 325 mg tablet 325 mg PO HS PRN Pain 08/09/21 08/08/23 (Tylenol) insulin glargine 100 unit/mL 30 unit subcut BID 08/08/23 08/08/23 subcutaneous solution (Lantus U-100 Insulin) Previous Rx's Medication Instructions Recorded lancets 30 gauge ([employer]ia [employer] Delica #100 ea 11/28/19 Lancets) alendronate 70 mg tablet (Fosamax) 70 mg PO ONCE #12 tabs 08/03/22 blood-glucose meter (OneTouch #1 ea 10/12/22 Verio Flex Meter) aspirin 81 mg capsule 81 mg PO DAILY #90 caps 10/31/22 triamcinolone acetonide 0.1 % 1 applic topical BID #30 grams 12/13/22 topical cream insulin syringe-needle U-100 0.5 #400 ea 03/28/23 mL 31 gauge x 5/16" (BD Insulin Syringe Ultra-Fine) pantoprazole 40 mg tablet,delayed 40 mg PO DAILY GERD #90 tabs 03/29/23 release (Protonix) fluticasone fur. 100 mcg-umeclid 1 inh inhalation QAM #60 ea 04/04/23 62.5 mcg-vilant 25 mcg inhalat.powder (Trelegy Ellipta) blood sugar diagnostic (OneTouch #100 ea 05/05/23 Verio test strips) nicotine 7 mg/24 hr daily 14 mg transdermal QAM #30 ea 06/23/23 transdermal patch sertraline 100 mg tablet 50 mg (1/2 x 100 mg) PO QAM #90 06/23/23 tabs ciclopirox 8 % topical solution 1 applic topical DAILY 4 weeks 07/28/23 #6.6 mL amlodipine 5 mg tablet (Norvasc) 10 mg (2 x 5 mg) PO QAM #30 tabs 07/29/23 empagliflozin 25 mg tablet 25 mg PO QAM #90 tabs 07/29/23 (Jardiance) levothyroxine 112 mcg tablet 112 mcg PO DAILY #90 tabs 07/29/23 propranolol 160 mg capsule,24 160 mg PO QAM #90 caps 07/29/23 hr,extended release quetiapine 25 mg tablet 25 mg PO DAILY #30 tabs 07/29/23 simvastatin 80 mg tablet 80 mg PO DAILY #90 tabs 07/29/23 lisinopril 20 mg tablet 20 mg PO DAILY #90 tabs 08/02/23 CGM #1 ea 08/07/23 furosemide 20 mg tablet (Lasix) 20 mg PO DAILY #30 tabs 08/07/23 Results & Data (ED) Vital Signs Vital Signs - 24 hr 08/08/23 09:50 08/08/23 09:50 08/08/23 10:18 Temperature 36.5 C Temperature Source Oral Pulse Rate 52 L Pulse Rate [Left] Respiratory Rate 26 H Respiratory Effort / Characteristics Non-Labored Spontaneous Non-Labored Spontaneous Labored Respiratory Depth Normal Normal Respiratory Pattern Regular Blood Pressure 118/55 L Blood Pressure [Left Arm] Blood Pressure Mean 76 Blood Pressure Mean [Left Arm] Pulse Oximetry 80 L 80 L Oxygen Delivery Method Room Air Room Air Nasal Cannula Oxygen Flow Rate 0 Sepsis Recent Fever Within 48 Hours No Sepsis New/Unexplained Change in Mental Status N/A Sepsis Action Taken by Nursing No Action Required Oxygen Flow Rate - Titration 6 Pulse Oximetry Post Tiitration 96 08/08/23 10:19 08/08/23 11:12 Temperature Temperature Source Pulse Rate Pulse Rate [Left] 52 L Respiratory Rate 16 Respiratory Effort / Characteristics Respiratory Depth Normal Respiratory Pattern Blood Pressure Blood Pressure [Left Arm] 144/54 H Blood Pressure Mean Blood Pressure Mean [Left Arm] 84 Pulse Oximetry 96 93 Oxygen Delivery Method Nasal Cannula Nasal Cannula Oxygen Flow Rate 6 6 Sepsis Recent Fever Within 48 Hours Sepsis New/Unexplained Change in Mental Status Sepsis Action Taken by Nursing Oxygen Flow Rate - Titration Pulse Oximetry Post Tiitration Home Medications Current Medication List: was personally reviewed by me Laboratory Data Attestation: I reviewed the patient's lab results. 08/08/23 10:05 08/08/23 10:05 Lab Results 08/08/23 08/08/23 Range/Units 10:05 10:23 WBC 6.96 (4.8-10.8) K/ul RBC 3.27 L (4.20-5.40) M/uL Hgb 9.8 L (12.0-16.0) g/dl Hct 31.2 L (37.0-47.0) % MCV 95.4 (80.0-100.0) fL MCH 30.0 (25.0-34.0) pg MCHC 31.4 L (32.0-36.0) g/dL RDW Std Deviation 49.2 H (36.4-46.3) fL RDW Coeff of Maximilian 14.2 (11.5-14.5) % Plt Count 156 (130-400) K/uL MPV 9.8 (9.4-12.4) fL Immature Gran % (Auto) 0.3 % Neut % (Auto) 77.6 % Lymph % (Auto) 12.5 % Wake % (Auto) 7.5 % Eos % (Auto) 1.7 % Baso % (Auto) 0.4 % Neut # (Auto) 5.40 (1.40-6.50) K/uL Lymph # (Auto) 0.87 L (1.20-3.40) K/uL Wake # (Auto) 0.52 (0.11-0.59) K/uL Eos # (Auto) 0.12 (0.00-0.50) K/uL Baso # (Auto) 0.03 (0.00-0.20) K/uL Immature Gran # (Auto) 0.02 (0.01-0.20) K/uL PT 11.8 (9.0-12.0) Seconds INR 1.1 (0.9-1.1) Sodium 143 (136-145) mmol/L Potassium 3.5 (3.5-5.1) mmol/L Chloride 112 H (98-107) mmol/L Carbon Dioxide 23 (21-32) mmol/L Anion Gap 8 (3-11) BUN 19 (6-23) mg/dl Creatinine 1.94 H (0.6-1.2) mg/dl Est Cr Clr Drug Dosing 27.8 ml/min Est GFR ( Amer) 29.3 ml/min Est GFR (Non-Af Amer) 25.2 ml/min BUN/Creatinine Ratio 9.8 L (10-20) Glucose 80 (70-99(Fasting)) mg/dl Calcium 9.0 (8.6-10.3) mg/dl Magnesium 1.9 (1.7-2.4) mg/dl Total Bilirubin 0.6 (0.2-1.0) mg/dl AST 15 (13-39) U/L ALT 7 (7-52) U/L Alkaline Phosphatase 85 (34-104) U/L Troponin I High Sens 8.2 (0-14) pg/ml B-Natriuretic Peptide 494 H (0-100) pg/ml Total Protein 6.5 (6.0-8.3) gm/dl Albumin 3.8 (3.4-5.0) gm/dl Globulin 2.7 (2.5-4.0) gm/dl Albumin/Globulin Ratio 1.4 (0.9-2) SARS-CoV-2 (PCR) NEGATIVE (Negative) Influenza Type A (PCR) Negative (Neg) Influenza Type B (PCR) Negative (Neg) RSV (RT-PCR) Negative (Neg) Administered Medications Discontinued Medications Furosemide (Furosemide 40 Mg/4 Ml Vial) 40 mg IV ONE ONE Stop: 08/08/23 11:15 Last Admin: 08/08/23 11:26 Dose: 40 mg Documented By: NRB Imaging Data Radiologist's Impression: Chest X-Ray 08/08/23 10:17 XR chest 1V portable CLINICAL HISTORY: Chest pain, nonspecific COMPARISON STUDY: Chest CT May 18, 2023. Chest radiograph June 21, 2023. FINDINGS: There is no pneumothorax. Small right pleural effusion is noted. Linear right midlung density may reflect atelectasis or fissural fluid. Mild interstitial thickening is present. Hazy right infrahilar opacity is noted. There is mild cardiomegaly. Mediastinal contours are otherwise normal. IMPRESSION: 1. Interval development of mild interstitial pulmonary edema. 2. Small right pleural effusion. Hazy right infrahilar opacity which may be related to pulmonary edema or less likely pneumonia. ACT 112: Negative or not required by law. Electronically signed by: Leonard Saxena M.D. 08/08/2023 10:35 AM Discharge Plan Visit Data Chief Complaint: Respiratory Distress Stated Complaint: SOB, AB & LEG EDEMA ED Provider: Grayson Webb Discharge Problem: Acute hypoxemic respiratory failure, Pulmonary edema, Volume overload Patient Disposition: Admitted As Inpatient Discharge Instructions Interventions: ED Discharge Assessment Last Done: 08/08/23 14:00 Discharge Problem: Pulmonary edema Qualifiers: Chronicity: acute Qualified Code(s): J81.0 - Acute pulmonary edema Volume overload Qualifiers: Hypervolemia type: other Qualified Code(s): E87.79 - Other fluid overload
[2023-08-08 11:00] LABS: Albumin Globulin Ratio 1.4 (0.9-2); Albumin Level 3.8 gm/dl (3.4-5.0); BUN Creatinine Ratio 9.8 (10-20); Bilirubin,Total 0.6 mg/dl (0.2-1.0); Creatinine Clr Calc Pharmacy 27.8 ml/min; Est GFR (African American) 29.3 ml/min; Est GFR (Non-African American) 25.2 ml/min; Globulin 2.7 gm/dl (2.5-4.0); Potassium 3.5 mmol/L (3.5-5.1); Total Protein 6.5 gm/dl (6.0-8.3)
[2023-08-08 11:07] LABS: Troponin I High Sensitivity 8.2 pg/ml (0-14)
[2023-08-08 11:19] LABS: Influenza A virus by PCR Negative (Neg); Influenza B virus by PCR Negative (Neg); RSV by PCR Negative (Neg); SARS CoV2 RNA(COVID-19) Ceph NEGATIVE (Negative)
[2023-08-08] MEDS: FUROSEMIDE 40 MG/4 ML VIAL IV ONE (11:26)
--- NOTE | 2023-08-08 12:00 | History & Physical Report ---
Date of Service August 08, 2023 Assessment & Plan (1) Volume overload: Plan: Multiple contributory factors 1) CKD with proteinuria - bladder scan 200ml in ER, US renal to rule out hydronephrosis. CKD on basis of HTN and T2DM. 2) Liver cirrhosis (presumed fatty liver per gastroenterology notes) - US ascites limited ordered (if present will add on spironolactone +/- paracentesis) Suspect liver cirrhosis is less a contributing factor than her kidneys given normal bilirubin, platelets and INR making her MELD score only... 3) Heart is the least contributory factor - TTE in June relatively unremarkable (moderate concentric LVH, grade II diastolic dysfunction, mild aortic stenosis, LVEF 60-65%) Diet indiscretion likely playing a part acutely given described high salt intake Treatment: Lasix 40mg IV daily Strict I&Os - aim net negative 2L daily Daily weight Low Na diet (2) Pulmonary edema: (3) Acute hypoxemic respiratory failure: Plan: Aim O2 sats > 90% Baseline on room air although difficulty weaning last admission in addition (4) Type II diabetes mellitus with renal manifestations: Plan: Hemoglobin A1C 6.0 in July, no need to repeat Reduce Lantus to 20 units QPM and 30 units QAM given hypoglycemic episodes last admission and low HbA1C Novolog: --Goal BSG Range: Low 110 mg/dL, High 140 mg/dL --Correction Factor: 25 mg/dL/unit --Carbohydrate ratio = 9 g/unit --BSGs ACHS if eating, q6h if npo Consult pharmacy for ongoing glycemic control Plan VTE Prophyalxis - heparin 5000 units SQ BID Diet - Low Na, heart healthy, T2DM, fluid restrict 1500ml Disposition - admit to PCU Admission and Anticipated Discharge Date Admission Date: August 08, 2023 History of Present Illness Chief Complaint: Increased weight and shortness of breath Primary Care Provider: Elizabeth Love MD Galina Nam is a 72 year old female who presents to the ER with increased respiratory distress. Her friend in the room provides a recent history. Following discharge to rehab she was weaned off oxygen from her last admission in June. Initially doing well but slowly progressively more short of breath and significant weight gain of 20lb. Legs have been more swollen. She denies any chest pain, palpitations, pre-syncope. She was recently admitted in June due to altered mental state with no explanation in notes but appears most likely due to non-COVID coronavirus infection (CXR 06/11 with patchy right upper densities improved on CXR 06/20 without antibiotics) possibly also affecting her sleep - she improved on Seroquel which has been continued since. At that time she was also diagnosed with KAYLA due to dehydration from decreased intake due to altered mental status. She was treated with a few days of intravenous fluids. Amlodipine was added for blood pressure control. Of note her glucose levels were on the low side during the morning [id number] tests on Lantus 30 units BID during her previous hospitalization. She did not require oxygen prior to this hospitalization but was discharged to [facility] on 3 L/min O2. This was weaned as outpatient to r oom air by physical therapy. Allergies Allergy/AdvReac Type Severity Reaction Status Date / Time lorazepam Allergy Unknown HAS NO Verified 08/07/23 11:05 EFFECT metformin Allergy Unknown Unknown Verified 08/07/23 11:05 metronidazole Allergy Unknown Unknown Verified 08/07/23 11:05 Sulfa (Sulfonamide Allergy Unknown HIVES Verified 08/07/23 11:05 Antibiotics) linagliptin [From Tradjenta] AdvReac arthralgia Verified 08/07/23 11:05 Home Medications Medication Instructions Recorded Confirmed Type lancets 30 gauge (CastingDBTouch Delsera #100 ea 11/28/19 08/07/23 Rx Lancets) acetaminophen 325 mg tablet 325 mg PO HS PRN Pain 08/09/21 08/08/23 History (Tylenol) alendronate 70 mg tablet (Fosamax) 70 mg PO ONCE #12 tabs 08/03/22 08/08/23 Rx blood-glucose meter (CastingDBTouch #1 ea 10/12/22 08/07/23 Rx Verio Flex Meter) aspirin 81 mg capsule 81 mg PO DAILY #90 caps 10/31/22 08/08/23 Rx triamcinolone acetonide 0.1 % 1 applic topical BID #30 grams 12/13/22 08/08/23 Rx topical cream insulin syringe-needle U-100 0.5 #400 ea 03/28/23 08/07/23 Rx mL 31 gauge x 5/16" (BD Insulin Syringe Ultra-Fine) pantoprazole 40 mg tablet,delayed 40 mg PO DAILY GERD #90 tabs 03/29/23 08/08/23 Rx release (Protonix) fluticasone fur. 100 mcg-umeclid 1 inh inhalation QAM #60 ea 04/04/23 08/08/23 Rx 62.5 mcg-vilant 25 mcg inhalat.powder (Trelegy Ellipta) blood sugar diagnostic (OneTouch #100 ea 05/05/23 08/07/23 Rx Verio test strips) nicotine 7 mg/24 hr daily 14 mg transdermal QAM #30 ea 06/23/23 08/08/23 Rx transdermal patch sertraline 100 mg tablet 50 mg (1/2 x 100 mg) PO QAM #90 06/23/23 08/08/23 Rx tabs ciclopirox 8 % topical solution 1 applic topical DAILY 4 weeks 07/28/23 08/08/23 Rx #6.6 mL amlodipine 5 mg tablet (Norvasc) 10 mg (2 x 5 mg) PO QAM #30 tabs 07/29/23 Rx empagliflozin 25 mg tablet 25 mg PO QAM #90 tabs 07/29/23 08/08/23 Rx (Jardiance) levothyroxine 112 mcg tablet 112 mcg PO DAILY #90 tabs 07/29/23 08/08/23 Rx propranolol 160 mg capsule,24 160 mg PO QAM #90 caps 07/29/23 08/08/23 Rx hr,extended release quetiapine 25 mg tablet 25 mg PO DAILY #30 tabs 07/29/23 08/08/23 Rx simvastatin 80 mg tablet 80 mg PO DAILY #90 tabs 07/29/23 08/08/23 Rx lisinopril 20 mg tablet 20 mg PO DAILY #90 tabs 08/02/23 08/08/23 Rx CGM #1 ea 08/07/23 Rx furosemide 20 mg tablet (Lasix) 20 mg PO DAILY #30 tabs 08/07/23 08/08/23 Rx insulin glargine 100 unit/mL 30 unit subcut BID 08/08/23 08/08/23 History subcutaneous solution (Lantus U-100 Insulin) Past Med/Surg History Medical History Proteinuria Coronavirus infection H. pylori infection Diverticulitis COPD (chronic obstructive pulmonary disease) well controlled, can go a week sometimes without routine inhaler Anxiety PAD (peripheral artery disease) Current smoker Cirrhosis Lung nodule UNDER OBSERVATION Depression Hypothyroidism Hypertension Hypercholesteremia Surgical History History of tooth extraction S/P aortic bifurcation bypass graft Apr 1999 Femoral-popliteal bypass graft occlusion, left Apr 1999 Femoral-popliteal bypass graft occlusion, right Apr 1999 Family History Father , age 70 of lung cancer Tremor Lung cancer Sister Tremor Family history of diabetes mellitus Mother , age 68 of a gynecologic cancer (either uterine or ovarian) Cancer Brother Myocardial infarction Cancer Family history of diabetes mellitus Daughter Asthma Brother Family history of diabetes mellitus Tremor Denies family history of Ovarian cancer Prostate cancer Breast cancer Colorectal cancer Social History Smoking Status: Former smoker Tobacco Type: Cigarettes Age Started Using Tobacco: 21; packs per day: 1; Cigarettes Per Day: 20 CIGS A DAY; Smoking End Date: June 06, 2023; Second Hand Exposure: No; Do You Dip or Chew Tobacco: No; Hx Alcohol Use: No Hx Substance Use: No Preferred Language: Bulgarian Communication Ability: Effective Hearing Ability: Use of Hearing Aid 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 Required: No Beliefs That Will Affect Care: None marital status: Current Living Situation: Alone Current Living Situation Comment: Pt relates friend lives in downstairs appt in her house current occupational status: retired How many Children do You have: 1 Other Information That Helps Us Care for You: No Feels Safe at Home: Yes Safety Concerns: Feels Safe At This Time Childhood Exposure to Second-Hand Smoke: Yes Diet: regular caffeine: Yes Dental Care, Regularly: No Physical Activity Frequency: Does not Exercise Seatbelt Use: always Sunscreen Use: No Assistive Devices: Glasses and Hearing Aid - Bilateral Review of Systems Review of Systems: All systems reviewed & are unremarkable except as noted in HPI & below Physical Exam Constitutional: WD/WN, vitals as above Eyes: PERRL, conjunctivae normal, anicteric sclerae ENMT: external ear and nose normal, oropharynx normal Neck: trachea midline, no thyromegaly Respiratory: + labored breathing and + uses accessory muscles Auscultation: + crackles (bibasal); no wheezes Cardiovascular: Rate/Rhythm: regular rate and regular rhythm Heart Sounds: no murmur Extremities: normal capillary refill and + pedal edema (2+ b/l eq ual); no calf tenderness Gastrointestinal (Abdomen): normal bowel sounds, soft, nontender, no hepatosplenomegaly Musculoskeletal: no cyanosis or clubbing, extremities motor strength 5/5 Skin: no rashes, warm and dry Neurologic: moves all extremities and awake; not confused Psychiatric: A+Ox3, euthymic affect Genitourinary: no CVA tenderness Results & Data Results & Data Vital Signs (Past 12 Hours) Vital Signs Temp Pulse Pulse Resp BP BP Pulse Ox 08/08/23 11:12 52 L 16 144/54 H 93 08/08/23 10:19 96 08/08/23 10:18 80 L 08/08/23 09:50 08/08/23 09:50 36.5 C 52 L 26 H 118/55 L 80 L O2 Del Method O2 Flow Rate 08/08/23 11:12 Nasal Cannula 6 08/08/23 10:19 Nasal Cannula 6 08/08/23 10:18 Nasal Cannula 0 08/08/23 09:50 Room Air 08/08/23 09:50 Room Air Laboratory Results Abnormal lab results 08/08/23 08/08/23 08/08/23 Range/Units 10:05 16:56 16:58 RBC 3.27 L (4.20-5.40) M/uL Hgb 9.8 L (12.0-16.0) g/dl Hct 31.2 L (37.0-47.0) % MCHC 31.4 L (32.0-36.0) g/dL RDW Std Deviation 49.2 H (36.4-46.3) fL Lymph # (Auto) 0.87 L (1.20-3.40) K/uL Chloride 112 H (98-107) mmol/L Creatinine 1.94 H (0.6-1.2) mg/dl BUN/Creatinine Ratio 9.8 L (10-20) POC Glucose 59 L* 60 L* (70-99) mg/dl B-Natriuretic Peptide 494 H (0-100) pg/ml Urine Protein (Negative) Urine Glucose (UA) (Negative) Ur Leukocyte Esterase (Negative) U Random Total Protein (0-11.9) mg/dl Protein/Creatinin Ratio (0-0.2) 08/08/23 08/08/23 Range/Units 20:03 Unknown RBC (4.20-5.40) M/uL Hgb (12.0-16.0) g/dl Hct (37.0-47.0) % MCHC (32.0-36.0) g/dL RDW Std Deviation (36.4-46.3) fL Lymph # (Auto) (1.20-3.40) K/uL Chloride (98-107) mmol/L Creatinine (0.6-1.2) mg/dl BUN/Creatinine Ratio (10-20) POC Glucose 111 H (70-99) mg/dl B-Natriuretic Peptide (0-100) pg/ml Urine Protein 2+ H (Negative) Urine Glucose (UA) 1+ H (Negative) Ur Leukocyte Esterase Trace H (Negative) U Random Total Protein 56.6 H (0-11.9) mg/dl Protein/Creatinin Ratio 1.7 H (0-0.2) Diagnostic Findings XR chest 1V portable CLINICAL HISTORY: Chest pain, nonspecific COMPARISON STUDY: Chest CT May 18, 2023. Chest radiograph June 21, 2023. FINDINGS: There is no pneumothorax. Small right pleural effusion is noted. Linear right midlung density may reflect atelectasis or fissural fluid. Mild interstitial thickening is present. Hazy right infrahilar opacity is noted. There is mild cardiomegaly. Mediastinal contours are otherwise normal. IMPRESSION: 1. Interval development of mild interstitial pulmonary edema. 2. Small right pleural effusion. Hazy right infrahilar opacity which may be related to pulmonary edema or less likely pneumonia. Medications Administered ER Medications Given: Lasix 40mg IV ECG Rate (beats per minute): 51 Rhythm: sinus bradycardia Findings: + other (Non-specific T wave abnormality) and + nonspecific-ST abn (Anterior/inferior) Comparison ECG Date: from (June 06, 2023) Change: the following changes noted (non specific ST and T wave changes as above) Code Status & VTE Plan Code Status DNR/DNI per patient wishes VTE Prophylaxis Plan VTE Prophylaxis will be ordered: Yes PG Care Time/CCT Total # of Minutes Spent Total Time Spent with Patient: Total time spent is greater than 50% in coordination of care (as documented) at patient's floor/unit and/or counseling patient: Coding Level of Care Code 55506 INT INP/OBS CARE 75MIN Diagnoses Volume overload E87.79 Hypervolemia type: other Pulmonary edema J81.0 Chronicity: acute Acute hypoxemic respiratory failure J96.01 Type II diabetes mellitus with renal manifestations E11.29 (1) Volume overload Hypervolemia type: other Qualified Code(s): E87.79 - Other fluid overload (2) Pulmonary edema Chronicity: acute Qualified Code(s): J81.0 - Acute pulmonary edema
[2023-08-08 12:16] LABS: INR 1.1 (0.9-1.1); Prothrombin Time 11.8 Seconds (9.0-12.0)
[2023-08-08 12:19] LABS: Magnesium 1.9 mg/dl (1.7-2.4)
--- NOTE | 2023-08-08 13:56 | Ultrasound Report ---
US abdomen ltd ascites CLINICAL HISTORY: ?ascites COMPARISON STUDY: Abdominal ultrasound May 23, 2023. CT of the abdomen and pelvis September 27, 2022 . TECHNIQUE: Sonography of the abdomen and pelvis was performed to assess for ascites. FINDINGS: No ascites was identified within the abdomen or pelvis. IMPRESSION: No ascites. ACT 112: Negative or not required by law. Electronically signed by: Leonard Saxena M.D. 08/08/2023 1:54 PM
[2023-08-08] MEDS ORDERED: GLUCOSE 40% GEL 15 GM TUBE PO PRN (14:00)
[2023-08-08] MEDS ORDERED: GLUCAGON FOR INJ 1 MG VIAL SQ PRN (14:00)
[2023-08-08] MEDS ORDERED: GLUCOSE 10 TAB/TUBE PO PRN (14:00)
[2023-08-08] MEDS ORDERED: DEXTROSE 50% 50 ML SYRINGE IV PRN (14:00)
--- NOTE | 2023-08-08 14:03 | Ultrasound Report ---
RENAL ULTRASOUND CLINICAL HISTORY: ?hydronephrosis COMPARISON STUDY: CT of the abdomen and pelvis September 27, 2022. Renal ultrasound June 06, 2023. TECHNIQUE: Sonography of the kidneys and the urinary bladder was performed. FINDINGS: The right kidney measures 10.6 cm in maximal dimension and the left measures 10.1 cm. There is no hydronephrosis. A few anechoic bilateral renal lesions measure up to 1.7 cm. These represent r enal cysts. There is mild renal cortical thinning and increased renal echogenicity. Small bilateral u reteral jets were noted. IMPRESSION: 1. No hydronephrosis. 2. Mild renal cortical thinning and increased renal echogenicity. ACT 112: Negative or not required by law. Electronically signed by: Leonard Saxena M.D. 08/08/2023 2:01 PM
[2023-08-08] MEDS: CARBOHYDRATES FOR HYPOGLYCEMIA PO PRN (17:37)
[2023-08-08] MEDS: INSULIN ASPART PER UNIT CHARGE SC SCH (18:25)
[2023-08-08] MEDS ORDERED: PHARMACY GLYCEMIC MGMT CONSULT PRN (18:44)
[2023-08-08] MEDS: NICOTINE 14 MG/24 HR PATCH TD SCH (18:45)
[2023-08-08] MEDS: TRIAMCINOLONE ACET 0.1% CR 15 GM TUBE TOP SCH (20:20)
[2023-08-08] MEDS: QUEtiapine FUMARATE 25 MG TABLET PO SCH (20:21)
[2023-08-08] MEDS: ACETAMINOPHEN 325 MG TAB PO PRN (20:21)
[2023-08-08] MEDS ORDERED: LANTUS PER UNIT CHARGE SQ SCH (21:00)
[2023-08-08] MEDS: FUROSEMIDE 40 MG/4 ML VIAL IV SCH (21:15)
[2023-08-08] MEDS: HEPARIN SOD 5,000 UNIT/0.5 ML VIAL SQ SCH (21:15)
[2023-08-08 23:27] LABS: Appearance Urine Clear (Clear); Bacteria Urine Automated None Seen (None Seen); Bilirubin Urine Negative (Negative); Blood Urine Negative (Negative); Cast Urine Automated 0-2 /lpf (0-2); Color Urine Yellow; Epithelial Cell Urine Auto 0-2 /hpf (0-2); Glucose Urine UA 1+ (Negative); Ketones Urine Negative (Negative); Leukocyte Esterase Urine Trace (Negative); Nitrite Urine Negative (Negative); Protein Urine 2+ (Negative); RBC Urine Automated 0-2 /hpf (0-2); Specific Gravity Urine 1.009 (1.000-1.030); Urobilinogen Urine Negative (Negative); WBC Urine Automated 0-5 /hpf (0-5)
[2023-08-08 23:43] LABS: Total Protein Urine Random 56.6 mg/dl (0-11.9)
[2023-08-08 23:49] LABS: Creatinine Urine Random 33.7 mg/dl; Protein Creatinine Ratio Urine 1.7 (0-0.2)
--- NOTE | 2023-08-09 04:50 | Electrocardiogram Report ---
Test Reason : Blood Pressure : / mmHG Vent. Rate : 051 BPM Atrial Rate : 051 BPM P-R Int : 184 ms QRS Dur : 090 ms QT Int : 494 ms P-R-T Axes : 060 060 098 degrees QTc Int : 455 ms Sinus bradycardia Anterior infarct (cited on or before 06-JUN-2023) Nonspecific T wave abnormality Abnormal ECG When compared with ECG of 06-JUN-2023 11:08, Premature atrial complexes are no longer Present Nonspecific T wave abnormality now evident in Inferior leads Nonspecific T wave abnormality now evident in Anterior leads QT has lengthened Confirmed by Hemanth Don ([id number]) on 08/09/2023 4:50:27 AM Referred By: REFERRED SELF Confirmed By:Hemanth Don
[2023-08-09] MEDS: LEVOTHYROXINE SODIUM 112 MCG TABLET PO SCH (06:03)
[2023-08-09 07:47] LABS: Basophils # (auto) 0.03 K/uL (0.00-0.20); Basophils % (auto) 0.6 %; Hematocrit (blood only) 30.9 % (37.0-47.0); Hemoglobin 9.7 g/dl (12.0-16.0); Immature Granulocytes # (auto) 0.02 K/uL (0.01-0.20); Immature Granulocytes % (auto) 0.4 %; Lymphocytes # (auto) 0.88 K/uL (1.20-3.40); Lymphocytes % (auto) 17.5 %; Mean Corpuscular Hemoglobin 29.9 pg (25.0-34.0); Mean Corpuscular Hgb Conc 31.4 g/dL (32.0-36.0); Mean Corpuscular Volume 95.4 fL (80.0-100.0); Mean Platelet Volume 10.1 fL (9.4-12.4); Monocytes # (auto) 0.41 K/uL (0.11-0.59); Monocytes % (auto) 8.1 %; Neutrophils % (auto) 71.4 %; Platelet Count 131 K/uL (130-400); RDW Coefficient of Variation 14.1 % (11.5-14.5); RDW Standard Deviation 49.1 fL (36.4-46.3); Red Blood Count 3.24 M/uL (4.20-5.40); Reticulocyte % 2.59 % (0.50-2.00); White Blood Count 5.04 K/ul (4.8-10.8)
[2023-08-09 07:54] LABS: Albumin Level 3.8 gm/dl (3.4-5.0); Bilirubin,Total 0.5 mg/dl (0.2-1.0); Calcium 8.7 mg/dl (8.6-10.3); INR 1.1 (0.9-1.1); Magnesium 1.7 mg/dl (1.7-2.4); Potassium 3.5 mmol/L (3.5-5.1); Prothrombin Time 12.1 Seconds (9.0-12.0)
[2023-08-09 08:00] LABS: Albumin Globulin Ratio 1.5 (0.9-2); BUN Creatinine Ratio 9.9 (10-20); Creatinine Clr Calc Pharmacy 23.4 ml/min; Est GFR (African American) 24.7 ml/min; Est GFR (Non-African American) 21.3 ml/min; Globulin 2.5 gm/dl (2.5-4.0); Total Protein 6.3 gm/dl (6.0-8.3)
--- NOTE | 2023-08-09 08:17 | Hospitalist Progress Note ---
Date of Service August 09, 2023 Assessment & Plan (1) Volume overload: Plan: Acute hypoxic respiratory failure secondary to pulmonary edema-required supplemental oxygen Multiple contributory factors 1) KAYLA with CKD3 with proteinuria - US renal did rule out hydronephrosis, coritcal thinning suggest chronic disease, . CKD3 or 4 on basis of HTN and T2DM. 2) Liver cirrhosis (presumed fatty liver per gastroenterology notes) - US ascites limited did not show significant ascites 3) Heart - TTE in June (moderate concentric LVH, grade II diastolic dysfunction, mild aortic stenosis, LVEF 60-65%) pulmonary edema seen on Cxr must consider acute on chronic diastolic heart failure HFpEF Diet indiscretion likely playing a part acutely given described high salt intake Given rise creatinine we will hold additional diuretic dose until labs are reviewed on 08/09 Low Na, diabetic diet (2) Type II diabetes mellitus with renal manifestations: Plan: Hemoglobin A1C 6.0 in July, keep on ssi, glycemic management to help decide snf insulin dosing Consult pharmacy for ongoing glycemic control Plan VTE Prophyalxis - heparin 5000 units SQ BID Admission and Anticipated Discharge Date Admission Date: August 08, 2023 Subjective pt states she feels somewhat better, did have good diuresis feels shortness of breath came on quick no associated with chest pain or nausea Physical Exam Physical Exam: Alert not speaking in short sentences Card exam is regular Lungs with bibasilar rales which are coarse Abdomen NABS soft and nontender Extremities with trace edema Results & Data Results & Data Vital Signs (Past 12 Hours) Vital Signs Temp Pulse Pulse Resp BP Pulse Ox O2 Del Method 08/09/23 08:09 97.7 F 60 18 126/75 92 Nasal Cannula 08/09/23 04:35 98.4 F 49 L 18 129/73 92 Nasal Cannula 08/09/23 00:00 52 L 08/08/23 23:54 98.4 F 52 L 18 121/51 L 91 Nasal Cannula O2 Flow Rate 08/09/23 08:09 1 08/09/23 04:35 4 08/09/23 00:00 08/08/23 23:54 4 Laboratory Results Reviewed CBC reviewed chemistry PG Care Time/CCT Total # of Minutes Spent Total Time Spent with Patient: Total time spent is greater than 50% in coordination of care (as documented) at patient's floor/unit and/or counseling patient: Coding Level of Care Code 60437 SUB INP/OBS CARE 2/35MIN Diagnoses Volume overload E87.79 Hypervolemia type: other Type II diabetes mellitus with renal manifestations E11.29 (1) Volume overload Hypervolemia type: other Qualified Code(s): E87.79 - Other fluid overload
[2023-08-09 08:29] LABS: Folate (Folic Acid),Ser orPlas 14.22 ng/ml (>5.38)
[2023-08-09] MEDS ORDERED: FUROSEMIDE 40 MG/4 ML VIAL IV SCH (09:00)
[2023-08-09] MEDS ORDERED: LANTUS PER UNIT CHARGE SQ SCH (09:00)
[2023-08-09] MEDS ORDERED: NON-FORMULARY MEDICATION (Fluticasone-Umeclidin-Vilanter [Trelegy Ellipta] 100-62.5-25 mcg INH SCH (09:00)
[2023-08-09] MEDS ORDERED: PROPRANOLOL HCL LA 80 MG CAPCR PO SCH (09:00)
[2023-08-09] MEDS: UMECLIDINIUM/VILANTEROL 62.5/25MCG 7 PUFFS/INHALER INH SCH (10:43)
[2023-08-09] MEDS: FLUTICASONE FUROATE 100MCG 14 PUFFS/INHALER INH SCH (10:44)
[2023-08-09] MEDS: PANTOprazole 40 MG TAB PO SCH (10:44)
[2023-08-09] MEDS: SERTRALINE HCL 50 MG TABLET PO SCH (10:46)
[2023-08-09] MEDS: PROPRANOLOL HCL LA 80 MG CAPCR PO SCH (10:46)
[2023-08-09] MEDS: amLODIPine BESYLATE 5 MG TAB PO SCH (10:47)
[2023-08-09] MEDS: ASPIRIN 81 MG ECTAB PO SCH (10:47)
--- NOTE | 2023-08-09 11:18 | Pharmacy Report ---
Pharmacy Glycemic Short Note 2 - Date of Service August 09, 2023 - Glycemic Short BSG Results (Last 24 hours): 08/08/23 08/08/23 08/08/23 10:05 16:56 16:58 Glucose 80 POC Glucose 59 L* 60 L* 08/08/23 08/08/23 08/09/23 17:10 20:03 07:19 Glucose 77 POC Glucose 71 111 H 08/09/23 07:35 Glucose POC Glucose 82 OUTPATIENT ANTIDIABETIC REGIMEN: * Lantus 30 units SQ BID * Empagliflozin 25mg daily * A1c = 6% 07/24/23 ASSESSMENT: * Type 2 diabetic admitted with resp failure, volume overload * BSGs have been running below goal range for hospitalized patient. * Will continue to withhold Lantus until BSG > 120. Will then resume at reduced dose. Given recent A1c of 6% pt may be mildly hypoglycemic frequently in outpt setting. * Novolog doses will be based upon weight and "moderate" stress level. PLAN FOR INPATIENT GLYCEMIC CONTROL: * Hold outpatient oral diabetes medications (empaglaflozin) * Basal insulin * Lantus per scale: 0 units if BSG less than 120, 10 units if BSG 120-160, 15 units if BSG 161-200, 20 units if BSG above 200 * Bolus insulin * NovoLog per scale ACHS or Q6hrs while NPO * Goal Range: Low 120 mg/dL - High 150 mg/dL * Correction Factor: 30 mg/dL/unit * Nutritional / Prandial insulin per carb ratio of 1 unit per 10 grams CHO consumed
[2023-08-09] MEDS: LANTUS PER UNIT CHARGE SC ONE (12:38)
[2023-08-09 12:45] LABS: Ferritin 193.7 ng/ml (8-388)
[2023-08-09] MEDS: LANTUS PER UNIT CHARGE SC SCH (20:05)
[2023-08-10 07:35] LABS: BUN Creatinine Ratio 12.8 (10-20); Calcium 8.8 mg/dl (8.6-10.3); Creatinine Clr Calc Pharmacy 23.6 ml/min; Est GFR (African American) 25.3 ml/min; Est GFR (Non-African American) 21.8 ml/min; Magnesium 1.8 mg/dl (1.7-2.4); Potassium 3.2 mmol/L (3.5-5.1)
[2023-08-10 07:38] LABS: Hematocrit (blood only) 31.4 % (37.0-47.0); Hemoglobin 10.1 g/dl (12.0-16.0); Mean Corpuscular Hemoglobin 30.1 pg (25.0-34.0); Mean Corpuscular Hgb Conc 32.2 g/dL (32.0-36.0); Mean Corpuscular Volume 93.7 fL (80.0-100.0); Platelet Count 135 K/uL (130-400); RDW Coefficient of Variation 13.9 % (11.5-14.5); RDW Standard Deviation 47.5 fL (36.4-46.3); Red Blood Count 3.35 M/uL (4.20-5.40); White Blood Count 4.86 K/ul (4.8-10.8)
--- NOTE | 2023-08-10 12:30 | Pharmacy Report ---
Pharmacy Glycemic Short Note 2 - Date of Service August 10, 2023 - Glycemic Short BSG Results (Last 24 hours): 08/09/23 08/09/23 08/09/23 16:09 20:02 21:59 Glucose POC Glucose 125 H 116 H 80 08/10/23 08/10/23 08/10/23 06:48 07:30 11:32 Glucose 96 POC Glucose 99 166 H OUTPATIENT ANTIDIABETIC REGIMEN: * Lantus 30 units SQ BID * Empagliflozin 25mg daily * A1c = 6% 07/24/23 ASSESSMENT: 08/09 * BSGs well controlled over last 24 hrs * Fasting BSG 99 this AM with 15 units basal on board - much less than what outpt regimen provided. Will continue with scaled Lantus dosing BID as a precaution and lower the max dose per this scale * Post-prandial BSGs controlled with current CR/CF - will continue 08/08 * Type 2 diabetic admitted with resp failure, volume overload * BSGs have been running below goal range for hospitalized patient. * Will continue to withhold Lantus until BSG > 120. Will then resume at reduced dose. Given recent A1c of 6% pt may be mildly hypoglycemic frequently in outpt setting. * Novolog doses will be based upon weight and "moderate" stress level. PLAN FOR INPATIENT GLYCEMIC CONTROL: * Hold outpatient oral diabetes medications (empaglaflozin) * Basal insulin * Lantus per scale: 0 units if BSG less than 120, 10 units if BSG 120-180, 15 units if BSG above 180 * Bolus insulin * NovoLog per scale ACHS or Q6hrs while NPO * Goal Range: Low 120 mg/dL - High 150 mg/dL * Correction Factor: 30 mg/dL/unit * Nutritional / Prandial insulin per carb ratio of 1 unit per 10 grams CHO consumed
[2023-08-10] MEDS: POTASSIUM CHLORIDE CRTAB 20 MEQ TABCR PO STA (14:36)
[2023-08-10] MEDS: MAGNESIUM SULFATE / D5W 1 GM/100 ML BAG IV ONE (14:36)
[2023-08-10] MEDS: FUROSEMIDE INJ 20 MG/2 ML VIAL IV ONE (14:36)
--- NOTE | 2023-08-10 15:59 | Hospitalist Progress Note ---
Date of Service August 10, 2023 Assessment & Plan (1) Volume overload: Plan: Acute hypoxic respiratory failure secondary to pulmonary edema-required supplemental oxygen Multiple contributory factors 1) KAYLA with CKD3 with proteinuria - US renal did rule out hydronephrosis, coritcal thinning suggest chronic disease, . CKD3 or 4 on basis of HTN and T2DM. 2) Liver cirrhosis (presumed fatty liver per gastroenterology notes) - US ascites limited did not show significant ascites 3) Heart - TTE in June (moderate concentric LVH, grade II diastolic dysfunction, mild aortic stenosis, LVEF 60-65%) pulmonary edema seen on Cxr must consider acute on chronic diastolic heart failure HFpEF additional dose of Lasix ordered for 08 09 Diet indiscretion likely playing a part acutely given described high salt intake KAYLA with CKD 3.Improving lower dose of Lasix given on 08/10/2023 Low Na, diabetic diet (2) Type II diabetes mellitus with renal manifestations: Plan: Hemoglobin A1C 6.0 in July, keep on ssi, 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 Attempted to titrate down in the room was met with oxygen saturations below 89%. Reinforced ISB use. Physical Exam Physical Exam: Alert oriented x 3 not with any respiratory distress although hypoxic Card exam is regular Lungs with bibasilar rales which are coarse remained so even after Lasix treatment Abdomen NABS soft and nontender Extremities continue with trace edema Results & Data Results & Data Vital Signs (Past 12 Hours) Vital Signs Temp Pulse Pulse Resp BP Pulse Ox O2 Del Method 08/10/23 15:20 62 08/10/23 12:09 98.1 F 70 17 153/68 H 91 Nasal Cannula 08/10/23 10:17 Nasal Cannula 08/10/23 07:31 97.5 F L 60 18 152/66 H 95 Nasal Cannula 08/10/23 07:24 59 L O2 Flow Rate 08/10/23 15:20 08/10/23 12:09 1 08/10/23 10:17 1 08/10/23 07:31 3 08/10/23 07:24 Laboratory Results Reviewed CBC reviewed chemistry PG Care Time/CCT Total # of Minutes Spent Total Time Spent with Patient: Total time spent is greater than 50% in coordination of care (as documented) at patient's floor/unit and/or counseling patient: Coding Level of Care Code 94428 SUB INP/OBS CARE 2/35MIN Diagnoses Volume overload E87.79 Hypervolemia type: other Type II diabetes mellitus with renal manifestations E11.29 (1) Volume overload Hypervolemia type: other Qualified Code(s): E87.79 - Other fluid overload
--- NOTE | 2023-08-10 16:13 | XCELERA ---
[id number]
[2023-08-10] MEDS: POTASSIUM CHLORIDE CRTAB 20 MEQ TABCR PO SCH (20:36)
[2023-08-11 05:54] LABS: Hematocrit (blood only) 35.3 % (37.0-47.0); Hemoglobin 11.1 g/dl (12.0-16.0); Mean Corpuscular Hemoglobin 29.4 pg (25.0-34.0); Mean Corpuscular Hgb Conc 31.4 g/dL (32.0-36.0); Mean Corpuscular Volume 93.6 fL (80.0-100.0); Mean Platelet Volume 9.4 fL (9.4-12.4); Platelet Count 140 K/uL (130-400); RDW Coefficient of Variation 13.8 % (11.5-14.5); RDW Standard Deviation 47.1 fL (36.4-46.3); Red Blood Count 3.77 M/uL (4.20-5.40); White Blood Count 3.77 K/ul (4.8-10.8)
[2023-08-11 06:09] LABS: BUN Creatinine Ratio 15.7 (10-20); Calcium 9.5 mg/dl (8.6-10.3); Creatinine Clr Calc Pharmacy 24.6 ml/min; Est GFR (African American) 26.6 ml/min; Est GFR (Non-African American) 22.9 ml/min; Magnesium 2.2 mg/dl (1.7-2.4); Potassium 4.1 mmol/L (3.5-5.1)
--- NOTE | 2023-08-11 12:27 | Nuclear Medicine Report ---
NM pul perfusion CLINICAL HISTORY: abrupt shortness of breath, no other explaination r/o pe. COMPARISON STUDY: Chest 08/08/2023. TECHNIQUE: Immediately following the intravenous administration of 5.3 mCi of technetium 99 M MAA for the perfusion scan, anterior, oblique, lateral, and posterior views of the chest were obtained. FINDINGS: Prominence of the cardiac silhouette. No perfusion defects seen within the right or left ana ng. IMPRESSION: No perfusion defects seen within the right or left lung. Therefore, the above findings f avor a very low probability scan. ACT 112: Negative or not required by law. Electronically signed by: Orlin Gonzales M.D. 08/11/2023 12:26 PM
--- NOTE | 2023-08-11 12:54 | Pharmacy Report ---
Pharmacy Glycemic Short Note 2 - Date of Service August 11, 2023 - Glycemic Short BSG Results (Last 24 hours): 08/10/23 08/10/23 08/11/23 16:25 19:52 05:28 Glucose 134 H POC Glucose 204 H 169 H 08/11/23 08/11/23 07:15 11:28 Glucose POC Glucose 154 H 148 H OUTPATIENT ANTIDIABETIC REGIMEN: * Lantus 30 units SQ BID * Empagliflozin 25mg daily * A1c = 6% 07/24/23 ASSESSMENT: 08/10 * BSGs [phone] mg/dL yesterday with 23 units of insulin (10 units of basal given at HS) * Fasting this morning 154 mg/dL- adjust scale slightly to provide minimum 15 units today (04/06 of home dosing) * Continue current novolog parameters as these have been controlled 08/09 * BSGs well controlled over last 24 hrs * Fasting BSG 99 this AM with 15 units basal on board - much less than what outpt regimen provided. Will continue with scaled Lantus dosing BID as a precaution and lower the max dose per this scale * Post-prandial BSGs controlled with current CR/CF - will continue 08/08 * Type 2 diabetic admitted with resp failure, volume overload * BSGs have been running below goal range for hospitalized patient. * Will continue to withhold Lantus until BSG > 120. Will then resume at reduced dose. Given recent A1c of 6% pt may be mildly hypoglycemic frequently in outpt setting. * Novolog doses will be based upon weight and "moderate" stress level. PLAN FOR INPATIENT GLYCEMIC CONTROL: * Hold outpatient oral diabetes medications (empaglaflozin) * Basal insulin * Lantus per scale: 5 units if BSG less than 110, 10 units if BSG 110-200, 15 units if BSG above 200 * Bolus insulin * NovoLog per scale ACHS or Q6hrs while NPO * Goal Range: Low 120 mg/dL - High 150 mg/dL * Correction Factor: 30 mg/dL/unit * Nutritional / Prandial insulin per carb ratio of 1 unit per 10 grams CHO consumed
--- NOTE | 2023-08-11 19:05 | Discharge Summary ---
Discharge Summary Date of Service August 11, 2023 Notes For Next Care Provider Most likely etiology of her hypoxia was diastolic heart failure she admits to dietary indiscretion. Given education regarding dietary modification. May benefit from heart failure clinic referral. Considerations for outpatient stress test and/or cardiac event monitor could be considered as this could also be if she was having an undiagnosed atrial arrhythmia Due to acute kidney injury and elevated creatinine her lisinopril was held at time of discharge. Her blood pressure been stable during her hospital stay. Reassessment of the need for this medication especially for its renal protective effects would be beneficial Admission HPI Per Admitting Provider Galina Nam is a 72 year old female who presents to the ER with increased respiratory distress. Her friend in the room provides a recent history. Following discharge to rehab she was weaned off oxygen from her last admission in June. Initially doing well but slowly progressively more short of breath and significant weight gain of 20lb. Legs have been more swollen. She denies any chest pain, palpitations, pre-syncope. She was recently admitted in June due to altered mental state with no explanation in notes but appears most likely due to non-COVID coronavirus infection (CXR 06/11 with patchy right upper densities improved on CXR 06/20 without antibiotics) possibly also affecting her sleep - she improved on Seroquel which has been continued since. At that time she was also diagnosed with KAYLA due to dehydration from decreased intake due to altered mental status. She was treated with a few days of intravenous fluids. Amlodipine was added for blood pressure control. Of note her glucose levels were on the low side during the morning [id number] tests on Lantus 30 units BID during her previous hospitalization. She did not require oxygen prior to this hospitalization but was discharged to [facility] on 3 L/min O2. This was weaned as outpatient to room air by physical therapy. Principal Dx & Hospital Course #1 = Principal Diagnosis (1) Volume overload: Acute hypoxic respiratory failure secondary to pulmonary edema-required supplemental oxygen Multiple contributory factors 1) KAYLA with CKD3 with proteinuria - US renal did rule out hydronephrosis, coritcal thinning suggest chronic disease, . CKD3 or 4 on basis of HTN and T2DM. 2) Liver cirrhosis (presumed fatty liver per gastroenterology notes) - US ascites limited did not show significant ascites 3) Heart - TTE in June (moderate concentric LVH, grade II diastolic dysfunction, mild aortic stenosis, LVEF 60-65%) pulmonary edema seen on Cxr must consider acute on chronic diastolic heart failure HFpEF additional dose of Lasix ordered for 5 9 To be complete given her acute abrupt description of onset of VQ scan was performed. We cannot perform CT angiography due to elevated creatinine. VQ sca n was low probability. Diet indiscretion likely playing a part acutely given described high salt intake KAYLA with CKD 3.Improved Low Na, diabetic diet (2) Type II diabetes mellitus with renal manifestations: Hemoglobin A1C 6.0 in July, keep on ssi, glycemic management to help decide skilled nursing insulin dosing Glycemic management from pharmacy for ongoing glycemic control Updated Medication List Medication Instructions Recorded Confirmed Type lancets 30 gauge (OmniEarthTouch Delica #100 ea 11/28/19 08/07/23 Rx Lancets) acetaminophen 325 mg tablet 325 mg PO HS PRN Pain 08/09/21 08/08/23 History (Tylenol) alendronate 70 mg tablet (Fosamax) 70 mg PO ONCE #12 tabs 08/03/22 08/08/23 Rx blood-glucose meter (OmniEarthTouch #1 ea 10/12/22 08/07/23 Rx Verio Flex Meter) aspirin 81 mg capsule 81 mg PO DAILY #90 caps 10/31/22 08/08/23 Rx triamcinolone acetonide 0.1 % 1 applic topical BID #30 grams 12/13/22 08/08/23 Rx topical cream insulin syringe-needle U-100 0.5 #400 ea 03/28/23 08/07/23 Rx mL 31 gauge x 5/16" (BD Insulin Syringe Ultra-Fine) pantoprazole 40 mg tablet,delayed 40 mg PO DAILY GERD #90 tabs 03/29/23 08/08/23 Rx release (Protonix) fluticasone fur. 100 mcg-umeclid 1 inh inhalation QAM #60 ea 04/04/23 08/08/23 Rx 62.5 mcg-vilant 25 mcg inhalat.powder (Trelegy Ellipta) blood sugar diagnostic (OneTouch #100 ea 05/05/23 08/07/23 Rx Verio test strips) nicotine 7 mg/24 hr daily 14 mg transdermal QAM #30 ea 06/23/23 08/08/23 Rx transdermal patch sertraline 100 mg tablet 50 mg (1/2 x 100 mg) PO QAM #90 06/23/23 08/08/23 Rx tabs ciclopirox 8 % topical solution 1 applic topical DAILY 4 weeks 07/28/23 08/08/23 Rx #6.6 mL amlodipine 5 mg tablet (Norvasc) 10 mg (2 x 5 mg) PO QAM #30 tabs 07/29/23 08/08/23 Rx empagliflozin 25 mg tablet 25 mg PO QAM #90 tabs 07/29/23 08/08/23 Rx (Jardiance) levothyroxine 112 mcg tablet 112 mcg PO DAILY #90 tabs 07/29/23 08/08/23 Rx quetiapine 25 mg tablet 25 mg PO DAILY #30 tabs 07/29/23 08/08/23 Rx simvastatin 80 mg tablet 80 mg PO DAILY #90 tabs 07/29/23 08/08/23 Rx lisinopril 20 mg tablet 20 mg PO DAILY #90 tabs 08/02/23 08/08/23 Rx CGM #1 ea 08/07/23 Rx furosemide 20 mg tablet (Lasix) 20 mg PO DAILY #30 tabs 08/07/23 08/08/23 Rx insulin glargine 100 unit/mL 30 unit subcut BID 08/08/23 08/08/23 History subcutaneous solution (Lantus U-100 Insulin) propranolol 80 mg capsule,24 80 mg PO DAILY #30 caps 08/11/23 Rx hr,extended release Hospital Stay Data Consultations 08/08/23 11:35 ED Decision to Admit Stat Diagnostic Imagining Performed 08/08/23 11:43 US abdomen ltd ascites Stat 08/08/23 12:08 US Renal Bladder [US renal/blad retro comp] Stat Pending Results Patient Have Any Pending Studies at Discharge: No Discharge Instructions Given to Patient (Per Discharging Provider) you have improved after treatment for your initial bout of heart failure, the exact cause is still yet to be determined, you may benefit from an outpt stress test which you can discuss with your primary care provider Total Time Total Time Spent Total Time Spent (In Minutes): It required greater than 30 minutes to prepare this patient for discharge. Coding Level of Care Code 07868 INP/OBS DISCH >30 MIN Diagnoses Volume overload E87.79 Hypervolemia type: other Type II diabetes mellitus with renal manifestations E11.29
== END 2023-08-11 15:55 | disposition home or self-care (01) | DRG 291 ==
LOC: ED 09:51 → SUATTDRO 11:41 → EDINP 11:41 → 2E 14:00

== ENCOUNTER 2024-02-06 21:24 | Observation (INO) ==
[2024-02-06 22:24] LABS: Basophils # (auto) 0.05 K/uL (0.00-0.20); Basophils % (auto) 0.4 %; Eosinophils # (auto) 0.08 K/uL (0.00-0.50); Eosinophils % (auto) 0.7 %; Hematocrit (blood only) 34.2 % (37.0-47.0); Hemoglobin 11.3 g/dl (12.0-16.0); Immature Granulocytes # (auto) 0.06 K/uL (0.01-0.20); Immature Granulocytes % (auto) 0.5 %; Lymphocytes # (auto) 1.66 K/uL (1.20-3.40); Lymphocytes % (auto) 14.4 %; Mean Corpuscular Hemoglobin 31.2 pg (25.0-34.0); Mean Corpuscular Volume 94.5 fL (80.0-100.0); Mean Platelet Volume 10.2 fL (9.4-12.4); Monocytes # (auto) 0.81 K/uL (0.11-0.59); Platelet Count 148 K/uL (130-400); RDW Standard Deviation 48.6 fL (36.4-46.3); Red Blood Count 3.62 M/uL (4.20-5.40); White Blood Count 11.56 K/ul (4.8-10.8)
[2024-02-06 22:26] LABS: Appearance Urine Clear (Clear); Bacteria Urine Automated None Seen (None Seen); Bilirubin Urine Negative (Negative); Blood Urine Negative (Negative); Cast Urine Automated 0-2 /lpf (0-2); Color Urine Yellow; Epithelial Cell Urine Auto 0-2 /hpf (0-2); Glucose Urine UA 3+ (Negative); Ketones Urine Negative (Negative); Leukocyte Esterase Urine Trace (Negative); Nitrite Urine Negative (Negative); Protein Urine 3+ (Negative); RBC Urine Automated 0-2 /hpf (0-2); Specific Gravity Urine 1.024 (1.000-1.030); Urobilinogen Urine Negative (Negative); pH Urine 5.5 (4.5-7.5)
[2024-02-06 22:39] LABS: Albumin Globulin Ratio 1.7 (0.9-2); Albumin Level 4.3 gm/dl (3.4-5.0); BUN Creatinine Ratio 16.6 (10-20); Bilirubin,Total 0.3 mg/dl (0.2-1.0); Calcium 8.5 mg/dl (8.6-10.3); Globulin 2.6 gm/dl (2.5-4.0); Magnesium 1.9 mg/dl (1.7-2.4); Potassium 5.5 mmol/L (3.5-5.1); Total Protein 6.9 gm/dl (6.0-8.3)
[2024-02-06 22:47] LABS: Troponin I High Sensitivity 7.1 pg/ml (0-14)
[2024-02-06 22:54] LABS: Thyroid Stimulating Hormone 0.752 uIu/ml (0.300-4.500)
--- NOTE | 2024-02-06 23:05 | Emergency Department Note ---
Impression & Plan Dysarthria, Ataxia, CKD (chronic kidney disease) ED Provider Note ED Provider Note NAME: MARINA CA AGE:73 SEX: Female : 1950 ARRIVES VIA: Private vehicle INFORMANT: Patient, friend ED PROVIDER(s): Malinda Christopher DO CHIEF COMPLAINT: "Not acting right" HPI: This is a 73-year-old female who presents emerged from with friend at bedside who provides additional history who states over the last 2 to 3 days she has intermittently not been "quite herself". Friend states that she is intermittently been acting different and responding different and saying different things and occasionally she cannot understand what she was saying. She denies any overt slurred speech or facial droop. She states when she would walk she felt like she was walking "sideways". Patient states she feels she has been doing well however has been more tired. Patient does live by herself. Patient was recently on a course of antibiotics for a presumed urinary tract infection although the friend states they got a call from her doctor and the culture was negative. No other recent changes in medications. No recent trauma or injury. No fevers, chills, or URI symptoms. Patient states her appetite has been normal and she denies any change in urine or stools. PAST MEDICAL HISTORY:See Below PAST SURGICAL HISTORY:See Below FAMILY HISTORY:See Below SOCIAL HISTORY:See Below HOME MEDICATIONS:See Below ALLERGIES:See Below VITALS:See Below PHYSICAL EXAMINATION: GENERAL: alert, well appearing, well nourished, no distress, non-toxic EYE EXAM: normal conjunctiva, PERRL and EOM's grossly intact OROPHARYNX: no exudate, no erythema, lips, buccal mucosa, and tongue normal and mucous membranes are moist, edentulous NECK: supple, no nuchal rigidity, no adenopathy, non-tender LUNGS: Clear to auscultation. Normal chest wall mechanics, no w/r/r HEART: no murmurs, S1 normal and S2 normal ABDOMEN: abdomen soft, non-tender, normo-active bowel sounds, no masses, no rebound or guarding. BACK: Back is symmetrical on inspection and there is no deformity SKIN: no rashes, petechiae, orbruising UPPER EXTREMITIES: upper extremities are grossly normal. FROM, nml pulses b/l. LOWER EXTREMITIES: No pitting edema. FROM, nml pulses b/l. NEURO EXAM: Normal sensorium, cranial nerves II-XII grossly intact, normal speech, no facial droop,nogross weakness of arms, no gross weakness of legs. Gross sensation intact. No ataxia. Vital Signs: reviewed and remarkable Differential Diagnosis: dehydration, stroke, anemia, hypoglycemia, hyponatremia, hypernatremia, urinary tract infection, pneumonia, bronchitis, sepsis, gastroenteritis, additional abdominal pathology, metabolic abnormalities, as well as others were considered MEDICAL DECISION MAKING: THis is a 73 yo female who presents with a friend due to concern for intermittent difficulty speaking and difficulty walking. She was afebrile and VS stable on arrival. Labs drawn and sent, IV established, EKG performed and interpreted at bedside, and patient placed on telemetry. She was given IVF due to reported decreased po intake and CKD. UA reassuring given recent possible UTI. She was sent for CT head which was also reassuring. Given unclear etiology of symptoms we discussed additional inpatient evaluation and further testing due to complex PMHx and ongoing symptoms. She verbalized understanding and was in agreement with the plan. Consultation(s): 0150: Discussed with Dr. Gordillo, [facility] hospitalist team, for additional evaluation and management ER Treatment Provided: See below Diagnostics Interpreted By Me: -ECG: Sinus bradycardia 59, first-degree AV block, normal QRS and QTc, normal axis, nonspecific ST/T wave changes -Cardiac Monitoring: An order was placed for continuous cardiac monitoring. The monitor shows a rate of 56 with sinus bradycardia rhythm. -Laboratory studies: As stated above and show below. -Imaging studies: ct head: no ICH Triage Nursing Note Reviewed Prior/Outside Records Reviewed - recent DC summary reviewed Past Med/Surg History Problem List (Updated 02/07/24 @ 10:03 by Ethan Smallwood MD) Stroke Dysfluency Hyperkalemia, diminished renal excretion Confusion CKD (chronic kidney disease) (Acute) Ataxia (Acute) Dysarthria (Acute) Vitamin D deficiency Anemia of chronic disease Volume overload (Acute) Pulmonary edema (Acute) Acute hypoxemic respiratory failure (Acute) Proteinuria OM (onychomycosis) Benign familial tremor Ataxic gait Acute kidney injury superimposed on CKD (Acute) Type II diabetes mellitus with renal manifestations CKD stage 4 due to type 2 diabetes mellitus Osteoporosis Hypercholesteremia (Chronic) Hypertension (Chronic) Hypothyroidism (Chronic) Sensorineural hearing loss (SNHL) of both ears Hematuria Cirrhosis Current smoker PAD (peripheral artery disease) Medical History Coronavirus infection H. pylori infection Diverticulitis COPD (chronic obstructive pulmonary disease) well controlled, can go a week sometimes without routine inhaler Anxiety Lung nodule UNDER OBSERVATION Depression Surgical History History of tooth extraction S/P aortic bifurcation bypass graft Apr 1999 Femoral-popliteal bypass graft occlusion, left Apr 1999 Femoral-popliteal bypass graft occlusion, right Apr 1999 Family History Father , age 70 of lung cancer Tremor Lung cancer Sister Tremor Family history of diabetes mellitus Mother , age 68 of a gynecologic cancer (either uterine or ovarian) Cancer Brother Myocardial infarction Cancer Family history of diabetes mellitus Daughter Asthma Brother Family history of diabetes mellitus Tremor Denies family history of Ovarian cancer Prostate cancer Breast cancer Colorectal cancer Social History Smoking Status: Current every day smoker Tobacco Type: Cigarettes Age Started Using Tobacco: 21; packs per day: 1; Cigarettes Per Day: 20 CIGS A DAY; Second Hand Exposure: No; Do You Dip or Chew Tobacco: No; Hx Alcohol Use: No Hx Substance Use: No Preferred Language: Italian Communication Ability: Effective Hearing Ability: Use of Hearing Aid Camera Repairman Required: No Beliefs That Will Affect Care: None marital status: Current Living Situation: Alone Current Living Situation Comment: Pt relates friend lives in downstairs appt in her house current occupational status: retired How many Children do You have: 1 Feels Safe at Home: Yes Childhood Exposure to Second-Hand Smoke: Yes Diet: regular caffeine: Yes Dental Care, Regularly: No Physical Activity Frequency: Does not Exercise Seatbelt Use: always Sunscreen Use: No Assistive Devices: Hearing Aid - Bilateral Allergies Allergies Allergy/AdvReac Type Severity Reaction Status Date / Time lorazepam Allergy Unknown HAS NO Verified 01/31/24 16:16 EFFECT metformin Allergy Unknown Unknown Verified 01/31/24 16:16 metronidazole Allergy Unknown Unknown Verified 01/31/24 16:16 Sulfa (Sulfonamide Allergy Unknown HIVES Verified 01/31/24 16:16 Antibiotics) linagliptin [From [facility]] AdvReac arthralgia Verified 01/31/24 16:16 Home Meds Home Medications Medication Instructions Recorded Confirmed acetaminophen 325 mg tablet 325 mg PO HS PRN Pain 08/09/21 02/07/24 (Tylenol) alendronate 70 mg tablet (Fosamax) 70 mg PO WK 02/07/24 02/07/24 Previous Rx's Medication Instructions Recorded lancets 30 gauge (OneTouch Delica #100 ea 11/28/19 Lancets) blood-glucose meter (OneTouch #1 ea 10/12/22 Verio Flex Meter) aspirin 81 mg capsule 81 mg PO DAILY #90 caps 10/31/22 insulin syringe-needle U-100 0.5 #400 ea 03/28/23 mL 31 gauge x 5/16" (BD Insulin Syringe Ultra-Fine) pantoprazole 40 mg tablet,delayed 40 mg PO DAILY GERD #90 tabs 03/29/23 release (Protonix) sertraline 100 mg tablet 50 mg (1/2 x 100 mg) PO QAM #90 06/23/23 tabs empagliflozin 25 mg tablet 25 mg PO QAM #90 tabs 07/29/23 (Jardiance) levothyroxine 112 mcg tablet 112 mcg PO DAILY #90 tabs 07/29/23 simvastatin 80 mg tablet 80 mg PO DAILY #90 tabs 07/29/23 CGM #1 ea 08/07/23 amlodipine 10 mg tablet 10 mg PO DAILY 90 days #90 tabs 09/05/23 lisinopril 10 mg tablet 10 mg PO DAILY #90 tabs 10/02/23 quetiapine 25 mg tablet 25 mg PO DAILY #30 tabs 11/22/23 benzonatate 100 mg capsule See Rx Instructions .Route 12/11/23 .COMPLEX cough #30 caps fluticasone fur. 100 mcg-umeclid 1 inh inhalation QAM #60 ea 01/05/24 62.5 mcg-vilant 25 mcg inhalat.powder (Trelegy Ellipta) insulin glargine 100 unit/mL 30 unit (0.3 mL) subcut BID #80 mL 01/10/24 subcutaneous solution (Lantus U-100 Insulin) furosemide 20 mg tablet (Lasix) 20 mg PO DAILY PRN weight gain, 01/18/24 shortness of breath, edema #30 tabs propranolol 80 mg capsule,24 80 mg PO DAILY #30 caps 01/23/24 hr,extended release nicotine 14 mg/24 hr daily 1 patch transdermal DAILY #28 ea 01/25/24 transdermal patch spironolactone 25 mg tablet 25 mg PO DAILY #90 tabs 01/25/24 blood sugar diagnostic (OneTouch #100 ea 01/31/24 Verio test strips) Results & Data (ED) Vital Signs Vital Signs - 24 hr 02/06/24 21:26 02/06/24 22:00 02/06/24 22:09 Temperature 36.8 C Temperature Source Temporal Artery Scan Pulse Rate 62 59 L Pulse Rate [Finger] 69 Pulse Rhythm [Finger] Regular Pulse Strength [Finger] Normal Respiratory Rate 19 20 Respiratory Effort / Characteristics Non-Labored Non-Labored Spontaneous Respiratory Depth Normal Normal Respiratory Pattern Blood Pressure 101/57 L Blood Pressure [Right Arm] 123/50 L Blood Pressure Mean 71 Blood Pressure Mean [Right Arm] 74 Pulse Oximetry 95 94 Oxygen Delivery Method Room Air Room Air Sepsis Recent Fever Within 48 Hours No Sepsis New/Unexplained Change in Mental Status N/A Sepsis Action Taken by Nursing No Action Required 02/07/24 00:00 02/07/24 02:00 02/07/24 02:04 Temperature Temperature Source Pulse Rate 50 L Pulse Rate [Finger] 56 L 52 L Pulse Rhythm [Finger] Regular Regular Pulse Strength [Finger] Respiratory Rate 19 17 Respiratory Effort / Characteristics Non-Labored Spontaneous Non-Labored Spontaneous Respiratory Depth Normal Normal Respiratory Pattern Regular Regular Blood Pressure Blood Pressure [Right Arm] 130/68 120/44 L Blood Pressure Mean Blood Pressure Mean [Right Arm] 88 69 Pulse Oximetry 96 93 Oxygen Delivery Method Room Air Room Air Sepsis Recent Fever Within 48 Hours Sepsis New/Unexplained Change in Mental Status Sepsis Action Taken by Nursing Laboratory Data 02/06/24 22:00 02/07/24 08:06 Lab Results 02/06/24 02/06/24 Range/Units 21:52 22:00 WBC 11.56 H (4.8-10.8) K/ul RBC 3.62 L (4.20-5.40) M/uL Hgb 11.3 L (12.0-16.0) g/dl Hct 34.2 L (37.0-47.0) % MCV 94.5 (80.0-100.0) fL MCH 31.2 (25.0-34.0) pg MCHC 33.0 (32.0-36.0) g/dL RDW Std Deviation 48.6 H (36.4-46.3) fL RDW Coeff of Maximilian 14.0 (11.5-14.5) % Plt Count 148 (130-400) K/uL MPV 10.2 (9.4-12.4) fL Immature Gran % (Auto) 0.5 % Neut % (Auto) 77.0 % Lymph % (Auto) 14.4 % [place] % (Auto) 7.0 % Eos % (Auto) 0.7 % Baso % (Auto) 0.4 % Neut # (Auto) 8.90 H (1.40-6.50) K/uL Lymph # (Auto) 1.66 (1.20-3.40) K/uL [place] # (Auto) 0.81 H (0.11-0.59) K/uL Eos # (Auto) 0.08 (0.00-0.50) K/uL Baso # (Auto) 0.05 (0.00-0.20) K/uL Immature Gran # (Auto) 0.06 (0.01-0.20) K/uL PT 11.4 (9.0-12.0) Seconds INR 1.1 (0.9-1.1) Sodium 138 (136-145) mmol/L Potassium 5.5 H (3.5-5.1) mmol/L Chloride 112 H (98-107) mmol/L Carbon Dioxide 16 L (21-32) mmol/L Anion Gap 10 (3-11) BUN 42 H (6-23) mg/dl Creatinine 2.53 H (0.6-1.2) mg/dl Est Cr Clr Drug Dosing 20.0 ml/min eGFR 19.53 BUN/Creatinine Ratio 16.6 (10-20) Glucose 188 H (70-99(Fasting)) mg/dl Calcium 8.5 L (8.6-10.3) mg/dl Magnesium 1.9 (1.7-2.4) mg/dl Total Bilirubin 0.3 (0.2-1.0) mg/dl AST 20 (13-39) U/L ALT 15 (7-52) U/L Alkaline Phosphatase 126 H (34-104) U/L Troponin I High Sens 7.1 (0-14) pg/ml Total Protein 6.9 (6.0-8.3) gm/dl Albumin 4.3 (3.4-5.0) gm/dl Globulin 2.6 (2.5-4.0) gm/dl Albumin/Globulin Ratio 1.7 (0.9-2) Lipase 53 (11-82) U/L TSH 0.752 (0.300-4.500) uIu/ml Urine Color Yellow Urine Appearance Clear (Clear) Urine pH 5.5 (4.5-7.5) Ur Specific [place] 1.024 (1.000-1.030) Urine Protein 3+ H (Negative) Urine Glucose (UA) 3+ H (Negative) Urine Ketones Negative (Negative) Urine Blood Negative (Negative) Urine Nitrite Negative (Negative) Urine Bilirubin Negative (Negative) Urine Urobilinogen Negative (Negative) Ur Leukocyte Esterase Trace H (Negative) Urine WBC (Auto) 6-10 H (0-5) /hpf Urine RBC (Auto) 0-2 (0-2) /hpf U Hyaline Cast (Auto) 0-2 (0-2) /lpf U Epithel Cells (Auto) 0-2 (0-2) /hpf Urine Bacteria (Auto) None Seen (None Seen) Adenovirus (PCR) Not Detected (NotDetected) B. pertussis DNA (PCR) Not Detected (NotDetected) B.parapertussis DNA PCR Not Detected (NotDetected) C. pneumoniae DNA (PCR) Not Detected (NotDetected) Coronavirus OC43 (PCR) Not Detected (NotDetected) Coronavirus HKU1 (PCR) Not Detected (NotDetected) Coronavirus 229E (PCR) Not Detected (NotDetected) SARS-CoV-2 (PCR) Not Detected (NotDetected) Coronavirus NL63 (PCR) Not Detected (NotDetected) Human Metapneumovir PCR Not Detected (NotDetected) Influenza Type A (PCR) Not Detected (NotDetected) Influenza Type B (PCR) Not Detected (NotDetected) M. pneumoniae (PCR) Not Detected (NotDetected) Parainfluenza 1 (PCR) Not Detected (NotDetected) Parainfluenza 2 (PCR) Not Detected (NotDetected) Parainfluenza 3 (PCR) Not Detected (NotDetected) Parainfluenza 4 (PCR) Not Detected (NotDetected) RSV (PCR) Not Detected (NotDetected) Entero/Rhino (PCR) Not Detected (NotDetected) Administered Medications Amlodipine Besylate (Amlodipine Besylate 5 Mg Tab) 5 mg PO DAILY ALVINA Stop: 03/08/24 08:59 Last Admin: 02/07/24 08:11 Dose: 5 mg Documented By: FADUMO Aspirin (Aspirin 81 Mg Ectab) 81 mg PO DAILY ALVINA Stop: 03/08/24 08:59 Last Admin: 02/07/24 08:12 Dose: 81 mg Documented By: FADUMO Fluticasone Furoate (Fluticasone Furoate 100mcg 14 Puffs/Inhaler) 1 puffs INH QAM [facility] Stop: 03/08/24 08:59 Last Admin: 02/07/24 08:12 Dose: 1 puffs Documented By: FADUMO Insulin Aspart (Insulin Aspart Per Unit Charge) 0 units SC ACHS ALVINA Stop: 03/08/24 07:29 Last Admin: 02/07/24 11:57 Dose: 6 units Documented By: FADUMO Co-signed By: TATE Admin: 02/07/24 08:17 Dose: 5 units Documented By: FADUMO Co-signed By: MIGUEL Insulin Glargine (Lantus Per Unit Charge) 30 units SQ BID ALVINA Stop: 03/08/24 08:59 Last Admin: 02/07/24 08:17 Dose: 30 units Documented By: FADUMO Co-signed By: MIGUEL Levothyroxine Sodium (Levothyroxine Sodium 112 Mcg Tablet) 112 mcg PO DAILYBB [facility] Stop: 03/08/24 06:29 Last Admin: 02/07/24 06:46 Dose: 112 mcg Documented By: BLAZE Miscellaneous (Remove Nicoderm Patch) 1 each N/A QAM ALVINA Stop: 03/08/24 08:59 Last Admin: 02/07/24 08:16 Dose: 1 each Documented By: FADUMO Nicotine (Nicotine 14 Mg/24 Hr Patch) 1 patch TD DAILY ALVINA Stop: 03/08/24 08:59 Last Admin: 02/07/24 08:13 Dose: 1 patch Documented By: FADUMO Pantoprazole Sodium (Pantoprazole 40 Mg Tab) 40 mg PO DAILY ALVINA Stop: 03/08/24 08:59 Last Admin: 02/07/24 08:13 Dose: 40 mg Documented By: FADUMO Propranolol HCl (Propranolol Hcl La 80 Mg Capcr) 80 mg PO DAILY ALVINA Stop: 03/08/24 08:59 Last Admin: 02/07/24 08:14 Dose: 80 mg Documented By: FADUMO Quetiapine Fumarate (Quetiapine Fumarate 25 Mg Tablet) 25 mg PO DAILY ALVINA Stop: 03/08/24 08:59 Last Admin: 02/07/24 08:14 Dose: 25 mg Documented By: FADUMO Sertraline HCl (Sertraline Hcl 50 Mg Tablet) 50 mg PO QAM ALVINA Stop: 03/08/24 08:59 Last Admin: 02/07/24 08:15 Dose: 50 mg Documented By: FADUMO Simvastatin (Simvastatin 80 Mg Tab) 80 mg PO DAILY ALVINA Stop: 03/08/24 08:59 Last Admin: 02/07/24 08:15 Dose: 80 mg Documented By: FADUMO Spironolactone (Spironolactone 25 Mg Tab) 25 mg PO DAILY ALVINA Stop: 03/08/24 08:59 Last Admin: 02/07/24 08:16 Dose: 25 mg Documented By: FADUMO Umeclidinium/Vilanterol (Umeclidinium/Vilanterol 62.5/25mcg 7 Puffs/Inhaler) 1 puffs INH DAILY ALVINA Stop: 03/08/24 08:59 Last Admin: 02/07/24 08:16 Dose: 1 puffs Documented By: FADUMO Discontinued Medications Sodium Chloride (Nss) 500 mls @ 999 mls/hr IV .Q31M ONE Stop: 02/07/24 00:56 Last Infusion: 02/07/24 02:01 Dose: Infused Documented By: Admin: 02/07/24 01:15 Dose: 999 mls/hr Documented By: ASHVIN Sodium Chloride (Nss) 1,000 mls @ 999 mls/hr IV .Q1H1M ONE Stop: 02/07/24 02:59 Last Infusion: 02/07/24 03:26 Dose: Infused Documented By: Admin: 02/07/24 02:21 Dose: 999 mls/hr Documented By: ASHVIN Lorazepam (Lorazepam 2 Mg/1 Ml Vial) 0.5 mg IV NOW ONE Stop: 02/07/24 12:48 Last Admin: 02/07/24 13:17 Dose: 0.5 mg Documented By: FADUMO Imaging Data Radiologist's Impression: Head CT 02/06/24 22:06 Exam(s): CT HEAD Without Contrast EXAM: CT Head Without Intravenous Contrast CLINICAL HISTORY: Reason for exam: dizzy, difficulty speaking. TECHNIQUE: Axial computed tomography images of the head/brain without intravenous contrast. CTDI is 37.42 mGy and DLP is 546.36 mGy-cm. Automated exposure control was utilized for the study. A dose lowering technique was utilized adhering to the principles of ALARA. COMPARISON: Prior brain MRI from December 09, 2023. FINDINGS: Brain: Unremarkable. No hemorrhage. No significant white matter disease. No edema. Ventricles: Mild ventriculomegaly. Bones/joints: Unremarkable. No acute fracture. Soft tissues: Unremarkable. Sinuses: Unremarkable as visualized. No acute sinusitis. Mastoid air cells: Unremarkable as visualized. No mastoid effusion. IMPRESSION: No evidence of acute intracranial pathology. Electronically signed by: Deborah Chand MD 02/07/24 02:36 AM Discharge Plan Visit Data Chief Complaint: Urinary Symptoms Stated Complaint: UTI, ABD PAIN, CONFUSED ED Provider: Malinda Christopher Discharge Problem: Dysarthria, Ataxia, CKD (chronic kidney disease) Patient Disposition: Admitted As Inpatient Discharge Instructions Interventions: ED Discharge Assessment Last Done: 02/07/24 04:35
[2024-02-06 23:12] LABS: INR 1.1 (0.9-1.1); Prothrombin Time 11.4 Seconds (9.0-12.0)
[2024-02-06 23:54] LABS: Adenovirus PCR Not Detected (NotDetected); Bordetella parapertussis PCR Not Detected (NotDetected); Bordetella pertussis PCR Not Detected (NotDetected); Chlamydia pneumoniae PCR Not Detected (NotDetected); Coronavirus 229E PCR Not Detected (NotDetected); Coronavirus CoV-2 (COVID19)PCR Not Detected (NotDetected); Coronavirus HKU1 PCR Not Detected (NotDetected); Coronavirus NL63 PCR Not Detected (NotDetected); Coronavirus OC43PCR Not Detected (NotDetected); Human Metapneumovirus PCR Not Detected (NotDetected); Influenza A PCR Not Detected (NotDetected); Influenza B PCR Not Detected (NotDetected); Mycoplasma pneumoniae PCR Not Detected (NotDetected); Parainfluenza Virus 1 PCR Not Detected (NotDetected); Parainfluenza Virus 2 PCR Not Detected (NotDetected); Parainfluenza Virus 3 PCR Not Detected (NotDetected); Parainfluenza Virus 4 PCR Not Detected (NotDetected); Respiratory Syncytial VirusPCR Not Detected (NotDetected); Rhinovirus/Enterovirus PCR Not Detected (NotDetected)
[2024-02-07] MEDS: SODIUM CHLORIDE 0.9% 500 ML IV ONE (01:15)
--- NOTE | 2024-02-07 02:06 | History & Physical Report ---
Date of Service February 07, 2024 Assessment & Plan (1) Confusion: (2) Ataxia: (3) Acute kidney injury superimposed on CKD: (4) Hyperkalemia, diminished renal excretion: (5) Type II diabetes mellitus with renal manifestations: (6) CKD stage 4 due to type 2 diabetes mellitus: (7) Hypertension: (8) Hypercholesteremia: (9) PAD (peripheral artery disease): Plan Confusion/ataxia/history of chronic left cerebellar lacunar infarct- Symptoms began 2 to 3 days ago Contributing factors including but not limited to: New CVA, metabolic encephalopathy, dehydration, KAYLA on CKD, recurrent UTI CT scan of head without contrast shows no acute findings MRI from 06/08/2023 significant for chronic left cerebellar lacunar infarct Order MRI of brain without contrast BioFire testing negative Rehydrate with IV fluids as noted below Consult neurology Acute kidney injury superimposed on CKD/hyperkalemia/hypertension- Creatinine 2.53, with base 2.24 Potassium 5.5 Hold furosemide, empagliflozin, spironolactone, lisinopril Decrease amlodipine from 10 to 5 mg daily Status post normal saline 500 mL bolus by the ED Give additional 1 L normal saline bolus now Recheck basic metabolic panel in about 5 hours Follow urine culture and sensitivity, completed cephalexin 250 twice daily empiric treatment for UTI on 01/31/24 with resultant negative culture Diabetes mellitus- Continue glargine 30 units SQ twice daily Placed on Accu-Cheks with NovoLog SSI COPD- Continue routine inhalers Tobacco use disorder- Cessation counseling CODE STATUS: DNR/DNI History of Present Illness Chief Complaint: The patient presents to the emergency department via private vehicle, accompanied by friend, who states that over the last 2 to 3 days patient has intermittently been confused, not acting herself, and decreased oral intake. Patient reports that she has had intermittent issues with feeling off balance when she walks. Primary Care Provider: Elizabeth Love MD The patient is a 73-year-old female with a past medical history including vitamin D deficiency, anemia of chronic disease, pulmonary edema, benign familial tremor, ataxic gait, KAYLA on CKD, diabetes mellitus, CKD stage IV secondary to diabetes mellitus, hypercholesterolemia, hypertension, hypothyroidism, SNHL bilaterally, cirrhosis, tobacco use disorder, and PAD. The patient was initially accompanied by a friend at bedside, who reported that for the past 2 to 3 days the patient had intermittent issues with being disoriented, and speech which did not make sense, and had difficulty with imbalance while walking. The patient herself is marginally able to contribute to her HPI and review of systems due to altered mentation, and confusion. Allergies Allergy/AdvReac Type Severity Reaction Status Date / Time lorazepam Allergy Unknown HAS NO Verified 01/31/24 16:16 EFFECT metformin Allergy Unknown Unknown Verified 01/31/24 16:16 metronidazole Allergy Unknown Unknown Verified 01/31/24 16:16 Sulfa (Sulfonamide Allergy Unknown HIVES Verified 01/31/24 16:16 Antibiotics) linagliptin [From Noveporternta] AdvReac arthralgia Verified 01/31/24 16:16 Home Medications Medication Instructions Recorded Confirmed Type lancets 30 gauge (BuccaneerTouch Delica #100 ea 11/28/19 02/07/24 Rx Lancets) acetaminophen 325 mg tablet 325 mg PO HS PRN Pain 08/09/21 02/07/24 History (Tylenol) blood-glucose meter (BuccaneerTouch #1 ea 10/12/22 02/07/24 Rx Verio Flex Meter) aspirin 81 mg capsule 81 mg PO DAILY #90 caps 10/31/22 02/07/24 Rx insulin syringe-needle U-100 0.5 #400 ea 03/28/23 02/07/24 Rx mL 31 gauge x 5/16" (BD Insulin Syringe Ultra-Fine) pantoprazole 40 mg tablet,delayed 40 mg PO DAILY GERD #90 tabs 03/29/23 02/07/24 Rx release (Protonix) sertraline 100 mg tablet 50 mg (1/2 x 100 mg) PO QAM #90 06/23/23 02/07/24 Rx tabs empagliflozin 25 mg tablet 25 mg PO QAM #90 tabs 07/29/23 02/07/24 Rx (Jardiance) levothyroxine 112 mcg tablet 112 mcg PO DAILY #90 tabs 07/29/23 02/07/24 Rx simvastatin 80 mg tablet 80 mg PO DAILY #90 tabs 07/29/23 02/07/24 Rx CGM #1 ea 08/07/23 02/07/24 Rx amlodipine 10 mg tablet 10 mg PO DAILY 90 days #90 tabs 09/05/23 02/07/24 Rx lisinopril 10 mg tablet 10 mg PO DAILY #90 tabs 10/02/23 02/07/24 Rx quetiapine 25 mg tablet 25 mg PO DAILY #30 tabs 11/22/23 02/07/24 Rx benzonatate 100 mg capsule See Rx Instructions .Route 12/11/23 02/07/24 Rx .COMPLEX cough #30 caps fluticasone fur. 100 mcg-umeclid 1 inh inhalation QAM #60 ea 01/05/24 02/07/24 Rx 62.5 mcg-vilant 25 mcg inhalat.powder (Trelegy Ellipta) insulin glargine 100 unit/mL 30 unit (0.3 mL) subcut BID #80 mL 01/10/24 02/07/24 Rx subcutaneous solution (Lantus U-100 Insulin) furosemide 20 mg tablet (Lasix) 20 mg PO DAILY PRN weight gain, 01/18/24 Rx shortness of breath, edema #30 tabs propranolol 80 mg capsule,24 80 mg PO DAILY #30 caps 01/23/24 02/07/24 Rx hr,extended release nicotine 14 mg/24 hr daily 1 patch transdermal DAILY #28 ea 01/25/24 02/07/24 Rx transdermal patch spironolactone 25 mg tablet 25 mg PO DAILY #90 tabs 01/25/24 02/07/24 Rx blood sugar diagnostic (OneTouch #100 ea 01/31/24 02/07/24 Rx Verio test strips) alendronate 70 mg tablet (Fosamax) 70 mg PO WK 02/07/24 02/07/24 History Past Med/Surg History Problem List (Updated 02/07/24 @ 03:28 by Prasad Gordillo MD) Hyperkalemia, diminished renal excretion Confusion CKD (chronic kidney disease) (Acute) Ataxia (Acute) Dysarthria (Acute) Vitamin D deficiency Anemia of chronic disease Volume overload (Acute) Pulmonary edema (Acute) Acute hypoxemic respiratory failure (Acute) Proteinuria OM (onychomycosis) Benign familial tremor Ataxic gait Acute kidney injury superimposed on CKD (Acute) Type II diabetes mellitus with renal manifestations CKD stage 4 due to type 2 diabetes mellitus Osteoporosis Hypercholesteremia (Chronic) Hypertension (Chronic) Hypothyroidism (Chronic) Sensorineural hearing loss (SNHL) of both ears Hematuria Cirrhosis Current smoker PAD (peripheral artery disease) Medical History Coronavirus infection H. pylori infection Diverticulitis COPD (chronic obstructive pulmonary disease) Anxiety Lung nodule Depression Surgical History History of tooth extraction S/P aortic bifurcation bypass graft Femoral-popliteal bypass graft occlusion, left Femoral-popliteal bypass graft occlusion, right Family History Father Tremor Lung cancer Sister Tremor Family history of diabetes mellitus Mother Cancer Brother Myocardial infarction Cancer Family history of diabetes mellitus Daughter Asthma Brother Family history of diabetes mellitus Tremor Denies family history of Ovarian cancer Prostate cancer Breast cancer Colorectal cancer Social History Smoking Status: Unknown if ever smoked Tobacco Type: Cigarettes Age Started Using Tobacco: 21; packs per day: 1; Cigarettes Per Day: 20 CIGS A DAY; Second Hand Exposure: No; Do You Dip or Chew Tobacco: No; Hx Alcohol Use: No Hx Substance Use: No Preferred Language: Estonian Communication Ability: Effective Hearing Ability: Use of Hearing Aid It Network Administrator Required: No Beliefs That Will Affect Care: None marital status: Current Living Situation: Alone Current Living Situation Comment: Pt relates friend lives in downstairs appt in her house current occupational status: retired How many Children do You have: 1 Feels Safe at Home: Yes Childhood Exposure to Second-Hand Smoke: Yes Diet: regular caffeine: Yes Dental Care, Regularly: No Physical Activity Frequency: Does not Exercise Seatbelt Use: always Sunscreen Use: No Assistive Devices: None Review of Systems Review of Systems: Review of systems is somewhat limited due to patient's baseline and more recent acute worsening Physical Exam Physical Exam: The patient is awake, confused, well developed and well nourished, normocephalic and atraumatic, lying in bed and in no acute distress. HEENT--PERRL, EOMI, mucous membranes and oropharynx moderately dry. Neck--supple. No JVD. No bruits. Thyroid normal, trachea midline, no adenopathy. Heart--normal S1 and S2. No murmurs, rubs or gallops. Lungs--clear bilaterally, no respiratory distress, no accessory muscle use. Abdomen--normal bowel sounds and soft. Nontender. Nondistended, no hernias or masses, no organomegaly. Extremities--no cyanosis or clubbing. No edema. There are good distal pulses b/l. Dermatologic--normal skin turgor, normal color, no abnormal lymph nodes, no rash. Neurologic--cranial nerves II through XII grossly intact. Rheumatologic--normal range of motion. Psychiatric--normal affect. Results & Data Results & Data Vital Signs (Past 12 Hours) Vital Signs Temp Pulse Pulse Resp BP BP Pulse Ox 02/07/24 02:04 50 L 02/07/24 00:00 56 L 19 130/68 96 02/06/24 22:09 69 20 123/50 L 94 02/06/24 22:00 59 L 02/06/24 21:26 36.8 C 62 19 101/57 L 95 O2 Del Method 02/07/24 02:04 02/07/24 00:00 Room Air 02/06/24 22:09 Room Air 02/06/24 22:00 02/06/24 21:26 Room Air Laboratory Results Laboratory Results WBC 11.56 K/ul (4.8-10.8) H 02/06/24 22:00 RBC 3.62 M/uL (4.20-5.40) L 02/06/24 22:00 Hgb 11.3 g/dl (12.0-16.0) L 02/06/24 22:00 Hct 34.2 % (37.0-47.0) L 02/06/24 22:00 MCV 94.5 fL (80.0-100.0) 02/06/24 22:00 MCH 31.2 pg (25.0-34.0) 02/06/24 22:00 MCHC 33.0 g/dL (32.0-36.0) 02/06/24 22:00 RDW Std Deviation 48.6 fL (36.4-46.3) H 02/06/24 22:00 RDW Coeff of Maximilian 14.0 % (11.5-14.5) 02/06/24 22:00 Plt Count 148 K/uL (130-400) 02/06/24 22:00 MPV 10.2 fL (9.4-12.4) 02/06/24 22:00 Immature Gran % (Auto) 0.5 % 02/06/24 22:00 Neut % (Auto) 77.0 % 02/06/24 22:00 Lymph % (Auto) 14.4 % 02/06/24 22:00 [place] % (Auto) 7.0 % 02/06/24 22:00 Eos % (Auto) 0.7 % 02/06/24 22:00 Baso % (Auto) 0.4 % 02/06/24 22:00 Neut # (Auto) 8.90 K/uL (1.40-6.50) H 02/06/24 22:00 Lymph # (Auto) 1.66 K/uL (1.20-3.40) 02/06/24 22:00 [place] # (Auto) 0.81 K/uL (0.11-0.59) H 02/06/24 22:00 Eos # (Auto) 0.08 K/uL (0.00-0.50) 02/06/24 22:00 Baso # (Auto) 0.05 K/uL (0.00-0.20) 02/06/24 22:00 Immature Gran # (Auto) 0.06 K/uL (0.01-0.20) 02/06/24 22:00 PT 11.4 Seconds (9.0-12.0) 02/06/24 22:00 INR 1.1 (0.9-1.1) 02/06/24 22:00 Sodium 138 mmol/L (136-145) 02/06/24 22:00 Potassium 5.5 mmol/L (3.5-5.1) H 02/06/24 22:00 Chloride 112 mmol/L (98-107) H 02/06/24 22:00 Carbon Dioxide 16 mmol/L (21-32) L 02/06/24 22:00 Anion Gap 10 (3-11) 02/06/24 22:00 BUN 42 mg/dl (6-23) H 02/06/24 22:00 Creatinine 2.53 mg/dl (0.6-1.2) H 02/06/24 22:00 Est Cr Clr Drug Dosing 20.0 ml/min 02/06/24 22:00 eGFR 19.53 02/06/24 22:00 BUN/Creatinine Ratio 16.6 (10-20) 02/06/24 22:00 Glucose 188 mg/dl (70-99(Fasting)) H 02/06/24 22:00 Calcium 8.5 mg/dl (8.6-10.3) L 02/06/24 22:00 Magnesium 1.9 mg/dl (1.7-2.4) 02/06/24 22:00 Total Bilirubin 0.3 mg/dl (0.2-1.0) 02/06/24 22:00 AST 20 U/L (13-39) 02/06/24 22:00 ALT 15 U/L (7-52) 02/06/24 22:00 Alkaline Phosphatase 126 U/L (34-104) H 02/06/24 22:00 Troponin I High Sens 7.1 pg/ml (0-14) 02/06/24 22:00 Total Protein 6.9 gm/dl (6.0-8.3) 02/06/24 22:00 Albumin 4.3 gm/dl (3.4-5.0) 02/06/24 22:00 Globulin 2.6 gm/dl (2.5-4.0) 02/06/24 22:00 Albumin/Globulin Ratio 1.7 (0.9-2) 02/06/24 22:00 Lipase 53 U/L (11-82) 02/06/24 22:00 TSH 0.752 uIu/ml (0.300-4.500) 02/06/24 22:00 Urine Color Yellow 02/06/24 22:00 Urine Appearance Clear (Clear) 02/06/24 22:00 Urine pH 5.5 (4.5-7.5) 02/06/24 22:00 Ur Specific [place] 1.024 (1.000-1.030) 02/06/24 22:00 Urine Protein 3+ (Negative) H 02/06/24 22:00 Urine Glucose (UA) 3+ (Negative) H 02/06/24 22:00 Urine Ketones Negative (Negative) 02/06/24 22:00 Urine Blood Negative (Negative) 02/06/24 22:00 Urine Nitrite Negative (Negative) 02/06/24 22:00 Urine Bilirubin Negative (Negative) 02/06/24 22:00 Urine Urobilinogen Negative (Negative) 02/06/24 22:00 Ur Leukocyte Esterase Trace (Negative) H 02/06/24 22:00 Urine WBC (Auto) 6-10 /hpf (0-5) H 02/06/24 22:00 Urine RBC (Auto) 0-2 /hpf (0-2) 02/06/24 22:00 U Hyaline Cast (Auto) 0-2 /lpf (0-2) 02/06/24 22:00 U Epithel Cells (Auto) 0-2 /hpf (0-2) 02/06/24 22:00 Urine Bacteria (Auto) None Seen (None Seen) 02/06/24 22:00 Adenovirus (PCR) Not Detected (NotDetected) 02/06/24 21:52 B. pertussis DNA (PCR) Not Detected (NotDetected) 02/06/24 21:52 B.parapertussis DNA PCR Not Detected (NotDetected) 02/06/24 21:52 C. pneumoniae DNA (PCR) Not Detected (NotDetected) 02/06/24 21:52 Coronavirus OC43 (PCR) Not Detected (NotDetected) 02/06/24 21:52 Coronavirus HKU1 (PCR) Not Detected (NotDetected) 02/06/24 21:52 Coronavirus 229E (PCR) Not Detected (NotDetected) 02/06/24 21:52 SARS-CoV-2 (PCR) Not Detected (NotDetected) 02/06/24 21:52 Coronavirus NL63 (PCR) Not Detected (NotDetected) 02/06/24 21:52 Human Metapneumovir PCR Not Detected (NotDetected) 02/06/24 21:52 Influenza Type A (PCR) Not Detected (NotDetected) 02/06/24 21:52 Influenza Type B (PCR) Not Detected (NotDetected) 02/06/24 21:52 M. pneumoniae (PCR) Not Detected (NotDetected) 02/06/24 21:52 Parainfluenza 1 (PCR) Not Detected (NotDetected) 02/06/24 21:52 Parainfluenza 2 (PCR) Not Detected (NotDetected) 02/06/24 21:52 Parainfluenza 3 (PCR) Not Detected (NotDetected) 02/06/24 21:52 Parainfluenza 4 (PCR) Not Detected (NotDetected) 02/06/24 21:52 RSV (PCR) Not Detected (NotDetected) 02/06/24 21:52 Entero/Rhino (PCR) Not Detected (NotDetected) 02/06/24 21:[address] 02/06/24 22:06 Exam(s): CT HEAD Without Contrast EXAM: CT Head Without Intravenous Contrast CLINICAL HISTORY: Reason for exam: dizzy, difficulty speaking. TECHNIQUE: Axial computed tomography images of the head/brain without intravenous contrast. CTDI is 37.42 mGy and DLP is 546.36 mGy-cm. Automated exposure control was utilized for the study. A dose lowering technique was utilized adhering to the principles of ALARA. COMPARISON: Prior brain MRI from December 09, 2023. FINDINGS: Brain: Unremarkable. No hemorrhage. No significant white matter disease. No edema. Ventricles: Mild ventriculomegaly. Bones/joints: Unremarkable. No acute fracture. Soft tissues: Unremarkable. Sinuses: Unremarkable as visualized. No acute sinusitis. Mastoid air cells: Unremarkable as visualized. No mastoid effusion. IMPRESSION: No evidence of acute intracranial pathology. Electronically signed by: Deborah Chand MD 02/07/24 02:36 AM Code Status & VTE Plan Code Status DNR/DNI VTE Prophylaxis Plan VTE Prophylaxis will be ordered: Yes PG Care Time/CCT Total # of Minutes Spent Total Time Spent with Patient: Total time spent is greater than 50% in coordination of care (as documented) at patient's floor/unit and/or counseling patient: Coding Level of Care Code 60052 INT INP/OBS CARE 3/75MIN Diagnoses Confusion R41.0 Ataxia R27.0 Acute kidney injury superimposed on CKD N17.9; N18.9 Hyperkalemia, diminished renal excretion E87.5 Type II diabetes mellitus with renal manifestations E11.29 CKD stage 4 due to type 2 diabetes mellitus E11.22; N18.4 Hypertension I10 Hypercholesteremia E78.00 PAD (peripheral artery disease) I73.9
[2024-02-07] MEDS: SODIUM CHLORIDE 0.9% 1,000 ML IV ONE (02:21)
--- NOTE | 2024-02-07 02:37 | CT Scan Report ---
Exam(s): CT HEAD Without Contrast EXAM: CT Head Without Intravenous Contrast CLINICAL HISTORY: Reason for exam: dizzy, difficulty speaking. TECHNIQUE: Axial computed tomography images of the head/brain without intravenous contrast. CTDI is 37.42 mGy and DLP is 546.36 mGy-cm. Automated exposure control was utilized for the study. A dose lowering technique was utilized adhering to the principles of ALARA. COMPARISON: Prior brain MRI from December 09, 2023. FINDINGS: Brain: Unremarkable. No hemorrhage. No significant white matter disease. No edema. Ventricles: Mild ventriculomegaly. Bones/joints: Unremarkable. No acute fracture. Soft tissues: Unremarkable. Sinuses: Unremarkable as visualized. No acute sinusitis. Mastoid air cells: Unremarkable as visualized. No mastoid effusion. IMPRESSION: No evidence of acute intracranial pathology. Electronically signed by: Deborah Chand MD 02/07/24 02:36 AM
[2024-02-07] MEDS ORDERED: ONDANSETRON INJ 2 MG/ML 2 ML VIAL IV PRN (05:21)
[2024-02-07] MEDS ORDERED: GLUCOSE 10 TAB/TUBE PO PRN (05:21)
[2024-02-07] MEDS ORDERED: GLUCAGON FOR INJ 1 MG VIAL SQ PRN (05:21)
[2024-02-07] MEDS ORDERED: GLUCOSE 40% GEL 15 GM TUBE PO PRN (05:21)
[2024-02-07] MEDS ORDERED: DEXTROSE 50% 50 ML SYRINGE IV PRN (05:21)
[2024-02-07] MEDS ORDERED: ACETAMINOPHEN 325 MG TAB PO PRN (05:21)
[2024-02-07] MEDS: LEVOTHYROXINE SODIUM 112 MCG TABLET PO SCH (06:46)
[2024-02-07] MEDS: amLODIPine BESYLATE 5 MG TAB PO SCH (08:11)
[2024-02-07] MEDS: FLUTICASONE FUROATE 100MCG 14 PUFFS/INHALER INH SCH (08:12)
[2024-02-07] MEDS: ASPIRIN 81 MG ECTAB PO SCH (08:12)
[2024-02-07] MEDS: PANTOprazole 40 MG TAB PO SCH (08:13)
[2024-02-07] MEDS: NICOTINE 14 MG/24 HR PATCH TD SCH (08:13)
[2024-02-07] MEDS: PROPRANOLOL HCL LA 80 MG CAPCR PO SCH (08:14)
[2024-02-07] MEDS: QUEtiapine FUMARATE 25 MG TABLET PO SCH (08:14)
[2024-02-07] MEDS: SIMVASTATIN 80 MG TAB PO SCH (08:15)
[2024-02-07] MEDS: SERTRALINE HCL 50 MG TABLET PO SCH (08:15)
[2024-02-07] MEDS: SPIRONOLACTONE 25 MG TAB PO SCH (08:16)
[2024-02-07] MEDS: UMECLIDINIUM/VILANTEROL 62.5/25MCG 7 PUFFS/INHALER INH SCH (08:16)
[2024-02-07] MEDS: INSULIN ASPART PER UNIT CHARGE SC SCH (08:17)
[2024-02-07] MEDS: LANTUS PER UNIT CHARGE SQ SCH (08:17)
[2024-02-07 09:05] LABS: Calcium 8.4 mg/dl (8.6-10.3); Potassium 4.9 mmol/L (3.5-5.1)
--- NOTE | 2024-02-07 10:10 | Neurology Consultation ---
Date of Consultation February 07, 2024 Assessment & Plan (1) Stroke: (2) Ataxia: (3) Dysfluency: Plan 73-year-old female with a history of insulin-dependent diabetes mellitus, cigarette smoking, presenting with a 2 to 3-day history of right hemiataxia, speech disfluency, probable acute to subacute ischemic stroke. The right hemiataxia would typically localize to the right cerebellar hemisphere although a small brainstem stroke is also possible. Her previous brain MRI reveals a chronic left cerebellar lacunar infarct and chronic microvascular ischemic disease. A carotid ultrasound completed this past June reveals moderate bilateral plaque within the carotid bulbs and antegrade vertebral flow bilaterally. Would recommend brain MRI. Would also recommend dual antiplatelet therapy, aspirin 81 mg/day and Plavix 75 mg/day for 3 weeks, followed by Plavix monotherapy. Would recommend an up-to-date carotid ultrasound. (Would avoid CT angiography given stage IV chronic kidney disease.) Continue with Zocor 80 mg/day. Current blood pressure appropriate, may allow for permissive hypertension acutely. Additional counseling regarding smoking cessation. Consider ambulatory cardiac monitoring. Consultations with PT/OT/speech therapy. Please call with any questions. Thank you for the consult. History of Present Illness Reason for Consultation: possible stroke Requesting Physician: Duy Attending Physician: Lucy Blount MD History of Present Illness The patient is a 73-year-old female who presented to the emergency department yesterday with a 2 to 3-day history of alteration in speech, possible aphasia, and listing sideways with standing and walking, possible ataxia. She was found in the above altered fashion by a neighbor who subsequently brought the patient to the hospital for further evaluation. Past medical history notable for long- term cigarette smoking, diabetes mellitus, hypertension, and dyslipidemia. The patient is a somewhat limited historian, she does not seem very aware of any specific signs or symptoms. She denies headache, vision disturbance, or fever. She takes her insulin regularly, and recalls eating breakfast earlier that morning. A CT of the head was negative for hemorrhage or acute process. There was a chronic infarct within the left cerebellar hemisphere. I independently reviewed these images. She did have a brain MRI completed at [facility] this past June in the context of strokelike symptoms, no acute findings at that time. The chronic left cerebellar infarct was observed. A carotid ultrasound at that time revealed moderate atherosclerotic plaque within the carotid bulbs, antegrade flow in both vertebral arteries. She takes daily aspirin as well as 80 mg of simvastatin a day. Allergies Allergy/AdvReac Type Severity Reaction Status Date / Time lorazepam Allergy Unknown HAS NO Verified 01/31/24 16:16 EFFECT metformin Allergy Unknown Unknown Verified 01/31/24 16:16 metronidazole Allergy Unknown Unknown Verified 01/31/24 16:16 Sulfa (Sulfonamide Allergy Unknown HIVES Verified 01/31/24 16:16 Antibiotics) linagliptin [From [facility]] AdvReac arthralgia Verified 01/31/24 16:16 Home Medications Medication Instructions Recorded Confirmed Type lancets 30 gauge (OneTouch Delica #100 ea 11/28/19 02/07/24 Rx Lancets) acetaminophen 325 mg tablet 325 mg PO HS PRN Pain 08/09/21 02/07/24 History (Tylenol) blood-glucose meter (DevshopTouch #1 ea 10/12/22 02/07/24 Rx Verio Flex Meter) aspirin 81 mg capsule 81 mg PO DAILY #90 caps 10/31/22 02/07/24 Rx insulin syringe-needle U-100 0.5 #400 ea 03/28/23 02/07/24 Rx mL 31 gauge x 5/16" (BD Insulin Syringe Ultra-Fine) pantoprazole 40 mg tablet,delayed 40 mg PO DAILY GERD #90 tabs 03/29/23 02/07/24 Rx release (Protonix) sertraline 100 mg tablet 50 mg (1/2 x 100 mg) PO QAM #90 06/23/23 02/07/24 Rx tabs empagliflozin 25 mg tablet 25 mg PO QAM #90 tabs 07/29/23 02/07/24 Rx (Jardiance) levothyroxine 112 mcg tablet 112 mcg PO DAILY #90 tabs 07/29/23 02/07/24 Rx simvastatin 80 mg tablet 80 mg PO DAILY #90 tabs 07/29/23 02/07/24 Rx CGM #1 ea 08/07/23 02/07/24 Rx amlodipine 10 mg tablet 10 mg PO DAILY 90 days #90 tabs 09/05/23 02/07/24 Rx lisinopril 10 mg tablet 10 mg PO DAILY #90 tabs 10/02/23 02/07/24 Rx quetiapine 25 mg tablet 25 mg PO DAILY #30 tabs 11/22/23 02/07/24 Rx benzonatate 100 mg capsule See Rx Instructions .Route 12/11/23 02/07/24 Rx .COMPLEX cough #30 caps fluticasone fur. 100 mcg-umeclid 1 inh inhalation QAM #60 ea 01/05/24 02/07/24 Rx 62.5 mcg-vilant 25 mcg inhalat.powder (Trelegy Ellipta) insulin glargine 100 unit/mL 30 unit (0.3 mL) subcut BID #80 mL 01/10/24 02/07/24 Rx subcutaneous solution (Lantus U-100 Insulin) furosemide 20 mg tablet (Lasix) 20 mg PO DAILY PRN weight gain, 01/18/24 02/07/24 Rx shortness of breath, edema #30 tabs propranolol 80 mg capsule,24 80 mg PO DAILY #30 caps 01/23/24 02/07/24 Rx hr,extended release nicotine 14 mg/24 hr daily 1 patch transdermal DAILY #28 ea 01/25/24 02/07/24 Rx transdermal patch spironolactone 25 mg tablet 25 mg PO DAILY #90 tabs 01/25/24 02/07/24 Rx blood sugar diagnostic (OneTouch #100 ea 01/31/24 02/07/24 Rx Verio test strips) alendronate 70 mg tablet (Fosamax) 70 mg PO WK 02/07/24 02/07/24 History Patient History Medical History Coronavirus infection H. pylori infection Diverticulitis COPD (chronic obstructive pulmonary disease) well controlled, can go a week sometimes without routine inhaler Anxiety Lung nodule UNDER OBSERVATION Depression Surgical History History of tooth extraction S/P aortic bifurcation bypass graft Apr 1999 Femoral-popliteal bypass graft occlusion, left Apr 1999 Femoral-popliteal bypass graft occlusion, right Apr 1999 Family History Father , age 70 of lung cancer Tremor Lung cancer Sister Tremor Family history of diabetes mellitus Mother , age 68 of a gynecologic cancer (either uterine or ovarian) Cancer Brother Myocardial infarction Cancer Family history of diabetes mellitus Daughter Asthma Brother Family history of diabetes mellitus Tremor Denies family history of Ovarian cancer Prostate cancer Breast cancer Colorectal cancer Social History Smoking Status: Current every day smoker Tobacco Type: Cigarettes Age Started Using Tobacco: 21; packs per day: 1; Cigarettes Per Day: 20 CIGS A DAY; Second Hand Exposure: No; Do You Dip or Chew Tobacco: No; Hx Alcohol Use: No Hx Substance Use: No Preferred Language: Lithuanian Communication Ability: Effective Hearing Ability: Use of Hearing Aid Card Table Attendant Required: No Beliefs That Will Affect Care: None marital status: Current Living Situation: Alone Current Living Situation Comment: Pt relates friend lives in downstairs appt in her house current occupational status: retired How many Children do You have: 1 Feels Safe at Home: Yes Childhood Exposure to Second-Hand Smoke: Yes Diet: regular caffeine: Yes Dental Care, Regularly: No Physical Activity Frequency: Does not Exercise Seatbelt Use: always Sunscreen Use: No Assistive Devices: Hearing Aid - Bilateral Review of Systems Constitutional: no fever and no chills Eyes: no blind spots and no diplopia Ear, Nose, Mouth, Throat: + hearing loss Respiratory: no cough and no dyspnea Cardiovascular: no chest pain and no palpitations Gastrointestinal: no nausea and no vomiting Genitourinary: no dysuria Musculoskeletal: no myalgia Integumentary: no rash and no lesions Neurologic: as per Subjective / HPI, + gait abnormality and + lack of coordination; no headache(s) Psychiatric: no depression and no anxiety Hematologic / Lymphatic: no easy bleeding and no easy bruising Exam (Neuro) Constitutional: well developed and well nourished; no acute distress Eyes: normal visual tobias by confrontation, PERRL and EOM intact bilaterally; no nystagmus Neurologic: Oriented to:: Person, Place and Time Memory: Short Term Intact and Remote Intact Attention: Span Intact and Concentration Intact Speech Fluency: Dysfluency; negative Dysarthria Speech Aphasia: Other (Had some mild difficulty repeating prepositional phrases); negative Aphasia or Anomia Fund of Knowledge: Past History and Vocabulary Cranial Nerves: Normal II, III, IV, , V, VII, VIII, IX, X, XI and XII Motor Strength: Normal Lower Extremities and Normal Upper Extremities Motor Tone: Normal Lower Extremities and Normal Upper Extremities Muscle Bulk/Involuntary Movements: Intention Tremor Laterality: Right; negative Muscle Atrophy Sensation: Light Touch Intact, Pain/Temperature Intact and Proprioception Intact; negative Vibration Intact Coordination: Dysdiadochokinesia Laterality: Right, Finger-Nose Abnormal Laterality: Right and Heel-Anna Abnormal Deep Tendon Reflexes: Rt Triceps: 2+, Lt Triceps: 2+, Rt Biceps: 2+, Lt Biceps: 2+, Rt Brachioradialis: 2+, Lt Brachioradialis: 2+, Rt Patellar: 1+, Lt Patellar: 1+, Rt Ankle: 1+ and Lt Ankle: 1+ Special Tests: negative Babinski Present Results & Data Vital Signs (Past 12 Hours) Vital Signs Temp Pulse Pulse Resp BP Pulse Ox O2 Del Method 02/07/24 07:39 36.6 C 64 16 126/55 L 95 Room Air 02/07/24 07:20 51 L 02/07/24 05:32 Room Air 02/07/24 05:21 36.9 C 79 16 89 L Room Air 02/07/24 04:00 52 L 18 122/55 L 94 Room Air 02/07/24 02:04 50 L 02/07/24 02:00 52 L 17 120/44 L 93 Room Air 02/07/24 00:00 56 L 19 130/68 96 Room Air 02/06/24 22:09 69 20 123/50 L 94 Room Air 02/06/24 22:00 59 L Laboratory Results WBC 11.56, hemoglobin 11.3, hematocrit 34.2, platelet count 148, sodium 141, potassium 4.9, BUN 38, creatinine 2.11, glucose 131, calcium 8.4, magnesium 1.9, AST 20, ALT 15, high-sensitivity troponin 7.1. Lipid panel from this past June reviewed. Triglycerides 188, cholesterol 107, LDL 43, VLDL 38, HDL [address] of the head and previous carotid ultrasound and brain MRI are as described in the HPI, I independently reviewed these images. Electrocardiogram reveals sinus bradycardia first-degree AV block with premature atrial complexes. An echocardiogram completed January 29, 2024 revealed normal left ventricular size and systolic function, EF 55 to 60%, no regional wall motion abnormalities, normal left atrial size, no atrial septal defect. Coding Level of Care Code 49433 INT INP/OBS CARE 3/75MIN Diagnoses Stroke I63.9 Ataxia R27.0 Dysfluency R47.89 Time Spent (min) 90 Comment Total time includes patient contact, chart review, counseling, note preparation
[2024-02-07] MEDS: LORazepam 2 MG/1 ML VIAL IV ONE (13:17)
--- NOTE | 2024-02-07 14:10 | Magnetic Resonance Report ---
MR brain wo con HISTORY: 73 years-old Female confusion, ataxia, dysarthria, hx L cerebellar inf acutely altered ment al status COMPARISON: Head CT 02/06/2024, brain MRI 06/08/2023. TECHNIQUE: Multiplanar multisequence MRI of the brain was obtained without IV contrast FINDINGS: Mildly motion degraded exam. No restricted diffusion. Midline structures appear unremarkable with par tially empty sella. No acute intracranial hemorrhage, midline shift, abnormal extra-axial collection, hydrocephalus or intra-axial mass. Small chronic left inferior cerebellar lacunar infarct. Delusiona l changes with minimal T2/FLAIR hyperintense foci throughout the white matter suggestive of chronic m icrovascular ischemic disease. Cerebral venous sinuses and major arterial flow voids appear patent. T he skull, orbits and soft tissues are unremarkable. Paranasal sinuses are clear. Prior bilateral lens repair. IMPRESSION: 1. No acute intracranial abnormality. No acute or subacute infarct. 2. Involutional changes with mild chronic microvascular ischemic disease. 3. Chronic left cerebellar lacunar infarct. ACT 112: Negative or not required by law. The above report was generated using voice recognition software. It may contain grammatical, syntax o r spelling errors. Electronically signed by: Cornelio Oropeza M.D. 02/07/2024 2:09 PM
--- NOTE | 2024-02-07 14:17 | Communication Note ---
Date of Service: February 07, 2024 Please refer to the H&P dictated earlier this morning for details of presentation on admission. In brief the patient presented with confusion, ataxia and speech difficulty. She is being admitted for stroke workup. She was seen in consultation by neurology who recommends completing the MRI, doing at carotid ultrasound. Ordered. They recommended starting Plavix and continuing aspirin for 3 weeks. They recommended continuing Zocor. The patient was given some IV fluids to treat the acute kidney injury.
--- NOTE | 2024-02-07 15:27 | Ultrasound Report ---
CAROTID ARTERY ULTRASOUND CLINICAL HISTORY: Stroke workup COMPARISON STUDY: Carotid ultrasound June 08, 2023. TECHNIQUE: Real-time, grayscale, and color Doppler sonography of the carotid and vertebral arteries w as performed. Images were viewed in the transverse and longitudinal planes. FINDINGS: There is moderate atherosclerotic plaque. Velocity measurements are listed below. COMMON CAROTID PEAK SYSTOLIC VELOCITY (CM/S): RIGHT 165 LEFT 84 ICA PEAK SYSTOLIC VELOCITY (CM/S): RIGHT 147 LEFT 117 Systolic ratios between the internal to common carotid arteries were normal. Antegrade flow is seen in the vertebral arteries. The external carotid arteries are patent. IMPRESSION: Moderate atherosclerotic plaque without evidence for a hemodynamically significant steno sis. ACT 112: Negative or not required by law. Electronically signed by: Leonard Saxena M.D. 02/07/2024 3:26 PM
--- NOTE | 2024-02-07 15:30 | Electrocardiogram Report ---
Test Reason : Blood Pressure : */* mmHG Vent. Rate : 59 BPM Atrial Rate : 59 BPM P-R Int : 242 ms QRS Dur : 78 ms QT Int : 428 ms P-R-T Axes : 60 -5 93 degrees QTcB Int : 423 ms Sinus bradycardia with 1st degree A-V block with Premature atrial complexes Low voltage QRS Inferior infarct (cited on or before 02-Jan-2024) Cannot rule out Anterior infarct (cited on or before 25-May-2021) Abnormal ECG When compared with ECG of 02-Jan-2024 11:09, Premature atrial complexes are now Present Confirmed by Derrell Mendes ([id number]) on 02/07/2024 3:30:18 PM Referred By: REFERRED SELF Confirmed By: Derrell Mendes
[2024-02-07] MEDS: CLOPIDOGREL BISULFATE 75 MG TAB PO SCH (16:47)
[2024-02-08 07:19] LABS: Basophils # (auto) 0.08 K/uL (0.00-0.20); Basophils % (auto) 0.5 %; Eosinophils # (auto) 0.19 K/uL (0.00-0.50); Eosinophils % (auto) 1.3 %; Hematocrit (blood only) 32.7 % (37.0-47.0); Hemoglobin 10.6 g/dl (12.0-16.0); Immature Granulocytes # (auto) 0.05 K/uL (0.01-0.20); Immature Granulocytes % (auto) 0.3 %; Lymphocytes # (auto) 2.02 K/uL (1.20-3.40); Lymphocytes % (auto) 13.6 %; Mean Corpuscular Hemoglobin 30.5 pg (25.0-34.0); Mean Corpuscular Hgb Conc 32.4 g/dL (32.0-36.0); Mean Corpuscular Volume 94.2 fL (80.0-100.0); Mean Platelet Volume 10.3 fL (9.4-12.4); Monocytes # (auto) 0.87 K/uL (0.11-0.59); Monocytes % (auto) 5.9 %; Neutrophils # (auto) 11.61 K/uL (1.40-6.50); Neutrophils % (auto) 78.4 %; Platelet Count 163 K/uL (130-400); RDW Coefficient of Variation 13.9 % (11.5-14.5); RDW Standard Deviation 48.1 fL (36.4-46.3); Red Blood Count 3.47 M/uL (4.20-5.40); White Blood Count 14.82 K/ul (4.8-10.8)
[2024-02-08] MEDS: CARBOHYDRATES FOR HYPOGLYCEMIA PO PRN (07:25)
[2024-02-08 07:41] LABS: Albumin Level 3.9 gm/dl (3.4-5.0); BUN Creatinine Ratio 18.1 (10-20); Calcium 9.1 mg/dl (8.6-10.3); Creatinine Clr Calc Pharmacy 24.1 ml/min; Phosphorus 2.5 mg/dl (2.5-4.9); Potassium 4.4 mmol/L (3.5-5.1)
[2024-02-08] MEDS: LANTUS PER UNIT CHARGE SQ SCH (08:48)
[2024-02-08 09:53] LABS: Estimated Average Glucose 186 mg/dl; Hemoglobin A1C 8.1 % (4.5-5.6)
--- NOTE | 2024-02-08 12:30 | Hospitalist Progress Note ---
Date of Service February 08, 2024 Assessment & Plan (1) Confusion: (2) Ataxia: (3) Acute kidney injury superimposed on CKD: (4) Hyperkalemia, diminished renal excretion: (5) Type II diabetes mellitus with renal manifestations: (6) CKD stage 4 due to type 2 diabetes mellitus: (7) Hypertension: (8) Hypercholesteremia: (9) PAD (peripheral artery disease): Plan Confusion/ataxia/history of chronic left cerebellar lacunar infarct- Symptoms began 2 to 3 days ago Contributing factors including but not limited to: New CVA, metabolic encephalopathy, dehydration, KAYLA on CKD, recurrent UTI CT scan of head without contrast shows no acute findings MRI from 06/08/2023 significant for chronic left cerebellar lacunar infarct MRI 02/06 showed no acute or subacute infarct BioFire testing negative Patient was rehydrated with IV fluids Neurology involved. Per neurology, patient most likely had a very small subacute infarct that was not picked up on the MRI. He initially had recommended dual antiplatelet agent as you may that she had a new stroke. However since the MRI is negative, I spoke to him on the phone and he recommended against dual antiplatelet agents. Discontinued the Plavix after speaking to him. Smoking cessation has been emphasized Clinically the patient is back to her baseline Acute kidney injury superimposed on CKD stage IV/hyperkalemia/hypertension- Creatinine 2.53, with base 2.24. Creatinine is 2.1 today Potassium 4.4 Responded to IV fluids Holding furosemide Resume lisinopril Continue spironolactone Hold empagliflozin Decrease amlodipine from 10 to 5 mg daily Leukocytosis No fever No cough No shortness of breath No recent steroid use Urinalysis negative Monitor CBC Likely stress-induced Diabetes mellitus- Hypoglycemic this morning Reduce glargine to 20 units subcu twice daily Placed on Accu-Cheks with NovoLog SSI COPD- Continue routine inhalers Tobacco use disorder- Cessation counseling CODE STATUS: DNR/DNI Admission and Anticipated Discharge Date Admission Date: February 07, 2024 Subjective Patient was seen and examined at 10:25 AM. She is being visited by her friend in the room. Per friend, she is back to her usual baseline. I personally spoke to the neurologist who thinks that the patient might have had a very small subacute ischemic stroke that was not picked up on the MRI. He did not recommend dual antiplatelet therapy. Plavix was discontinued. Smoking cessation was emphasized Review of Systems Review of Systems: All systems reviewed & are unremarkable except as noted in Subjective Physical Exam Physical Exam: General: Awake, conversant, smiling Heart: S1, S2/regular rate and rhythm, no murmur rubs or gallops Lungs: Clear to auscultation bilaterally. Normal effort Abdomen: Soft/nontender/nondistended. No hepatosplenomegaly Extremities: No clubbing/cyanosis. No edema Behavior: Appropriate, cooperative Results & Data Results & Data Vital Signs (Past 12 Hours) Vital Signs Temp Pulse Pulse Resp BP Pulse Ox O2 Del Method 02/08/24 10:11 Room Air 02/08/24 07:24 56 L 02/08/24 07:18 36.9 C 59 L 18 143/52 H 91 Room Air 02/08/24 05:21 02/08/24 02:17 36.9 C 60 18 133/68 94 Room Air O2 Del Method 02/08/24 10:11 02/08/24 07:24 02/08/24 07:18 02/08/24 05:21 Room Air 02/08/24 02:17 Laboratory Results Abnormal lab results 02/07/24 02/07/24 02/08/24 Range/Units 16:07 20:16 06:49 WBC 14.82 H (4.8-10.8) K/ul RBC 3.47 L (4.20-5.40) M/uL Hgb 10.6 L (12.0-16.0) g/dl Hct 32.7 L (37.0-47.0) % RDW Std Deviation 48.1 H (36.4-46.3) fL Neut # (Auto) 11.61 H (1.40-6.50) K/uL [place] # (Auto) 0.87 H (0.11-0.59) K/uL Chloride 117 H (98-107) mmol/L Carbon Dioxide 19 L (21-32) mmol/L BUN 38 H (6-23) mg/dl Creatinine 2.10 H (0.6-1.2) mg/dl Glucose 53 L* (70-99(Fasting)) mg/dl POC Glucose 106 H 102 H (70-99) mg/dl Hemoglobin A1c 8.1 H (4.5-5.6) % 02/08/24 02/08/24 02/08/24 Range/Units 07:24 07:25 07:45 WBC (4.8-10.8) K/ul RBC (4.20-5.40) M/uL Hgb (12.0-16.0) g/dl Hct (37.0-47.0) % RDW Std Deviation (36.4-46.3) fL Neut # (Auto) (1.40-6.50) K/uL [place] # (Auto) (0.11-0.59) K/uL Chloride (98-107) mmol/L Carbon Dioxide (21-32) mmol/L BUN (6-23) mg/dl Creatinine (0.6-1.2) mg/dl Glucose (70-99(Fasting)) mg/dl POC Glucose 62 L* 61 L* 69 L* (70-99) mg/dl Hemoglobin A1c (4.5-5.6) % 02/08/24 02/08/24 Range/Units 08:08 11:27 WBC (4.8-10.8) K/ul RBC (4.20-5.40) M/uL Hgb (12.0-16.0) g/dl Hct (37.0-47.0) % RDW Std Deviation (36.4-46.3) fL Neut # (Auto) (1.40-6.50) K/uL [place] # (Auto) (0.11-0.59) K/uL Chloride (98-107) mmol/L Carbon Dioxide (21-32) mmol/L BUN (6-23) mg/dl Creatinine (0.6-1.2) mg/dl Glucose (70-99(Fasting)) mg/dl POC Glucose 105 H 137 H (70-99) mg/dl Hemoglobin A1c (4.5-5.6) % Diagnostic Findings Head CT 02/06/24 22:06 Exam(s): CT HEAD Without Contrast EXAM: CT Head Without Intravenous Contrast CLINICAL HISTORY: Reason for exam: dizzy, difficulty speaking. TECHNIQUE: Axial computed tomography images of the head/brain without intravenous contrast. CTDI is 37.42 mGy and DLP is 546.36 mGy-cm. Automated exposure control was utilized for the study. A dose lowering technique was utilized adhering to the principles of ALARA. COMPARISON: Prior brain MRI from December 09, 2023. FINDINGS: Brain: Unremarkable. No hemorrhage. No significant white matter disease. No edema. Ventricles: Mild ventriculomegaly. Bones/joints: Unremarkable. No acute fracture. Soft tissues: Unremarkable. Sinuses: Unremarkable as visualized. No acute sinusitis. Mastoid air cells: Unremarkable as visualized. No mastoid effusion. IMPRESSION: No evidence of acute intracranial pathology. Electronically signed by: Deborah Chand MD 02/07/24 02:36 AM Brain MRI 02/07/24 03:33 MR brain wo con HISTORY: 73 years-old Female confusion, ataxia, dysarthria, hx L cerebellar inf acutely altered mental status COMPARISON: Head CT 02/06/2024, brain MRI 06/08/2023. TECHNIQUE: Multiplanar multisequence MRI of the brain was obtained without IV contrast FINDINGS: Mildly motion degraded exam. No restricted diffusion. Midline structures appear unremarkable with partially empty sella. No acute intracranial hemorrhage, midline shift, abnormal extra-axial collection, hydrocephalus or intra-axial mass. Small chronic left inferior cerebellar lacunar infarct. Delusional changes with minimal T2/FLAIR hyperintense foci throughout the white matter suggestive of chronic microvascular ischemic disease. Cerebral venous sinuses and major arterial flow voids appear patent. The skull, orbits and soft tissues are unremarkable. Paranasal sinuses are clear. Prior bilateral lens repair. IMPRESSION: 1. No acute intracranial abnormality. No acute or subacute infarct. 2. Involutional changes with mild chronic microvascular ischemic disease. 3. Chronic left cerebellar lacunar infarct. ACT 112: Negative or not required by law. The above report was generated using voice recognition software. It may contain grammatical, syntax or spelling errors. Electronically signed by: Cornelio Oropeza M.D. 02/07/2024 2:09 PM Carotid Doppler Study 02/07/24 14:03 CAROTID ARTERY ULTRASOUND CLINICAL HISTORY: Stroke workup COMPARISON STUDY: Carotid ultrasound June 08, 2023. TECHNIQUE: Real-time, grayscale, and color Doppler sonography of the carotid and vertebral arteries was performed. Images were viewed in the transverse and longitudinal planes. FINDINGS: There is moderate atherosclerotic plaque. Velocity measurements are listed below . COMMON CAROTID PEAK SYSTOLIC VELOCITY (CM/S): RIGHT 165 LEFT 84 ICA PEAK SYSTOLIC VELOCITY (CM/S): RIGHT 147 LEFT 117 Systolic ratios between the internal to common carotid arteries were normal. Antegrade flow is seen in the vertebral arteries. The external carotid arteries are patent. IMPRESSION: Moderate atherosclerotic plaque without evidence for a hemodynamically significant stenosis. ACT 112: Negative or not required by law. Electronically signed by: Leonard Saxena M.D. 02/07/2024 3:26 PM PG Care Time/CCT Total # of Minutes Spent Total Time Spent with Patient: Total time spent is greater than 50% in coordination of care (as documented) at patient's floor/unit and/or counseling patient: Coding Level of Care Code 50578 SUB INP/OBS CARE 2/35MIN Diagnoses Confusion R41.0 Ataxia R27.0 Acute kidney injury superimposed on CKD N17.9; N18.9 Hyperkalemia, diminished renal excretion E87.5 Type II diabetes mellitus with renal manifestations E11.29 CKD stage 4 due to type 2 diabetes mellitus E11.22; N18.4 Hypertension I10 Hypercholesteremia E78.00 PAD (peripheral artery disease) I73.9
[2024-02-08] MEDS: MELATONIN 3 MG TAB PO PRN (23:46)
[2024-02-09 06:52] LABS: Basophils # (auto) 0.03 K/uL (0.00-0.20); Basophils % (auto) 0.4 %; Eosinophils # (auto) 0.14 K/uL (0.00-0.50); Eosinophils % (auto) 1.7 %; Hematocrit (blood only) 32.9 % (37.0-47.0); Hemoglobin 10.9 g/dl (12.0-16.0); Immature Granulocytes # (auto) 0.02 K/uL (0.01-0.20); Immature Granulocytes % (auto) 0.2 %; Lymphocytes # (auto) 1.37 K/uL (1.20-3.40); Mean Corpuscular Hemoglobin 31.1 pg (25.0-34.0); Mean Corpuscular Hgb Conc 33.1 g/dL (32.0-36.0); Mean Corpuscular Volume 93.7 fL (80.0-100.0); Mean Platelet Volume 10.3 fL (9.4-12.4); Monocytes # (auto) 0.51 K/uL (0.11-0.59); Monocytes % (auto) 6.3 %; Neutrophils # (auto) 6.01 K/uL (1.40-6.50); Neutrophils % (auto) 74.4 %; Platelet Count 135 K/uL (130-400); RDW Coefficient of Variation 13.6 % (11.5-14.5); RDW Standard Deviation 46.8 fL (36.4-46.3); Red Blood Count 3.51 M/uL (4.20-5.40); White Blood Count 8.08 K/ul (4.8-10.8)
[2024-02-09 07:13] VITALS: O2SAT 93
[2024-02-09 07:28] LABS: Albumin Level 3.9 gm/dl (3.4-5.0); BUN Creatinine Ratio 18.6 (10-20); Calcium 9.7 mg/dl (8.6-10.3); Creatinine Clr Calc Pharmacy 28.6 ml/min; Phosphorus 3.6 mg/dl (2.5-4.9); Potassium 5.4 mmol/L (3.5-5.1)
[2024-02-09] MEDS: lisinopril 10 MG TAB PO SCH (08:27)
--- NOTE | 2024-02-09 10:32 | Neurology Progress Note ---
Date of Service February 09, 2024 Assessment & Plan (1) Ataxia: (2) H/O: stroke: Plan 73-year-old female with a history of insulin-dependent diabetes mellitus, cigarette smoking, chronic left cerebellar infarct, presenting with subacute alteration in speech, listing sideways, ataxia. Patient does have a bilateral upper extremity intention tremor and dysdiadochokinesia, although much worse for the right upper limb. Patient's subacute presentation may be consistent with a small ischemic infarct, although her recent MRI was negative. Nonetheless, a small ischemic stroke involving the brainstem or cerebellar tracts can be missed. Would continue with patient's current medications, aspirin 81 mg/day, simvastatin 80 mg/day. Could consider the possibility of a subacute cerebellar degeneration as well. She does not have focal cerebellar atrophy on her brain MRI, however. Could consider the possibility of a paraneoplastic cerebellar degeneration. She is a cigarette smoker. Could consider obtaining a diagnostic CT of the chest with contrast. I will place an order for the Roe cerebellar degeneration paraneoplastic profile, [facility] test code [id number] Admission and Anticipated Discharge Date Admission Date: February 07, 2024 Subjective Follow-up regarding suspected stroke The patient continues to exhibit mild right hemiataxia on examination, her speech is clear, no headache or other complaint at this time. Brain MRI was negative for acute or subacute ischemic stroke. There is a chronic left cerebellar lacunar infarct. There is mild generalized atrophy, no focal cerebellar midbrain atrophy. There is mild chronic microvascular ischemic disease. No hydrocephalus. I did independently review these images. A carotid ultrasound revealed moderate atherosclerotic plaque, no hemodynamically significant stenosis, antegrade flow in the vertebral arteries. Results & Data Vital Signs (Past 12 Hours) Vital Signs Temp Pulse Pulse Resp BP BP Pulse Ox 02/09/24 09:02 56 L 02/09/24 07:12 37.1 C 58 L 16 132/57 L 93 02/09/24 02:31 37.0 C 61 18 120/47 L 94 02/08/24 22:36 37.1 C 59 L 18 153/56 H 94 O2 Del Method 02/09/24 09:02 02/09/24 07:12 Room Air 02/09/24 02:31 Room Air 02/08/24 22:36 Room Air Laboratory Results Hemoglobin A1c 8.1, vitamin B12 from this past August was 240 Exam (Neuro) Constitutional: well developed and well nourished; no acute distress Eyes: normal visual tobias by confrontation, PERRL, EOM intact bilaterally and + nystagmus (Patient had a few beats of gaze evoked nystagmus to the left) Neurologic: Oriented to:: Person, Place and Time Memory: Short Term Intact and Remote Intact Attention: Span Intact and Concentration Intact Speech Fluency: negative Dysarthria or Dysfluency Speech Aphasia: negative Aphasia Fund of Knowledge: Past History and Vocabulary Cranial Nerves: Normal II, III, IV, , V, VII, VIII, IX, X, XI and XII Motor Strength: Normal Lower Extremities and Normal Upper Extremities Motor Tone: Normal Lower Extremities and Normal Upper Extremities Muscle Bulk/Involuntary Movements: Intention Tremor (Right greater than left) Sensation: Light Touch Intact and Proprioception Intact Coordination: Dysdiadochokinesia and Finger-Nose Abnormal Coding Level of Care Code 05121 SUB INP/OBS CARE 3/50MIN Diagnoses Ataxia R27.0 H/O: stroke Z86.73 Time Spent (min) 60 Comment Total time includes patient contact, chart review, counseling, note preparation
[2024-02-09 10:58] VITALS: PULSE 58; RESP 18; TEMP 98.1
--- NOTE | 2024-02-09 12:20 | Discharge Summary ---
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 The patient was initially accompanied by a friend at bedside, who reported that for the past 2 to 3 days the patient had intermittent issues with being disoriented, and speech which did not make sense, and had difficulty with imbalance while walking. The patient herself is marginally able to contribute to her HPI and review of systems due to altered mentation, and confusion. Admission Exam Per Admitting Provider The patient is awake, confused, well developed and well nourished, normocephalic and atraumatic, lying in bed and in no acute distress. HEENT--PERRL, EOMI, mucous membranes and oropharynx moderately dry. Neck--supple. No JVD. No bruits. Thyroid normal, trachea midline, no adenopathy. Heart--normal S1 and S2. No murmurs, rubs or gallops. Lungs--clear bilaterally, no respiratory distress, no accessory muscle use. Abdomen--normal bowel sounds and soft. Nontender. Nondistended, no hernias or masses, no organomegaly. Extremities--no cyanosis or clubbing. No edema. There are good distal pulses b/l. Dermatologic--normal skin turgor, normal color, no abnormal lymph nodes, no rash. Neurologic--cranial nerves II through XII grossly intact. Rheumatologic--normal range of motion. Psychiatric--normal affect. Principal Diagnosis Metabolic encephalopathy, possibly very small subacute infarct not seen on MRI Acute kidney injury on CKD stage IV. Resolved Discharge Exam General: Awake, conversant, smiling Heart: S1, S2/regular rate and rhythm, no murmur rubs or gallops Lungs: Clear to auscultation bilaterally. Normal effort Abdomen: Soft/nontender/nondistended. No hepatosplenomegaly Extremities: No clubbing/cyanosis. No edema Behavior: Appropriate, cooperative Discharge Data Allergies Allergy/AdvReac Type Severity Reaction Status Date / Time lorazepam Allergy Unknown HAS NO Verified 01/31/24 16:16 EFFECT metformin Allergy Unknown Unknown Verified 01/31/24 16:16 metronidazole Allergy Unknown Unknown Verified 01/31/24 16:16 Sulfa (Sulfonamide Allergy Unknown HIVES Verified 01/31/24 16:16 Antibiotics) linagliptin [From Tradjenta] AdvReac arthralgia Verified 01/31/24 16:16 Consultations 02/07/24 01:56 ED Decision to Admit Stat 02/07/24 03:43 Consult Neurology Routine Ordered Studies 02/06/24 22:06 CT head/brain wo con Stat 02/07/24 03:33 MRI Brain [MR brain wo con] Routine 02/07/24 14:03 Carotid duplex [US carotid doppler BI] Routine Hospital Course (1) Confusion: (2) Ataxia: (3) Acute kidney injury superimposed on CKD: (4) Hyperkalemia, diminished renal excretion: (5) Type II diabetes mellitus with renal manifestations: (6) CKD stage 4 due to type 2 diabetes mellitus: (7) Hypertension: (8) Hypercholesteremia: (9) PAD (peripheral artery disease): Plan Confusion/ataxia/history of chronic left cerebellar lacunar infarct- Symptoms began 2 to 3 days prior to admission Contributing factors including but not limited to: New CVA, metabolic encephalopathy, dehydration, KAYLA on CKD, recurrent UTI CT scan of head without contrast shows no acute findings MRI from 06/08/2023 significant for chronic left cerebellar lacunar infarct MRI 02/06 showed no acute or subacute infarct BioFire testing negative Patient was rehydrated with IV fluids Neurology involved. Per neurology, patient most likely had a very small subacute infarct that was not picked up on the MRI. He initially had recommended dual antiplatelet agent as you may that she had a new stroke. However since the MRI is negative, I spoke to him on the phone and he recommended against dual antiplatelet agents. Discontinued the Plavix after s peaking to him. Neurology recommended Holter monitor. This has been arranged for. Smoking cessation has been emphasized Clinically the patient is back to her baseline Acute kidney injury superimposed on CKD stage IV/hyperkalemia/hypertension- Creatinine 2.53, with base 2.24. Creatinine is 1.9 today Potassium is slightly elevated at 5.4 again today 02/08 Responded to IV fluids Advised patient to hold lisinopril and Aldactone until seen by PCP Resume amlodipine at prior dose of 10 mg daily Leukocytosis No fever No cough No shortness of breath No recent steroid use Urinalysis negative Monitor CBC Likely stress-induced Resolved spontaneous Diabetes mellitus- Hypoglycemic episode during the hospital stay Reduce glargine to 20 units subcu twice daily Placed on Accu-Cheks with NovoLog SSI COPD- Continue routine inhalers Tobacco use disorder- Cessation counseling CODE STATUS: DNR/DNI Total Time Total Time Spent Total Time Spent (In Minutes): 35 Discharge Plan Discharge Items Patient Disposition: Home - Home Health Services Reason For Visit: CONFUSION, HYPERKALEMIA, KAYLA ON CKD Discharge Diagnosis: Metabolic encephalopathy, possibly very small subacute infarct not seen on MRI Acute kidney injury on CKD stage IV. Resolved Activity: As commented below Activity Comment: Per PT/OT recommendations Non-emergency contact: Primary Care Provider Call non-emergency contact if: you have any medication questions and your symptoms worsen Follow-up/Referrals: Elizabeth Love MD [Primary Care Provider] - 02/13/24 11:00 am (Hospital follow up scheduled for February 13, 2024 at 11:00am) Diet: Carb Consistent or DM2 and Heart Healthy Addtl Attending Provider Instructions: Advised to follow-up with PCP in 1 week Advised on smoking cessation Pending Studies at Discharge: No Stand-Alone Forms: [facility] [employer], Smoking Cessation Medications and DC Order Prescriptions: Continued (DME) blood-glucose meter [OneTouch Verio Flex meter] Misc See Rx Instructions .Route Qty: 1 0RF Rx Instructions: As directed (DME) insulin syringe-needle U-100 [BD Insulin Syringe Ultra-Fine] 0.5 mL 31 gauge x 5/16" syringe See Rx Instructions .ROUTE .MEDSUPPLY Qty: 400 1RF Rx Instructions: FOR INJECTION USE FOUR TIMES DAILY pantoprazole [Protonix] 40 mg tablet,delayed release (DR/EC) 40 mg PO DAILY Qty: 90 3RF Jardiance 25 mg tablet 25 mg PO QAM Qty: 90 3RF levothyroxine 112 mcg tablet 112 mcg PO DAILY Qty: 90 3RF simvastatin 80 mg tablet 80 mg PO DAILY Qty: 90 3RF (DME) CGM See Rx Instructions .Route .MEDSUPPLY Qty: 1 0RF Rx Instructions: As directed (Order sent to [facility]- Insurance will determine Dexcom or Free Style Wyatt) amlodipine 10 mg tablet 10 mg PO DAILY 90 Days Qty: 90 3RF quetiapine 25 mg tablet 25 mg PO DAILY Qty: 30 2RF Trelegy Ellipta 100-62.5-25 mcg blister with device 1 inh inhalation QAM Qty: 60 3RF nicotine 14 mg/24 hr patch 24 hour 1 patch transdermal DAILY Qty: 28 0RF Rx Instructions: [facility] pharmacy called reqs 14 mg strength as can't use ( 2 ) 7 mg patches (DME) OneTouch Verio test strips Strip See Rx Instructions .ROUTE .MEDSUPPLY Qty: 100 2RF Rx Instructions: test four times a day aspirin 81 mg capsule 81 mg PO DAILY Qty: 90 3RF (DME) lancets [OneTouch Delica Lancets] 30 gauge misc See Rx Instructions .ROUTE .MEDSUPPLY Qty: 100 11RF Rx Instructions: test three times daily propranolol 80 mg capsule,extended release 24hr 80 mg PO DAILY Qty: 30 3RF furosemide [Lasix] 20 mg tablet 20 mg PO DAILY PRN (Reason: weight gain, shortness of breath, edema) Qty: 30 3RF benzonatate 100 mg capsule See Rx Instructions .Route .COMPLEX Qty: 30 0RF Rx Instructions: take one to two tablets three times a day for cough (may make you sleepy) acetaminophen [Tylenol] 325 mg Tablet 325 mg PO HS PRN (Reason: Pain) alendronate [Fosamax] 70 mg tablet 70 mg PO WK Rx Instructions: Take 1 tablet per week with 8 oz of plain water, do not eat or drink anything else for 60 minutes after taking. sundays sertraline 100 mg tablet 50 mg PO QAM Qty: 90 3RF Changed insulin glargine [Lantus U-100 Insulin] 100 unit/mL solution 20 unit subcut BID Qty: 80 5RF Rx Instructions: fill history 07/31/23: 35 units bid Held spironolactone 25 mg tablet 25 mg PO DAILY Qty: 90 3RF Hold Instructions: Resume on 02/23/24. Hold until PCP clears lisinopril 10 mg tablet 10 mg PO DAILY Qty: 90 3RF Hold Instructions: Resume on 02/23/24. Resume once cleared by PCP Roverto/Other Patient Handouts: Managing Type 2 Diabetes Admission Data Admit Date/Time: 02/07/24 02:05 Attending Provider: Lucy Blount Admit Provider: Prasad Gordillo Primary Care Provider: Elizabeth Love Other Providers: Prasad Gordillo; Ethan Smallwood Other Interventions: Discharge Summary Assessment (RN) Last Done: 02/09/24 12:49
[2024-02-09 12:50] VITALS: BP 120/47
== END 2024-02-09 13:49 | disposition home health service (06) ==
LOC: ED 21:24 → 2S 21:24 → SUATTDRO 02-07 02:05 → 2S 02-07 04:35